=== PATIENT | female | born 1965 | race Caucasian/White ===

== ENCOUNTER 2024-07-06 20:59 | Emergency (ER) | payer MEDICARE, MEDICAID, SELFPAY ==
[2024-07-06 21:01] VITALS: BP 111/75
[2024-07-06 21:06] VITALS: BMI 19.7
--- NOTE | 2024-07-06 21:19 | ED.GENMED ---
History of Present Illness
General
Chief Complaint: Fall
Time Seen by Provider: 07/06/24 21:18
History of Present Illness
History of Present Illness:
HPI: The patient presents by ambulance from [facility] for evaluation after a fall. She states that she was in bed and fell however the details are somewhat unclear. She says that she just fell off the bed. She has a history of right-sided
weakness from stroke in 2016.
EXAM:
GENERAL: The patient appears chronically ill
CERVICAL SPINE: Mild midline c-spine tenderness; collar in place
HEAD: There is a stellate laceration with a total of 4 cm of laceration noted to the mid forehead, dried blood noted there
CHEST: No chest wall tenderness, normal heart sounds
LUNGS: Equal lung sounds, no respiratory distress
ABDOMEN: No abdominal tenderness, no peritoneal signs
EXTREMITIES: No tenderness
NEURO: Minimal strength with contracture noted to the right upper and right lower extremity, 4+ out of 5 strength to the left lower and left lower extremities
TIME OF INITIAL ENCOUNTER: 9:45 PM
NUMBER AND COMPLEXITY OF PROBLEMS ADDRESSED AT THE ENCOUNTER
� Chronic conditions affecting care: CVA, IBS, anemia, anxiety/depression
� Acute Exacerbation and/or Progression of Chronic Illness: This is an acute problem
� Differential Diagnosis includes: Intracranial hemorrhage, cervical spine fracture, facial laceration, minor head injury
AMOUNT AND/OR COMPLEXITY OF DATA TO BE REVIEWED AND ANALYZED
� I performed an independent evaluation of and my interpretation is:
EKG:
CT: CT head shows no acute abnormalities, small old left thalamic infarct was noted; no evidence of C-spine fracture
X-rays:
Laboratory Studies: White count 2.3, hemoglobin 11.8, platelets 87, chemistries relatively unremarkable
Other:
� Review of other/old records: No old records available for review in [employer] however I did review the records from [facility] which indicate she does have 'anemia and thrombocytopenia'
� Clinical information was obtained by an independent historian: EMS
� Prescriptions/Medications Considered but not given:
� Further testing considered but not performed:
RISK OF COMPLICATIONS AND/OR MORBIDITY OR MORTALITY OF PATIENT MANAGEMENT
� Social determinants of health affecting care: Resides at [facility]
� Discussion with other providers:
� Escalation of care including admission/observation vs risk of discharge considered: Given her prior history with somewhat of an unclear etiology, labs and CT imaging obtained. Review of notes from [facility] indicates that
she does have a history of anemia and thrombocytopenia. I did inform the patient of the low white count and indicated this on the discharge paperwork. She appears comfortable on reassessment at 10:30 PM
Phy Exam
Physical Exam
Physical Exam:
See HPI
Course
Orders/Labs/Results
Orders:
Orders
07/06/24 21:24
CT Cervical Spine W/o Iv Contr Urgent
Comment:
Reason For Exam: trauma midline tender
CT Head W/o Iv Contrast Urgent
Comment:
Reason For Exam: trauma
07/06/24 21:32
CMP [Comprehensive Metabolic Panel] Urgent
Complete Blood Count/With Diff Urgent
Abnormal Lab Results
07/06/24
21:32
WBC 2.3 L* 10^3/uL
(4.8-10.8)
RBC 3.67 L 10^6/uL
(4.20-5.40)
Hgb 11.8 L g/dL
(12.0-16.0)
Hct 34.6 L %
(37.0-47.0)
MCH 32.2 H pg
(27.0-31.0)
RDW 15.2 H %
(11.5-14.5)
Plt Count 87 L 10^3/uL
(130-400)
MPV 11.4 H fL
(7.4-10.4)
Absolute Neuts (auto) 1.3 L 10^3/uL
(1.4-6.5)
Absolute Lymphs (auto) 0.6 L 10^3/uL
(1.2-3.4)
Monocytes % 11.1 H %
(1.7-9.3)
Chloride 108 H mmol/L
(98-107)
Glucose 103 H mg/dl
(70-99)
AST 38 H U/L
(14-36)
Total Protein 6.1 L g/dl
(6.3-8.2)
Albumin 3.3 L g/dl
(3.5-5.0)
07/06/24 21:32
07/06/24 21:32
Vital Signs
Initial and Last Documented VS:
Initial Vital Signs
Temp Pulse Resp BP Pulse Ox
98.3 F 85 16 111/75 96
07/06/24 21:01 07/06/24 21:01 07/06/24 21:01 07/06/24 21:01 07/06/24 21:01
Last Documented Vital Signs
Temp Pulse Resp BP Pulse Ox
98.3 F 85 16 111/75 96
07/06/24 21:01 07/06/24 21:01 07/06/24 21:01 07/06/24 21:01 07/06/24 21:01
Procedures
Laceration Closure
Middle Forehead:
Status of Wound: clean
Description of Wound Edges: ragged and flap-well vascularized
Preparation: cleaned with saline
Anesthesia: 1% Lidocaine with epi
Revision/Debridement: routine- no revision
Wound exploration: explored to base- no FB
Type of Closure: single layer closure
Skin Closure Material: 5-0 prolene
Number of sutures: 6
*Critical Care Note
Total Time (30-74mins, 75-104mins- exclusive of procedures): Not Applicable
ED Attending Note
-
Portions of this chart may have been created with voice recognition software.� Occasional wrong word or��sound alike� substitutions may have occurred due to the inherent limitations of voice recognition software.
Discharge Plan
Departure
Patient Disposition: Home (Routine Discharge)
Date of Disposition: 07/06/24
Time of Disposition: 22:23
Patient with high blood pressure during this ER visit?: Yes
Discharge Problem:
Head injury
Instructions: Laceration
Prescriptions:
No Action
acetaminophen 325 mg Tablet
650 mg PO Q6HPRN PRN (Reason: moderate pain/temp>100.4)
thiamine HCl (vitamin B1) 100 mg Tablet
100 mg PO DAILY
magnesium hydroxide [Milk of Magnesia] 400 mg/5 mL Suspension
30 ml PO DAILYPRN PRN (Reason: constipation)
ascorbic acid (vitamin C) 500 mg Tablet
500 mg PO DAILY
amitriptyline 10 mg Tablet
10 mg PO QPM
bisacodyl [Dulcolax (bisacodyl)] 10 mg Suppository
10 mg [place] DAILYPRN PRN (Reason: if mom is ineffective)
sodium phosphates 19-7 gram/118 mL Enema
118 ml [place] DAILYPRN PRN (Reason: if dulcolax is ineffective)
folic acid 1 mg Tablet
1 mg PO DAILY
mirtazapine [Remeron] 15 mg Tablet
7.5 mg PO HS
zolpidem [Ambien] 10 mg Tablet
10 mg PO HS
duloxetine 60 mg Capsule,Delayed Release(Dr/Ec)
60 mg PO DAILY
lactulose [Enulose] 10 gram/15 mL Solution
30 ml PO DAILYPRN PRN (Reason: constipation)
calcium carbonate-vitamin D3 [Calcium 600 + D(3)] 600 mg-10 mcg (400 unit) Tablet
1 tab PO BID
Xifaxan 550 mg Tablet
550 mg PO BID
magnesium oxide 400 mg magnesium Tablet
400 mg PO BID
Activity Restrictions/Additional Instructions:
I recommend that the stitches be removed by your doctor or nurse at your facility in approximately 5 to 7 days. Return here if worse. Of note your white blood cell count is low at 2.3. Your hemoglobin is 11.8 and platelet count is 87. In review
of records from [facility], it indicates that you do have low platelets and anemia. I recommend that you follow with your doctor regarding the low white blood cell count. CAT scan of the brain and cervical spine showed no sign of injury.
Return here
Interventions
Interventions:
*General Assessment Last Done: 07/06/24 21:06
*Neglect/Abuse Screening Last Done: 07/06/24 21:06
*ED COVID-19 Vaccine History Last Done: 07/06/24 21:06
ED-Musculoskeletal Assessment Last Done: 07/06/24 21:06
ED- Neurological Assessment Last Done: 07/06/24 21:06
ED-Skin Assessment Last Done: 07/06/24 21:06
Discharge Date and Time
Print Language: LUXEMBOURGISH
[2024-07-06 21:53] LABS: ALT (SGPT) 18 U/L (0-35); AST (SGOT) 38 U/L (14-36); Albumin 3.3 g/dl (3.5-5.0); Alkaline Phosphatase 54 U/L (38-126); Blood Urea Nitrogen 14 mg/dl (7-17); Calcium 9.2 mg/dl (8.4-10.2); Carbon Dioxide 24 mmol/L (22-30); Chloride 108 mmol/L (98-107); Estimated Creatinine Clearance 76 ml/min; Glucose 103 mg/dl (70-99); Potassium 4.1 mmol/L (3.5-5.1); Sodium 137 mmol/L (135-145); Total Protein 6.1 g/dl (6.3-8.2); eGFR > 60.00
[2024-07-06 21:56] LABS: % Basophils 0.4 % (0-2); % Eosinophils 2.7 % (0-6); % Immature Granulocytes 0.4 % (0-0.5); % Lymphocytes 27.1 % (20.5-51.1); % Monocytes 11.1 % (1.7-9.3); % Neutrophils 58.3 % (42.2-75.2); Absolute Eosinophils 0.1 10^3/uL (0-0.7); Absolute Lymphocytes 0.6 10^3/uL (1.2-3.4); Absolute Monocytes 0.3 10^3/uL (0.1-0.6); Absolute Neutrophils 1.3 10^3/uL (1.4-6.5); Hematocrit 34.6 % (37.0-47.0); Hemoglobin 11.8 g/dL (12.0-16.0); Mean Corp Hgb Conc. 34.1 g/dL (33.0-37.0); Mean Corpuscular Hgb 32.2 pg (27.0-31.0); Mean Corpuscular Volume 94.3 fL (81.0-99.0); Mean Platelet Volume 11.4 fL (7.4-10.4); Nucleated Red Blood Cells % 0 %; Platelet Count 87 10^3/uL (130-400); Red Blood Cell Count 3.67 10^6/uL (4.20-5.40); Red Cell Dist. Width 15.2 % (11.5-14.5); White Blood Cell Count 2.3 10^3/uL (4.8-10.8)
[2024-07-07 01:10] VITALS: BP 130/78
== END 2024-07-07 01:33 | disposition home or self-care (01) ==
LOC: EMR 20:59
PROVIDERS: EMERGENCY PHYSICIAN Emergency Medicine; FAMILY PHYSICIAN Internal Medicine
DX: S09.90XA Unspecified injury of head, initial encounter (principal); S01.81XA Laceration without foreign body of other part of head, initial encounter; W06.XXXA Fall from bed, initial encounter; Z86.73 Personal history of transient ischemic attack (TIA), and cerebral infarction without residual deficits
CPT/HCPCS: 99284; 12011; 70450; 72125; 80053; 85025

== ENCOUNTER 2024-09-08 21:20 | Inpatient (IN) | payer MEDICARE, OTHER, SELFPAY ==
[2024-09-08] VITALS (12 sets, daily range): BP systolic 130–164; BP diastolic 85–104
[2024-09-08 13:46] LABS: Glucose - Point of Care 97 mg/dl (70-99)
[2024-09-08 14:42] LABS: ALT (SGPT) 21 U/L (0-35); AST (SGOT) 32 U/L (14-36); Albumin 3.4 g/dl (3.5-5.0); Alkaline Phosphatase 50 U/L (38-126); Blood Urea Nitrogen 20 mg/dl (7-17); Calcium 9.2 mg/dl (8.4-10.2); Carbon Dioxide 25 mmol/L (22-30); Chloride 111 mmol/L (98-107); Glucose 93 mg/dl (70-99); Potassium 4.7 mmol/L (3.5-5.1); Sodium 144 mmol/L (135-145); eGFR > 60.00
[2024-09-08 14:48] LABS: % Eosinophils 1.7 % (0-6); % Lymphocytes 20.4 % (20.5-51.1); % Monocytes 10.5 % (1.7-9.3); % Neutrophils 67.4 % (42.2-75.2); Absolute Lymphocytes 0.4 10^3/uL (1.2-3.4); Absolute Monocytes 0.2 10^3/uL (0.1-0.6); Absolute Neutrophils 1.2 10^3/uL (1.4-6.5); Hematocrit 32.1 % (37.0-47.0); Hemoglobin 10.7 g/dL (12.0-16.0); Mean Corp Hgb Conc. 33.3 g/dL (33.0-37.0); Mean Corpuscular Hgb 31.2 pg (27.0-31.0); Mean Corpuscular Volume 93.6 fL (81.0-99.0); Mean Platelet Volume 11.6 fL (7.4-10.4); Nucleated Red Blood Cells % 0 %; Platelet Count 65 10^3/uL (130-400); Red Blood Cell Count 3.43 10^6/uL (4.20-5.40); Red Cell Dist. Width 15.8 % (11.5-14.5); White Blood Cell Count 1.8 10^3/uL (4.8-10.8)
[2024-09-08] MEDS: NSS 1000 IV (15:25)
[2024-09-08 16:08] LABS: Urine Albumin Trace (Neg - Trace); Urine Bilirubin Negative (Negative); Urine Character Slightly Cloudy (Clear); Urine Color Yellow; Urine Glucose Negative (Negative); Urine Ketone Negative (Negative); Urine Leukocyte Trace (Negative); Urine Nitrite Negative (Negative); Urine Occult Blood Negative (Negative); Urine Specific Gravity 1.015 (<1.030); Urine Urobilinogen Negative (Neg - 1+)
[2024-09-08 16:45] LABS: Urine Amorphous Seen; Urine Bacteria Few (Negative)
[2024-09-08] MEDS: NSS 500 IV (18:34)
--- NOTE | 2024-09-08 18:50 | ED.GENMED ---
History of Present Illness
General
Chief Complaint: Change in Mental Status
Source: records, family and alf
Time Seen by Provider: 09/08/24 14:32
History of Present Illness
History of Present Illness:
59-year-old female history of right hemiplegia but apparently normally very alert was found this morning very lethargic with a change in mental status. She normally would have been up but was awoken at 9 AM in this condition. Was fine when she
went to bed last night. No other history available. No new meds as far as we know
Review of Systems
Review of Systems
Unable to obtain full review of systems at this time due to: due to acuity
All Other Systems: Not applicable
Phy Exam
Physical Exam
Physical Exam:
GENERAL: Very lethargic. Will make eye contact. Does not follow commands. Chronically ill-appearing
EYE: Orbits normal.
NECK: Supple
CARDIAC: Regular rate and rhythm without any obvious murmurs.
LUNGS: Clear breath sounds,normal
ABDOMEN: Soft, without focal tenderness or distention
NEUROLOGICAL: Will respond to pain. Does not follow commands. Significant old right hemiplegia.
SKIN: Warm and dry, no rash or lesion, no discoloration, skin intact.
MUSCULOSKELETAL: Right-sided contractures right arm and right leg
PSYCH: Normal and appropriate interaction.
Course
Orders/Labs/Results
Orders:
Orders
09/08/24 14:08
Complete Blood Count/With Diff Urgent
Comprehensive Metabolic Panel Urgent
09/08/24 14:33
Electrocardiogram (*1) Stat
Reason for Study: Other
Other Reason for Exam: neuro symptoms
Cardiac Monitoring- Treatment ONCE
EKG- Treatment ONCE
IV Insert/Care/Rem.- Treatment PRN
Pulse Ox/cont/shift [RESP] Stat
Quantity: 1
09/08/24 14:48
IV Insert/Care/Rem.- Treatment PRN
0.9% Sodium Chloride 1000 ml [Nss] 1,000 ml IV BOLUS
09/08/24 14:59
CT Head W/o Iv Contrast Urgent
Comment:
Reason For Exam: Change in mental status
09/08/24 15:30
Urinalysis Reflex To Culture Urgent
Date Specimen was Collected: 09/08/24
Time Specimen was Collected: 15:24
Urine Microscopic Reflex Cult Urgent
09/08/24 18:30
0.9% Sodium Chloride 500 ml [Nss] 500 ml IV BOLUS
Abnormal Lab Results
09/08/24 09/08/24
14:08 15:30
WBC 1.8 L* 10^3/uL
(4.8-10.8)
RBC 3.43 L 10^6/uL
(4.20-5.40)
Hgb 10.7 L g/dL
(12.0-16.0)
Hct 32.1 L %
(37.0-47.0)
MCH 31.2 H pg
(27.0-31.0)
RDW 15.8 H %
(11.5-14.5)
Plt Count 65 L 10^3/uL
(130-400)
MPV 11.6 H fL
(7.4-10.4)
Absolute Neuts (auto) 1.2 L 10^3/uL
(1.4-6.5)
Absolute Lymphs (auto) 0.4 L 10^3/uL
(1.2-3.4)
Lymphocytes % 20.4 L %
(20.5-51.1)
Monocytes % 10.5 H %
(1.7-9.3)
Chloride 111 H mmol/L
(98-107)
BUN 20 H mg/dl
(7-17)
Total Protein 6.0 L g/dl
(6.3-8.2)
Albumin 3.4 L g/dl
(3.5-5.0)
Leukocyte Esterase Rfl Trace A
(Negative)
Urine Bacteria (Reflex) Few A
(Negative)
09/08/24 14:08
09/08/24 14:08
Vital Signs
Initial and Last Documented VS:
Initial Vital Signs
Pulse Resp Pulse Ox
106 19 97
09/08/24 13:44 09/08/24 13:44 09/08/24 13:44
Last Documented Vital Signs
Temp Pulse Resp BP Pulse Ox
99.1 F 91 18 159/87 97
09/08/24 15:30 09/08/24 19:00 09/08/24 19:00 09/08/24 19:03 09/08/24 19:00
MDM/Problems Addressed
Differential Diagnosis Includes:
Patient with change in mental status at some point overnight. Vital signs of remained stable throughout the day. Possible etiologies would be new CVA. Clearly out of the window of thrombolytics. Atypical seizures, medications. Family updated
multiple times.
*Radiology
Radiology exam reviewed: radiology read reviewed (No acute findings)
*Pulse Oximetry
Patient hypoxic: no
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
Rate: normal
Interpretation: normal
Heart Rate: 77
Rhythm: sinus
*Critical Care Note
Total Time (30-74mins, 75-104mins- exclusive of procedures): 40
Update Note
Update Note:
Patient is remained unchanged. Still very lethargic. This is clearly not her baseline. Cussed with patient's niece and discussed with the nursing facility who are in agreement that this is a change. Per the nursing facility patient apparently
did not get up for breakfast and was awoken at 9 AM like this. So what ever mental status change occurred it occurred overnight.
ED Attending Note
-
Portions of this chart may have been created with voice recognition software.� Occasional wrong word or��sound alike� substitutions may have occurred due to the inherent limitations of voice recognition software.
Discharge Plan
Departure
Patient Disposition: Admit
Date of Disposition: 09/08/24
Time of Disposition: 18:51
Presentation/result/management discussed w/ accepting MD/DO: Hospitalist
Discharge Problem:
Lethargy/change in mental status
Prescriptions:
No Action
acetaminophen 325 mg Tablet
650 mg PO Q6HPRN PRN (Reason: moderate pain/temp>100.4)
thiamine HCl (vitamin B1) 100 mg Tablet
100 mg PO DAILY
magnesium hydroxide [Milk of Magnesia] 400 mg/5 mL Suspension
30 ml PO DAILYPRN PRN (Reason: constipation)
ascorbic acid (vitamin C) 500 mg Tablet
500 mg PO DAILY
amitriptyline 10 mg Tablet
10 mg PO QPM
bisacodyl [Dulcolax (bisacodyl)] 10 mg Suppository
10 mg [place] DAILYPRN PRN (Reason: if mom is ineffective)
sodium phosphates 19-7 gram/118 mL Enema
118 ml OR DAILYPRN PRN (Reason: if dulcolax is ineffective)
folic acid 1 mg Tablet
1 mg PO DAILY
mirtazapine [Remeron] 15 mg Tablet
7.5 mg PO HS
zolpidem [Ambien] 10 mg Tablet
10 mg PO HS
duloxetine 60 mg Capsule,Delayed Release(Dr/Ec)
60 mg PO DAILY
lactulose [Enulose] 10 gram/15 mL Solution
30 ml PO DAILYPRN PRN (Reason: constipation)
calcium carbonate-vitamin D3 [Calcium 600 + D(3)] 600 mg-10 mcg (400 unit) Tablet
1 tab PO BID
Xifaxan 550 mg Tablet
550 mg PO BID
magnesium oxide 400 mg magnesium Tablet
400 mg PO BID
Referrals:
Frankie,Ryan I., DO [Family Provider] -
Interventions
Interventions:
*Risk Screen - Suicide Last Done: 09/08/24 13:53
*General Assessment Last Done: 09/08/24 13:53
*Neglect/Abuse Screening Last Done: 09/08/24 13:53
*ED COVID-19 Vaccine History Last Done: 09/08/24 13:52
ED- Neurological Assessment Last Done: 09/08/24 13:55
ED Swallowing Screen Last Done: 09/08/24 13:56
Discharge Date and Time
Print Language: AMHARIC
--- NOTE | 2024-09-08 20:46 | HPS.HSE ---
Family Physician
-
Family Physician: Ryan David
Chief Complaint
-
Lethargy and altered mental status
History of Present Illness
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
[facility] with acute development of lethargy and altered mental status.
Patient unable to provide any history. She was awake but was not communicative. This was a different from a presentation in June when she had a fall but was able to related history of the fall to the ED physician. This time she was not saying
anything. Per [facility] records stated that she was in usual state of health the previous evening and then she arose this morning with severe lethargy and noncommunicating. She is usually quite alert at baseline per [facility]. I contacted
the [facility] but there was no one available available to provide additional history. Also contacted the next of kin with the brother and also not available to provide history.
In the ED she was afebrile with a temp of 99.1, blood pressure 159/87 pulse 91 oxygen saturation was 91%. ECG showed normal sinus rhythm at a rate of 88 with a left bundle branch block without any known prior ECG. Head CT shows no acute
intracranial process. Labs are notable for a leukopenia with a white count of 1.8, platelet count of 65 and hemoglobin of 10.7. Chemistries were within normal limits. LFTs within normal limits. UA was unremarkable with trace leukocyte esterase.
Medical History
Past Medical History
Past Medical History: Reports Other
Additional Past Medical History:
CVA with hemiplegia and hemiparesis, aphasia, dysphagia,
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
Major depressive disorder
Pancytopenia
Anxiety
Past Surgical History: [facility]
Social History
Tobacco: Non-smoker
Alcohol: Former
Drug: None
Personal: Single
Living: Halfway
Employment: Disabled
Family History
Family History: Not pertinent
Allergies / Home Medications
Allergies reflects when Allergies were last updated in [facility].
Home Medications with original date entered in [facility]
Allergy/Medication List:
Allergies
Allergy/AdvReac Type Severity Reaction Status Date / Time
No Known Allergies Allergy Verified 07/06/24 21:05
Home Medications
acetaminophen 325 mg tablet 650 mg PO Q6HPRN PRN moderate pain/temp>100.4 07/06/24
amitriptyline 10 mg tablet 10 mg PO QPM 07/06/24
ascorbic acid (vitamin C) 500 mg tablet 500 mg PO DAILY 07/06/24
bisacodyl 10 mg rectal suppository (Dulcolax (bisacodyl)) 10 mg [place] DAILYPRN PRN if mom is ineffective 07/06/24
calcium 600 mg (as carbonate)-vitamin D3 10 mcg (400 unit) tablet (Calcium 600 + D(3)) 1 tab PO BID 07/06/24
duloxetine 60 mg capsule,delayed release 60 mg PO DAILY 07/06/24
folic acid 1 mg tablet 1 mg PO DAILY 07/06/24
lactulose 10 gram/15 mL oral solution (Enulose) 30 ml PO DAILYPRN PRN constipation 07/06/24
magnesium hydroxide 400 mg/5 mL oral suspension (Milk of Magnesia) 30 ml PO DAILYPRN PRN constipation 07/06/24
magnesium oxide 400 mg PO BID 07/06/24
mirtazapine 15 mg tablet (Remeron) 7.5 mg PO HS 07/06/24
rifaximin 550 mg tablet (Xifaxan) 550 mg PO BID 07/06/24
sodium phosphates 19 gram-7 gram/118 mL enema 118 ml [place] DAILYPRN PRN if dulcolax is ineffective 07/06/24
thiamine HCl (vitamin B1) 100 mg tablet 100 mg PO DAILY 07/06/24
zolpidem 10 mg tablet (Ambien) 10 mg PO HS 07/06/24
Review of Systems
-
Unable to obtain full review of systems at this time due to: Patient Non-verbal
Physical Exam
Vital Signs
Vital Signs
Temp Pulse Resp BP Pulse Ox
99.1 F 91 18 159/87 97
09/08/24 15:30 09/08/24 19:00 09/08/24 19:00 09/08/24 19:03 09/08/24 19:00
Physical Exam
General: No Apparent Distress and Appears Chronically Ill
HEENT: Anicteric, Moist mucous membranes, Atraumatic and PERRLA
Respiratory: Clear
Cardiac: S1/S2 and Regular Rhythm
Breast: Deferred by me
GI: Soft, Non Tender, Non Distended, No Hepatosplenomegaly and Other (reduced bowel sounds, no rebound or guarding)
Rectal: Deferred by Provider
Genito-urinary: Deferred by me
Musculoskeletal: No Clubbing, No Cyanosis and No Edema
Skin: Warm
Neuro: Awake, Facial Droop, Tremors and Other (non vocal. left hemiparesis)
Hematologic/Lymphatic: No Lymphadenopathy
Laboratory Results
-
09/08/24 14:08
09/08/24 14:08
Laboratory Results
Total Bilirubin 1.0 mg/dl (0.2-1.3) 09/08/24 14:08
AST 32 U/L (14-36) 09/08/24 14:08
ALT 21 U/L (0-35) 09/08/24 14:08
Alkaline Phosphatase 50 U/L (38-126) 09/08/24 14:08
Data Reviewed
-
CT Scan: Report Reviewed by me
Medical Tests (Nuc Med, Echo, EKG etc): Image Personally Visualized and interpreted
Lab Data: Labs Reviewed by me
Old Records: Reviewed
Impression/Plan
-
IMPRESSION:
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
notable for lack of interactions and local complications. Unfortunately history has been scanned the patient unable to provide history and ancillary sources not available at this time. The patient is nontoxic appearing. She is awake. She seems
aware of voice and visual presents in the room. She however does not follow commands. She does not attempt to talk. His labs are notable for leukopenia and thrombocytopenia which were previously observed in June. Electrolytes LFTs were normal.
UA is essentially bland. CT of the head shows no acute intracranial process. Patient has no prior history of seizures.
PLAN:
1. Acute altered mental status - Cannot rule out stroke or toxic metabolic encephalopathy. No obvious infection on immediate labs.
- admit to telemetry
- NPO for now
- neurochecks q 6
- further infectious w/u with influenza, covid testing
- check ammonia level given h/o cirrhosis
- will attempt lactulose enema if ammonia elevated as poorly tolerant of po, continue rifaximin as tolerated
- blood cultures, ruq u/s to eval for ascites
- iv fluids with d5 nS + IV thiamine
- holding remeron/zolpidem/trazodone/
2. 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 No h/o ascites and no obvious ascites on exam
- lactulose pr for now
- rifaximin if tolerating po
3. Pancytopenia - Known to be neutropenic and thrombocytopenic. Labs unchanged from prior
- infectious w/u as above
[2024-09-08 21:49] LABS: Ammonia 143 umol/L (9-30)
[2024-09-08 21:57] LABS: COVID-19 Antigen Negative (Negative)
[2024-09-09] VITALS (8 sets, daily range): BP systolic 104–141; BP diastolic 62–89; BMI 19.8
[2024-09-09] MEDS: LACTULOSE ENEMA 300 ML RECTAL ×2 (01:19→09:42)
[2024-09-09] MEDS: D5LR 1000 IV ×2 (01:53→17:28)
--- NOTE | 2024-09-09 03:00 | PTCARENOTE ---
Lactulose enema given @ 0119; patient tolerated; pt produced a large liquid bowel movement.
[2024-09-09 07:29] LABS: Ammonia 41 umol/L (9-30)
[2024-09-09 07:33] LABS: Hematocrit 27.3 % (37.0-47.0); Hemoglobin 9.4 g/dL (12.0-16.0); Mean Corp Hgb Conc. 34.4 g/dL (33.0-37.0); Mean Corpuscular Hgb 31.6 pg (27.0-31.0); Mean Corpuscular Volume 91.9 fL (81.0-99.0); Mean Platelet Volume 10.8 fL (7.4-10.4); Platelet Count 57 10^3/uL (130-400); Red Blood Cell Count 2.97 10^6/uL (4.20-5.40); Red Cell Dist. Width 15.5 % (11.5-14.5); White Blood Cell Count 2.1 10^3/uL (4.8-10.8)
[2024-09-09 07:51] LABS: Blood Urea Nitrogen 14 mg/dl (7-17); Calcium 8.6 mg/dl (8.4-10.2); Carbon Dioxide 21 mmol/L (22-30); Chloride 111 mmol/L (98-107); Estimated Creatinine Clearance 89 ml/min; Glucose 83 mg/dl (70-99); HDL Cholesterol 55 mg/dl; LDL Cholesterol, Calculated 73 mg/dl; Magnesium 1.7 mg/dl (1.6-2.3); Potassium 3.7 mmol/L (3.5-5.1); Sodium 143 mmol/L (135-145); Total Cholesterol 138 mg/dl (50-199); Triglyceride 53 mg/dl (10-149); Very Low Density Lipoprotein 10 mg/dl (0-30); eGFR > 60.00
--- NOTE | 2024-09-09 08:35 | W.PN.HOSP.TC ---
Addendum entered and electronically signed by Reinier Espino MD 09/09/24 13:10:
Presenting with sudden onset lethargy and altered mental status. Known history of CVA with left-sided paresis and hemiplegia with aphasia and dysphagia. History of alcohol induced cirrhosis.
Unable to obtain reliable ROS
Imaging
CT Brain
IMPRESSION:
No acute intracranial abnormality noted.
Abd ultrasound
IMPRESSION:
No sonographic evidence of abdominal ascites.
Physical Exam
NAD, resting comfortably in bed, right arm contractures
Scleral anicteric
Dry mucous membranes
No JVD
CTA bilateral
Normal S1-S2
Soft nontender nondistended bowel sounds active
No peripheral pitting edema
Awake, whispering, inchorent speech
Assessment and Plan
TME - acute, most likely hepatic encephalopathy, cannot accurently assess for asgterixs due to UE contractures, not followign commands wells. Therefore, at this time with r/o other potential causes
-MRI Brain
-TSH, b12/folate, RPR, HIV
-Neuro Consult
Decompensated cirrhosis in the setting of hepatic encephalopathy
-Lactulose rectal, until able to toelrate PO, then switch to 20mg bid with 3-4BM dialy
Pancytopenia, likely related to cirrhosis
-Outpt follow up
Original Note:
Today's Communication/Plan
-
Continue aspiration precautions. Allow permissive hypertension to avoid cerebral hypoperfusion. Check TSH, free T4, B12, UA tox, and creatinine kinase. Continue thiamine IV. Brain MRI without gadolinium ordered. Avoid medications that would
lower seizure threshold.
Assessment / Plan
Assessment / Plan
Impression/plan:
-Altered mental status secondary to stroke or toxic metabolic encephalopathy:
Patient admitted to telemetry
Patient remains n.p.o. for now
Neurochecks every 6 hours
Influenza and COVID-negative
Lactulose enema conducted as the patient is n.p.o. and poorly tolerant of oral intake.
Continue rifaximin as tolerated
Blood cultures sent
Right upper quadrant ultrasound to evaluate for ascites
IV fluids with D5 normal saline
IV thiamine
Appreciate neurology consult -they advise avoiding cerebral hypoperfusion so we will allow permissive hypertension
Appreciate gastroenterology consult -they recommend that if the patient passes [employer] CLEANER eval resume Xifaxan twice daily, then lactulose daily which already was part of her home routine -if not patient will need to go back to a lactulose enema daily.
Ultrasound was negative for ascites so spontaneous bacterial peritonitis would not be a factor in change in mental status. There was also no signs of GI bleed.
Holding Remeron, zolpidem, trazodone -do not want to lower seizure threshold
Brain MRI without gadolinium ordered
Check TSH, free T4, vitamin B12, UA toxicity, and creatinine kinase
-Cirrhosis secondary to alcohol use:
No history of ascites and no obvious ascites on physical exam
Abdominal ultrasound conducted on 09/09/2024 showed no sonographic evidence of abdominal ascites
Lactulose enema given
Rifaximin if tolerating oral intake
-Pancytopenia:
Possibly secondary to anemia of chronic disease
Known to be neutropenic and thrombocytopenic
Monitor infectious workup
WBCs low at 2.1, hemoglobin 9.4, RBCs at 2.97, platelets at 57 on 09/09/2024
DVT prophylaxis: Heparin subcu
DNR STATUS
Anticipated Discharge: > 48 hours
Subjective/Interval History
-
Date of Service: September 09, 2024
Met with patient at the bedside. She is in a confused state and unable to articulate where she is but she is able to state her name. She is unable to follow directions or commands. She does not appear to be in acute distress. Resting comfortably
in bed
Objective Data
-
Labs:
Laboratory Results
09/09/24
06:59
WBC 2.1 L*
Hgb 9.4 L
Hct 27.3 L
Plt Count 57 L
Sodium 143
Potassium 3.7
Chloride 111 H
Carbon Dioxide 21 L
BUN 14
Creatinine 0.6
Glucose 83
Calcium 8.6
Vital Signs:
Vital Signs
Temp Pulse Resp BP Pulse Ox
97.3 F 94 16 130/81 96
09/09/24 03:49 09/09/24 03:49 09/09/24 03:49 09/09/24 03:49 09/09/24 03:49
I&O
09/08/24 09/09/24 09/10/24
06:59 06:59 06:59
Intake Total 0 / 0
Balance 0 / 0
Review of Systems
-
Unable to obtain full review of systems at this time due to: Other (Patient confused)
History Source: Patient
Psych: Reports Other (Confusion)
Physical Exam
-
General: No Apparent Distress and Other (Somnolent)
HEENT: Normocephalic
Respiratory: Clear to Auscultation
Cardiac: Regular Rhythm and S1/S2
Breast: Deferred by me
GI: Soft, Nondistended and Tender
Rectal: Deferred by Provider
Genito-urinary: Deferred by me
Musculoskeletal: No Clubbing, No Cyanosis and No Edema
Skin: Warm and Dry
Neuro: Awake, Alert, Oriented and AO x 3
Psych: Calm
[2024-09-09] MEDS: HEPARIN 5000 UNITS SC ×2 (09:37→20:29)
[2024-09-09] MEDS: NSS (PRESERVATIVE FREE) 10 ML IV (09:39)
[2024-09-09] MEDS: PROTONIX IV 40 MG IV (09:39)
[2024-09-09] MEDS: XIFAXAN 550 MG PO ×2 (09:40→20:29)
[2024-09-09] MEDS: THIAMINE INJECTION 100 MG IV (09:40)
[2024-09-09] MEDS: FLUSH (NSS) 2 FLUSH IV (09:42)
--- NOTE | 2024-09-09 09:51 | CON.NEURO ---
Consultation
Order
Date of Consultation: 09/09/24
Requesting Provider: Bre Loera MD
Reason for Consult: Aphasia
CC: none
HPI: This is a 59-year-old woman who presented to [facility] on September 08, 2024 with aphasia. According to EMR patient is a shelter resident and can verbalize her needs.
ER VS: 157/91,106, 91% on RA, afebrile.
EKG: NSR, LBBB, QTc Int : 505 ms
PDMP: Zolpidem Tartrate 5 Mg�15 tabs filled in on 09/06/2024, 30 tabs filled in on 07/10/2024.
Labs: ammonia�143-41, WBCs�1.8, hemoglobin�10.7, platelets�65, absolute lymphocyte count�0.4, normal sodium, creatinine, glucose, magnesium�1.7, unremarkable urinalysis, negative SARS-cov2
CT head-chronic left thalamic infarct.
PMH: L thalamic stroke, hepatic cirrhosis, pancytopenia, insomnia, dysphagia, osteoporosis, BMI 19, MDD, [place],
PSH: Unknown
SH: Unknown
FH: Unknown
All:NKDA
ROS: Positive for aphasia, dysphagia, lethargy.
General: Well developed. In no acute distress.
Cardio: Regular rate and rhythm without murmur. Extremities are without cyanosis or edema.
Neuro:
Mental Status: Attends briefly. Does not follow requests. No verbal output.
CN: resists pupillary exam. Orthophoric primary gaze no facial asymmetry, hearing is preserved.
Motor: Spastic right Julian plegia. Flaccid left arm plegia.
Reflexes: Limited exam
Sensory: Grimaces to noxious stimuli
Coordination: No tremors, clonic movements.
Gait: deferred
Assessment and Plan:
I. Multifactorial encephalopathy (vascular, metabolic(hepatic))
II. History of left thalamic stroke
III. Pancytopenia
-Aspiration precautions.
-Avoid cerebral hypoperfusion, BEAMSTER suppressants and anticholinergic medications.
-please check TSH, free T4, vit B12, ua tox, CK
-Continue Thiamine 100mg QD IV
-Avoid medications, known to lower seizure threshold.
-Brain MRI wo [place]
-Will obtain collateral history from patient's family regarding cognitive baseline. Left a message for patient's brother Afia Cruz at [phone] with request to return my call.
-DVT prophylaxis.
I personally reviewed all radiology and labs along with past medical records pertinent to current medical problems. Total time spent in patient care is 60 minutes.
Thank you for allowing us to participate in the care of this patient. We will continue to follow. Please do not hesitate to contact us with any questions or concerns.
Subjective/Objective
Subjective Data
Date of Service: September 09, 2024
Objective Data
Vital Signs
Temp Pulse Resp BP Pulse Ox
36.5 C 89 18 135/85 96
09/09/24 08:36 09/09/24 08:36 09/09/24 08:36 09/09/24 08:36 09/09/24 08:36
Lab Results
09/09/24 06:59
09/09/24 06:59
Sodium 143 mmol/L (135-145) 09/09/24 06:59
Potassium 3.7 mmol/L (3.5-5.1) 09/09/24 06:59
BUN 14 mg/dl (7-17) 09/09/24 06:59
Glucose 83 mg/dl (70-99) 09/09/24 06:59
Calcium 8.6 mg/dl (8.4-10.2) 09/09/24 06:59
LDL Cholesterol, Calc 73 mg/dl 09/09/24 06:59
Patient Allergies
No Known Allergies Allergy (Verified 07/06/24 21:05)
Medications
-
Active Medications
Generic Name Dose Route Start Last Admin
Trade Name Freq PRN Reason Stop Dose Admin
Acetaminophen 650 mg 09/09/24 00:31
Acetaminophen 650 Mg Rectal Suppository RECTAL 10/07/24 00:30
Q4HPRN PRN
JACOB, mild pain, or temp >100.4F
Bisacodyl 10 mg 09/09/24 00:31
Bisacodyl 10 Mg Rectal Suppository RECTAL 10/07/24 00:30
DAILYPRN PRN
constipation
Heparin Sodium 5,000 units 09/09/24 08:00
Heparin 5,000 Units/Ml 1 Ml Vial SC 10/07/24 07:59
Q12 BENJY
Dextrose/Lactated Ringer's 1,000 mls @ 75 mls/hr 09/09/24 02:00 09/09/24 01:53
D5lr IV 1,000 mls
[id number] BENJY Administration
Pantoprazole Sodium 40 mg 09/09/24 08:00
Pantoprazole Sodium 40 Mg/10 Ml Vial IV 10/07/24 07:59
DAILY BENJY
Rifaximin 550 mg 09/09/24 08:00
Rifaximin 550 Mg Tablet PO
BID BENJY
Sodium Chloride 0 flush 09/08/24 22:00
Sodium Chloride 0.9% (Flush) Syringe IV 10/06/24 21:59
PER PROTOCOL BENJY
Sodium Chloride 10 ml 09/09/24 08:00
Sodium Chloride 0.9% (Preservative Free) 10 Ml Vial IV 10/07/24 07:59
DAILY BENJY
Thiamine HCl 100 mg 09/09/24 08:00
Thiamine (100 Mg/Ml) 2 Ml Vial IV 10/07/24 07:59
DAILY BENJY
Home Medications
�Medication �Instructions �Recorded
acetaminophen 325 mg tablet 650 mg PO Q6HPRN PRN moderate 07/06/24
pain/temp>100.4
amitriptyline 10 mg tablet 10 mg PO QPM 07/06/24
ascorbic acid (vitamin C) 500 mg 500 mg PO DAILY 07/06/24
tablet
bisacodyl 10 mg rectal suppository 10 mg SD DAILYPRN PRN if mom is 07/06/24
(Dulcolax (bisacodyl)) ineffective
calcium 600 mg (as 1 tab PO BID 07/06/24
carbonate)-vitamin D3 10 mcg (400
unit) tablet (Calcium 600 + D(3))
duloxetine 60 mg capsule,delayed 60 mg PO DAILY 07/06/24
release
folic acid 1 mg tablet 1 mg PO DAILY 07/06/24
lactulose 10 gram/15 mL oral 30 ml PO DAILYPRN PRN constipation 07/06/24
solution (Enulose)
magnesium hydroxide 400 mg/5 mL 30 ml PO DAILYPRN PRN constipation 07/06/24
oral suspension (Milk of Magnesia)
magnesium oxide 400 mg PO BID 07/06/24
mirtazapine 15 mg tablet (Remeron) 7.5 mg PO HS 07/06/24
rifaximin 550 mg tablet (Xifaxan) 550 mg PO BID 07/06/24
sodium phosphates 19 gram-7 118 ml SD DAILYPRN PRN if dulcolax 07/06/24
gram/118 mL enema is ineffective
thiamine HCl (vitamin B1) 100 mg 100 mg PO DAILY 07/06/24
tablet
zolpidem 10 mg tablet (Ambien) 10 mg PO HS 07/06/24
Vital Signs and Labs
-
Vital Signs and Labs:
Vital Signs
Temp Pulse Resp BP Pulse Ox
36.5 C 89 18 135/85 96
09/09/24 08:36 09/09/24 08:36 09/09/24 08:36 09/09/24 08:36 09/09/24 08:36
Lab Results
09/09/24 06:59
09/09/24 06:59
Sodium 143 mmol/L (135-145) 09/09/24 06:59
Potassium 3.7 mmol/L (3.5-5.1) 09/09/24 06:59
BUN 14 mg/dl (7-17) 09/09/24 06:59
Glucose 83 mg/dl (70-99) 09/09/24 06:59
Calcium 8.6 mg/dl (8.4-10.2) 09/09/24 06:59
LDL Cholesterol, Calc 73 mg/dl 09/09/24 06:59
Medications
-
Medications:
Generic Name Dose Route Start Last Admin
Trade Name Freq PRN Reason Stop Dose Admin
Acetaminophen 650 mg 09/09/24 00:31
Acetaminophen 650 Mg Rectal Suppository RECTAL 10/07/24 00:30
Q4HPRN PRN
JACOB, mild pain, or temp >100.4F
Bisacodyl 10 mg 09/09/24 00:31
Bisacodyl 10 Mg Rectal Suppository RECTAL 10/07/24 00:30
DAILYPRN PRN
constipation
Heparin Sodium 5,000 units 09/09/24 08:00
Heparin 5,000 Units/Ml 1 Ml Vial SC 10/07/24 07:59
Q12 BENJY
Dextrose/Lactated Ringer's 1,000 mls @ 75 mls/hr 09/09/24 02:00 09/09/24 01:53
D5lr IV 1,000 mls
[id number] BENJY Administration
Pantoprazole Sodium 40 mg 09/09/24 08:00
Pantoprazole Sodium 40 Mg/10 Ml Vial IV 10/07/24 07:59
DAILY BENJY
Rifaximin 550 mg 09/09/24 08:00
Rifaximin 550 Mg Tablet PO
BID EBNJY
Sodium Chloride 0 flush 09/08/24 22:00
Sodium Chloride 0.9% (Flush) Syringe IV 10/06/24 21:59
PER PROTOCOL BENJY
Sodium Chloride 10 ml 09/09/24 08:00
Sodium Chloride 0.9% (Preservative Free) 10 Ml Vial IV 10/07/24 07:59
DAILY BENJY
Thiamine HCl 100 mg 09/09/24 08:00
Thiamine (100 Mg/Ml) 2 Ml Vial IV 10/07/24 07:59
DAILY BENJY
Home Medications
-
Home Medications
acetaminophen 325 mg tablet 650 mg PO Q6HPRN PRN moderate pain/temp>100.4 07/06/24
amitriptyline 10 mg tablet 10 mg PO QPM 07/06/24
ascorbic acid (vitamin C) 500 mg tablet 500 mg PO DAILY 07/06/24
bisacodyl 10 mg rectal suppository (Dulcolax (bisacodyl)) 10 mg SD DAILYPRN PRN if mom is ineffective 07/06/24
calcium 600 mg (as carbonate)-vitamin D3 10 mcg (400 unit) tablet (Calcium 600 + D(3)) 1 tab PO BID 07/06/24
duloxetine 60 mg capsule,delayed release 60 mg PO DAILY 07/06/24
folic acid 1 mg tablet 1 mg PO DAILY 07/06/24
lactulose 10 gram/15 mL oral solution (Enulose) 30 ml PO DAILYPRN PRN constipation 07/06/24
magnesium hydroxide 400 mg/5 mL oral suspension (Milk of Magnesia) 30 ml PO DAILYPRN PRN constipation 07/06/24
magnesium oxide 400 mg PO BID 07/06/24
mirtazapine 15 mg tablet (Remeron) 7.5 mg PO HS 07/06/24
rifaximin 550 mg tablet (Xifaxan) 550 mg PO BID 07/06/24
sodium phosphates 19 gram-7 gram/118 mL enema 118 ml SD DAILYPRN PRN if dulcolax is ineffective 07/06/24
thiamine HCl (vitamin B1) 100 mg tablet 100 mg PO DAILY 07/06/24
zolpidem 10 mg tablet (Ambien) 10 mg PO HS 07/06/24
--- NOTE | 2024-09-09 10:47 | CON.GI ---
Addendum entered and electronically signed by Jacobo Munoz MD 09/09/24 12:37:
I saw and examined the patient.
The PA's note was reviewed and I agree with the note.
Comment:
59 year old female with h/o CVA and left hemiparesis, pancytopenia, and cirrhosis p/w AMS and aphasia. GI consulted for evaluation of HE.
Impression / Rec:
1. HE - possible HE w/ elevated ammonia, which resolved with lactulose enemas. Awake and following commands. Neurology evaluating pt for aphasia. US was -ve for ascites. Do not think her AMS is from HE. Follow up with neurology. GI will s/o.
Original Note:
Consultation
-
Date/Time Consultation Requested: 09/09/246
Date/Time Consultation Performed: 09/09/24 1015
Requesting Provider: Dr. Loera
Performing Provider: De. Munoz/UBALDO Tucker
Reason for Consultation: elevated ammonia
Medical History
Chief Complaint / HPI
Chief Complaint: change in mental status
History of Present Illness:
59-year-old female with past medical history left thalamus stroke, pancytopenia, insomnia, dysphagia, osteoporosis, depression, anxiety and cirrhosis presents to the emergency room with change in mental status and aphasia. Asked to evaluate for
elevated ammonia. The patient was not able to give any past medical history. When I spoke to her she could not her head however could not express verbally to me. The RN said that she was able to speak to her earlier. The patient did have a
lactulose enema did go from 143 down to 41. She does have another enema pending. She does have a right hemiparesis with contractures. Apparently according to the fpc she does speak and is alert and oriented x 3. This is not evident to
me. She nods her head yes and no. She denies any abdominal pain. She denies any nausea or vomiting.
Past Medical History
Past Medical History: CVA and Other (Pancytopenia, insomnia, dysphagia, osteoporosis, depression anxiety and cirrhosis)
Past Surgical History: Orthopedic
Social History
Tobacco: Non-Smoker
Alcohol: Former
Drug: None
Personal: Single
Living: Snf
Family History
Family History: Unable to Obtain
Allergies / Home Medications
Allergy/AdvReac Type Severity Reaction Status Date / Time
No Known Allergies Allergy Verified 07/06/24 21:05
�Medication �Instructions �Recorded
acetaminophen 325 mg tablet 650 mg PO Q6HPRN PRN moderate 07/06/24
pain/temp>100.4
amitriptyline 10 mg tablet 10 mg PO QPM 07/06/24
ascorbic acid (vitamin C) 500 mg 500 mg PO DAILY 07/06/24
tablet
bisacodyl 10 mg rectal suppository 10 mg HI DAILYPRN PRN if mom is 07/06/24
(Dulcolax (bisacodyl)) ineffective
calcium 600 mg (as 1 tab PO BID 07/06/24
carbonate)-vitamin D3 10 mcg (400
unit) tablet (Calcium 600 + D(3))
duloxetine 60 mg capsule,delayed 60 mg PO DAILY 07/06/24
release
folic acid 1 mg tablet 1 mg PO DAILY 07/06/24
lactulose 10 gram/15 mL oral 30 ml PO DAILYPRN PRN constipation 07/06/24
solution (Enulose)
magnesium hydroxide 400 mg/5 mL 30 ml PO DAILYPRN PRN constipation 07/06/24
oral suspension (Milk of Magnesia)
magnesium oxide 400 mg PO BID 07/06/24
mirtazapine 15 mg tablet (Remeron) 7.5 mg PO HS 07/06/24
rifaximin 550 mg tablet (Xifaxan) 550 mg PO BID 07/06/24
sodium phosphates 19 gram-7 118 ml HI DAILYPRN PRN if dulcolax 07/06/24
gram/118 mL enema is ineffective
thiamine HCl (vitamin B1) 100 mg 100 mg PO DAILY 07/06/24
tablet
zolpidem 10 mg tablet (Ambien) 10 mg PO HS 07/06/24
Review of Systems
-
Unable to obtain full review of systems at this time due to: Patient Non Verbal
Vital Signs
Temp Pulse Resp BP Pulse Ox
97.7 F 89 18 135/85 96
09/09/24 08:36 09/09/24 08:36 09/09/24 08:36 09/09/24 08:36 09/09/24 08:36
Physical Exam
Exam
General: Comfortable
HEENT: Anicteric
Respiratory: Clear (Anterior)
Cardiac: Regular Rhythm
GI: Soft, Non Tender, Non Distended and Normal Bowel Sounds
Musculoskeletal: Other (Right hemiparesis with right hand/arm contracture)
Skin: Warm and Dry
Neuro: Awake
Psych: Calm
Results
WBC 2.1 10^3/uL (4.8-10.8) L* 09/09/24 06:59
Hgb 9.4 g/dL (12.0-16.0) L 09/09/24 06:59
Hct 27.3 % (37.0-47.0) L 09/09/24 06:59
MCV 91.9 fL (81.0-99.0) 09/09/24 06:59
Plt Count 57 10^3/uL (130-400) L 09/09/24 06:59
Absolute Neuts (auto) 1.2 10^3/uL (1.4-6.5) L 09/08/24 14:08
Sodium 143 mmol/L (135-145) 09/09/24 06:59
Potassium 3.7 mmol/L (3.5-5.1) 09/09/24 06:59
Chloride 111 mmol/L (98-107) H 09/09/24 06:59
Carbon Dioxide 21 mmol/L (22-30) L 09/09/24 06:59
BUN 14 mg/dl (7-17) 09/09/24 06:59
Creatinine 0.6 mg/dL (0.6-1.0) 09/09/24 06:59
Calcium 8.6 mg/dl (8.4-10.2) 09/09/24 06:59
Total Bilirubin 1.0 mg/dl (0.2-1.3) 09/08/24 14:08
AST 32 U/L (14-36) 09/08/24 14:08
ALT 21 U/L (0-35) 09/08/24 14:08
Alkaline Phosphatase 50 U/L (38-126) 09/08/24 14:08
Diagnostic Image Results:
CT head:
IMPRESSION:
No acute intracranial abnormality noted.
Ultrasound abdomen:
IMPRESSION:
No sonographic evidence of abdominal ascites.
Prior GI Procedures:
EGD: Unable
Colonoscopy: Unable
Assessment / Plan
-
59-year-old female with past medical history left thalamus stroke, pancytopenia, insomnia, dysphagia, osteoporosis, depression, anxiety and cirrhosis presents to the emergency room with change in mental status and aphasia. Asked to evaluate for
elevated ammonia. Elevated ammonia now resolved with lactulose enemas. Being worked up from a neurological standpoint. Ultrasound negative for signs of ascites. Discussed with RN no signs of GI bleeding. Hemoglobin stable. Stools brown.
Impression:
Change in mental status
Cirrhosis-> unknown etiology
Elevated ammonia-> now improved
--> If passes INVENTORY CONTROL/SHIPPING RECEIVING eval can resume Xifaxan twice daily, then lactulose daily which appears to be her home routine
--> If not then would go back to lactulose enema daily
--> Ultrasound negative for ascites therefore SBP would not be a factor in change in mental status
--> No signs of GI bleeding
--> Would defer to neurology and internal medicine for other etiologies.
-
-
Thank you for consultation and allowing me to participate in the patient's care. Please call the resource conservation specialist GI physician during the after hours with any questions or concerns.
[2024-09-09 13:07] LABS: Creatine Phosphokinase 123 U/L (30-135)
--- NOTE | 2024-09-09 13:16 | PTOTSP ---
SPEECH THERAPY SWALLOW EVALUATION:
Patient exhibits clinical signs of oropharyngeal dysphagia, likely chronic related to history of CVA and acutely exacerbated by AMS/TME. Patient remains at risk for aspiration given confusion/lethargy. Per RN, patient on Regular texture diet/thin
liquids at baseline at [facility]. No prior ST at . Recommend IDDSI Level 4 Puree diet, thin liquids. Medications crushed in applesauce. Aspiration precautions: 1:1 assistance, 100% supervision; small single sips/bites; Slow rate of intake;
Upright positioning; Only feed when awake/alert; Check for pocketing; Ensure patient swallows prior to next bite; Monitor for signs of aspiration and d/c oral diet if any decline in mental or respiratory status. Oral care 3x/day to reduce risk for
nosocomial infection. ST to follow, assess diet tolerance and modify as appropriate, determine indication for instrumental assessment of swallowing as appropriate, and provide continued diagnostic swallow therapy as appropriate.
RECOMMEND:
1) IDDSI Level 4 Puree diet, thin liquids
2) Medications crushed in applesauce
3) Aspiration precautions: 1:1 assistance, 100% supervision; small single sips/bites; Slow rate of intake; Upright positioning; Only feed when awake/alert; Check for pocketing; Ensure patient swallows prior to next bite; Monitor for signs of
aspiration and d/c oral diet if any decline in mental or respiratory status
4) Oral care 3x/day to reduce risk for nosocomial infection
5) ST to follow
--- NOTE | 2024-09-09 13:17 | CM ---
Addendum entered by Kalyn Rivera 09/09/24 13:38:
The phone for report is [phone], fax [phone].
Original Note:
Tierra spoke with MOOK Vergara at [facility].
Baseline pt is oriented x 3, voices command, no use of right arm/hand, full use of LUE, has cirrhosis, dependent for transfers, lay lift, assist with adl's, pt is able to feed self with left arm.
TIERRA called and spoke with pt's brother Anthony [phone] who is aware of pt being admitted to hospital.
Discharge dispo return to [facility] when medically stable.
[2024-09-09 13:40] LABS: TSH Reflex To Free T4 1.98 uIU/ml (0.47-4.68)
[2024-09-09 13:59] LABS: Vitamin B12 364 pg/ml (239-931)
[2024-09-09 18:11] LABS: Glucose - Point of Care 114 mg/dl (70-99)
[2024-09-10 03:09] VITALS: BP 122/70
[2024-09-10] MEDS: D5LR 1000 IV (04:56)
[2024-09-10 07:08] VITALS: BP 123/70
--- NOTE | 2024-09-10 07:32 | W.PN.HOSP.TC ---
Addendum entered and electronically signed by Ian Espino MD 09/10/24 15:53:
I saw and evaluated the patient. I reviewed the resident�s note and agree with findings and plan as documented in the resident�s note.
1. Acute hepatic encephalopathy -known history of cirrhosis presented with new onset confusion. CT head without any acute abnormality. No secondary infection. Hold jail dose of Remeron/Ambien for now. ammonia at admission of 143 which
improved with rifaximin. Patient mentation is back to normal. Adding lactulose with goal of 3 bowel movements a day. Neurology following and recommended MRI brain although currently no focal neurological deficit and will hold.
2. History of CVA with right-sided hemiplegia -[facility] is a [facility] resident. Family requested physical therapy evaluation although likely patient does not have any capacity at this point to participate with physical therapy.
Patient dischargeable to [facility] if clinically remains stable. Likely tomorrow.
Original Note:
Today's Communication/Plan
-
Hepatic encephalopathy with elevated ammonia levels. Cognitive status improved with lactulose enemas. Patient is awake and following commands. Neurology continues to follow the patient and will be evaluating the patient for aphasia. Will discuss
with neurology whether further MRI imaging is indicated.
Assessment / Plan
Assessment / Plan
HPI: Patient is a 59-year-old female with a history of right hemiplegia but normally very alert was found the morning of her presentation to the emergency department in a very lethargic state and with change to mental status. She has an extensive
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 Normally, she would have been up in the morning but was awoken at 9 AM in her
confused state. She was fine when she went to bed the prior evening. When she was awoken she was awake but not able to communicate. The presentation was different from the prior presentation in June of this year when she had a fall but was able
to articulate herself in the emergency department. In the emergency department she was not communicating anything at all. halfway records stated that she was in her usual state of health the previous evening and then when awoken in the
morning she was severely lethargic and noncommunicating. In the emergency department the patient was afebrile with a temperature 99.1, blood pressure 159/87, pulse 91, oxygen saturation 91%. ECG showed a normal sinus rhythm at a rate of 88 with a
left bundle branch block without any prior known ECG. Head CT shows no acute intracranial processes. Labs are notable for leukopenia with a white cell count of 1.8, platelet count of 65, and a hemoglobin of 10.7. Her chemistries were within
normal limits and LFTs were within normal limits as well. UA was unremarkable with trace leukocyte Estrace. The patient was admitted to [facility] for acute altered mental status.
Impression/plan:
-Hepatic encephalopathy: Resolving/improved
Patient admitted to telemetry
Patient was advanced to an IDDSI 4 pur�ed diet and is tolerating the diet well
Neurochecks every 6 hours
Influenza and COVID-negative
Continue rifaximin as tolerated
Blood cultures sent
Right upper quadrant ultrasound to evaluate for ascites
IV fluids with D5 normal saline
IV thiamine
Appreciate neurology consult -they advise avoiding cerebral hypoperfusion so we will allow permissive hypertension
Appreciate gastroenterology consult -they recommend that if the patient passes MIXER WET POUR eval resume Xifaxan twice daily, then lactulose daily which already was part of her home routine -if not patient will need to go back to a lactulose enema daily.
Ultrasound was negative for ascites so spontaneous bacterial peritonitis would not be a factor in change in mental status. There was also no signs of GI bleed.
Holding Remeron, zolpidem, trazodone -do not want to lower seizure threshold
Brain MRI without gadolinium ordered -will discuss with neurology whether testing is indicated at this time.
TSH and vitamin B12 within normal limits, urine analysis was unremarkable, creatinine kinase within normal limits
Patient able to follow and understand questions and commands. No longer in a confused state.
-Cirrhosis secondary to alcohol use:
No history of ascites and no obvious ascites on physical exam
Abdominal ultrasound conducted on 09/09/2024 showed no sonographic evidence of abdominal ascites
Lactulose enema given
Rifaximin if tolerating oral intake
-Pancytopenia:
Possibly secondary to anemia of chronic disease
Known to be neutropenic and thrombocytopenic
Monitor infectious workup
WBCs low at 2.1, hemoglobin 9.4, RBCs at 2.97, platelets at 57 on 09/09/2024
DVT prophylaxis: Heparin subcu
DNR STATUS
Anticipated Discharge: > 48 hours
Subjective/Interval History
-
Date of Service: September 10, 2024
Met with patient at the bedside. She is able to understand and answer questions appropriately. She understands commands and follows them. She is aware of who she is and where she currently is located. She knew that she is at [facility].
She shared a brief history of her past medical conditions including past history of stroke. She shared that the stroke led to her long-term care at a nursing facility. She offers no complaints at the present time and believes that she is at her
baseline.
Objective Data
-
Labs:
Labs
09/10/24 08:44
09/10/24 08:44
Vital Signs:
Vital Signs
Temp Pulse Resp BP Pulse Ox
98.6 F 75 16 123/70 99
09/10/24 07:08 09/10/24 07:08 09/10/24 07:08 09/10/24 07:08 09/10/24 07:08
I&O
09/09/24 09/10/24 09/11/24
06:59 06:59 06:59
Intake Total 0 / 0 810 / 810
Balance 0 / 0 810 / 810
Review of Systems
-
History Source: Patient
Constitutional: Reports No Symptoms
EENT: Reports No Symptoms Reported
Respiratory: Reports No Symptoms
Cardiac: Reports No Symptoms
Abdomen/GI: Reports No Symptoms
Breast: Reports No Symptoms
Genitourinary: Reports No Symptoms
Musculoskeletal: Reports Other (Left-sided weakness)
Skin: Reports No Symptoms
Neuro: Reports Other (Left-sided weakness)
Endocrine: Reports No Symptoms
Hematologic / Lymphatic: Reports No Symptoms
Allergy / Immunology: Reports No Symptoms
Physical Exam
-
General: Well Developed, No Apparent Distress, Comfortable and Other (Difficulty speaking due to chronic effects from the consequences of a previous stroke)
HEENT: Normocephalic, Atraumatic and Moist Mucous Membranes
Respiratory: Clear to Auscultation and Non Labored Respirations
Cardiac: Regular Rhythm and S1/S2
Breast: Deferred by me
GI: Soft, Nontender, Nondistended and Normal Bowel Sounds
Rectal: Deferred by Provider
Genito-urinary: Deferred by me
Musculoskeletal: No Clubbing, No Cyanosis and No Edema
Skin: Warm, Dry and Rash
Neuro: Awake, Alert and Oriented
Psych: Calm
[2024-09-10 09:32] LABS: Hematocrit 28.9 % (37.0-47.0); Mean Corp Hgb Conc. 34.6 g/dL (33.0-37.0); Mean Corpuscular Hgb 31.3 pg (27.0-31.0); Mean Corpuscular Volume 90.6 fL (81.0-99.0); Mean Platelet Volume 11.7 fL (7.4-10.4); Platelet Count 64 10^3/uL (130-400); Red Blood Cell Count 3.19 10^6/uL (4.20-5.40); Red Cell Dist. Width 15.5 % (11.5-14.5); White Blood Cell Count 2.6 10^3/uL (4.8-10.8)
[2024-09-10] MEDS: PROTONIX IV 40 MG IV (09:43)
[2024-09-10] MEDS: NSS (PRESERVATIVE FREE) 10 ML IV (09:43)
[2024-09-10] MEDS: THIAMINE INJECTION 100 MG IV (09:43)
[2024-09-10 09:44] LABS: ALT (SGPT) 19 U/L (0-35); AST (SGOT) 32 U/L (14-36); Albumin 2.8 g/dl (3.5-5.0); Alkaline Phosphatase 42 U/L (38-126); Blood Urea Nitrogen 10 mg/dl (7-17); Calcium 8.6 mg/dl (8.4-10.2); Carbon Dioxide 21 mmol/L (22-30); Chloride 111 mmol/L (98-107); Estimated Creatinine Clearance 89 ml/min; Glucose 88 mg/dl (70-99); Potassium 3.6 mmol/L (3.5-5.1); Sodium 140 mmol/L (135-145); Total Bilirubin 1.2 mg/dl (0.2-1.3); Total Protein 5.3 g/dl (6.3-8.2); eGFR > 60.00
[2024-09-10] MEDS: XIFAXAN 550 MG PO ×2 (09:45→21:46)
[2024-09-10] MEDS: HEPARIN 5000 UNITS SC ×2 (09:46→21:45)
[2024-09-10 11:35] VITALS: BP 106/57
[2024-09-10 12:40] LABS: Folate > 20.0 ng/ml (2.76-20)
--- NOTE | 2024-09-10 13:20 | W.PN.NEURO.1 ---
Today's Communication / Plan
-
.
Subjective/Objective
Subjective Data
Date of Service: September 10, 2024
Neurology follow-up note.
Ms. Oreilly reports no complaints. She has been normotensive and afebrile.
Brain MRI is pending. No reports of abnormal movements.
Ammonia�143-41, normal TFTs, vitamin B12.
PMH: L thalamic stroke, hepatic cirrhosis, h/o ETOH addiction, pancytopenia, insomnia, dysphagia, osteoporosis, BMI 19, MDD, [place],
PSH: Unknown
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
All:NKDA
ROS: Positive for transient aphasia, lethargy.
General: Well developed. In no acute distress.
Cardio: Regular rate and rhythm without murmur. Extremities are without cyanosis or edema.
Neuro:
Mental Status: Awake, oriented to self, place, year, month, day and date were incorrect. Follows complex requests. Impaired attention.
CN: resists pupillary exam. Orthophoric primary gaze no facial asymmetry, hearing is preserved.
Motor: Spastic right hemiparesis, left arm and leg�antigravity.
Coordination: No tremors or myoclonic movements.
Gait: deferred
Assessment and Plan:
I. Multifactorial encephalopathy (vascular, metabolic(hepatic)), resolved.
II. History of left thalamic stroke
III. Pancytopenia
-Aspiration precautions.
-Avoid cerebral hypoperfusion, MOBILE BATTERY TECHNICIAN suppressants and anticholinergic medications.
-Please recall neurology service if any abnormalities on brain MRI.
-Continue Thiamine
-DVT prophylaxis.
I personally reviewed all radiology and labs along with past medical records pertinent to current medical problems. Total time spent in patient care is 35 minutes.
Thank you for allowing us to participate in the care of this patient. Please do not hesitate to contact us with any questions or concerns.
Objective Data
Vital Signs
Temp Pulse Resp BP Pulse Ox
36.8 C 77 18 106/57 96
09/10/24 11:35 09/10/24 11:35 09/10/24 11:35 09/10/24 11:35 09/10/24 11:35
Lab Results
09/10/24 08:44
09/10/24 08:44
Sodium 140 mmol/L (135-145) 09/10/24 08:44
Potassium 3.6 mmol/L (3.5-5.1) 09/10/24 08:44
BUN 10 mg/dl (7-17) 09/10/24 08:44
Glucose 88 mg/dl (70-99) 09/10/24 08:44
Calcium 8.6 mg/dl (8.4-10.2) 09/10/24 08:44
LDL Cholesterol, Calc 73 mg/dl 09/09/24 06:59
Vitamin B12 364 pg/ml (239-931) 09/09/24 12:35
Patient Allergies
No Known Allergies Allergy (Verified 07/06/24 21:05)
Vital Signs and Labs
-
Vital Signs and Labs:
Vital Signs
Temp Pulse Resp BP Pulse Ox
36.8 C 77 18 106/57 96
09/10/24 11:35 09/10/24 11:35 09/10/24 11:35 09/10/24 11:35 09/10/24 11:35
Lab Results
09/10/24 08:44
09/10/24 08:44
Sodium 140 mmol/L (135-145) 09/10/24 08:44
Potassium 3.6 mmol/L (3.5-5.1) 09/10/24 08:44
BUN 10 mg/dl (7-17) 09/10/24 08:44
Glucose 88 mg/dl (70-99) 09/10/24 08:44
Calcium 8.6 mg/dl (8.4-10.2) 09/10/24 08:44
LDL Cholesterol, Calc 73 mg/dl 09/09/24 06:59
Vitamin B12 364 pg/ml (397-565) 09/09/24 12:35
Medications
-
Medications:
Generic Name Dose Route Start Last Admin
Trade Name Freq PRN Reason Stop Dose Admin
Acetaminophen 650 mg 09/09/24 00:31
Acetaminophen 650 Mg Rectal Suppository RECTAL 10/07/24 00:30
Q4HPRN PRN
JACOB, mild pain, or temp >100.4F
Bisacodyl 10 mg 09/09/24 00:31
Bisacodyl 10 Mg Rectal Suppository RECTAL 11 00:30
DAILYPRN PRN
constipation
Heparin Sodium 5,000 units 09/09/24 08:00 09/10/24 09:46
Heparin 5,000 Units/Ml 1 Ml Vial SC 10/07/24 07:59 5,000 units
Q12 BENJY Administration
Pantoprazole Sodium 40 mg 09/09/24 08:00 09/10/24 09:43
Pantoprazole Sodium 40 Mg/10 Ml Vial IV 10/07/24 07:59 40 mg
DAILY BENJY Administration
Rifaximin 550 mg 09/09/24 08:00 09/10/24 09:45
Rifaximin 550 Mg Tablet PO 550 mg
BID BENJY Administration
Sodium Chloride 0 flush 09/08/24 22:00 09/09/24 09:42
Sodium Chloride 0.9% (Flush) Syringe IV 10/06/24 21:59 2 flush
PER PROTOCOL BENJY Administration
Sodium Chloride 10 ml 09/09/24 08:00 09/10/24 09:43
Sodium Chloride 0.9% (Preservative Free) 10 Ml Vial IV 10/07/24 07:59 10 ml
DAILY BENJY Administration
Thiamine HCl 100 mg 09/09/24 08:00 09/10/24 09:43
Thiamine (100 Mg/Ml) 2 Ml Vial IV 10/07/24 07:59 100 mg
DAILY BENJY Administration
Home Medications
-
Home Medications
acetaminophen 325 mg tablet 650 mg PO Q6HPRN PRN moderate pain/temp>100.4 07/06/24
amitriptyline 10 mg tablet 10 mg PO Q OTHER DAY 07/06/24
ascorbic acid (vitamin C) 500 mg tablet 500 mg PO DAILY anemia 07/06/24
bisacodyl 10 mg rectal suppository (Dulcolax (bisacodyl)) 10 mg KS DAILYPRN PRN if mom is ineffective 07/06/24
calcium 600 mg (as carbonate)-vitamin D3 10 mcg (400 unit) tablet (Calcium 600 + D(3)) 1 tab PO BID 07/06/24
duloxetine 60 mg capsule,delayed release 60 mg PO DAILY 07/06/24
folic acid 1 mg tablet 1 mg PO DAILY 07/06/24
lactulose 10 gram/15 mL oral solution (Enulose) 30 ml PO DAILYPRN PRN constipation 07/06/24
magnesium hydroxide 400 mg/5 mL oral suspension (Milk of Magnesia) 30 ml PO DAILYPRN PRN constipation 07/06/24
magnesium oxide 400 mg PO BID 07/06/24
mirtazapine 15 mg tablet (Remeron) 7.5 mg PO HS anxiety 07/06/24
rifaximin 550 mg tablet (Xifaxan) 550 mg PO BID 07/06/24
sodium phosphates 19 gram-7 gram/118 mL enema 118 ml KS DAILYPRN PRN if dulcolax is ineffective 07/06/24
thiamine HCl (vitamin B1) 100 mg tablet 100 mg PO DAILY 07/06/24
zolpidem 10 mg tablet (Ambien) 2.5 mg PO HS insomnia 07/06/24
[2024-09-10 15:50] VITALS: BP 101/61
[2024-09-10] MEDS: DUPHALAC/CHRONULAC 20 GRAMS PO ×2 (17:11→21:45)
[2024-09-10 19:24] VITALS: BP 135/70
[2024-09-10 23:47] VITALS: BP 126/76
[2024-09-11 03:52] VITALS: BP 124/80
[2024-09-11 07:35] VITALS: BP 140/91
--- NOTE | 2024-09-11 07:39 | W.PN.HOSP.TC ---
Addendum entered and electronically signed by Ian Espino MD 09/11/24 14:52:
I saw and evaluated the patient. I reviewed the resident�s note and agree with findings and plan as documented in the resident�s note.
1. Acute hepatic encephalopathy -known history of cirrhosis presented with new onset confusion. CT head without any acute abnormality. No secondary infection. Hold prison dose of Remeron/Ambien for now. ammonia at admission of 143 which
improved with rifaximin. Patient mentation is back to normal. Adding lactulose with goal of 3 bowel movements a day. Neurology following and recommended MRI brain although currently no focal neurological deficit and will hold.
2. History of CVA with right-sided hemiplegia -patient is a prison resident. Family requested physical therapy evaluation although likely patient does not have any capacity at this point to participate with physical therapy.
3. Colonic ileus -patient with new abdominal distention in the morning. Tympanic bowel sounds. No significant discomfort/nausea/vomiting. Portable abdominal x-ray showing severely dilated colonic loop with maximal diameter of 13.2 cm. Patient
made n.p.o. BMP reviewed no major electrolyte abnormalities in the morning, check magnesium and phosphorus level as well. Discussed with GI if any concern of worsening pseudoobstruction may require rectal trumpet/neostigmine dosing.
Time spent : 53 mins
Original Note:
Today's Communication/Plan
-
We have added lactulose with a goal of 3 bowel movements a day. Patient appeared to be uncomfortable with a bloated abdomen. Physical exam confirms the patient has a distended abdomen. X-ray of the abdomen showed that there is moderate to severe
gaseous distention of most of the colon, including measured cecal diameter of 13.2 cm. Rectal obstruction as the cause of this pattern is a possibility. This could also represent an adynamic ileus. Air is present within small bowel loops, appear to
be top normal to mildly dilated. Patient's diet has been lowered to a full clear his diet. Will continue to monitor.
Assessment / Plan
Assessment / Plan
HPI: Patient is a 59-year-old female with a history of right hemiplegia but normally very alert was found the morning of her presentation to the emergency department in a very lethargic state and with change to mental status. She has an extensive
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 Normally, she would have been up in the morning but was awoken at 9 AM in her
confused state. She was fine when she went to bed the prior evening. When she was awoken she was awake but not able to communicate. The presentation was different from the prior presentation in June of this year when she had a fall but was able
to articulate herself in the emergency department. In the emergency department she was not communicating anything at all. long-term records stated that she was in her usual state of health the previous evening and then when awoken in the
morning she was severely lethargic and noncommunicating. In the emergency department the patient was afebrile with a temperature 99.1, blood pressure 159/87, pulse 91, oxygen saturation 91%. ECG showed a normal sinus rhythm at a rate of 88 with a
left bundle branch block without any prior known ECG. Head CT shows no acute intracranial processes. Labs are notable for leukopenia with a white cell count of 1.8, platelet count of 65, and a hemoglobin of 10.7. Her chemistries were within
normal limits and LFTs were within normal limits as well. UA was unremarkable with trace leukocyte Estrace. The patient was admitted to [facility] for acute altered mental status.
Impression/plan:
-Hepatic encephalopathy: Resolving/improved
Patient admitted to telemetry
Patient was advanced to an IDDSI 4 pur�ed diet and is tolerating the diet well
Neurochecks every 6 hours
Influenza and COVID-negative
Continue rifaximin as tolerated
Blood cultures sent
Right upper quadrant ultrasound to evaluate for ascites
IV fluids with D5 normal saline
IV thiamine
Appreciate neurology consult -they advise avoiding cerebral hypoperfusion so we will allow permissive hypertension
Appreciate gastroenterology consult -they recommend that if the patient passes INTERACTIVE MEDIA DESIGNER eval resume Xifaxan twice daily, then lactulose daily which already was part of her home routine -if not patient will need to go back to a lactulose enema daily.
Ultrasound was negative for ascites so spontaneous bacterial peritonitis would not be a factor in change in mental status. There was also no signs of GI bleed.
Holding Remeron, zolpidem, trazodone -do not want to lower seizure threshold
TSH and vitamin B12 within normal limits, urine analysis was unremarkable, creatinine kinase within normal limits
Patient able to follow and understand questions and commands. No longer in a confused state.
-Cirrhosis secondary to alcohol use:
No history of ascites and no obvious ascites on physical exam
Abdominal ultrasound conducted on 09/09/2024 showed no sonographic evidence of abdominal ascites
Lactulose enema given
Rifaximin if tolerating oral intake
-Pancytopenia:
Possibly secondary to anemia of chronic disease
Known to be neutropenic and thrombocytopenic
Monitor infectious workup
WBCs low at 2.1, hemoglobin 9.4, RBCs at 2.97, platelets at 57 on 09/09/2024
-Bloated abdomen:
Patient complained of a bloated feeling abdomen on 09/11/2024
On examination the abdomen feels distended
Abdominal x-ray ordered on 09/11/2024 showed that there is moderate to severe gaseous distention of most of the colon, including measured cecal diameter of 13.2 cm. There is lack of distention of the rectum. Rectal obstruction as the cause of this
pattern is a possibility. This could also represent an adynamic ileus. Air is present within small bowel loops, appear to be top normal to mildly dilated.
Patient's diet has been lowered to a clear liquid diet
Will monitor and assess
DVT prophylaxis: Heparin subcu
DNR STATUS
Anticipated Discharge: 24 - 48 hours
Subjective/Interval History
-
Date of Service: September 11, 2024
Met with the patient at the bedside. She was seen resting comfortably in bed watching the movie [place]aylee. She was smiling as she watched the movie and was making comments on the events happening in the movie. Later on in the day when I met with the
patient she made mention of abdominal bloating. On palpation she has a distended abdomen and the patient stated that she felt uncomfortable.
Objective Data
-
Labs:
Labs
09/11/24 07:24
09/11/24 07:24
Vital Signs:
Vital Signs
Temp Pulse Resp BP Pulse Ox
99.0 F 78 16 124/80 94
09/11/24 03:52 09/11/24 03:52 09/11/24 03:52 09/11/24 03:52 09/11/24 03:52
I&O
09/10/24 09/11/24 09/12/24
06:59 06:59 06:59
Intake Total 810 / 810 1230 / 1230
Balance 810 / 810 1230 / 1230
Review of Systems
-
History Source: Patient
Constitutional: Reports Other (Feels bloated)
EENT: Reports No Symptoms Reported
Respiratory: Reports No Symptoms
Cardiac: Reports No Symptoms
Abdomen/GI: Reports Bloated
Breast: Reports No Symptoms
Genitourinary: Reports No Symptoms
Musculoskeletal: Reports No Symptoms
Skin: Reports No Symptoms
Neuro: Reports Weakness (Right-sided weakness)
Endocrine: Reports No Symptoms
Hematologic / Lymphatic: Reports No Symptoms
Allergy / Immunology: Reports No Symptoms
Physical Exam
-
General: No Apparent Distress
HEENT: Normocephalic and Atraumatic
Respiratory: Clear to Auscultation
Cardiac: Regular Rhythm
Breast: Deferred by me
GI: Distended
Rectal: Deferred by Provider
Genito-urinary: Deferred by me
Musculoskeletal: No Clubbing, No Cyanosis and No Edema
Skin: Warm and Dry
Neuro: Awake, Alert and Oriented
Psych: Calm
[2024-09-11 07:57] LABS: Hematocrit 30.6 % (37.0-47.0); Hemoglobin 10.6 g/dL (12.0-16.0); Mean Corp Hgb Conc. 34.6 g/dL (33.0-37.0); Mean Corpuscular Hgb 31.7 pg (27.0-31.0); Mean Corpuscular Volume 91.6 fL (81.0-99.0); Mean Platelet Volume 11.5 fL (7.4-10.4); Platelet Count 75 10^3/uL (130-400); Red Blood Cell Count 3.34 10^6/uL (4.20-5.40); Red Cell Dist. Width 15.7 % (11.5-14.5); White Blood Cell Count 2.5 10^3/uL (4.8-10.8)
[2024-09-11] MEDS: HEPARIN 5000 UNITS SC ×2 (08:05→20:12)
[2024-09-11] MEDS: DUPHALAC/CHRONULAC 20 GRAMS PO (08:05)
[2024-09-11] MEDS: XIFAXAN 550 MG PO ×2 (08:05→20:12)
[2024-09-11] MEDS: NSS (PRESERVATIVE FREE) 10 ML IV (08:06)
[2024-09-11] MEDS: THIAMINE INJECTION 100 MG IV (08:06)
[2024-09-11] MEDS: PROTONIX IV 40 MG IV (08:06)
[2024-09-11 08:13] LABS: ALT (SGPT) 20 U/L (0-35); AST (SGOT) 31 U/L (14-36); Alkaline Phosphatase 42 U/L (38-126); Blood Urea Nitrogen 10 mg/dl (7-17); Carbon Dioxide 22 mmol/L (22-30); Chloride 110 mmol/L (98-107); Estimated Creatinine Clearance 76 ml/min; Glucose 112 mg/dl (70-99); Potassium 3.4 mmol/L (3.5-5.1); Sodium 142 mmol/L (135-145); Total Bilirubin 1.1 mg/dl (0.2-1.3); Total Protein 5.5 g/dl (6.3-8.2); eGFR > 60.00
[2024-09-11 11:40] VITALS: BP 125/80
--- NOTE | 2024-09-11 12:35 | CM ---
Reviewed the chart notes and spoke with the patient at the bedside. IMM reviewed. CM continues to be available to patient/family and is monitoring medical plan for needs at discharge.
Plan: Discharge back to [facility] when medically stable.
Call report to: [phone]
Fax report to: [phone]
Medical necessity and transport forms on chart.
[2024-09-11] MEDS: LASIX 20 MG PO (12:54)
[2024-09-11] MEDS: DUPHALAC/CHRONULAC PO ×2 (15:22→20:56)
--- NOTE | 2024-09-11 15:22 | PTCARENOTE ---
Patient NPO awaiting GI. ordered to hold Lactulose for now. Will pass along in report.
[2024-09-11 15:41] LABS: Magnesium 1.5 mg/dl (1.6-2.3); Phosphorus 3.7 mg/dl (2.5-4.5)
[2024-09-11 15:50] VITALS: BP 114/75
[2024-09-11] MEDS: MAGNESIUM SULFATE 100 IV (16:46)
--- NOTE | 2024-09-11 17:58 | W.PN.GI.CBS2 ---
Today's Communication / Plan
-
CT, colorectal surgery c/s
Assessment / Plan
-
59-year-old female with past medical history left thalamus stroke, pancytopenia, insomnia, dysphagia, osteoporosis, depression, anxiety and cirrhosis presents to the emergency room with change in mental status and aphasia. Asked to evaluate for
elevated ammonia. Elevated ammonia now resolved with lactulose enemas. Being worked up from a neurological standpoint. Ultrasound negative for signs of ascites. Discussed with RN no signs of GI bleeding. Hemoglobin stable. Stools brown.
Called back to evaluate pt for abnormal xray. Pt c/o bloating and appeared to have abdominal distention, abdo xray showed moderate/severe gasseous distention of the colon with cecum measuring 13 cm. Pt denies vomiting or nausea. Feels she has not
have BM/flatus for past few days. She is nontender and soft on abdo exam, decreased bowel sounds. 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 Will order abdo CT abd/pel with IV/oral contrast. Rectal tube. Also colorectal surgery evaluation.
Total Time Spent with Patient (in minutes): 55
Subjective
Subjective
Date of Service: September 11, 2024
No BM/flatus for past few days
Objective
Data Reviewed
Laboratory Data:
Laboratory Results
09/11/24 07:24
09/11/24 07:24
Laboratory Results
Phosphorus 3.7 mg/dl (2.5-4.5) 09/11/24 07:24
Magnesium 1.5 mg/dl (1.6-2.3) L 09/11/24 07:24
Total Bilirubin 1.1 mg/dl (0.2-1.3) 09/11/24 07:24
AST 31 U/L (14-36) 09/11/24 07:24
ALT 20 U/L (0-35) 09/11/24 07:24
Alkaline Phosphatase 42 U/L (38-126) 09/11/24 07:24
Vital Signs and I&O:
Vital Signs
Temp Pulse Resp BP Pulse Ox
98.9 F 93 16 114/75 94
09/11/24 15:50 09/11/24 15:50 09/11/24 15:50 09/11/24 15:50 09/11/24 15:50
I&O
09/10/24 09/11/24 09/12/24
06:59 06:59 06:59
Intake Total 810 / 810 1230 / 1230 500 / 500
Balance 810 / 810 1230 / 1230 500 / 500
--- NOTE | 2024-09-11 18:00 | PTCARENOTE ---
Rectal trumpet to straight drainage placed per order.
[2024-09-11] MEDS: OMNIPAQUE 50 ML PO (20:06)
[2024-09-11 23:36] VITALS: BP 119/73
[2024-09-12 07:27] LABS: ALT (SGPT) 18 U/L (0-35); AST (SGOT) 31 U/L (14-36); Albumin 2.9 g/dl (3.5-5.0); Alkaline Phosphatase 42 U/L (38-126); Blood Urea Nitrogen 10 mg/dl (7-17); Calcium 8.5 mg/dl (8.4-10.2); Carbon Dioxide 21 mmol/L (22-30); Chloride 106 mmol/L (98-107); Estimated Creatinine Clearance 89 ml/min; Glucose 77 mg/dl (70-99); Sodium 139 mmol/L (135-145); Total Bilirubin 1.4 mg/dl (0.2-1.3); Total Protein 5.5 g/dl (6.3-8.2); eGFR > 60.00
[2024-09-12 07:35] VITALS: BP 109/68
--- NOTE | 2024-09-12 07:35 | W.PN.HOSP.TC ---
Today's Communication/Plan
-
Abdominal examination today is improved with less distention. Repeat abdominal x-ray showed resolution of the gaseous distention of the colon. Will monitor the patient and reattempt advancing the diet -patient currently on a clear liquid diet.
The patient able to tolerate her advance diet we will move forward with discharge planning.
Assessment / Plan
Assessment / Plan
HPI: Patient is a 59-year-old female with a history of right hemiplegia but normally very alert was found the morning of her presentation to the emergency department in a very lethargic state and with change to mental status. She has an extensive
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 Normally, she would have been up in the morning but was awoken at 9 AM in her
confused state. She was fine when she went to bed the prior evening. When she was awoken she was awake but not able to communicate. The presentation was different from the prior presentation in June of this year when she had a fall but was able
to articulate herself in the emergency department. In the emergency department she was not communicating anything at all. assisted records stated that she was in her usual state of health the previous evening and then when awoken in the
morning she was severely lethargic and noncommunicating. In the emergency department the patient was afebrile with a temperature 99.1, blood pressure 159/87, pulse 91, oxygen saturation 91%. ECG showed a normal sinus rhythm at a rate of 88 with a
left bundle branch block without any prior known ECG. Head CT shows no acute intracranial processes. Labs are notable for leukopenia with a white cell count of 1.8, platelet count of 65, and a hemoglobin of 10.7. Her chemistries were within
normal limits and LFTs were within normal limits as well. UA was unremarkable with trace leukocyte Estrace. The patient was admitted to [facility] for acute altered mental status.
Impression/plan:
-Hepatic encephalopathy: Resolving/improved
Patient admitted to telemetry
Patient was advanced to an IDDSI 4 pur�ed diet and is tolerating the diet well
Neurochecks every 6 hours
Influenza and COVID-negative
Continue rifaximin as tolerated
Blood cultures sent
Right upper quadrant ultrasound to evaluate for ascites
IV fluids with D5 normal saline
IV thiamine
Appreciate neurology consult -they advise avoiding cerebral hypoperfusion so we will allow permissive hypertension
Appreciate gastroenterology consult -they recommend that if the patient passes [employer]ER eval resume Xifaxan twice daily, then lactulose daily which already was part of her home routine -if not patient will need to go back to a lactulose enema daily.
Ultrasound was negative for ascites so spontaneous bacterial peritonitis would not be a factor in change in mental status. There was also no signs of GI bleed.
Holding Remeron, zolpidem, trazodone -do not want to lower seizure threshold
TSH and vitamin B12 within normal limits, urine analysis was unremarkable, creatinine kinase within normal limits
Patient able to follow and understand questions and commands. No longer in a confused state.
-Cirrhosis secondary to alcohol use:
No history of ascites and no obvious ascites on physical exam
Abdominal ultrasound conducted on 09/09/2024 showed no sonographic evidence of abdominal ascites
Lactulose enema given
Rifaximin if tolerating oral intake
-Pancytopenia:
Possibly secondary to anemia of chronic disease
Known to be neutropenic and thrombocytopenic
Monitor infectious workup
WBCs low at 2.1, hemoglobin 9.4, RBCs at 2.97, platelets at 57 on 09/09/2024
-Colonic ileus:
Patient complained of a bloated feeling abdomen on 09/11/2024
On examination the abdomen feels distended
Abdominal x-ray ordered on 09/11/2024 showed that there is moderate to severe gaseous distention of most of the colon, including measured cecal diameter of 13.2 cm. There is lack of distention of the rectum. Rectal obstruction as the cause of this
pattern is a possibility. This could also represent an adynamic ileus. Air is present within small bowel loops, appear to be top normal to mildly dilated.
Patient's diet has been lowered to a clear liquid diet
Repeat abdominal exam on 12 September had a less distended abdomen. A repeat chest x-ray was ordered which showed resolution of gaseous distention of the colon.
Will monitor and assess -may attempt to advance the diet again tomorrow
DVT prophylaxis: Heparin subcu
DNR STATUS
Anticipated Discharge: 24 - 48 hours
Subjective/Interval History
-
Date of Service: September 12, 2024
Met with patient at the bedside. She is seen smiling and watching television and offers no complaints aside from minimal bloating. When asked how she is doing she said 'I am behaving myself I promise.' She said that her abdomen does not feel as
bloated as it was yesterday.
Objective Data
-
Labs:
Labs
09/12/24 10:08
09/12/24 05:37
Vital Signs:
Vital Signs
Temp Pulse Resp BP Pulse Ox
98.5 F 81 16 119/73 98
09/11/24 23:36 09/11/24 23:36 09/11/24 23:36 09/11/24 23:36 09/11/24 23:36
I&O
09/11/24 09/12/24 09/13/24
06:59 06:59 06:59
Intake Total 1230 / 1230 1919
Balance 1230 / 1230 1919
Review of Systems
-
History Source: Patient
All other systems: Reviewed and negative
Constitutional: Reports No Symptoms
EENT: Reports No Symptoms Reported
Respiratory: Reports No Symptoms
Cardiac: Reports No Symptoms
Abdomen/GI: Reports Bloated
Breast: Reports No Symptoms
Genitourinary: Reports No Symptoms
Musculoskeletal: Reports No Symptoms
Skin: Reports No Symptoms
Neuro: Reports No Symptoms
Endocrine: Reports No Symptoms
Hematologic / Lymphatic: Reports No Symptoms
Allergy / Immunology: Reports No Symptoms
Physical Exam
-
General: No Apparent Distress and Comfortable
HEENT: Normocephalic and Atraumatic
Respiratory: Clear to Auscultation
Cardiac: Regular Rhythm
Breast: Deferred by me
GI: Soft, Nontender, Normal Bowel Sounds and Distended
Musculoskeletal: No Clubbing, No Cyanosis and No Edema
Skin: Warm and Dry
Neuro: Awake, Alert, Oriented and AO x 3
Psych: Calm
--- NOTE | 2024-09-12 08:28 | PN.CDI ---
Addendum entered and electronically signed by Josafat Morris MD, Resident 09/13/24 15:40:
Addressed and updated on the progress note from 09/13/2024. Hypomagesemia added to the problem list as per my clinical judgement.
Original Note:
CDI
- -
CDI:
Physician Documentation Request
Admit Date: 09/08/24 21:20
Dear Doctor,
Please review the following and provide your response in the progress notes.
Clinical Indicators:
- 09/11 Magnesium level 1.5
- 09/11 4 gram IV Magnesium sulfate given
Please provide a diagnosis for the above lab values that were monitored and treatment rendered:
Hypomagnesemia
Clinically insignificant abnormal lab value
Other
Use of terms such as suspected, likely, concern for, or probable (associated with a specific diagnosis that is being evaluated, monitored, or treated as if it exists) are acceptable and can be coded in the inpatient setting, when documented at the
time of discharge.
Thank you,
Vera Taylor RN
CDI Specialist
Please use your independent medical judgment in providing your response.
--- NOTE | 2024-09-12 08:30 | PTCARENOTE ---
NPO, no po am Meds and fluids, until chest ray done per dr. gramajo.
--- NOTE | 2024-09-12 08:38 | W.PN.UPDATE ---
Addendum entered and electronically signed by Ian Espino MD 09/12/24 09:13:
Repeat abd xr showed significant improvement in dilated colonic loop
official read pending
Starting on CL diet trial for now.
Original Note:
Update Note
Progress Note Update
I saw and evaluated the patient. I reviewed the resident�s note and agree with findings and plan as documented in the resident�s note.
1. Acute hepatic encephalopathy - Resolved
known history of cirrhosis presented with new onset confusion. CT head without any acute abnormality. No secondary infection. Hold group home dose of Remeron/Ambien for now. ammonia at admission of 143 which improved with rifaximin. Patient
mentation is back to normal.
Neurology following and recommended MRI brain although currently no focal neurological deficit and will hold.
Will need to resume back oral lactulose/rifaximin once clinically improved
2. History of CVA with right-sided hemiplegia -patient is a group home resident. Family requested physical therapy evaluation although likely patient does not have any capacity at this point to participate with physical therapy.
3. Colonic ileus
09/11
patient with new abdominal distention in the morning. Tympanic bowel sounds. No significant discomfort/nausea/vomiting. Portable abdominal x-ray showing severely dilated colonic loop with maximal diameter of 13.2 cm. Patient made n.p.o. BMP
reviewed no major electrolyte abnormalities in the morning, check magnesium and phosphorus level as well. Discussed with GI if any concern of worsening pseudoobstruction may require rectal trumpet/neostigmine dosing.
09/12
Abdominal exam is better and distention has resolved. No pain/nausea/vomiting. Patient not feeling passing gas yesterday.
Repeat abd xr ordered to review
Discussed with GI, recommended CTS eval for rectal trumpet, Also can provide dose of neostigmine. Will evaluate xray and decide the next step.
4. Acute colitis
CT a/p done yesterday showing descending/sig colon colitis
Lukopenia/afebrile.
Maintain on zosyn for now.
5. Hypomagnesemia
-mag 1.5 yesterday, replaced with IV 4g. rechekc pending today.
Total time spent : 52 mins
[2024-09-12] MEDS: DUPHALAC/CHRONULAC PO (08:49)
[2024-09-12] MEDS: LASIX PO (08:49)
[2024-09-12] MEDS: ALDACTONE PO (08:49)
[2024-09-12] MEDS: HEPARIN 5000 UNITS SC ×2 (08:50→20:04)
[2024-09-12] MEDS: PROTONIX IV 40 MG IV (08:51)
[2024-09-12] MEDS: THIAMINE INJECTION 100 MG IV (08:51)
[2024-09-12] MEDS: NSS (PRESERVATIVE FREE) 10 ML IV (08:51)
[2024-09-12] MEDS: XIFAXAN PO (08:52)
--- NOTE | 2024-09-12 09:39 | CM ---
Reviewed the chart notes. Patient's diet advanced to clear liquid today. CM continues to be available to patient/family and is monitoring medical plan for needs at discharge.
Plan: Discharge back to [facility] when medically stable.
Call report to: [phone]
Fax report to: [phone]
Medical necessity and transport forms on chart.
[2024-09-12] MEDS: ALDACTONE 25 MG PO (10:13)
[2024-09-12] MEDS: XIFAXAN 550 MG PO ×2 (10:13→20:04)
[2024-09-12] MEDS: DUPHALAC/CHRONULAC 20 GRAMS PO ×3 (10:13→21:03)
[2024-09-12] MEDS: ZOSYN 50 IV ×3 (10:14→21:04)
[2024-09-12 10:19] LABS: Magnesium 2.3 mg/dl (1.6-2.3)
[2024-09-12 11:00] LABS: Hemoglobin 10.6 g/dL (12.0-16.0); Mean Corp Hgb Conc. 34.2 g/dL (33.0-37.0); Mean Corpuscular Hgb 31.7 pg (27.0-31.0); Mean Corpuscular Volume 92.8 fL (81.0-99.0); Mean Platelet Volume 11.1 fL (7.4-10.4); Platelet Count 74 10^3/uL (130-400); Red Blood Cell Count 3.34 10^6/uL (4.20-5.40); Red Cell Dist. Width 15.9 % (11.5-14.5)
--- NOTE | 2024-09-12 14:52 | PTCARENOTE ---
Pt noted with Rectal trumpet out. New Rectal trumpet to straight drainage placed per order.
[2024-09-12 15:35] VITALS: BP 113/74
--- NOTE | 2024-09-12 16:12 | W.PN.GI.CBS2 ---
Today's Communication / Plan
-
AXR today much improved
Advanced to CLD and to regular as tolerates
GI will sign off please call for questions
Assessment / Plan
-
59yo W with h/o CVA with L hemiparesis bedbound and cirrhosis who presents with altered mental status improved on lactulose. GI reconsulted 09/11 for dilated colon. Today AXR appears to be resolved
C/w bowel regimen meterman. Avoid opioids and OOB to chair if able. Agree with advancement to CLD today. If tolerates ok to resume regular diet tomorrow.
No new GI recs will sign off please call for questions.
Subjective
Subjective
Date of Service: September 12, 2024
Did not get rectal trumpet yesterday. Repeat AXR with resolution of gaseous distension today.
Objective
Data Reviewed
Laboratory Data:
Laboratory Results
09/12/24 10:08
09/12/24 05:37
Laboratory Results
Phosphorus 3.7 mg/dl (2.5-4.5) 09/11/24 07:24
Magnesium 2.3 mg/dl (1.6-2.3) 09/12/24 05:37
Total Bilirubin 1.4 mg/dl (0.2-1.3) H 09/12/24 05:37
AST 31 U/L (14-36) 09/12/24 05:37
ALT 18 U/L (0-35) 09/12/24 05:37
Alkaline Phosphatase 42 U/L (38-126) 09/12/24 05:37
Vital Signs and I&O:
Vital Signs
Temp Pulse Resp BP Pulse Ox
97.7 F 74 16 113/74 98
09/12/24 15:35 09/12/24 15:35 09/12/24 15:35 09/12/24 15:35 09/12/24 15:35
I&O
09/11/24 09/12/24 09/13/24
06:59 06:59 06:59
Intake Total 1230 / 1230 1919
Balance 1230 / 1230 1919
Physical Exam
Physical Exam
GEN: No acute distress, conversant
HEENT: anicteric, extraocular movements intact, dry MMM
GI: soft, mildy-distended, not tender to palpation, normal active bowel sounds, no hepatosplenomegaly
EXT: warm, well perfused, trace edema bilaterally
NEURO: contracted posture
[2024-09-12 23:33] VITALS: BP 126/70
[2024-09-13] MEDS: ZOSYN 50 IV ×2 (04:10→08:29)
--- NOTE | 2024-09-13 04:15 | DOWNTIME ---
There was a 10X10 Room Client Adoption Social Worker Downtime on 09/13/2024 from 0100 to 09/13/2024 at 0355. Downtime documentation of patient's care, including medication administrations, has been reconciled in the electronic record per guidelines. Refer to the
patient's paper chart under the miscellaneous tab to see printed paper medication records and downtime forms.
[2024-09-13 07:05] LABS: Hematocrit 30.5 % (37.0-47.0); Hemoglobin 10.4 g/dL (12.0-16.0); Mean Corp Hgb Conc. 34.1 g/dL (33.0-37.0); Mean Corpuscular Hgb 31.9 pg (27.0-31.0); Mean Corpuscular Volume 93.6 fL (81.0-99.0); Mean Platelet Volume 11.5 fL (7.4-10.4); Platelet Count 66 10^3/uL (130-400); Red Blood Cell Count 3.26 10^6/uL (4.20-5.40); Red Cell Dist. Width 15.9 % (11.5-14.5); White Blood Cell Count 2.1 10^3/uL (4.8-10.8)
--- NOTE | 2024-09-13 07:23 | W.PN.HOSP.TC ---
Addendum entered and electronically signed by Ian Espino MD 09/13/24 14:10:
I saw and evaluated the patient. I reviewed the resident�s note and agree with findings and plan as documented in the resident�s note.
1. Hepatic encephalopathy - resolved with rifaximin/lactulose. Continue to regimen at discharge.
2. Acute colitis/colonic ileus -currently on IV Zosyn, no signs of overt sepsis. Transition to oral Augmentin for 5 more days at discharge. Rectal trumpet in with improvement in colonic ileus and having bowel movements at this point. Patient is
bedbound and at risk of recurrent Lizeth/pseudo-obstruction.
3. Pancytopenia - 2/2 alcoholic cirrhosis and hypersplenism related.
Discharge to [facility]
Original Note:
Today's Communication/Plan
-
Tolerated low res diet. Will be discharged today. Patient will be discharged on Lasix 20 mg orally, rifaximin 550 mg twice daily and lactulose 30 mL in the morning.
Assessment / Plan
Assessment / Plan
Impression/plan:
-Hepatic encephalopathy: Resolving/improved
Patient admitted to telemetry
Patient was advanced to an IDDSI 4 pur�ed diet and is tolerating the diet well
Neurochecks every 6 hours
Influenza and COVID-negative
Continue rifaximin as tolerated
Blood cultures sent
Right upper quadrant ultrasound to evaluate for ascites
IV fluids with D5 normal saline
IV thiamine
Appreciate neurology consult -they advise avoiding cerebral hypoperfusion so we will allow permissive hypertension
Appreciate gastroenterology consult -they recommend that if the patient passes [employer]PERATOR eval resume Xifaxan twice daily, then lactulose daily which already was part of her home routine -if not patient will need to go back to a lactulose enema daily.
Ultrasound was negative for ascites so spontaneous bacterial peritonitis would not be a factor in change in mental status. There was also no signs of GI bleed.
Holding Remeron, zolpidem, trazodone -do not want to lower seizure threshold
TSH and vitamin B12 within normal limits, urine analysis was unremarkable, creatinine kinase within normal limits
Patient able to follow and understand questions and commands. No longer in a confused state.
-Cirrhosis secondary to alcohol use:
No history of ascites and no obvious ascites on physical exam
Abdominal ultrasound conducted on 09/09/2024 showed no sonographic evidence of abdominal ascites
Lactulose enema given
Rifaximin if tolerating oral intake
-Pancytopenia:
Possibly secondary to anemia of chronic disease
Known to be neutropenic and thrombocytopenic
Monitor infectious workup
WBCs low at 2.1, hemoglobin 9.4, RBCs at 2.97, platelets at 57 on 09/09/2024
-Acute colitis of the descending colon, sigmoid colon and rectum:
Patient complained of a bloated feeling abdomen on 09/11/2024
On examination the abdomen feels distended
Abdominal x-ray ordered on 09/11/2024 showed that there is moderate to severe gaseous distention of most of the colon, including measured cecal diameter of 13.2 cm. There is lack of distention of the rectum. Rectal obstruction as the cause of this
pattern is a possibility. This could also represent an adynamic ileus. Air is present within small bowel loops, appear to be top normal to mildly dilated.
Abdominal CT conducted on 09/11/2024 showed findings suggesting of moderate to severe colitis of the descending colon, sigmoid colon and rectum. Findings were also consistent with cirrhosis. Gallstones were also seen. Remainder of the report may
be found in the data portion of this note.
Patient's diet has been lowered to a clear liquid diet
Repeat abdominal exam on 12 September had a less distended abdomen. A repeat chest x-ray was ordered which showed resolution of gaseous distention of the colon.
Will monitor and assess -patient tolerated low residue diet
-Hypomagnesemia:
Patient's magnesium dipped to 1.5�was repleted with IV 4 g.
DVT prophylaxis: Heparin subcu
DNR STATUS
Data:
-Head CT conducted on 09/08/2024:
The ventricles are normal in size, configuration, and position for age. There is no intra- or extra-axial mass, hemorrhage, or fluid collection. Stable old left thalamic infarct. No new areas of abnormal mass effect or attenuation are noted.
There is stable moderate subcortical, deep, and periventricular white matter low-attenuation, compatible with changes of chronic small vessel ischemic disease. Visualized paranasal sinuses are free of mucosal disease. No depressed calvarial fracture.
-Abdominal ultrasound conducted on 09/09/2024:
No sonographic evidence of abdominal ascites.
-Abdominal x-ray conducted on 09/11/2024:
Portable AP supine examination of the abdomen with 2 radiographs.
There is moderate to severe gaseous distention of most of the colon, including measured cecal diameter of 13.2 cm. There is lack of distention of the rectum. Rectal obstruction as the cause of this pattern is a possibility. This could also
represent an adynamic ileus.
Air is present within small bowel loops, appear to be top normal to mildly dilated.
There is a 8 mm calcification the right upper quadrant, possibly calcified gallstones.
Mild levoconvex scoliosis, centered in the lower thoracic spine. Mild to moderate diffuse changes of degenerative disc disease.
Deformity of the right ischial tuberosity, which has the appearance of an old avulsion fracture.
-Abdomen/pelvis CT conducted on 09/11/2024:
Lung Bases: There is minimal consolidation lung bases likely atelectasis.
Bone: Osseous structures of the abdomen and pelvis show an old fracture of the right inferior pubic ramus bone. There is a scoliosis and mild degenerative disease.
Abdomen and pelvis: The, spleen, and pancreas are unremarkable. The liver is nodular hepatic margin is is mildly heterogeneous suggesting cirrhosis. The gallbladder contains many moderate-sized gallstones. Gallstones are present in the common bile
duct as well. However, these do not occlude the lumen. The adrenal glands and kidneys are unremarkable. The abdominal aorta is normal caliber. No significant lymphadenopathy is is unremarkable. The appendix is not definitively visualized.. Oral
contrast has reached the descending colon.
There is severe circumferential wall thickening of the rectum and moderate wall thickening of the sigmoid colon and descending colon. The colon is very redundant. No obstructing mass is noted. These findings suggest colitis. There is mild
pericolonic stranding in these regions as well.
There is mild free fluid in the right pelvis. There is mild free fluid in the right paracolic gutter.
There are dilated vessels in the pelvis bilaterally due to a large recanalized umbilical vein.
The urinary bladder is unremarkable.
There is a rectal catheter present.
-Abdominal x-ray conducted on 09/12/2024:
Bowel: Gaseous distention of colon as resolved in the interval since study of preceding day. Oral contrast from CT of preceding day is seen within the large bowel.
Soft tissues: No gross pathologic soft tissue calcification is seen.
Osseous structures: No acute osseous abnormalities.
Anticipated Discharge: Today
Subjective/Interval History
-
Date of Service: September 13, 2024
Met with patient at the bedside. Overall, she is doing well and states that she believes that she is near her baseline. She believes that her abdominal issues have resolved. She believes that she is ready to go back to her assisted living
facility.
Objective Data
-
Labs:
Labs
09/13/24 06:44
09/13/24 06:44
Vital Signs:
Vital Signs
Temp Pulse Resp BP Pulse Ox
99.2 F 68 16 126/70 98
09/12/24 23:33 09/12/24 23:33 09/12/24 23:33 09/12/24 23:33 09/12/24 23:33
I&O
09/12/24 09/13/24 09/14/24
06:59 06:59 06:59
Intake Total 1919 820 / 820
Output Total 100 / 100
Balance 1919 720 / 720
Review of Systems
-
History Source: Patient
All other systems: Reviewed and negative
Constitutional: Reports No Symptoms
EENT: Reports No Symptoms Reported
Respiratory: Reports No Symptoms
Cardiac: Reports No Symptoms
Abdomen/GI: Reports No Symptoms
Breast: Reports No Symptoms
Genitourinary: Reports No Symptoms
Musculoskeletal: Reports No Symptoms
Skin: Reports No Symptoms
Neuro: Reports No Symptoms
Endocrine: Reports No Symptoms
Hematologic / Lymphatic: Reports No Symptoms
Allergy / Immunology: Reports No Symptoms
Physical Exam
-
General: Well Developed, Well Nourished and No Apparent Distress
HEENT: Normocephalic, Atraumatic and Moist Mucous Membranes
Respiratory: Clear to Auscultation
Cardiac: Regular Rhythm and S1/S2
Breast: Deferred by me
GI: Soft, Nontender, Nondistended and Normal Bowel Sounds
Musculoskeletal: No Clubbing, No Cyanosis and No Edema
Skin: Warm and Dry
Neuro: Awake, Alert, Oriented and AO x 3
Psych: Calm
[2024-09-13 07:35] VITALS: BP 119/72
[2024-09-13] MEDS: XIFAXAN 550 MG PO (08:27)
[2024-09-13] MEDS: ALDACTONE 25 MG PO (08:27)
[2024-09-13] MEDS: DUPHALAC/CHRONULAC 20 GRAMS PO (08:28)
[2024-09-13] MEDS: NSS (PRESERVATIVE FREE) 10 ML IV (08:28)
[2024-09-13] MEDS: PROTONIX IV 40 MG IV (08:28)
[2024-09-13] MEDS: LASIX 20 MG PO (08:28)
[2024-09-13] MEDS: THIAMINE INJECTION 100 MG IV (08:29)
[2024-09-13] MEDS: HEPARIN 5000 UNITS SC (08:29)
[2024-09-13 09:28] LABS: ALT (SGPT) 18 U/L (0-35); AST (SGOT) 27 U/L (14-36); Albumin 2.9 g/dl (3.5-5.0); Alkaline Phosphatase 48 U/L (38-126); Blood Urea Nitrogen 7 mg/dl (7-17); Calcium 8.6 mg/dl (8.4-10.2); Carbon Dioxide 26 mmol/L (22-30); Chloride 107 mmol/L (98-107); Estimated Creatinine Clearance 76 ml/min; Glucose 79 mg/dl (70-99); Magnesium 1.6 mg/dl (1.6-2.3); Potassium 3.7 mmol/L (3.5-5.1); Sodium 143 mmol/L (135-145); Total Bilirubin 1.6 mg/dl (0.2-1.3); Total Protein 5.5 g/dl (6.3-8.2); eGFR > 60.00
--- NOTE | 2024-09-13 10:50 | CM ---
Addendum entered by Yadira Solomon RN 09/13/24 12:09:
CM spoke with the patient's brother Tomasz via telephone and updated on discharge back to [facility] today.
Original Note:
Reviewed the chart notes and spoke with the patient at the bedside. IMM reviewed. CM continues to be available to patient/family and is monitoring medical plan for needs at discharge.
Plan: Discharge back to [facility] today.
Call report to: [phone]
Fax report to: [phone]
Medical necessity and transport forms on chart.
[2024-09-13 13:34] VITALS: BP 111/71
--- NOTE | 2024-09-13 14:50 | PTOTSP ---
Speech Language Pathology
Pt seen for dysphagia tx. Pt advanced to low residue diet and is for discharge this date. When last seen by GRIP BOSS, pt was recommended pureed solids. Eating lunch upon arrival. Seen with regular solids and thin liquids. Slightly prolonged
mastication of regular solids noted, but this was functional given additional time. No overt signs of aspiration noted.
Recommend:
(1) Continue regular solids/thin liquids
(2) General aspiration precautions
(3) Meds as tolerated
(4) GRIP BOSS to sign off. Please reconsult as indicated
--- NOTE | 2024-09-13 15:42 | W.DCSUMMARY ---
Discharge Summary
Discharge Data
Date of Admission: 09/08/24
Date of Discharge: 09/13/24
-
Pending Results: No
Hospital Course
Patient is a 59-year-old female with a history of right hemiplegia but normally very alert was found the morning of her presentation to the emergency department in a very lethargic state and with change to mental status. She has an extensive past
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 Normally, she would have been up in the morning but was awoken at 9 AM in her confused
state. She was fine when she went to bed the prior evening. When she was awoken she was awake but not able to communicate. The presentation was different from the prior presentation in June of this year when she had a fall but was able to
articulate herself in the emergency department. In the emergency department she was not communicating anything at all. [facility] records stated that she was in her usual state of health the previous evening and then when awoken in the morning
she was severely lethargic and noncommunicating. In the emergency department the patient was afebrile with a temperature 99.1, blood pressure 159/87, pulse 91, oxygen saturation 91%. ECG showed a normal sinus rhythm at a rate of 88 with a left
bundle branch block without any prior known ECG. Head CT shows no acute intracranial processes. Labs are notable for leukopenia with a white cell count of 1.8, platelet count of 65, and a hemoglobin of 10.7. Her chemistries were within normal
limits and LFTs were within normal limits as well. UA was unremarkable with trace leukocyte Estrace. The patient was admitted to [facility] for acute encephalopathy.
The patient was admitted to telemetry and her hepatic encephalopathy immediately started to improve upon administration rifaximin. The patient was advanced to an IDD SI 4 pur�ed diet and was able to tolerate the diet well. Patient was also given
IV thiamine and neurology was consulted due to the altered mental status. Gastroenterology was consulted and they recommended that the patient continue Xifaxan twice daily and then lactulose daily which was already part of her home routine. They
also stated that if the patient is unable to take medications orally then lactulose enemas would be indicated. TSH and vitamin B12 were within normal limits and urinalysis is unremarkable, creatinine kinase was within normal limits as well.
Neurology recommended aspiration precautions and a speech and swallow eval was ordered. Neurology also recommended avoiding cerebral hypoperfusion and allow permissive hypertension. As the patient returned back to her normal baseline mentally her
acute encephalopathy resolved. As discharge planning was being started, the patient was found to have a distended abdomen with tympanic bowel sounds on the morning of 09/11/2024. There was no significant discomfort, nausea, or vomiting. Portable
abdominal x-ray showed severely dilated colonic loops with a maximal diameter of 13.2 cm. The patient was made n.p.o. and gastroenterology consider the possibility of pseudoobstruction that may require a rectal trumpet/neostigmine dosing. A CT of
the abdomen was done which showed moderate to severe colitis of the descending colon, sigmoid colon, and rectum. Patient was returned to an n.p.o. diet and maintained on Zosyn. Follow-up x-ray showed significant improvement in the dilated colonic
loop. Gastroenterology recommended continuing the bowel regimen long-term, to avoid opioids, and to encourage the patient to get out of bed and to ambulate to chair if able. The patient was advanced to clear liquid diet and tolerated the diet
well. After tolerating a clear liquid diet the patient was advanced to a regular diet which was tolerated. The patient believes that she is back at her baseline and would like to be discharged.
The patient has reached maximal benefit from this hospital stay and is appropriate for discharge. There are no barriers that would impede this patient from being discharged at the present time. The patient has been recommended to follow-up with
her outpatient kiln packer. The patient should be followed up by her primary care provider 1 to 2 weeks after being discharged from the hospital.
Discharge Plan
-
Patient Disposition: Snf/SNF
Discharge Diagnosis/Procedures: Acute Hepatic Encephalopathy
Condition: Good
Diet: No restrictions
Activity: No restrictions
Driving Restrictions: As prior to admission
Referrals:
Ryan David I., DO [Family Provider] - in one to two weeks
Additional Discharge Medication Instructions: Discharge on lasix 20mg PO/daily. Lactulose 30ml in the morning. Consider adding aldactone 25mg daily if BP allows.
Prescriptions:
New
lactulose 20 gram/30 mL solution
30 g PO DAILY 30 Days Qty: 1350 0RF
furosemide 20 mg Tablet
20 mg PO DAILY 30 Days Qty: 30 0RF
amoxicillin-pot clavulanate 875-125 mg tablet
1 tab PO BID Qty: 10 0RF
Rx Instructions:
Last dose on 09/18 evening
Continued
acetaminophen 325 mg Tablet
650 mg PO Q6HPRN PRN (Reason: moderate pain/temp>100.4)
Patient Comments:
Obtained med list but last dose given missing
thiamine HCl (vitamin B1) 100 mg Tablet
100 mg PO DAILY
magnesium hydroxide [Milk of Magnesia] 400 mg/5 mL Suspension
30 ml PO DAILYPRN PRN (Reason: constipation)
ascorbic acid (vitamin C) 500 mg Tablet
500 mg PO DAILY
amitriptyline 10 mg Tablet
10 mg PO Q OTHER DAY
Rx Instructions:
Pt takes this med QOD at HS
bisacodyl [Dulcolax (bisacodyl)] 10 mg Suppository
10 mg W[place] DAILYPRN PRN (Reason: if mom is ineffective)
Patient Comments:
Medication is on Hold since 02/04/24
sodium phosphates 19-7 gram/118 mL Enema
118 ml WV DAILYPRN PRN (Reason: if dulcolax is ineffective)
folic acid 1 mg Tablet
1 mg PO DAILY
mirtazapine [Remeron] 15 mg Tablet
7.5 mg PO HS
zolpidem [Ambien] 10 mg Tablet
2.5 mg PO HS
duloxetine 60 mg Capsule,Delayed Release(Dr/Ec)
60 mg PO DAILY
calcium carbonate-vitamin D3 [Calcium 600 + D(3)] 600 mg-10 mcg (400 unit) Tablet
1 tab PO BID
Xifaxan 550 mg Tablet
550 mg PO BID
Discontinued
lactulose [Enulose] 10 gram/15 mL Solution
30 ml PO DAILYPRN PRN (Reason: constipation)
magnesium oxide 400 mg magnesium Tablet
400 mg PO BID
Discharge Orders:
Discharge Patient (As Directed); Ordered 09/13/24
Ordered By: Josafat Morris
Discharge Date and Time
Print Language: TELUGU
--- NOTE | 2024-09-13 16:59 | CM ---
Updated clinicals via [facility].
== END 2024-09-13 15:57 | DRG 442 ==
LOC: 2 NORTH 21:20
PROVIDERS: Emergency Medicine; ADMITTING PHYSICIAN Internal Medicine; ATTENDING PHYSICIAN Hospitalist; CONSULT PHYSICIAN Internal Medicine Gastroenterology; CONSULT PHYSICIAN Psychiatry & Neurology Neurology; EMERGENCY PHYSICIAN Emergency Medicine; FAMILY PHYSICIAN Internal Medicine
DX: K76.82 Hepatic encephalopathy (principal); D61.818 Other pancytopenia; I69.354 Hemiplegia and hemiparesis following cerebral infarction affecting left non-dominant side; K56.0 Paralytic ileus; F32.9 Major depressive disorder, single episode, unspecified; Z66 Do not resuscitate; K70.30 Alcoholic cirrhosis of liver without ascites; D63.8 Anemia in other chronic diseases classified elsewhere; I69.320 Aphasia following cerebral infarction; I69.391 Dysphagia following cerebral infarction; F41.1 Generalized anxiety disorder; M81.0 Age-related osteoporosis without current pathological fracture; K52.9 Noninfective gastroenteritis and colitis, unspecified; E83.42 Hypomagnesemia; G47.00 Insomnia, unspecified; Z11.52 Encounter for screening for COVID-19; Z79.899 Other long term (current) drug therapy
CPT/HCPCS: 70450; 74018; 74177; 76705; 80048; 80053; 80061; 81003; 81015; 82140; 82550; 82607; 82746; 82962; 83735; 84100; 84443; 85025; 85027; 87040; 87070; 87502; 87811; 92526; 92610; 93005; 96360; 96361; 97167; 99291; Q9967

== ENCOUNTER 2024-11-06 18:12 | Inpatient (IN) | payer MEDICARE, OTHER, SELFPAY ==
[2024-11-06] VITALS (9 sets, daily range): BP systolic 102–169; BP diastolic 60–94; BMI 19.1
--- NOTE | 2024-11-06 14:40 | ED.GENMED ---
History of Present Illness
General
Chief Complaint: Change in Mental Status
Source: ambulance crew
Exam Limitations: clinical condition
Time Seen by Provider: 11/06/24 14:40
History of Present Illness
History of Present Illness:
See MDM
Past History
Past History
ED Past Medical History: CVA, HTN and Psychiatric
ED Past Surgical History: None
Social History
Tobacco: Non-smoker
Alcohol: Former
Phy Exam
Physical Exam
Physical Exam:
See MDM
Course
Orders/Labs/Results
Orders:
Orders
11/06/24 14:41
Electrocardiogram (*1) Urgent
Reason for Study: Fatigue / Weakness
CT Head W/o Iv Contrast Urgent
Comment:
Reason For Exam: altered
EKG- Treatment ONCE
11/06/24 14:42
CR Chest Portable - 1 View Urgent
Comment:
Reason For Exam: altered
Reason Study Needs to be Portable: Unable to Transport
11/06/24 14:52
PTT Urgent
Prothrombin Time Urgent
11/06/24 14:53
Ammonia Urgent
Complete Blood Count/With Diff Urgent
Comprehensive Metabolic Panel Urgent
Lactic Acid Q4H
Comment: CANCEL 2nd LACTIC ACID IF 1st LACTIC ACID IS LESS THAN 2
NT-proBNP Urgent
Troponin I Urgent
11/06/24 16:29
Straight Cath As Directed
Frequency: One time now
11/06/24 16:38
Urinalysis Reflex To Culture Urgent
Date Specimen was Collected: 11/06/24
Time Specimen was Collected: 14:52
Urine Microscopic Reflex Cult Urgent
Urine Culture Urgent
DENISE Source: U
Specimen Description:
Date Specimen was Collected: 11/06/24
Time Specimen was Collected: 14:52
11/06/24 17:02
Lactulose [Duphalac/Chronulac] 20 grams PO ONCE ONE
Abnormal Lab Results
11/06/24 11/06/24 11/06/24
14:52 14:53 16:38
WBC 1.6 L* 10^3/uL
(4.8-10.8)
RBC 2.92 L 10^6/uL
(4.20-5.40)
Hgb 9.3 L g/dL
(12.0-16.0)
Hct 29.2 L %
(37.0-47.0)
MCV 100.0 H fL
(81.0-99.0)
MCH 31.8 H pg
(27.0-31.0)
MCHC 31.8 L g/dL
(33.0-37.0)
RDW 15.6 H %
(11.5-14.5)
Plt Count 70 L 10^3/uL
(130-400)
MPV 11.2 H fL
(7.4-10.4)
Absolute Neuts (auto) 1.0 L 10^3/uL
(1.4-6.5)
Absolute Lymphs (auto) 0.3 L 10^3/uL
(1.2-3.4)
Monocytes % 11.8 H %
(1.7-9.3)
PT 17.3 H Sec
(11.4-14.6)
Chloride 109 H mmol/L
(98-107)
BUN 20 H mg/dl
(7-17)
Glucose 121 H mg/dl
(70-99)
Alkaline Phosphatase 30 L U/L
(38-126)
Ammonia 135 H umol/L
(9-30)
Total Protein 5.8 L g/dl
(6.3-8.2)
Albumin 3.1 L g/dl
(3.5-5.0)
Ur Occult Blood Reflex 1+ A
(Negative)
Leukocyte Esterase Rfl Trace A
(Negative)
Urine RBC 3-6 A /HPF
(0-2)
Urine Bacteria (Reflex) Moderate A
(Negative)
11/06/24 14:53
11/06/24 14:53
Vital Signs
Initial and Last Documented VS:
Initial Vital Signs
Temp Pulse Resp BP Pulse Ox
99.1 F 91 20 118/68 95
11/06/24 14:40 11/06/24 14:40 11/06/24 14:40 11/06/24 14:40 11/06/24 14:40
Last Documented Vital Signs
Temp Pulse Resp BP Pulse Ox
99.1 F 83 14 102/74 97
11/06/24 14:40 11/06/24 16:45 11/06/24 16:45 11/06/24 16:00 11/06/24 16:45
MDM/Problems Addressed
Differential Diagnosis Includes:
HPI and MDM Narrative:
59-year-old female presenting for evaluation of altered mental status. Per EMS, patient is usually talkative. On evaluation, patient appears sleepy and is not answering questions or following commands. Patient is a soft and nontender abdomen.
Prior history indicates prior stroke. Will obtain CT head. Will obtain urinalysis and basic blood work
Physical exam
General: Lying in bed and appears comfortable. Nonverbal. Not following commands
HEENT: protecting airway. Mildly dry mucous membrane
Neck: appears supple
CV: No evidence of cyanosis. Regular rate and rhythm
Resp: No accessory muscle use. Lungs clear
Abd: Non-distended
Extremities: Right arm and hand contracture
Neuro: Right hemiparesis. Nonverbal. Not following commands
Psych: Flat affect
Skin: Intact
Problems Addressed including Acute and Chronic Conditions affecting care:
1. Altered mental status
Acuity: acute
Prognosis: stable
Details: Given history, will obtain CT head. Will obtain basic blood work and urinalysis
2. Hepatic encephalopathy
Acuity: acute
Prognosis: unstable
Details: Patient found to have ammonia of 135. Will order lactulose
Updates
CT head negative. Chest x-ray clear. Ammonia of 135. Will start lactulose and admit for hepatic encephalopathy
Differential Diagnosis (but not limited to): Stroke, hyponatremia, UTI
Testing considered: CT abdomen/pelvis but no abdominal tenderness noted
Drug therapy (if applicable): OTC meds, please see d/c instruction regarding Rx drugs
Amount and/or Complexity of Data Reviewed
Clinical info obtained from: EMS
External data reviewed: N/A
Labs I independently reviewed (but not limited to): Elevated ammonia
Radiology: The CT scan was personally and independently reviewed. In addition, official CT report reviewed.
X-ray independently reviewed: Chest x-ray clear
Pulse Ox: not hypoxic
EKG independently reviewed: sinus rhythm, left axis, no STEMI
Cane Splicer: Sinus rhythm
Critical Care: The high probability of a clinically significant, sudden or life threatening deterioration of the neurovascular system(s) required my full and direct attention, intervention and personal management. The aggregate critical care time
was 35 minutes. This time is in addition to time spent performing reported procedures but includes the following:
[x] Data Review and interpretation
[x] Patient assessment and monitoring of vital signs
[x] Documentation
[x] Medication orders and management
Risk of Complication:
Social Determinants of health: Good social support
Discussed with other providers: Hospitalist
Escalation of Care includes Admit/Obs: Given the elevated ammonia level and concern for hip cephalopathy, will start lactulose and admit
Occasional wrong word or 'sound a like' substitutions may have occurred due to the inherent limitations of voice recognition software. Read the chart carefully and recognize, using context, where substitutions have occurred.
*Critical Care Note
Total Time (30-74mins, 75-104mins- exclusive of procedures): 35 min
ED Attending Note
-
Portions of this chart may have been created with voice recognition software.� Occasional wrong word or��sound alike� substitutions may have occurred due to the inherent limitations of voice recognition software.
Discharge Plan
Departure
Patient Disposition: Admit
Date of Disposition: 11/06/24
Time of Disposition: 17:05
Admit to: IMU
Presentation/result/management discussed w/ accepting MD/DO: Hospitalist
Discharge Problem:
Hepatic encephalopathy
Prescriptions:
No Action
acetaminophen 325 mg Tablet
650 mg PO Q6HPRN PRN (Reason: moderate pain/temp>100.4)
Patient Comments:
Obtained med list but last dose given missing
thiamine HCl (vitamin B1) 100 mg Tablet
100 mg PO DAILY
magnesium hydroxide [Milk of Magnesia] 400 mg/5 mL Suspension
30 ml PO DAILYPRN PRN (Reason: constipation)
ascorbic acid (vitamin C) 500 mg Tablet
500 mg PO DAILY
amitriptyline 10 mg Tablet
10 mg PO Q OTHER DAY
Rx Instructions:
Pt takes this med QOD at HS
bisacodyl [Dulcolax (bisacodyl)] 10 mg Suppository
10 mg [place] DAILYPRN PRN (Reason: if mom is ineffective)
Patient Comments:
Medication is on Hold since 02/04/24
sodium phosphates 19-7 gram/118 mL Enema
118 ml NV DAILYPRN PRN (Reason: if dulcolax is ineffective)
folic acid 1 mg Tablet
1 mg PO DAILY
mirtazapine [Remeron] 15 mg Tablet
7.5 mg PO HS
zolpidem [Ambien] 10 mg Tablet
2.5 mg PO HS
duloxetine 60 mg Capsule,Delayed Release(Dr/Ec)
60 mg PO DAILY
calcium carbonate-vitamin D3 [Calcium 600 + D(3)] 600 mg-10 mcg (400 unit) Tablet
1 tab PO BID
Xifaxan 550 mg Tablet
550 mg PO BID
lactulose 20 gram/30 mL solution
30 g PO DAILY 30 Days Qty: 1350 0RF
furosemide 20 mg Tablet
20 mg PO DAILY 30 Days Qty: 30 0RF
amoxicillin-pot clavulanate 875-125 mg tablet
1 tab PO BID Qty: 10 0RF
Rx Instructions:
Last dose on 09/18 evening
Referrals:
Ryan David I., [Family Provider] -
Interventions
Interventions:
*General Assessment Last Done: 11/06/24 14:40
ED- Fall Risk Assessment Last Done: 11/06/24 15:02
ED- Pulmonary Assessment Last Done: 11/06/24 15:02
ED- Neurological Assessment Last Done: 11/06/24 15:02
ED- Cardiac Assessment Last Done: 11/06/24 15:02
Discharge Date and Time
Print Language: LITHUANIAN
[2024-11-06 15:26] LABS: Ammonia 135 umol/L (9-30)
[2024-11-06 15:30] LABS: INR 1.39; PT 17.3 Sec (11.4-14.6)
[2024-11-06 15:32] LABS: % Basophils 0.6 % (0-2); % Eosinophils 2.5 % (0-6); % Lymphocytes 21.1 % (20.5-51.1); % Monocytes 11.8 % (1.7-9.3); Absolute Lymphocytes 0.3 10^3/uL (1.2-3.4); Absolute Monocytes 0.2 10^3/uL (0.1-0.6); Hematocrit 29.2 % (37.0-47.0); Hemoglobin 9.3 g/dL (12.0-16.0); Mean Corp Hgb Conc. 31.8 g/dL (33.0-37.0); Mean Corpuscular Hgb 31.8 pg (27.0-31.0); Mean Platelet Volume 11.2 fL (7.4-10.4); Nucleated Red Blood Cells % 0 %; Platelet Count 70 10^3/uL (130-400); Red Blood Cell Count 2.92 10^6/uL (4.20-5.40); Red Cell Dist. Width 15.6 % (11.5-14.5); White Blood Cell Count 1.6 10^3/uL (4.8-10.8)
[2024-11-06 15:32] LABS: APTT 34.6 Sec (23.4-35.0)
[2024-11-06 15:34] LABS: ALT (SGPT) 19 U/L (0-35); AST (SGOT) 36 U/L (14-36); Albumin 3.1 g/dl (3.5-5.0); Alkaline Phosphatase 30 U/L (38-126); Blood Urea Nitrogen 20 mg/dl (7-17); Calcium 8.8 mg/dl (8.4-10.2); Carbon Dioxide 29 mmol/L (22-30); Chloride 109 mmol/L (98-107); Glucose 121 mg/dl (70-99); Potassium 4.5 mmol/L (3.5-5.1); Sodium 141 mmol/L (135-145); Total Bilirubin 0.8 mg/dl (0.2-1.3); Total Protein 5.8 g/dl (6.3-8.2); eGFR > 60.00
[2024-11-06 15:38] LABS: NT-proBNP 273 pg/ml; Troponin I < 0.012 ng/ml
[2024-11-06 15:49] LABS: Lactic Acid 1.9 mmol/L (0.7-2.0)
[2024-11-06 16:47] LABS: Urine Albumin Negative (Neg - Trace); Urine Bilirubin Negative (Negative); Urine Character Very Cloudy (Clear); Urine Color Yellow; Urine Glucose Negative (Negative); Urine Ketone Negative (Negative); Urine Leukocyte Trace (Negative); Urine Nitrite Negative (Negative); Urine Occult Blood 1+ (Negative); Urine Urobilinogen Negative (Neg - 1+)
[2024-11-06 16:54] LABS: Urine Amorphous Seen
[2024-11-06 16:55] LABS: Urine Bacteria Moderate (Negative); Urine White Cell 0-2 /HPF (0-5)
--- NOTE | 2024-11-06 17:08 | HPS.HSE ---
Addendum entered and electronically signed by Timothy Lyons MD 11/06/24 17:54:
59-year-old female from the local longterm with mental status change. No information found in the ER. Patient cannot give any history. Ammonia level elevated
Chest [id number]
EKG sinus rhythm, left bundle branch block,eft bundle branch block-chronic EKG reviewed by me
Contracture RUE
Right hemiplegia
Awake and alert, says yes and no. Not conversant
Abdomen soft and nontender
No lower extremity edema
# Hepatic encephalopathy
History of Cirrhosis-alcoholic cirrhosis per chart
Causing TME
Lactulose to be given 3 times daily
Follow ammonia level
No clear infectious etiology
Hold Remeron and Ambien tonight
Urine analysis-not consistent with UTI
Chest x-ray no focal airspace disease
Head CT without any acute changes
GI evaluation
# CVA with right hemiparesis from history of left thalamic stroke
# Pancytopenia-likely secondary to liver disease
# Dysphagia-speech eval
# Depression anxiety-hold Remeron tonight. Continue amitriptyline every other day, duloxetine
# Chronic anemia
# Insomnia-hold Ambien tonight
# Osteoporosis
# Chronic left bundle branch block
# Hypoalbuminemia
# DVT prophylaxis-SCDs
# CODE STATUS- DNR per D/W Brother
[facility] - for years and now in [facility] for the past 1 year. Brother confirms that she has a history of alcoholic cirrhosis. Normally she is conversant and Can have a conversation over the phone. She gets confused when her
ammonia goes up.
Brother updated about patient's condition
Original Note:
Family Physician
-
Family Physician: Ryan David
Chief Complaint
-
Confusion
History of Present Illness
59-year-old female with past medical history for Right flaccid hemiplegia,Alcohol cirrhosis of liver without ascites dysphagia due to old CVA,Osteoporosis,CVA,Primary insomnia,IBS,Depression.
Anxiety presenting for evaluation of altered mental status. Patient is confused. She is not able to give any meaningful answers. Patient is a vague and alert. Denied any pain.
Upon arrival noted to have elevated ammonia level. Patient received lactulose in ER admitted for further management.
Medical History
Past Medical History
Past Medical History: Reports Other
Additional Past Medical History:
Right flaccid hemiplegia
Alcohol cirrhosis of liver without ascites dysphagia due to old CVA
Osteoporosis
CVA
Primary insomnia
IBS
Depression
Anxiety
Past Surgical History: Reports Other
Social History
Unable to obtain full social history at this time due to: Acuity
Family History
Family History: Not pertinent
Allergies / Home Medications
Allergies reflects when Allergies were last updated in [employer].
Home Medications with original date entered in [employer]
Allergy/Medication List:
Allergies
Allergy/AdvReac Type Severity Reaction Status Date / Time
No Known Allergies Allergy Verified 11/06/24 14:40
Home Medications
acetaminophen 325 mg tablet 650 mg PO Q6HPRN PRN moderate pain/temp>100.4 07/06/24
amitriptyline 10 mg tablet 10 mg PO Q OTHER DAY 07/06/24
ascorbic acid (vitamin C) 500 mg tablet 500 mg PO DAILY anemia 07/06/24
bisacodyl 10 mg rectal suppository (Dulcolax (bisacodyl)) 10 mg AK DAILYPRN PRN if mom is ineffective 07/06/24
calcium 600 mg (as carbonate)-vitamin D3 10 mcg (400 unit) tablet (Calcium 600 + D(3)) 1 tab PO BID 07/06/24
duloxetine 60 mg capsule,delayed release 60 mg PO DAILY 07/06/24
folic acid 1 mg tablet 1 mg PO DAILY 07/06/24
magnesium hydroxide 400 mg/5 mL oral suspension (Milk of Magnesia) 30 ml PO DAILYPRN PRN constipation 07/06/24
mirtazapine 15 mg tablet (Remeron) 7.5 mg PO HS anxiety 07/06/24
rifaximin 550 mg tablet (Xifaxan) 550 mg PO BID 07/06/24
sodium phosphates 19 gram-7 gram/118 mL enema 118 ml AK DAILYPRN PRN if dulcolax is ineffective 07/06/24
thiamine HCl (vitamin B1) 100 mg tablet 100 mg PO DAILY 07/06/24
zolpidem 10 mg tablet (Ambien) 2.5 mg PO HS insomnia 07/06/24
amoxicillin 875 mg-potassium clavulanate 125 mg tablet 1 tab PO BID #10 tabs 09/13/24
furosemide 20 mg tablet 20 mg PO DAILY 30 days #30 tabs 09/13/24
lactulose 20 gram/30 mL oral solution 30 g (45 mL) PO DAILY 30 days #1,350 mL 09/13/24
Review of Systems
-
Constitutional: Reports No Symptoms
EENT: Reports No Symptoms
Respiratory: Reports No Symptoms
Cardiac: Reports No Symptoms
Abdomen/GI: Reports No Symptoms
: Reports No Symptoms
Musculoskeletal: Reports No Symptoms
Skin: Reports No Symptoms
Neurological: Reports No Symptoms
Endocrine: Reports No Symptoms
Hematologic/Lymphatic: Reports No Symptoms
Psych: Reports No Symptoms
Physical Exam
Vital Signs
Vital Signs
Temp Pulse Resp BP Pulse Ox
99.1 F 83 14 102/74 97
11/06/24 14:40 11/06/24 16:45 11/06/24 16:45 11/06/24 16:00 11/06/24 16:45
Physical Exam
General: Well Developed, Well Nourished and No Apparent Distress
HEENT: NormoCephalic, Moist mucous membranes and Atraumatic
Respiratory: Clear
Cardiac: S1/S2 and Regular Rhythm; No Murmur or Rub
GI: Soft, Non Tender, Non Distended and Normal Bowel Sounds; No Organomegaly
Rectal: Deferred by Provider
Musculoskeletal: No Clubbing, No Cyanosis and No Edema
Skin: No Rash
Neuro: Nonfocal/grossly intact and Other (Right arm contracted)
Psych: Calm
Laboratory Results
-
11/06/24 14:53
11/06/24 14:53
Laboratory Results
PT 17.3 Sec (11.4-14.6) H 11/06/24 14:52
INR 1.39 11/06/24 14:52
APTT 34.6 Sec (23.4-35.0) 11/06/24 14:52
Lactic Acid Cancelled 11/06/24 18:45
Total Bilirubin 0.8 mg/dl (0.2-1.3) 11/06/24 14:53
AST 36 U/L (14-36) 11/06/24 14:53
ALT 19 U/L (0-35) 11/06/24 14:53
Alkaline Phosphatase 30 U/L (38-126) L 11/06/24 14:53
Troponin I < 0.012 ng/ml 11/06/24 14:53
Data Reviewed
-
Diagnostic Radiology: Report Reviewed by me
CT Scan: Report Reviewed by me
Lab Data: Labs Reviewed by me
Impression/Plan
-
# Hepatic encephalopathy
-Ammonia 135
-Continue lactulose
-CT head and chest x-ray normal
-UA negative for acute infection
-GI consulted
# Pancytopenia secondary to alcoholic cirrhosis
-WBCs 1.6, hemoglobin 9.3, platelets 70
-ctm
#Cirrhosis secondary to alcohol use
hxt of CVA with right flaccid hemiplegia
#hxt of depression/anxiety
#DVT prophylaxis
-scd
#CODE status
-Full code
-
[2024-11-06] MEDS: DUPHALAC/CHRONULAC 20 GRAMS PO ×2 (17:22→22:44)
[2024-11-06] MEDS: OSCAL 500 + D 500 MG PO (20:25)
[2024-11-06] MEDS: XIFAXAN 550 MG PO (20:25)
--- NOTE | 2024-11-07 00:03 | PTCARENOTE ---
received pt from ED at change of shift. pulled over from stretcher to bed with assist x2, pt only oriented to self. pt able to state she is in the hospital, unable to decipher which one, and disoriented to time, pleasantly conversant. bed alarm
activated, fall risk bracelet placed. pt has contracted RUE, blanchable redness to sacrum. pt poor historian, admission questions answered with medical records. swallow screen completed at bedside, pt passed. administered evening medications without
incident. incontinence care provided. plan of care ongoing.
--- NOTE | 2024-11-07 05:46 | W.PN.HOSP.TC ---
Today's Communication/Plan
-
cont lactulose Rifaximin
Assessment / Plan
Assessment / Plan
Physical Exam
General: Well Developed, Well Nourished and No Apparent Distress
HEENT: NormoCephalic, Moist mucous membranes and Atraumatic
Respiratory: Clear
Cardiac: S1/S2 and Regular Rhythm; No Murmur or Rub
GI: Soft, Non Tender, Non Distended and Normal Bowel Sounds; No Organomegaly
Musculoskeletal: No Clubbing, No Cyanosis and No Edema
Skin: No Rash
Neuro: Nonfocal/grossly intact and Other (Right arm contracted)
Psych: Calm
59F with past medical history for Right flaccid hemiplegia, Alcohol cirrhosis of liver without ascites dysphagia due to old CVA, Osteoporosis, Primary insomnia, IBS, Depression, Anxiety presented for evaluation of AMS. Upon arrival noted to have
elevated ammonia level. Patient received lactulose in ER admitted for further management.
# Hepatic encephalopathy
-Ammonia 135
-Continue Lactulose Rifaximin
-CT head and chest x-ray normal
-UA negative for acute infection
-GI consult appreciated
# Pancytopenia secondary to alcoholic cirrhosis
-ctm
#Cirrhosis secondary to alcohol use
#hxt of CVA with right flaccid hemiplegia
#hxt of depression/anxiety
#DVT prophylaxis
-scd
#CODE status
-Full code
I spent a total of 45 minutes with the patient or on the floor. More than 50% of this time involved counseling and coordination of care.
Anticipated Discharge: 24 - 48 hours
Subjective/Interval History
-
Date of Service: November 07, 2024
no acute distress resting comfortably in bed. Mental status appears improved.
Objective Data
-
Labs:
Laboratory Results
11/07/24
06:00
WBC Pending
Hgb Pending
Hct Pending
Plt Count Pending
Sodium Pending
Potassium Pending
Chloride Pending
Carbon Dioxide Pending
BUN Pending
Creatinine Pending
Glucose Pending
Calcium Pending
Vital Signs:
Vital Signs
Temp Pulse Resp BP Pulse Ox
98.1 F 77 16 165/87 93
11/06/24 23:00 11/06/24 23:00 11/06/24 23:00 11/06/24 23:00 11/06/24 23:00
[2024-11-07 06:00] VITALS: BMI 19.1
--- NOTE | 2024-11-07 06:04 | PTCARENOTE ---
Patient stated that they would rather brush their teeth this morning than before bed.
[2024-11-07 07:08] LABS: Blood Urea Nitrogen 18 mg/dl (7-17); Calcium 9.1 mg/dl (8.4-10.2); Carbon Dioxide 24 mmol/L (22-30); Chloride 110 mmol/L (98-107); Estimated Creatinine Clearance 74 ml/min; Glucose 76 mg/dl (70-99); Potassium 4.3 mmol/L (3.5-5.1); Sodium 142 mmol/L (135-145); eGFR > 60.00
[2024-11-07 07:18] LABS: Hematocrit 31.5 % (37.0-47.0); Hemoglobin 10.4 g/dL (12.0-16.0); Mean Corpuscular Hgb 32.7 pg (27.0-31.0); Mean Corpuscular Volume 99.1 fL (81.0-99.0); Mean Platelet Volume 10.9 fL (7.4-10.4); Platelet Count 86 10^3/uL (130-400); Red Blood Cell Count 3.18 10^6/uL (4.20-5.40); Red Cell Dist. Width 15.5 % (11.5-14.5); White Blood Cell Count 2.7 10^3/uL (4.8-10.8)
[2024-11-07 07:31] VITALS: BP 128/78
--- NOTE | 2024-11-07 08:34 | CON.GI ---
Addendum entered and electronically signed by Carolee Alcantara MD 11/07/24 13:39:
I saw and examined the patient.
The SOFTWARE PACKAGER's note was reviewed and I agree with the note.
Comment: This is a 59-year-old female with past medical history as listed below including left thalamic stroke, pancytopenia from cirrhosis, cirrhosis thought to be from alcohol who had a recent hospital admission in August for hepatic
encephalopathy and resolved very quickly with the lactulose who now was brought in from the senior living with altered mental status and elevated ammonia level she has been started on lactulose although she has not had a bowel movement yet her
mentation is now close to baseline, she was also ruled out for infection and her potassium is normal. During her prior admission she was also having abdominal distention so she had a CAT scan on 09/11/2024 which showed possible left-sided colitis,
cirrhosis, gallstones, mild ascites. Her symptoms were thought to be from probable ileus and improved and was discharged back to the senior living. She currently denies any abdominal pain she is on diet as recommended by speech with aspiration
precautions.
Assessment and plan 1. Hepatic encephalopathy with known history of cirrhosis presumed to be from alcohol which seems to have resolved although she has not really had a bowel movement yet. continue lactulose tid and titrate to 3-4 bowel movements a
day continue Xifaxan. No obvious precipitating event she was ruled out for infection, electrolytes are pretty unremarkable and no signs of GI bleed currently and hemoglobin stable at baseline. She did have imaging as described above including
ultrasound and CT in August which was negative for HCC. She is currently residing in a senior living so unclear if she will be able to follow-up for outpatient HCC surveillance but would recommend alpha-fetoprotein and ultrasound every 6 months.
It is unclear if she has had endoscopy or colonoscopy in the past but given her overall poor performance status and underlying comorbidities may not be a candidate for the procedures.
Original Note:
Consultation
-
Date/Time Consultation Requested: 11/06/241925
Date/Time Consultation Performed: 11/07/24829
Requesting Provider: UBALDO Angeles
Performing Provider: Dr. Alcantara/UBALDO Tucker
Reason for Consultation: hepatic encephalopathy
Medical History
Chief Complaint / HPI
Chief Complaint: confusion
History of Present Illness:
59-year-old female with past medical history left thalamus stroke, pancytopenia, insomnia, dysphagia, osteoporosis, depression, anxiety and cirrhosis presents to the emergency room with change in mental status. Asked to evaluate for elevated
ammonia. At present time patient is awake alert and oriented to person, place and year. She states that 'usually I am at [facility] [place], I do not know how I got here'. She states that she is at '[facility]'. And that the year is 2023.
The patient was sent over by [facility] yesterday afternoon as she was sleepy and not answering questions or following commands. CT of the head UA and blood work was obtained. She usually takes lactulose once daily. She was given this 3 times
a day while here. Her ammonia was found to be elevated at 135. It has not been repeated yet. She has not had a bowel movement as of yet per nursing. The patient at the present time is asking for breakfast. This was provided to her. She was set
up for breakfast and states that she is able to feed herself. Discussed with nursing and rehab nursing tech, who set up breakfast for heart present time. The patient denies any fevers, chills, nausea, vomiting, abdominal pain, no other complaints at the
present time. Current labs include WBC 2.7, hemoglobin 10.4, hematocrit 31.5, platelets 86, sodium 142, potassium 4.3, chloride 110, CO2 24, BUN 18, creatinine 0.7, glucose 76.
Past Medical History
Past Medical History: CVA and Other (Pancytopenia, insomnia, dysphagia, osteoporosis, depression anxiety and cirrhosis)
Past Surgical History: Orthopedic
Social History
Tobacco: Non-Smoker
Alcohol: Former
Drug: None
Personal: Single
Living: Penitentiary
Family History
Family History: Unable to Obtain
Allergies / Home Medications
Allergy/AdvReac Type Severity Reaction Status Date / Time
No Known Allergies Allergy Verified 11/06/24 14:40
�Medication �Instructions �Recorded
amitriptyline 10 mg tablet 10 mg PO Q OTHER DAY 07/06/24
ascorbic acid (vitamin C) 500 mg 500 mg PO DAILY anemia 07/06/24
tablet
bisacodyl 10 mg rectal suppository 10 mg WV DAILYPRN PRN if mom is 07/06/24
(Dulcolax (bisacodyl)) ineffective
calcium 600 mg (as 1 tab PO BID Supplement 07/06/24
carbonate)-vitamin D3 10 mcg (400
unit) tablet (Calcium 600 + D(3))
duloxetine 60 mg capsule,delayed 60 mg PO DAILY Mental 07/06/24
release Health/Anxiety
folic acid 1 mg tablet 1 mg PO DAILY Supplement 07/06/24
magnesium hydroxide 400 mg/5 mL 30 ml PO DAILYPRN PRN constipation 07/06/24
oral suspension (Milk of Magnesia)
mirtazapine 15 mg tablet (Remeron) 7.5 mg PO HS anxiety 07/06/24
rifaximin 550 mg tablet (Xifaxan) 550 mg PO BID 07/06/24
sodium phosphates 19 gram-7 118 ml WV DAILYPRN PRN if dulcolax 07/06/24
gram/118 mL enema is ineffective
thiamine HCl (vitamin B1) 100 mg 100 mg PO DAILY Supplement 07/06/24
tablet
zolpidem 10 mg tablet (Ambien) 2.5 mg PO HS insomnia 07/06/24
furosemide 20 mg tablet 20 mg PO DAILY 30 days #30 tabs 09/13/24
lactulose 20 gram/30 mL oral 30 g (45 mL) PO DAILY 30 days 09/13/24
solution #1,350 mL
Review of Systems
-
All other systems: A 12 pt ROS was Negative except as stated above in HPI
Vital Signs
Temp Pulse Resp BP Pulse Ox
98.2 F 78 16 128/78 97
11/07/24 07:31 11/07/24 07:31 11/07/24 07:31 11/07/24 07:31 11/07/24 07:31
Physical Exam
Exam
General: No Apparent Distress
HEENT: Anicteric
Respiratory: Clear (Anterior)
Cardiac: Regular Rhythm
GI: Soft, Non Tender, Non Distended and Normal Bowel Sounds
Skin: Warm and Dry
Neuro: Awake, Alert and Oriented (States 'I am usually at [facility]', she is at '[facility]', when asked year '2023')
Psych: Calm
Results
WBC 2.7 10^3/uL (4.8-10.8) L 11/07/24 06:16
Hgb 10.4 g/dL (12.0-16.0) L 11/07/24 06:16
Hct 31.5 % (37.0-47.0) L 11/07/24 06:16
MCV 99.1 fL (81.0-99.0) H 11/07/24 06:16
Plt Count 86 10^3/uL (130-400) L D 11/07/24 06:16
Absolute Neuts (auto) 1.0 10^3/uL (1.4-6.5) L 11/06/24 14:53
PT 17.3 Sec (11.4-14.6) H 11/06/24 14:52
INR 1.39 11/06/24 14:52
APTT 34.6 Sec (23.4-35.0) 11/06/24 14:52
Sodium 142 mmol/L (135-145) 11/07/24 06:16
Potassium 4.3 mmol/L (3.5-5.1) 11/07/24 06:16
Chloride 110 mmol/L (98-107) H 11/07/24 06:16
Carbon Dioxide 24 mmol/L (22-30) 11/07/24 06:16
BUN 18 mg/dl (7-17) H 11/07/24 06:16
Creatinine 0.7 mg/dL (0.6-1.0) 11/07/24 06:16
Calcium 9.1 mg/dl (8.4-10.2) 11/07/24 06:16
Total Bilirubin 0.8 mg/dl (0.2-1.3) 11/06/24 14:53
AST 36 U/L (14-36) 11/06/24 14:53
ALT 19 U/L (0-35) 11/06/24 14:53
Alkaline Phosphatase 30 U/L (38-126) L 11/06/24 14:53
Diagnostic Image Results:
Chest x-ray:Low lung volumes without focal airspace disease.
CT head:No acute intracranial abnormality noted.
Prior GI Procedures:
EGD: Unable
Colonoscopy: Unable
Assessment / Plan
-
59-year-old female with past medical history left thalamus stroke, pancytopenia, insomnia, dysphagia, osteoporosis, depression, anxiety and cirrhosis presents to the emergency room with change in mental status. Asked to evaluate for elevated
ammonia. Patient presented with elevated ammonia level of 135. Has been given 3 doses of lactulose. No bowel movement yet however she is awake, alert and oriented. She is able to sit up and feed herself at the present time. Patient without any
current complaints. Appears back to her baseline.
Impression:
Hepatic encephalopathy-> elevated ammonia, now improved
Cirrhosis-> unknown etiology
Plan:
-Patient receiving lactulose 3 times daily, no bowel movement yet. Continue until bowel movements then would resume lactulose at twice daily. To titrate to 2-3 BMs daily.
-Discussed with RN, will give Dulcolax suppository to stimulate bowel movement from below.
-Continue Xifaxan twice daily.
-As per internal medicine.
-
-
Thank you for consultation and allowing me to participate in the patient's care. Please call the affirmative action officer GI physician during the after hours with any questions or concerns.
[2024-11-07] MEDS: DUPHALAC/CHRONULAC 20 GRAMS PO ×3 (08:40→23:12)
[2024-11-07] MEDS: XIFAXAN 550 MG PO ×2 (08:41→23:16)
[2024-11-07] MEDS: CYMBALTA DELAYED RELEASE 60 MG PO (08:41)
[2024-11-07] MEDS: LASIX 20 MG PO (08:41)
[2024-11-07] MEDS: FOLVITE 1 MG PO (08:41)
[2024-11-07] MEDS: OSCAL 500 + D 500 MG PO ×2 (08:41→23:11)
--- NOTE | 2024-11-07 10:21 | PTOTSP ---
ST Acute Care Evaluation
Pt currently presents with clinical signs of mild oropharyngeal dysphagia characterized by prolonged mastication and bolus formation as well as reduced airway protection and coordination for talking with bolus in oral cavity.
Recommendations:
- SOFT BITE SIZED SOLIDS and THIN LIQUIDS; meds whole in puree.
- Aspiration precautions: HOB fully upright for all PO intake; small bites/sips; eat/drink slowly; alternate bites/sips.
- LETTER STAMPING MACHINE OPERATOR to f/u re: diet tolerance, to trial diet upgrades, and to complete an instrumental swallow study if warranted.
[2024-11-07] MEDS: DULCOLAX 10 MG RECTAL (14:51)
--- NOTE | 2024-11-07 14:51 | CM ---
Placed a call to [facility] to speak with an RN who is familiar with patient in LTC. Spoke with one of patient's RNs, Ursula, who stated that patient is total care for all dressing, bathing, ADLs, and toileting. She does not ambulate and uses
a walker. She is a lay for transfers. She is incontinent of bowel and bladder.
Expressed concern regarding attending wanting her to get Lactulose x3. Ursula stated that they will need a script but did not have any concerns.
Patient is a bed hold.
Plan: Case management will continue to follow and assist with discharge planning. Back to [facility] when cleared for discharge.
[2024-11-07 14:55] VITALS: BP 179/89
[2024-11-07 23:15] VITALS: BP 115/68
[2024-11-07] MEDS: ELAVIL 10 MG PO (23:16)
[2024-11-08 07:00] VITALS: BP 122/68
--- NOTE | 2024-11-08 07:00 | W.PN.HOSP.TC ---
Addendum entered and electronically signed by Herberth Hermosillo MD 11/09/24 05:17:
Functional Quadriplegia 2/2 stroke
Addendum entered and electronically signed by Herberth Hermosillo MD 11/08/24 15:22:
Home Ambien and Remeron placed on hold since admission d/t AMS.
Recommending to continue hold on discharge (possibly contributing to confusion)- Follow up with primary care provider care in 1 week of discharge to determine when safe to resume, if necessary to resume, if dose adjustment is necessary, and/or if an
alternative agent is required instead.
Notably patient has never received these medications while here and appears stable without.
Original Note:
Today's Communication/Plan
-
discharge
Assessment / Plan
Assessment / Plan
Physical Exam
General: Well Developed, Well Nourished and No Apparent Distress
HEENT: NormoCephalic, Moist mucous membranes and Atraumatic
Respiratory: Clear
Cardiac: S1/S2 and Regular Rhythm; No Murmur or Rub
GI: Soft, Non Tender, Non Distended and Normal Bowel Sounds; No Organomegaly
Musculoskeletal: No Clubbing, No Cyanosis and No Edema
Skin: No Rash
Neuro: AOx3, Right arm contracted, left arm also somewhat contracted but significantly less compared to right
Psych: Calm
59F with past medical history for Right flaccid hemiplegia, Alcohol cirrhosis of liver without ascites dysphagia due to old CVA, Osteoporosis, Primary insomnia, IBS, Depression, Anxiety presented for evaluation of AMS. Upon arrival noted to have
elevated ammonia level. Patient received lactulose in ER admitted for further management.
# Hepatic encephalopathy
-Ammonia 135
-Continue Lactulose Rifaximin as per GI
-CT head and chest x-ray normal
-UA negative for acute infection
-GI consult appreciated
-AMS resolved, AOx3, mental status appears baseline at this time
-speech eval appreciated soft bite sized thin liquids meds whole in puree
# Pancytopenia secondary to alcoholic cirrhosis
-ctm
#Cirrhosis secondary to alcohol use
#hxt of CVA with right flaccid hemiplegia
#hxt of depression/anxiety
#Hypomagnesemia
repleted
#DVT prophylaxis
-scd
#CODE status
-Full code
Medically stable for discharge back to [facility] with outpatient follow up recommendations.
discussed with patient and patient's brother Anthony
Total Time Preparing Discharge ___40____ minutes including examination of the patient, summary of the hospital stay, instructions for continuing care to all relevant caregivers; and preparation of discharge records, prescriptions, and referral
forms if necessary.
Anticipated Discharge: Today
Subjective/Interval History
-
Date of Service: November 08, 2024
No acute distress. Appears comfortable at this time. AOx3. Patient reports feeling well after bowel movements overnight with suppository given earlier. Denies new acute issues. Eager to go home back to [facility]
Objective Data
-
Labs:
Laboratory Results
11/08/24
06:00
WBC Pending
Hgb Pending
Hct Pending
Plt Count Pending
Sodium Pending
Potassium Pending
Chloride Pending
Carbon Dioxide Pending
BUN Pending
Creatinine Pending
Glucose Pending
Calcium Pending
Vital Signs:
Vital Signs
Temp Pulse Resp BP Pulse Ox
98.8 F 91 16 115/68 94
11/07/24 23:15 11/07/24 23:15 11/07/24 23:15 11/07/24 23:15 11/07/24 23:15
I&O
11/07/24 11/08/24 11/09/24
06:59 06:59 06:59
Intake Total 240 / 240 1200 / 1200
Balance 240 / 240 1200 / 1200
--- NOTE | 2024-11-08 07:21 | PN.CDI ---
CDI
- -
CDI:
Physician Documentation Request
Admit Date: 11/06/24 18:12
Dear Doctor Bay,
Please review the following and provide your response in the progress notes.
Clinical Indicators:
PN, 11/07
# Hepatic encephalopathy
#Cirrhosis secondary to alcohol use
#hxt of CVA with right flaccid hemiplegia
11/07/24 14:51 - Case Management Note
#...call to [facility] to speak with an RN who is familiar with patient in LTC.
#Spoke with one of patient's RNs, Ursula, who stated that
#...patient is total care for all dressing, bathing, ADLs, and toileting.
#...She does not ambulate and uses a walker.
#...She is a lay for transfers.
#...She is incontinent of bowel and bladder.
Based on the above and your clinical assessment, please provide a diagnosis associated with the patient's current functional status:
Functional quadriplegia (complete immobility due to severe physical disability
or frailty, non neurologic cause)
Generalized weakness only, without complete immobility
Other (please specify)
Hemiparesis/Hemiplegia Quadriparesis/Quadriplegia
Type Type
Spastic Complete
Flaccid Incomplete
Unable to determine Unable to determine
Laterality Level
Left C1-C4
Right C5-C7
Unable to determine Unable to determine
Side Etiology
Dominant side CVA, cerebral palsy,
Nondominant side injury, etc.
Unable to determine Functional quadriplegia
Etiology complete immobility due
CVA, cerebral palsy, severe physical
injury, etc. disability or frailty
Use of terms such as suspected, likely, concern for, or probable (associated with a specific diagnosis that is being evaluated, monitored, or treated as if it exists) are acceptable and can be coded in the inpatient setting, when documented at the
time of discharge.
Thank you,
Georgiana Ingram RN BSN CCDS
CDI Specialist
please contact via tiger text
Please use your independent medical judgment in providing your response.
[2024-11-08 07:38] LABS: Hematocrit 31.3 % (37.0-47.0); Hemoglobin 10.3 g/dL (12.0-16.0); Mean Corp Hgb Conc. 32.9 g/dL (33.0-37.0); Mean Corpuscular Hgb 32.6 pg (27.0-31.0); Mean Corpuscular Volume 99.1 fL (81.0-99.0); Mean Platelet Volume 10.6 fL (7.4-10.4); Platelet Count 80 10^3/uL (130-400); Red Blood Cell Count 3.16 10^6/uL (4.20-5.40); Red Cell Dist. Width 15.8 % (11.5-14.5); White Blood Cell Count 3.6 10^3/uL (4.8-10.8)
[2024-11-08 08:08] LABS: Blood Urea Nitrogen 17 mg/dl (7-17); Calcium 9.1 mg/dl (8.4-10.2); Carbon Dioxide 26 mmol/L (22-30); Chloride 108 mmol/L (98-107); Estimated Creatinine Clearance 64 ml/min; Glucose 78 mg/dl (70-99); Magnesium 1.5 mg/dl (1.6-2.3); Sodium 141 mmol/L (135-145); eGFR > 60.00
[2024-11-08] MEDS: DUPHALAC/CHRONULAC 20 GRAMS PO (10:27)
[2024-11-08] MEDS: CYMBALTA DELAYED RELEASE 60 MG PO (10:27)
[2024-11-08] MEDS: OSCAL 500 + D 500 MG PO (10:28)
[2024-11-08] MEDS: LASIX 20 MG PO (10:28)
[2024-11-08] MEDS: FOLVITE 1 MG PO (10:28)
[2024-11-08] MEDS: XIFAXAN 550 MG PO (10:28)
--- NOTE | 2024-11-08 11:23 | W.PN.GI.CBS2 ---
Addendum entered and electronically signed by Carolee Alcantara MD 11/08/24 15:27:
I saw and examined the patient.
The SPLITTER TENDER's note was reviewed and I agree with the note.
Comment: Presumed alcoholic cirrhosis presented with hepatic encephalopathy which seems to have resolved now with increased lactulose. She is at baseline now and tolerating diet noted input from primary team they are also holding the Remeron and
Ambien which might have contributed to her confusion, continue Xifaxan twice daily and lactulose twice daily. She is currently living in a fci and given her overall comorbidities and poor performance status may not be a candidate for
endoscopy and colonoscopy. Continue HCC surveillance every 6 months. Okay to DC back to fci from GI perspective will sign off and will be available as needed
Original Note:
Today's Communication / Plan
-
pt with hx cirrhosis --etiology unclear -- Pt states hx heavy ETOH prior to CVA in 2015
Pt awake and alert today with hemiplegia
reviewed with nursing staff several stools overnight will taper lactulose to BID and Xifaxan BID
CT in August changes of cirrhosis no mass
added gi follow up for cirrhosis -- will need OP continue follow for AFP/US every 6 months
It is unclear if she has had endoscopy or colonoscopy in the past but given her overall poor performance status and underlying comorbidities may not be a candidate for the procedures.
Assessment / Plan
-
59-year-old female with past medical history left thalamus stroke, pancytopenia, insomnia, dysphagia, osteoporosis, depression, anxiety and cirrhosis presents to the emergency room with change in mental status. Asked to evaluate for elevated
ammonia. Patient presented with elevated ammonia level of 135. Has been given 3 doses of lactulose. No bowel movement yet however she is awake, alert and oriented. She is able to sit up and feed herself at the present time. Patient without any
current complaints. Appears back to her baseline.
Impression:
Hepatic encephalopathy-> elevated ammonia, now improved
Cirrhosis-> unknown etiology
pancytopenia
-CT in August with left sided colitis
-gallstones
other med problems:
-left thalmic CVA
Plan:
pt with hx cirrhosis --etiology unclear -- Pt states hx heavy ETOH prior to CVA in 2015
Pt awake and alert today with hemiplegia
reviewed with nursing staff several stools overnight will taper lactulose to BID and Xifaxan BID
CT in August changes of cirrhosis no mass
added gi follow up for cirrhosis -- will need OP continue follow for AFP/US every 6 months
It is unclear if she has had endoscopy or colonoscopy in the past but given her overall poor performance status and underlying comorbidities may not be a candidate for the procedures.
Subjective
Subjective
Date of Service: November 08, 2024
11/07 sy stool, on IDDS 6 diet
Objective
Data Reviewed
Laboratory Data:
Laboratory Results
11/08/24 07:06
11/08/24 07:06
Laboratory Results
PT 17.3 Sec (11.4-14.6) H 11/06/24 14:52
INR 1.39 11/06/24 14:52
APTT 34.6 Sec (23.4-35.0) 11/06/24 14:52
Phosphorus 3.0 mg/dl (2.5-4.5) 11/08/24 07:06
Magnesium 1.5 mg/dl (1.6-2.3) L 11/08/24 07:06
Total Bilirubin 0.8 mg/dl (0.2-1.3) 11/06/24 14:53
AST 36 U/L (14-36) 11/06/24 14:53
ALT 19 U/L (0-35) 11/06/24 14:53
Alkaline Phosphatase 30 U/L (38-126) L 11/06/24 14:53
Vital Signs and I&O:
Vital Signs
Temp Pulse Resp BP Pulse Ox
98.8 F 91 16 122/68 93
11/08/24 07:00 11/08/24 10:28 11/08/24 07:00 11/08/24 10:28 11/08/24 07:00
I&O
11/07/24 11/08/24 11/09/24
06:59 06:59 06:59
Intake Total 240 / 240 1200 / 1200
Balance 240 / 240 1200 / 1200
Physical Exam
Physical Exam
HEENT: Anicteric and Moist mucous membranes
Cardiology: Normal Sinus Rhythm
Pulmonary: Clear
GI: Soft and Non Distended
[2024-11-08] MEDS: MAGNESIUM SULFATE 100 IV (14:08)
--- NOTE | 2024-11-08 15:14 | CM ---
Spoke with attending who stated that patient is medically stable for discharge. Placed a call to [facility] and spoke with Savanna in admissions who stated that she will relay patient's transfer back to LTC with [facility] who handles
transfers/admissions/discharges. # For report [phone] and #fax [phone].
Medical necessity and transfer sheet completed and on chart.
Placed a call to patient's brother. Reviewed IMM and he was agreeable to discharge.
Plan: Case management will continue to follow and assist with discharge planning. Back to [facility].
--- NOTE | 2024-11-08 15:15 | W.DCSUMMARY ---
Discharge Summary
Discharge Data
Date of Admission: 11/06/24
Date of Discharge: 11/08/24
-
Pending Results: No
Discharge Plan
-
Patient Disposition: Halfway/SNF
Discharge Diagnosis/Procedures: Hepatic encephalopathy
Pancytopenia secondary to alcoholic cirrhosis
Cirrhosis secondary to alcohol use
History Stroke with right flaccid hemiplegia
History Depression/Anxiety
Hypomagnesemia
Condition: Fair
Additional Diets: Soft Bite Sized solids diet with thin liquids and meds whole in puree
Activity: As tolerated
Driving Restrictions: As prior to admission
Bathing Restrictions: None
Blood Work: Repeat CBC BMP and Magnesium level with primary care provider in 1 week of discharge.
Other Services: ST
Activity Restrictions/Additional Instructions:
Please follow up with primary care provider in 1 week of discharge and GI in 2-4 weeks of discharge.
Lactulose has been increased to 20 mg twice a day for better treatment hepatic encephalopathy.
Ambien and Remeron have been placed on hold as these medications may have contributed to confusion. Follow up with primary care provider to determine when safe to resume, if necessary to resume, if dose adjustment is necessary, and/or if an
alternative agent is required instead.
Please take medications as prescribed/recommended and follow up with primary care provider and/or other healthcare provider involved in your care for refills and/or further adjustment to your medication regimen as necessary.
Referrals:
Ryan David DO [Family Provider] - in one week
Carolee Alcantara MD [Active] - in two to four weeks (GI follow up for continued work up for cirrhosis.)
Prescriptions:
New
lactulose 20 gram/30 mL Solution
20 g PO BID Qty: 1200 0RF
Continued
thiamine HCl (vitamin B1) 100 mg Tablet
100 mg PO DAILY
magnesium hydroxide [Milk of Magnesia] 400 mg/5 mL Suspension
30 ml PO DAILYPRN PRN (Reason: constipation)
ascorbic acid (vitamin C) 500 mg Tablet
500 mg PO DAILY
amitriptyline 10 mg Tablet
10 mg PO Q OTHER DAY
Rx Instructions:
Pt takes this med QOD at HS
bisacodyl [Dulcolax (bisacodyl)] 10 mg Suppository
10 mg AR DAILYPRN PRN (Reason: if mom is ineffective)
Patient Comments:
Medication is on Hold since 02/04/24
sodium phosphates 19-7 gram/118 mL Enema
118 ml AR DAILYPRN PRN (Reason: if dulcolax is ineffective)
folic acid 1 mg Tablet
1 mg PO DAILY
duloxetine 60 mg Capsule,Delayed Release(Dr/Ec)
60 mg PO DAILY
calcium carbonate-vitamin D3 [Calcium 600 + D(3)] 600 mg-10 mcg (400 unit) Tablet
1 tab PO BID
Xifaxan 550 mg Tablet
550 mg PO BID
furosemide 20 mg Tablet
20 mg PO DAILY 30 Days Qty: 30 0RF
Held
mirtazapine [Remeron] 15 mg Tablet
7.5 mg PO HS
Hold Instructions: Follow up with primary care provider care in 1 week of discharge to determine when safe to resume, if necessary to resume, if dose adjustment is necessary, and/or if an alternative agent is required instead.
zolpidem [Ambien] 10 mg Tablet
2.5 mg PO HS
Hold Instructions: Follow up with primary care provider care in 1 week of discharge to determine when safe to resume, if necessary to resume, if dose adjustment is necessary, and/or if an alternative agent is required instead.
Discontinued
lactulose 20 gram/30 mL solution
30 g PO DAILY 30 Days Qty: 1350 0RF
Discharge Orders:
Discharge Patient (As Directed); Ordered 11/08/24
Ordered By: Herberth Hermosillo
Discharge Date and Time
Print Language: SPANISH
[2024-11-08 15:23] VITALS: BP 104/63
[2024-11-08] MEDS: AFLURIA (36 mos+) 2024-2025 FORMULA 0.5 ML IM (16:52)
--- NOTE | 2024-11-08 18:35 | PTCARENOTE ---
Attempted to call [facility] to give report however no one answered.
== END 2024-11-08 18:15 | DRG 441 ==
LOC: 3 WEST ACU 18:12
PROVIDERS: Registered Nurse; ADMITTING PHYSICIAN Hospitalist; ATTENDING PHYSICIAN Internal Medicine; CONSULT PHYSICIAN Internal Medicine Gastroenterology; EMERGENCY PHYSICIAN Student in an Organized Health Care Education/Training Program; FAMILY PHYSICIAN Internal Medicine
PROC: 3E02340 Introduction of Influenza Vaccine into Muscle, Percutaneous Approach (ICD-10-PCS; 2024-11-08)
DX: K76.82 Hepatic encephalopathy (principal); G92.8 Other toxic encephalopathy; D61.818 Other pancytopenia; K70.30 Alcoholic cirrhosis of liver without ascites; F32.A Depression, unspecified; F41.9 Anxiety disorder, unspecified; E83.42 Hypomagnesemia; F51.01 Primary insomnia; I44.7 Left bundle-branch block, unspecified; I10 Essential (primary) hypertension; M81.0 Age-related osteoporosis without current pathological fracture; K58.9 Irritable bowel syndrome, unspecified; I69.391 Dysphagia following cerebral infarction; I69.365 Other paralytic syndrome following cerebral infarction, bilateral; Z79.899 Other long term (current) drug therapy; Z23 Encounter for immunization
CPT/HCPCS: 70450; 71045; 80048; 80053; 81003; 81015; 82140; 83605; 83735; 83880; 84100; 84484; 85025; 85027; 85610; 85730; 87070; 87086; 90686; 92610; 93005; 99291; G0008

== ENCOUNTER 2024-12-07 18:58 | Inpatient (IN) | payer MEDICARE, OTHER, SELFPAY ==
[2024-12-07] VITALS (8 sets, daily range): BP systolic 110–131; BP diastolic 70–96
--- NOTE | 2024-12-07 16:09 | ED.GENMED ---
History of Present Illness
General
Chief Complaint: Change in Mental Status
Time Seen by Provider: 12/07/24 16:01
History of Present Illness
History of Present Illness:
59-year-old female with history of prior stroke with right-sided hemiparesis and hepatic cirrhosis presents to the emergency department from [facility] due to altered mental status. History of similar mental status changes
secondary to hepatic encephalopathy. Patient unable to provide history on arrival due to acute encephalopathy
Past History
Past History
ED Past Medical History: CVA, HTN and Psychiatric
ED Past Surgical History: None
Social History
Tobacco: Non-smoker
Alcohol: Former
Review of Systems
Review of Systems
Allergies reviewed?: Yes
All Other Systems: ROS reviewed and negative except as documented in HPI and ROS
Phy Exam
Physical Exam
Physical Exam:
GEN: Somnolent, yells out in pain on exam
HEENT: Pupils midposition and reactive
Cardiac: Regular rate and rhythm
Lung: No respiratory distress, no tachypnea, lungs clear with poor inspiratory effort
Abdomen: Soft, nondistended
MSK: No gross deformity or injuries
Skin: Good color, no pallor or jaundice, no rashes
Neuro: Somnolent, incomprehensible speech, does not follow commands
Psych: Calm, cooperative
Course
Orders/Labs/Results
Orders:
Orders
12/07/24 16:08
CT Head W/o Iv Contrast Urgent
Comment:
Reason For Exam: AMS
12/07/24 16:17
Complete Blood Count/With Diff Urgent
Comprehensive Metabolic Panel Urgent
Prothrombin Time Urgent
12/07/24 16:34
Ammonia Urgent
12/07/24 18:00
Lactulose [Duphalac/Chronulac] 20 grams PO DAILY
12/07/24 18:36
Urinalysis Reflex To Culture Urgent
Date Specimen was Collected: 12/07/24
Time Specimen was Collected: 18:32
Urine Microscopic Reflex Cult Urgent
Urine Culture Urgent
DENISE Source: U
Specimen Description:
Date Specimen was Collected: 12/07/24
Time Specimen was Collected: 18:32
12/07/24 18:39
Admit/Transfer Patient As Directed
Co-Sign Provider:
Level of Care: Inpatient admission
Assign to:: Medical/Surgical
Physician / Group: porfirio
Diagnosis: hepatic enceophalopathy
Reason for Hospitalization: hepatic encephalopathy
Expected length of stay greater than two midnights?: Yes
ELOS- Estimated Length of Stay in days: 3
I certify the patient meets the requirements for IP care: Yes
12/07/24 18:43
Code Status As Directed
Resuscitation Status: Full Code
12/07/24 18:47
PRN Pain Medication Management As Directed
May give lesser potent ordered pain med per pt: No
preference::
Protocol:: Medication orders for pain may NOT be administered in
a manner that defers to patient preference. Follow
all order instructions as written.
Contact provider if ordering parameters for pain need
to be adjusted.
12/07/24 18:58
CefTRIAXone [Rocephin] 1,000 mg IV NOW STA
Abnormal Lab Results
12/07/24 12/07/24 12/07/24
16:17 16:34 18:36
WBC 1.9 L* 10^3/uL
(4.8-10.8)
RBC 3.14 L 10^6/uL
(4.20-5.40)
Hgb 10.3 L g/dL
(12.0-16.0)
Hct 31.3 L %
(37.0-47.0)
MCV 99.7 H fL
(81.0-99.0)
MCH 32.8 H pg
(27.0-31.0)
MCHC 32.9 L g/dL
(33.0-37.0)
RDW 16.0 H %
(11.5-14.5)
Plt Count 73 L 10^3/uL
(130-400)
MPV 11.3 H fL
(7.4-10.4)
Absolute Neuts (auto) 1.2 L 10^3/uL
(1.4-6.5)
Absolute Lymphs (auto) 0.4 L 10^3/uL
(1.2-3.4)
Monocytes % 11.2 H %
(1.7-9.3)
PT 17.7 H Sec
(11.4-14.6)
Chloride 108 H mmol/L
(98-107)
BUN 21 H mg/dl
(7-17)
Glucose 104 H mg/dl
(70-99)
AST 42 H U/L
(14-36)
Ammonia 107 H umol/L
(9-30)
Urine Ketones Trace A
(Negative)
Ur Occult Blood Reflex 4+ A
(Negative)
Urine Nitrite (Reflex) Positive A
(Negative)
Urine Urobilinogen 4+ A
(Neg - 1+)
Leukocyte Esterase Rfl 2+ A
(Negative)
Urine RBC 11-15 A /HPF
(0-2)
Urine WBC (Reflex) 11-15 A /HPF
(0-5)
Urine Bacteria (Reflex) Many A
(Negative)
12/07/24 16:17
12/07/24 16:17
Vital Signs
Initial and Last Documented VS:
Initial Vital Signs
Temp Pulse Resp BP Pulse Ox
97.7 F 85 16 119/85 97
12/07/24 16:02 12/07/24 16:02 12/07/24 16:02 12/07/24 16:02 12/07/24 16:02
Last Documented Vital Signs
Temp Pulse Resp BP Pulse Ox
97.7 F 89 20 125/95 93
12/07/24 16:02 12/07/24 23:09 12/07/24 18:01 12/07/24 23:09 12/07/24 22:30
MDM/Problems Addressed
MDM/Problems Addressed:
Will admit for acute metabolic/hepatic encephalopathy due to hyperammonemia. Of note the patient was writhing and crying in pain frequently in the emergency department requiring IV sedation. She was sent for CT abdomen pelvis as her encephalopathy
prevents further history or complaints to be relayed. She was noted to have fecal impaction with stercoral colitis, bedside disimpaction was performed with enema administered
*Critical Care Note
Total Time (30-74mins, 75-104mins- exclusive of procedures): Not Applicable
ED Attending Note
-
Portions of this chart may have been created with voice recognition software.� Occasional wrong word or��sound alike� substitutions may have occurred due to the inherent limitations of voice recognition software.
Discharge Plan
Departure
Patient Disposition: Admit
Date of Disposition: 12/07/24
Time of Disposition: 18:26
Presentation/result/management discussed w/ accepting MD/DO: Hospitalist
Discharge Problem:
Hepatic encephalopathy
Interventions
Interventions:
*Risk Screen - Suicide Last Done: 12/07/24 16:02
*General Assessment Last Done: 12/07/24 16:02
*Neglect/Abuse Screening Last Done: 12/07/24 16:02
ED- Fall Risk Assessment Last Done: 12/07/24 23:05
*ED COVID-19 Vaccine History Last Done: 12/07/24 23:13
ED- Neurological Assessment Last Done: 12/07/24 16:40
ED- Cardiac Assessment Last Done: 12/07/24 23:05
ED Swallowing Screen Last Done: 12/07/24 23:13
[2024-12-07 16:36] LABS: PT 17.7 Sec (11.4-14.6)
[2024-12-07 16:52] LABS: % Basophils 0.5 % (0-2); % Eosinophils 2.1 % (0-6); % Immature Granulocytes 0.5 % (0-0.5); % Lymphocytes 21.9 % (20.5-51.1); % Monocytes 11.2 % (1.7-9.3); % Neutrophils 63.8 % (42.2-75.2); Absolute Lymphocytes 0.4 10^3/uL (1.2-3.4); Absolute Monocytes 0.2 10^3/uL (0.1-0.6); Absolute Neutrophils 1.2 10^3/uL (1.4-6.5); Hematocrit 31.3 % (37.0-47.0); Hemoglobin 10.3 g/dL (12.0-16.0); Mean Corp Hgb Conc. 32.9 g/dL (33.0-37.0); Mean Corpuscular Hgb 32.8 pg (27.0-31.0); Mean Corpuscular Volume 99.7 fL (81.0-99.0); Mean Platelet Volume 11.3 fL (7.4-10.4); Nucleated Red Blood Cells % 0 %; Platelet Count 73 10^3/uL (130-400); Red Blood Cell Count 3.14 10^6/uL (4.20-5.40); White Blood Cell Count 1.9 10^3/uL (4.8-10.8)
[2024-12-07 16:54] LABS: Ammonia 107 umol/L (9-30)
[2024-12-07] MEDS: DUPHALAC/CHRONULAC 20 GRAMS PO (17:08)
[2024-12-07 17:20] LABS: ALT (SGPT) 23 U/L (0-35); AST (SGOT) 42 U/L (14-36); Albumin 3.5 g/dl (3.5-5.0); Alkaline Phosphatase 66 U/L (38-126); Blood Urea Nitrogen 21 mg/dl (7-17); Calcium 9.5 mg/dl (8.4-10.2); Carbon Dioxide 28 mmol/L (22-30); Chloride 108 mmol/L (98-107); Glucose 104 mg/dl (70-99); Potassium 4.3 mmol/L (3.5-5.1); Sodium 143 mmol/L (135-145); Total Protein 6.4 g/dl (6.3-8.2); eGFR > 60.00
--- NOTE | 2024-12-07 18:28 | HPS.HSE ---
Family Physician
-
Family Physician: Ryan David
Chief Complaint
-
confusion
History of Present Illness
59-year-old female with history of prior stroke with right-sided hemiparesis and hepatic cirrhosis presents to the emergency department from [facility] due to altered mental status. Patient unable to provide history on arrival
due to acute encephalopathy.
on arrival noted to have elevated ammonia, received lactulose in ER. admitting for further management.
Medical History
Past Medical History
Past Medical History: Reports Other
Additional Past Medical History:
Right flaccid hemiplegia
Alcohol cirrhosis of liver without ascites
Dysphagia due to old CVA
Osteoporosis
Primary insomnia
Irritable bowel disease
Depression
Anxiety
Past Surgical History: Reports Other
Social History
Unable to obtain full social history at this time due to: Acuity
Family History
Family History: Not pertinent
Allergies / Home Medications
Allergies reflects when Allergies were last updated in [employer].
Home Medications with original date entered in [employer]
Allergy/Medication List:
Allergies
Allergy/AdvReac Type Severity Reaction Status Date / Time
No Known Allergies Allergy Verified 12/07/24 16:02
Home Medications
ascorbic acid (vitamin C) 500 mg tablet 500 mg PO DAILY anemia 07/06/24
bisacodyl 10 mg rectal suppository (Dulcolax (bisacodyl)) [address] DAILYPRN PRN if mom is ineffective 07/06/24
calcium 600 mg (as carbonate)-vitamin D3 10 mcg (400 unit) tablet (Calcium 600 + D(3)) 1 tab PO BID Supplement 07/06/24
duloxetine 60 mg capsule,delayed release 60 mg PO DAILY Mental Health/Anxiety 07/06/24
folic acid 1 mg tablet 1 mg PO DAILY Supplement 07/06/24
magnesium hydroxide 400 mg/5 mL oral suspension (Milk of Magnesia) 30 ml PO DAILYPRN PRN constipation 07/06/24
mirtazapine 15 mg tablet (Remeron) 7.5 mg PO HS anxiety 07/06/24
rifaximin 550 mg tablet (Xifaxan) 550 mg PO BID 07/06/24
sodium phosphates 19 gram-7 gram/118 mL enema [address] DAILYPRN PRN if dulcolax is ineffective 07/06/24
thiamine HCl (vitamin B1) 100 mg tablet 100 mg PO DAILY Supplement 07/06/24
lactulose 20 gram/30 mL oral solution 20 g (30 mL) PO BID #1,200 mL 11/08/24
acetaminophen 325 mg tablet 650 mg PO Q6HPRN PRN mild pain/temp>100.4 12/07/24
baclofen 5 mg tablet 5 mg PO BID 12/07/24
baclofen 5 mg tablet 5 mg PO DAILYPRN PRN mild pain 12/07/24
duloxetine 20 mg capsule,delayed release 20 mg PO DAILY 12/07/24
lactulose 10 gram/15 mL oral solution (Enulose) 20 g PO DAILYPRN PRN constipation 12/07/24
trazodone 50 mg tablet 75 mg PO HS 12/07/24
Review of Systems
-
Unable to obtain full review of systems at this time due to: Acuity
Physical Exam
Vital Signs
Vital Signs
Temp Pulse Resp BP Pulse Ox
97.7 F 97 20 112/72 88
12/07/24 16:02 12/07/24 16:45 12/07/24 16:45 12/07/24 16:35 12/07/24 16:45
Physical Exam
General: Well Developed, Well Nourished and No Apparent Distress
HEENT: NormoCephalic, Moist mucous membranes and Atraumatic
Respiratory: Clear
Cardiac: S1/S2 and Regular Rhythm; No Murmur or Rub
GI: Soft, Non Tender, Non Distended and Normal Bowel Sounds; No Organomegaly
Rectal: Deferred by Provider
Musculoskeletal: No Clubbing, No Cyanosis and No Edema
Skin: No Rash
Neuro: Nonfocal/grossly intact and Other (b/l UE contracted)
Laboratory Results
-
12/07/24 16:17
12/07/24 16:17
Laboratory Results
PT 17.7 Sec (11.4-14.6) H 12/07/24 16:17
INR 1.40 12/07/24 16:17
Total Bilirubin 1.0 mg/dl (0.2-1.3) 12/07/24 16:17
AST 42 U/L (14-36) H 12/07/24 16:17
ALT 23 U/L (0-35) 12/07/24 16:17
Alkaline Phosphatase 66 U/L (38-126) 12/07/24 16:17
Data Reviewed
-
Lab Data: Labs Reviewed by me
Impression/Plan
-
# Acute hepatic encephalopathy/UTi
-AST 42, ammonia 107
-Head CT pending
-Continue lactulose,Xifaxan
-iv ceftriaxone continued
-GI consult
# Chronic pancytopenia secondary to alcohol cirrhosis
-WBC 1.9, hemoglobin 10.3, platelets 73
hxt of CVA with right flaccid hemiplegia
-baclofen continued for muscle spasm
#hxt of depression/anxiety
-duloxetine continued
-hold trazodone and Remeron
#DVT prophylaxis
-Lovenox
#CODE status
-Full code
[2024-12-07 18:43] LABS: Urine Albumin Trace (Neg - Trace); Urine Bilirubin Negative (Negative); Urine Character Very Cloudy (Clear); Urine Color Yellow; Urine Glucose Negative (Negative); Urine Ketone Trace (Negative); Urine Leukocyte 2+ (Negative); Urine Nitrite Positive (Negative); Urine Occult Blood 4+ (Negative); Urine Specific Gravity 1.015 (<1.030); Urine Urobilinogen 4+ (Neg - 1+)
[2024-12-07 18:53] LABS: Urine Squamous Cell 0-2 /LPF (Few); Urine Triple Phosphate Crystal Present
[2024-12-07 18:55] LABS: Urine Bacteria Many (Negative)
--- NOTE | 2024-12-07 19:05 | W.PN.UPDATE ---
Update Note
Progress Note Update
This is an addendum to the H&P written by Angela Valle on 12/07/2024. Patient seen and examined independently with [employer].
59-year-old female past medical history of hepatic encephalopathy, alcoholic cirrhosis, pancytopenia secondary cirrhosis, CVA with right-sided flaccid hemiplegia, anxiety/depression, hypomagnesemia, presenting from [facility] due to altered
mental status. She was recently hospitalized a month ago for hepatic encephalopathy during which time close was increased from once a day to twice a day.
Urinalysis at this time shows worsening pyuria, nitrites and leukocyte Estrace which is consistent with UTI contributing to encephalopathy.
Labs unremarkable apart from worsening leukopenia. Hemoglobin and platelet count relatively stable. CT head shows no acute abnormality. Ammonia level 107 from 135 previously.
Will start ceftriaxone to treat UTI. Urine culture pending. Continue lactulose 3 times daily to maintain at least 2 bowel movements per day. Continue Xifaxan. Hold sedating medications. GI consulted.
[2024-12-07] MEDS: ROCEPHIN 1000 MG IV (19:18)
[2024-12-07] MEDS: HALDOL 2 MG IV (20:00)
[2024-12-07] MEDS: ATIVAN 1 MG IV (20:18)
[2024-12-08] VITALS (22 sets, daily range): BP systolic 104–142; BP diastolic 65–87; BMI 18.7
[2024-12-08] MEDS: DUPHALAC/CHRONULAC PO ×3 (01:30→15:31)
[2024-12-08] MEDS: XIFAXAN PO ×2 (01:31→11:26)
[2024-12-08] MEDS: LIORESAL PO ×2 (01:31→11:26)
--- NOTE | 2024-12-08 08:59 | CON.GI ---
Addendum entered and electronically signed by Kalyn Orona DO 12/08/24 10:04:
The patient was seen and examined by me independently in collaboration with the nurse practitioner.
Past medical history/social history/medications/allergies/family history reviewed.
Lab data and imaging data reviewed.
I agree as plan as outlined below.
Briefly, Tila Oreilly is a 59-year-old female with past medical history left thalamus stroke, pancytopenia, insomnia, dysphagia, osteoporosis, depression, anxiety and cirrhosis (presumed 2/2 etoh) admitted with acute encephalopathy likely 2/2
UTI. At time of evaluation, patient slow to respond, and somewhat obtunded, but responsive to stimuli. She is floridly encphalopathic. It was then discovered that patient had received sedation (ativan and haldol) in order to obtain imaging last
night, and only received 1 dose of lactulose. Suspect her current mental state is a combination of infectious etiology, medications and inadequate dosing of lactulose. She does have findings of choledocholithiasis on imaging, but upon review of
prior films, this was seen back in August. I do not feel her current presentation represents ascending cholangitis.
Hepatic encephalopathy-> only given 1 dose of lactulose since arrival + ativan and haldol given
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
Choledocholithiasis seen on imaging-> no elevated bilirubin, mildly elevated AST, clinically not cholangitic
Large fecal impaction with stercoral colitis-> patient disimpacted in ER-> was likely not receiving the amount of lactulose needed while in [facility].
UTI
CVA with right-sided flaccid hemiplegia
Plan:
-Start lactulose enemas, every 2 hours until able to take orally
-c/w abx-- patient currently on ceftriaxone 1g daily for UTI
-choledocholithiasis on imaging, no obstruction. If she improves with above treatment plan, this can be managed in the outpatient setting
-Once able to take an oral safely will resume lactulose 30 g 3 times daily as well as Xifaxan 550 mg twice daily.
-CBC, CMP, PT/INR daily
Original Note:
Consultation
-
Date/Time Consultation Requested: 12/07/242345
Date/Time Consultation Performed: 12/08/24 2030
Requesting Provider: UBALDO Saldaña
Performing Provider: Dr. Orona/UBALDO Tucker
Reason for Consultation: hepatic encephalopathy
Medical History
Chief Complaint / HPI
Chief Complaint: confusion
History of Present Illness:
59-year-old female with past medical history left thalamus stroke, pancytopenia, insomnia, dysphagia, osteoporosis, depression, anxiety and cirrhosis (presumed from alcohol) presents to the emergency room from [facility] with change in mental
status. Asked to evaluate for hepatic encephalopathy. The patient was seen by us prior for hepatic encephalopathy in August. She was severely obtunded that resolved with lactulose enemas at that time. She was also evaluated by neurology. We
saw her yet again in the first week of October for repeat hepatic encephalopathy that again resolved very quickly with lactulose. At that time her regimen was increased. We recommended 3 times a day to titrate to bowel movements of 3-4 daily.
And to continue Xifaxan. We recommended that she follow-up as an outpatient for HCC surveillance, imaging and alpha-fetoprotein every 6 months. At the present time she returns again from [facility] with change in mental status. On presentation
yesterday at 6:30 PM her ammonia was 107. She was given 1 dose of lactulose orally at that time. It was advised that she not have any sedating medications by internal medicine and lactulose was written for 3 times a day as well as Xifaxan. We are
asked to evaluate for hepatic encephalopathy. At the present time the patient is lying in bed. She can slightly mumble her name only. I have seen her before in the past after hepatic encephalopathy clears up and she is fully conversant at
baseline. Patient is barely arousable at the present time. She did not get her other doses of lactulose or Xifaxan overnight as she was 'unable' per nursing documentation. The patient was given Ativan and Haldol for sedation in order to have CT
of the abdomen and pelvis. She had a fecal impaction with stercoral colitis. Bedside disimpaction was performed with enema administered. CT of the head limited study demonstrating no acute intracranial abnormalities. Lacunar infarcts in the
basal ganglia seen on the exam 11/06/2024 exam are suboptimally visualized. Moderate diffuse cortical atrophy with extensive nonspecific white matter changes. CT of the abdomen and pelvis with IV contrast shows fecal impaction with stercoral
colitis. Choledocholithiasis with mild extrahepatic biliary dilatation. Cirrhosis with splenomegaly but no ascites. Mild bilateral renal cortical atrophy. Patient was placed on Rocephin 1 g daily for UTI. Patient's temp right now is 99.1.
Awaiting current a.m. labs however admission labs include WBC 1.9, hemoglobin 10.3, hematocrit 31.3, platelets 73, PT 17.7, INR 1.4, sodium 143, potassium 4.3, chloride 108, CO2 28, BUN 21, creatinine 0.9, glucose 104, total bilirubin 1.0, AST 42,
ALT 23, alk phos 66, ammonia 107, albumin 3.5. UA trace ketones, occult blood, positive nitrites, positive urobilinogen, positive leukocytes, 11-15 WBC with many bacteria. Urine culture pending.
Past Medical History
Past Medical History: CVA and Other (Pancytopenia, insomnia, dysphagia, osteoporosis, depression anxiety and cirrhosis)
Past Surgical History: Orthopedic
Social History
Tobacco: Non-Smoker
Alcohol: Former
Drug: None
Personal: Single
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
Family History
Family History: Unable to Obtain
Allergies / Home Medications
Allergy/AdvReac Type Severity Reaction Status Date / Time
No Known Allergies Allergy Verified 12/07/24 16:02
�Medication �Instructions �Recorded
ascorbic acid (vitamin C) 500 mg 500 mg PO DAILY anemia 07/06/24
tablet
bisacodyl 10 mg rectal suppository 10 mg IA DAILYPRN PRN if mom is 07/06/24
(Dulcolax (bisacodyl)) ineffective
calcium 600 mg (as 1 tab PO BID Supplement 07/06/24
carbonate)-vitamin D3 10 mcg (400
unit) tablet (Calcium 600 + D(3))
duloxetine 60 mg capsule,delayed 60 mg PO DAILY Mental 07/06/24
release Health/Anxiety
folic acid 1 mg tablet 1 mg PO DAILY Supplement 07/06/24
magnesium hydroxide 400 mg/5 mL 30 ml PO DAILYPRN PRN constipation 07/06/24
oral suspension (Milk of Magnesia)
mirtazapine 15 mg tablet (Remeron) 7.5 mg PO HS anxiety 07/06/24
rifaximin 550 mg tablet (Xifaxan) 550 mg PO BID 07/06/24
sodium phosphates 19 gram-7 118 ml IA DAILYPRN PRN if dulcolax 07/06/24
gram/118 mL enema is ineffective
thiamine HCl (vitamin B1) 100 mg 100 mg PO DAILY Supplement 07/06/24
tablet
lactulose 20 gram/30 mL oral 20 g (30 mL) PO BID #1,200 mL 11/08/24
solution
acetaminophen 325 mg tablet 650 mg PO Q6HPRN PRN mild 12/07/24
pain/temp>100.4
baclofen 5 mg tablet 5 mg PO BID 12/07/24
baclofen 5 mg tablet 5 mg PO DAILYPRN PRN mild pain 12/07/24
duloxetine 20 mg capsule,delayed 20 mg PO DAILY 12/07/24
release
lactulose 10 gram/15 mL oral 20 g PO DAILYPRN PRN constipation 12/07/24
solution (Enulose)
trazodone 50 mg tablet 75 mg PO HS 12/07/24
Review of Systems
-
Unable to obtain full review of systems at this time due to: Other (Patient unable)
Vital Signs
Temp Pulse Resp BP Pulse Ox
97.7 F 84 13 125/87 95
12/07/24 16:02 12/08/24 01:30 12/08/24 01:30 12/08/24 01:00 12/08/24 02:36
Physical Exam
Exam
General: Other (Patient nearly obtunded, with tactile stimuli will mumble name)
HEENT: Anicteric
Respiratory: Clear
Cardiac: Regular Rhythm
GI: Soft, Non Tender, Non Distended and Normal Bowel Sounds
Musculoskeletal: Other (Right hand contracture)
Skin: Warm and Dry
Neuro: Other (Minimally awake to tactile stimuli)
Results
WBC 1.9 10^3/uL (4.8-10.8) L* 12/07/24 16:17
Hgb 10.3 g/dL (12.0-16.0) L 12/07/24 16:17
Hct 31.3 % (37.0-47.0) L 12/07/24 16:17
MCV 99.7 fL (81.0-99.0) H 12/07/24 16:17
Plt Count 73 10^3/uL (130-400) L 12/07/24 16:17
Absolute Neuts (auto) 1.2 10^3/uL (1.4-6.5) L 12/07/24 16:17
PT 17.7 Sec (11.4-14.6) H 12/07/24 16:17
INR 1.40 12/07/24 16:17
Sodium 143 mmol/L (135-145) 12/07/24 16:17
Potassium 4.3 mmol/L (3.5-5.1) 12/07/24 16:17
Chloride 108 mmol/L (98-107) H 12/07/24 16:17
Carbon Dioxide 28 mmol/L (22-30) 12/07/24 16:17
BUN 21 mg/dl (7-17) H 12/07/24 16:17
Creatinine 0.9 mg/dL (0.6-1.0) 12/07/24 16:17
Calcium 9.5 mg/dl (8.4-10.2) 12/07/24 16:17
Total Bilirubin 1.0 mg/dl (0.2-1.3) 12/07/24 16:17
AST 42 U/L (14-36) H 12/07/24 16:17
ALT 23 U/L (0-35) 12/07/24 16:17
Alkaline Phosphatase 66 U/L (38-126) 12/07/24 16:17
Diagnostic Image Results:
Prior GI Procedures:
EGD: Unable
Colonoscopy: Unable
Assessment / Plan
-
59-year-old female with past medical history left thalamus stroke, pancytopenia, insomnia, dysphagia, osteoporosis, depression, anxiety and cirrhosis (presumed from alcohol) presents to the emergency room from [facility] with change in mental
status. Asked to evaluate for hepatic encephalopathy. This is the patient's third admission for hepatic encephalopathy since August. CT imaging abdomen and pelvis with large fecal impaction and stercoral colitis. The patient was able to
disimpact her and and enema was given. Patient did require sedation for CT of head, abdomen and pelvis. Only has received 1 dose of lactulose since arrival. Patient is borderline obtunded at this point. Will require lactulose enemas every 2
hours until able to tolerate oral. Patient was also noted to have a UTI. There is also evidence of choledocholithiasis seen on imaging. The patient has normal bilirubin. With a very mildly elevated AST. Normal ALT and alk phos. She continues
on ceftriaxone for UTI.
Impression:
Hepatic encephalopathy-> elevated ammonia was only given 1 dose of lactulose yesterday.
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
Choledocholithiasis seen on imaging-> no elevated bilirubin, mildly elevated AST
Large fecal impaction with stercoral colitis-> patient disimpacted in ER-> was likely not receiving the amount of lactulose needed while in [facility].
UTI
CVA with right-sided flaccid hemiplegia
Plan:
-Start lactulose enemas, every 2 hours until able to take orally. Have ordered for the next 10 hours.
-Patient already on ceftriaxone 1 g daily for UTI. Choledocholithiasis seen on imaging. Does not appear to be obstructive.
-Will need to discuss further about ERCP. Do not think patient would be able to tolerate MRI. Even when she is at her best.
-Once able to take an oral safely will resume lactulose 30 g 3 times daily as well as Xifaxan 550 mg twice daily.
-CBC, CMP, PT/INR daily
-Further recommendations to be forthcoming.
-
-
Thank you for consultation and allowing me to participate in the patient's care. Please call the clinical education coordinator GI physician during the after hours with any questions or concerns.
--- NOTE | 2024-12-08 09:39 | W.PN.HOSP.TC ---
Today's Communication/Plan
-
Lactulose
N.p.o.
Aspiration precautions
Empiric antibiotics for stercoral colitis/hepatic encephalopathy
Assessment / Plan
Assessment / Plan
Impression:
Hepatic encephalopathy
Stercoral colitis.
Conditions prior to admission:
Cirrhosis
Chronic pancytopenia secondary to cirrhosis
Status post thalamic CVA with flaccid right hemiplegia
Depression/anxiety.
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
Plan:
Hepatic encephalopathy suspect secondary to poor compliance with lactulose regimen and cefoxitin at nursing facility.
Initiated with rectal lactulose.
Hold sedatives (patient was given sedatives for CT scan in ED)
Hold baclofen
Follow mental status and ammonia level closely
Reintroducing Xifaxan when possible
GI input appreciated
Stercoral colitis.
Continue antibiotics ceftriaxone.
Keep n.p.o.
Reassess for diet once encephalopathy improves.
Cirrhosis secondary to alcohol use.
Hepatic encephalopathy.
Avoid hepatotoxic medication.
Consider additional imaging with ultrasound to assess for ascites.
Status post thalamic CVA with right hemiparesis.
CT head with no acute abnormalities
Patient is not on anticoagulation or antiplatelet agents prior to presentation.
Hold baclofen, duloxetine given ongoing encephalopathy.
Monitor mental status closely
Aspiration precautions/n.p.o. speech therapy assessment when able
DVT prophylaxis/Lovenox
Full code.
Anticipated Discharge: > 48 hours
Subjective/Interval History
-
Date of Service: December 08, 2024
Objective Data
-
Labs:
Laboratory Results
12/08/24
06:00
WBC Pending
Hgb Pending
Hct Pending
Plt Count Pending
Sodium Pending
Potassium Pending
Chloride Pending
Carbon Dioxide Pending
BUN Pending
Creatinine Pending
Glucose Pending
Calcium Pending
Total Bilirubin Pending
AST Pending
ALT Pending
Alkaline Phosphatase Pending
Vital Signs:
Vital Signs
Temp Pulse Resp BP Pulse Ox
99.1 F 84 13 125/87 95
12/08/24 09:00 12/08/24 01:30 12/08/24 01:30 12/08/24 01:00 12/08/24 02:36
Physical Exam
-
General: Well Developed and No Apparent Distress
HEENT: Normocephalic, Atraumatic and Moist Mucous Membranes
Respiratory: Clear to Auscultation
Cardiac: Regular Rhythm and S1/S2; Negative Murmur, Rub or Gallop
GI: Soft, Nontender, Nondistended and Normal Bowel Sounds; Negative Organomegaly
Rectal: Deferred by Provider
Musculoskeletal: No Clubbing, No Cyanosis and No Edema
Skin: Negative Rash
Neuro: Other (Lethargic unresponsive. Right hemiparesis)
[2024-12-08 10:14] LABS: Ammonia 94 umol/L (9-30)
[2024-12-08 10:15] LABS: Hematocrit 30.2 % (37.0-47.0); Hemoglobin 9.9 g/dL (12.0-16.0); Mean Corp Hgb Conc. 32.8 g/dL (33.0-37.0); Mean Corpuscular Hgb 32.5 pg (27.0-31.0); Mean Platelet Volume 11.4 fL (7.4-10.4); Platelet Count 90 10^3/uL (130-400); Red Blood Cell Count 3.05 10^6/uL (4.20-5.40); Red Cell Dist. Width 16.1 % (11.5-14.5); White Blood Cell Count 2.3 10^3/uL (4.8-10.8)
[2024-12-08 10:27] LABS: ALT (SGPT) 23 U/L (0-35); AST (SGOT) 42 U/L (14-36); Albumin 3.4 g/dl (3.5-5.0); Alkaline Phosphatase 67 U/L (38-126); Blood Urea Nitrogen 19 mg/dl (7-17); Calcium 9.3 mg/dl (8.4-10.2); Carbon Dioxide 24 mmol/L (22-30); Chloride 112 mmol/L (98-107); Estimated Creatinine Clearance 66 ml/min; Glucose 78 mg/dl (70-99); Potassium 4.4 mmol/L (3.5-5.1); Sodium 145 mmol/L (135-145); Total Bilirubin 1.1 mg/dl (0.2-1.3); Total Protein 6.2 g/dl (6.3-8.2); eGFR > 60.00
[2024-12-08] MEDS: CYMBALTA DELAYED RELEASE PO ×2 (11:26)
[2024-12-08] MEDS: LACTULOSE ENEMA 300 ML RECTAL ×5 (11:32→22:13)
--- NOTE | 2024-12-08 13:28 | PTCARENOTE ---
pt responds to name. confused speak. right arm contracted. lactulose enema given. pt inc of stool.
--- NOTE | 2024-12-08 13:57 | PTCARENOTE ---
spoke to pt brother zaynab. updated on pt condition and plan of care. he states he called the [facility] about lactulose and they said she had been receiving it. brother feels pt needs dose increased due to multiple admissions with this diagnosis
of high ammonia levels.
--- NOTE | 2024-12-08 16:26 | CM ---
CM reviewed medical records. Plan for discharge back to [facility]. Patient is LTC.
For report [phone] and #fax [phone].
[2024-12-08] MEDS: LOVENOX 40 MG SC (18:14)
[2024-12-08] MEDS: ROCEPHIN 1000 MG IV (18:15)
[2024-12-08] MEDS: STERILE WATER FOR INJECTION 10 ML IV (18:15)
[2024-12-08] MEDS: XIFAXAN 550 MG PO (19:46)
[2024-12-08] MEDS: DUPHALAC/CHRONULAC 20 GRAMS PO (21:27)
[2024-12-09] VITALS (11 sets, daily range): BP systolic 116–157; BP diastolic 68–97; BMI 18.0
[2024-12-09] MEDS: TYLENOL 500 MG PO (03:16)
[2024-12-09 03:43] LABS: COVID-19 Antigen Negative (Negative)
[2024-12-09 06:20] LABS: Ammonia 33 umol/L (9-30); Hematocrit 34.9 % (37.0-47.0); Hemoglobin 11.4 g/dL (12.0-16.0); Mean Corp Hgb Conc. 32.7 g/dL (33.0-37.0); Mean Corpuscular Hgb 32.9 pg (27.0-31.0); Mean Corpuscular Volume 100.9 fL (81.0-99.0); Mean Platelet Volume 10.8 fL (7.4-10.4); Platelet Count 134 10^3/uL (130-400); Red Blood Cell Count 3.46 10^6/uL (4.20-5.40); Red Cell Dist. Width 16.3 % (11.5-14.5); White Blood Cell Count 5.2 10^3/uL (4.8-10.8)
[2024-12-09 06:20] LABS: Lactic Acid 3.1 mmol/L (0.7-2.0)
[2024-12-09] MEDS: NSS 500 IV (06:31)
[2024-12-09] MEDS: NSS 1000 IV (06:32)
[2024-12-09 06:42] LABS: ALT (SGPT) 27 U/L (0-35); AST (SGOT) 57 U/L (14-36); Albumin 4.1 g/dl (3.5-5.0); Alkaline Phosphatase 81 U/L (38-126); Blood Urea Nitrogen 31 mg/dl (7-17); Calcium 9.8 mg/dl (8.4-10.2); Carbon Dioxide 16 mmol/L (22-30); Chloride 119 mmol/L (98-107); Estimated Creatinine Clearance 38 ml/min; Glucose 87 mg/dl (70-99); Potassium 3.8 mmol/L (3.5-5.1); Sodium 155 mmol/L (135-145); Total Protein 7.2 g/dl (6.3-8.2); eGFR 46.78
[2024-12-09] MEDS: DUPHALAC/CHRONULAC 20 GRAMS PO ×3 (10:05→20:35)
[2024-12-09] MEDS: XIFAXAN 550 MG PO ×2 (10:08→20:34)
--- NOTE | 2024-12-09 10:32 | W.PN.GI.CBS2 ---
Today's Communication / Plan
-
Encephalopathy improving, c/w lactulose and Xifaxin. Outpatient f/u with GI. Will sign off, please call with questions.
Assessment / Plan
-
Tila Oreilly is a 59-year-old female with past medical history left thalamus stroke, pancytopenia, insomnia, dysphagia, osteoporosis, depression, anxiety and cirrhosis (presumed 2/2 etoh) admitted with acute encephalopathy likely 2/2 UTI. At time
of initial evaluation, patient slow to respond, and somewhat obtunded, but responsive to stimuli. It was then discovered that patient had received sedation (ativan and haldol) in order to obtain imaging on arrival and was not given lactulose as
prescribed. She has now received her lactulose (1x enema + 2x PO) wiht multiple loose BMs overnight and subsequent improvement in mental status. Suspect encephalopathy is combination of infectious etiology, medications and inadequate dosing of
lactulose. She does have findings of choledocholithiasis on imaging, but upon review of prior films, this was seen back in August. I do not feel her current presentation represents ascending cholangitis.
Hepatic encephalopathy-> improving, continue lactulose + Rifaximin
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
Choledocholithiasis seen on imaging-> no elevated bilirubin, mildly elevated AST, clinically not cholangitic
Large fecal impaction with stercoral colitis-> patient disimpacted in ER-> was likely not receiving the amount of lactulose needed while in alf.
UTI
CVA with right-sided flaccid hemiplegia
Plan:
-continue lactulose and rifaximin
-c/w abx for UTI
-choledocholithiasis on imaging, no obstruction. If she improves with above treatment plan, this can be managed in the outpatient setting
-CBC, CMP, PT/INR daily
-She is currently living in a alf and given her overall comorbidities and poor performance status may not be a candidate for endoscopy and colonoscopy. Continue HCC surveillance every 6 months.
Outpatient f/u with GI for management of her cirrhosis. GI will sign off, please call with questions.
Total Time Spent with Patient (in minutes): 35
Subjective
Subjective
Date of Service: December 09, 2024
Patient seen in follow-up, mental status has significantly improved since yesterday. 4 BMs since arrival, increased since she has been receiving lactulose.
Objective
Data Reviewed
Laboratory Data:
Laboratory Results
12/09/24 05:32
Laboratory Results
PT 17.7 Sec (11.4-14.6) H 12/07/24 16:17
INR 1.40 12/07/24 16:17
Total Bilirubin 2.0 mg/dl (0.2-1.3) H 12/09/24 05:32
AST 57 U/L (14-36) H 12/09/24 05:32
ALT 27 U/L (0-35) 12/09/24 05:32
Alkaline Phosphatase 81 U/L (38-126) 12/09/24 05:32
Vital Signs and I&O:
Vital Signs
Temp Pulse Resp BP Pulse Ox
99.9 F 105 26 135/80 90
12/09/24 06:22 12/09/24 06:12 12/09/24 06:12 12/09/24 06:12 12/09/24 06:12
I&O
12/08/24 12/09/24 12/10/24
06:59 06:59 06:59
Intake Total 120 / 120
Balance 120 / 120
Physical Exam
Physical Exam
GI: Soft, Non Distended and Non Tender
AAOx2 (thought she was at [facility]); +mild tongue fasciculations (improved)
--- NOTE | 2024-12-09 12:43 | W.PN.HOSP.TC ---
Today's Communication/Plan
-
Encephalopathy improved.
Continue lactulose and rifaximin.
Advance diet.
Continue antibiotics.
Resume baclofen and duloxetine.
Monitor closely while on oral lactulose.
Assessment / Plan
Assessment / Plan
Impression:
Hepatic encephalopathy
Stercoral colitis.
Conditions prior to admission:
Cirrhosis
Chronic pancytopenia secondary to cirrhosis
Status post thalamic CVA with flaccid right hemiplegia
Depression/anxiety.
[facility] resident.
Plan:
Hepatic encephalopathy suspect secondary to poor compliance with lactulose regimen and cefoxitin at nursing facility.
Initiated with rectal lactulose.
Improved
Transitioned to oral lactulose and rifaximin
Stercoral colitis.
Continue antibiotics ceftriaxone.
Advance to low-sodium diet
Reassess for diet once encephalopathy improves.
Cirrhosis secondary to alcohol use.
Hepatic encephalopathy.
Avoid hepatotoxic medication.
Consider additional imaging with ultrasound to assess for ascites.
Status post thalamic CVA with right hemiparesis.
CT head with no acute abnormalities
Patient is not on anticoagulation or antiplatelet agents prior to presentation.
Resume baclofen, duloxetine
Monitor mental status closely
DVT prophylaxis/Lovenox
Full code.
Anticipated Discharge: 24 - 48 hours
Subjective/Interval History
-
Date of Service: December 09, 2024
Objective Data
-
Labs:
Laboratory Results
12/09/24 12/09/24
05:32 10:00
WBC 5.2
Hgb 11.4 L
Hct 34.9 L
Plt Count 134 D
Sodium 155 H D Pending
Potassium 3.8 Pending
Chloride 119 H Pending
Carbon Dioxide 16 L Pending
BUN 31 H Pending
Creatinine 1.3 H Pending
Glucose 87 Pending
Calcium 9.8 Pending
Total Bilirubin 2.0 H
AST 57 H
ALT 27
Alkaline Phosphatase 81
Vital Signs:
Vital Signs
Temp Pulse Resp BP Pulse Ox
99.9 F 116 17 157/91 89
12/09/24 06:22 12/09/24 10:00 12/09/24 10:00 12/09/24 10:00 12/09/24 10:00
I&O
12/08/24 12/09/24 12/10/24
06:59 06:59 06:59
Intake Total 120 / 120
Balance 120 / 120
Physical Exam
-
General: Well Developed and No Apparent Distress
HEENT: Normocephalic, Atraumatic and Moist Mucous Membranes
Respiratory: Clear to Auscultation
Cardiac: Regular Rhythm and S1/S2; Negative Murmur, Rub or Gallop
GI: Soft, Nontender, Nondistended and Normal Bowel Sounds; Negative Organomegaly
Rectal: Deferred by Provider
Musculoskeletal: No Clubbing, No Cyanosis and No Edema
Skin: Negative Rash
Neuro: Other (Lethargic unresponsive. Right hemiparesis)
[2024-12-09 13:16] LABS: Blood Urea Nitrogen 34 mg/dl (7-17); Carbon Dioxide 18 mmol/L (22-30); Chloride 120 mmol/L (98-107); Estimated Creatinine Clearance 33 ml/min; Glucose 113 mg/dl (70-99); Lactic Acid 2.4 mmol/L (0.7-2.0); Sodium 153 mmol/L (135-145)
[2024-12-09] MEDS: TYLENOL SUSPENSION 500 MG PO (15:22)
[2024-12-09] MEDS: STERILE WATER FOR INJECTION 10 ML IV (17:09)
[2024-12-09] MEDS: LOVENOX 40 MG SC (17:09)
[2024-12-09] MEDS: ROCEPHIN 1000 MG IV (17:09)
[2024-12-09] MEDS: LIORESAL 5 MG PO (20:34)
[2024-12-10 07:00] VITALS: BP 141/84
[2024-12-10 08:07] LABS: Hematocrit 31.1 % (37.0-47.0); Hemoglobin 9.9 g/dL (12.0-16.0); Mean Corp Hgb Conc. 31.8 g/dL (33.0-37.0); Mean Corpuscular Hgb 32.2 pg (27.0-31.0); Mean Corpuscular Volume 101.3 fL (81.0-99.0); Mean Platelet Volume 11.3 fL (7.4-10.4); Platelet Count 85 10^3/uL (130-400); Red Blood Cell Count 3.07 10^6/uL (4.20-5.40); Red Cell Dist. Width 16.6 % (11.5-14.5); White Blood Cell Count 5.9 10^3/uL (4.8-10.8)
[2024-12-10] MEDS: XIFAXAN 550 MG PO ×2 (08:12→21:19)
[2024-12-10] MEDS: LIORESAL 5 MG PO ×2 (08:12→21:20)
[2024-12-10] MEDS: DUPHALAC/CHRONULAC 20 GRAMS PO ×3 (08:12→21:21)
[2024-12-10] MEDS: CYMBALTA DELAYED RELEASE 60 MG PO (08:12)
[2024-12-10 08:15] LABS: ALT (SGPT) 30 U/L (0-35); AST (SGOT) 75 U/L (14-36); Albumin 3.3 g/dl (3.5-5.0); Alkaline Phosphatase 67 U/L (38-126); Blood Urea Nitrogen 36 mg/dl (7-17); Calcium 8.9 mg/dl (8.4-10.2); Carbon Dioxide 22 mmol/L (22-30); Chloride 122 mmol/L (98-107); Estimated Creatinine Clearance 39 ml/min; Glucose 123 mg/dl (70-99); Potassium 2.5 mmol/L (3.5-5.1); Sodium 154 mmol/L (135-145); Total Protein 6.1 g/dl (6.3-8.2)
[2024-12-10] MEDS: CYMBALTA DELAYED RELEASE 20 MG PO (08:15)
[2024-12-10 10:17] VITALS: BP 149/79
[2024-12-10] MEDS: KCL 1020 MEQ IV ×2 (11:29→21:16)
--- NOTE | 2024-12-10 13:59 | W.PN.HOSP.TC ---
Today's Communication/Plan
-
Continue lactulose and rifaximin.
Continued ceftriaxone covering stercoral colitis.
Diet has been advanced with aspiration precautions per
Noted with dehydration and hypernatremia.
Adjust IV fluids and replete potassium.
Assessment / Plan
Assessment / Plan
Impression:
Hepatic encephalopathy
Stercoral colitis.
Dehydration with hypernatremia
Hypokalemia
Conditions prior to admission:
Cirrhosis
Chronic pancytopenia secondary to cirrhosis
Status post thalamic CVA with flaccid right hemiplegia
Depression/anxiety.
residential resident.
Plan:
Hepatic encephalopathy suspect secondary to poor compliance with lactulose regimen and cefoxitin at nursing facility.
Initiated with rectal lactulose.
Improved
Transitioned to oral lactulose and rifaximin
Stercoral colitis.
Continue antibiotics ceftriaxone.
Advance to low-sodium diet
Reassess for diet once encephalopathy improves.
Dehydration with hypernatremia
Hypokalemia
Change IV fluids to hypotonic with potassium
Cirrhosis secondary to alcohol use.
Hepatic encephalopathy.
Avoid hepatotoxic medication.
Consider additional imaging with ultrasound to assess for ascites.
Status post thalamic CVA with right hemiparesis.
CT head with no acute abnormalities
Patient is not on anticoagulation or antiplatelet agents prior to presentation.
Resume baclofen, duloxetine
Monitor mental status closely
DVT prophylaxis/Lovenox
Full code.
Anticipated Discharge: 24 - 48 hours
Subjective/Interval History
-
Date of Service: December 10, 2024
Objective Data
-
Labs:
Laboratory Results
12/10/24
06:46
WBC 5.9
Hgb 9.9 L
Hct 31.1 L
Plt Count 85 L D
Sodium 154 H
Potassium 2.5 L*
Chloride 122 H
Carbon Dioxide 22
BUN 36 H
Creatinine 1.2 H
Glucose 123 H
Calcium 8.9
Total Bilirubin 1.0 D
AST 75 H
ALT 30
Alkaline Phosphatase 67
Vital Signs:
Vital Signs
Temp Pulse Resp BP Pulse Ox
98.9 F 78 19 149/79 100
12/10/24 07:00 12/10/24 07:00 12/10/24 07:00 12/10/24 10:17 12/10/24 07:00
I&O
12/09/24 12/10/24 12/11/24
06:59 06:59 06:59
Intake Total 120 / 120
Balance 120 / 120
Physical Exam
-
General: Well Developed and No Apparent Distress
HEENT: Normocephalic, Atraumatic and Moist Mucous Membranes
Respiratory: Clear to Auscultation
Cardiac: Regular Rhythm and S1/S2; Negative Murmur, Rub or Gallop
GI: Soft, Nontender, Nondistended and Normal Bowel Sounds; Negative Organomegaly
Rectal: Deferred by Provider
Musculoskeletal: No Clubbing, No Cyanosis and No Edema
Skin: Negative Rash
Neuro: Awake, Alert and Other (Lethargic unresponsive. Right hemiparesis)
[2024-12-10 15:00] VITALS: BP 110/64
--- NOTE | 2024-12-10 15:31 | CHAP ---
Ms Oreilly greeted me with a sweet smile and said she's doing well. She welcomed prayer. Emotional and spiritual support provided.
[2024-12-10] MEDS: STERILE WATER FOR INJECTION 10 ML IV (17:35)
[2024-12-10] MEDS: ROCEPHIN 1000 MG IV (17:35)
[2024-12-10] MEDS: LOVENOX 40 MG SC (17:36)
[2024-12-10 23:00] VITALS: BP 134/81
[2024-12-11] MEDS: KCL 1020 MEQ IV ×2 (06:20→16:27)
[2024-12-11 07:18] VITALS: BP 127/77
[2024-12-11] MEDS: CYMBALTA DELAYED RELEASE 20 MG PO (07:32)
[2024-12-11] MEDS: CYMBALTA DELAYED RELEASE 60 MG PO (07:32)
[2024-12-11] MEDS: LIORESAL 5 MG PO ×2 (07:33→22:12)
[2024-12-11] MEDS: XIFAXAN 550 MG PO ×2 (07:38→22:12)
[2024-12-11] MEDS: DUPHALAC/CHRONULAC 20 GRAMS PO ×3 (07:38→22:13)
[2024-12-11 07:51] LABS: % Basophils 0.3 % (0-2); % Eosinophils 2.5 % (0-6); % Immature Granulocytes 0.6 % (0-0.5); % Lymphocytes 16.6 % (20.5-51.1); % Monocytes 11.3 % (1.7-9.3); % Neutrophils 68.7 % (42.2-75.2); Absolute Eosinophils 0.1 10^3/uL (0-0.7); Absolute Lymphocytes 0.5 10^3/uL (1.2-3.4); Absolute Monocytes 0.4 10^3/uL (0.1-0.6); Absolute Neutrophils 2.2 10^3/uL (1.4-6.5); Hemoglobin 10.1 g/dL (12.0-16.0); Mean Corp Hgb Conc. 32.6 g/dL (33.0-37.0); Mean Corpuscular Hgb 32.9 pg (27.0-31.0); Mean Platelet Volume 11.1 fL (7.4-10.4); Nucleated Red Blood Cells % 0.6 %; Platelet Count 74 10^3/uL (130-400); Red Blood Cell Count 3.07 10^6/uL (4.20-5.40); Red Cell Dist. Width 16.4 % (11.5-14.5); White Blood Cell Count 3.2 10^3/uL (4.8-10.8)
[2024-12-11 08:35] LABS: Blood Urea Nitrogen 24 mg/dl (7-17); Calcium 8.9 mg/dl (8.4-10.2); Carbon Dioxide 20 mmol/L (22-30); Chloride 123 mmol/L (98-107); Estimated Creatinine Clearance 52 ml/min; Glucose 107 mg/dl (70-99); Potassium 3.5 mmol/L (3.5-5.1); Sodium 151 mmol/L (135-145); eGFR > 60.00
--- NOTE | 2024-12-11 10:49 | PTOTSP ---
Speech Therapy Evaluation:
Pt exhibits clinical signs of oropharyngeal dysphagia, likely chronic in nature related to history of CVA, compounded by acute metabolic/hepatic encephalopathy. Pt demonstrated significantly prolonged mastication and bolus formation of regular
solids. Slight change in vocal quality observed following thin liquid trials x2, however no overt throat clearing/coughing observed. No CXR completed this admission. WBC decreased at 3.2.
Recommend:
1. Diet downgrade to IDDSI Level 6 (soft and bite sized solids); continue thin liquids
2. Medications whole versus crushed in puree as tolerated
3. Aspiration precautions: HOB fully upright for all PO intake; small bites/sips; eat/drink slowly; alternate bites/sips.
4. [employer]TAIN to f/u re: diet tolerance, to trial diet upgrades, and to complete an instrumental swallow study if warranted.
[2024-12-11 15:10] VITALS: BP 135/90
--- NOTE | 2024-12-11 15:11 | CM ---
TC to liaison Savanna and also spoke with Trent.
Patient is LTC, non ambulatory, no PT/OT at facility.
Plan: return to [facility] when stable. No auth needed.
[facility]
Report [phone]
fax [phone].
--- NOTE | 2024-12-11 15:12 | W.PN.HOSP.TC ---
Today's Communication/Plan
-
Diet has been advanced but
Continue lactulose
Continue IV fluids DVT hypernatremia
Assessment / Plan
Assessment / Plan
Impression:
Hepatic encephalopathy
Stercoral colitis.
Dehydration with hypernatremia
Hypokalemia
Conditions prior to admission:
Cirrhosis
Chronic pancytopenia secondary to cirrhosis
Status post thalamic CVA with flaccid right hemiplegia
Depression/anxiety.
half-way resident.
Plan:
Hepatic encephalopathy suspect secondary to poor compliance with lactulose regimen and cefoxitin at nursing facility.
Initiated with rectal lactulose.
Improved
Transitioned to oral lactulose and rifaximin
Stercoral colitis.
Continue antibiotics ceftriaxone.
Advance to low-sodium diet
Reassess for diet once encephalopathy improves.
Dehydration with hypernatremia
Hypokalemia
Change IV fluids to hypotonic with potassium
Cirrhosis secondary to alcohol use.
Hepatic encephalopathy.
Avoid hepatotoxic medication.
Consider additional imaging with ultrasound to assess for ascites.
Status post thalamic CVA with right hemiparesis.
CT head with no acute abnormalities
Patient is not on anticoagulation or antiplatelet agents prior to presentation.
Resume baclofen, duloxetine
Monitor mental status closely
DVT prophylaxis/Lovenox
Full code.
Anticipated Discharge: 24 - 48 hours
Subjective/Interval History
-
Date of Service: December 11, 2024
Objective Data
-
Labs:
Laboratory Results
12/11/24
06:19
WBC 3.2 L
Hgb 10.1 L
Hct 31.0 L
Plt Count 74 L
Sodium 151 H
Potassium 3.5 D
Chloride 123 H
Carbon Dioxide 20 L
BUN 24 H
Creatinine 0.9
Glucose 107 H
Calcium 8.9
Vital Signs:
Vital Signs
Temp Pulse Resp BP Pulse Ox
98.7 F 88 20 135/90 96
12/11/24 15:10 12/11/24 15:10 12/11/24 15:10 12/11/24 15:10 12/11/24 15:10
I&O
12/10/24 12/11/24 12/12/24
06:59 06:59 06:59
Intake Total 2159
Balance 2159
Physical Exam
-
General: Well Developed and No Apparent Distress
HEENT: Normocephalic, Atraumatic and Moist Mucous Membranes
Respiratory: Clear to Auscultation
Cardiac: Regular Rhythm and S1/S2; Negative Murmur, Rub or Gallop
GI: Soft, Nontender, Nondistended and Normal Bowel Sounds; Negative Organomegaly
Rectal: Deferred by Provider
Musculoskeletal: No Clubbing, No Cyanosis and No Edema
Skin: Negative Rash
Neuro: Awake, Alert and Other (Lethargic unresponsive. Right hemiparesis)
[2024-12-11 16:53] VITALS: BMI 18.0
[2024-12-11] MEDS: LOVENOX 40 MG SC (18:51)
[2024-12-11] MEDS: ROCEPHIN 1000 MG IV (19:13)
[2024-12-11] MEDS: STERILE WATER FOR INJECTION 10 ML IV (19:14)
[2024-12-11 23:25] VITALS: BP 126/83
[2024-12-12] MEDS: KCL 1020 MEQ IV ×2 (02:03→12:11)
[2024-12-12 07:53] VITALS: BP 98/63
[2024-12-12 08:26] LABS: Blood Urea Nitrogen 16 mg/dl (7-17); Calcium 8.7 mg/dl (8.4-10.2); Carbon Dioxide 17 mmol/L (22-30); Chloride 114 mmol/L (98-107); Estimated Creatinine Clearance 59 ml/min; Glucose 102 mg/dl (70-99); Potassium 3.5 mmol/L (3.5-5.1); Sodium 141 mmol/L (135-145); eGFR > 60.00
[2024-12-12] MEDS: LIORESAL 5 MG PO ×2 (09:51→20:09)
[2024-12-12] MEDS: CYMBALTA DELAYED RELEASE 20 MG PO (09:51)
[2024-12-12] MEDS: XIFAXAN 550 MG PO ×2 (09:51→20:09)
[2024-12-12] MEDS: DUPHALAC/CHRONULAC 20 GRAMS PO ×2 (09:51→15:49)
[2024-12-12] MEDS: CYMBALTA DELAYED RELEASE 60 MG PO (09:51)
--- NOTE | 2024-12-12 11:34 | PN.CDI ---
CDI
- -
CDI:
Physician Documentation Request
Admit Date: 12/07/24 18:58
Dear Doctor Tha,
Patient admitted with hepatic encephalopathy.
12/08 Nursing skin assessment, 'Stage 1 sacral pressure injury, POA.'
Physician documentation of the type and location of wounds is required for compliant documentation. Based on the above clinical findings and your assessment, please provide the following in your progress note:
Type (etiology) of ulcer/wound:
- Pressure (decubitus) ulcer
- Other
- Unable to determine
For a pressure ulcer, please also include the stage* of the ulcer:
- Stage 1 - Skin intact, non-blanchable redness
- Stage 2 - Partial thickness loss of dermis, includes intact or open blister
- Stage 3 - Full thickness tissue not including bone, tendon or muscle
- Stage 4 - Full thickness tissue loss, including exposed bone, tendon or muscle
- Unstageable - Full thickness loss in which the base of the ulcer is covered by slough (yellow, sy, rose, green or brown) and/or eschar (sy, brown or black) in the wound bed.
- Unable to determine
Use of terms such as suspected, likely, concern for, or probable (associated with a specific diagnosis that is being evaluated, monitored, or treated as if it exists) are acceptable and can be coded in the inpatient setting, when documented at the
time of discharge.
Thank you,
Mala STEELE,RN,CCDS
CDI Specialist
Available via tiger
Please use your independent medical judgment in providing your response.
*Source: National Pressure Ulcer Advisory Panel (NPUAP)
--- NOTE | 2024-12-12 12:46 | PN.CDI ---
CDI
- -
CDI:
Physician Documentation Request
Admit Date: 12/07/24 18:58
Dear Doctor Tha,
Patient admitted with hepatic encephalopathy.
Please review the following and provide your response in the progress notes
.
Clinical Indicators:
Height: 5' 6'
Weight: 111 lb 4 oz
BMI: 18.0
Please provide an associated diagnosis related to the abnormal BMI, such as:
Underweight
Cachectic
Anorexia
BMI is not significant
Other
BMI < or = to 19
Underweight
Weight Loss
Cachectic
Anorexia
Use of terms such as suspected, likely, concern for, or probable (associated with a specific diagnosis that is being evaluated, monitored, or treated as if it exists) are acceptable and can be coded in the inpatient setting, when documented at the
time of discharge.
Thank you,
Mala STEELE,RN,CCDS
CDI Specialist
Available via [place] text
Please use your independent medical judgment in providing your response.
--- NOTE | 2024-12-12 14:47 | W.DS.TRANS ---
DC Summary - Court Bailiff Or Sheriff
-
Discharge Instructions:
Discharge Diagnosis/Procedures Impression:
Hepatic encephalopathy
Stercoral colitis.
Dehydration with hypernatremia
Hypokalemia
Conditions prior to admission:
Cirrhosis
Chronic pancytopenia secondary to cirrhosis
Status post thalamic CVA with flaccid right
hemiplegia
Depression/anxiety.
senior care resident.
Diet 2 Gram Sodium
Instructions:
Stand-Alone Forms:
Changes to Home Medications: No
Discharge Medications:
DC Medications w/original date entered in [facility]
ascorbic acid (vitamin C) 500 mg tablet 500 mg PO DAILY anemia 07/06/24
bisacodyl 10 mg rectal suppository (Dulcolax (bisacodyl)) 10 mg MN DAILYPRN PRN if mom is ineffective 07/06/24
calcium 600 mg (as carbonate)-vitamin D3 10 mcg (400 unit) tablet (Calcium 600 + D(3)) 1 tab PO BID Supplement 07/06/24
duloxetine 60 mg capsule,delayed release 60 mg PO DAILY Mental Health/Anxiety 07/06/24
folic acid 1 mg tablet 1 mg PO DAILY Supplement 07/06/24
magnesium hydroxide 400 mg/5 mL oral suspension (Milk of Magnesia) 30 ml PO DAILYPRN PRN constipation 07/06/24
mirtazapine 15 mg tablet (Remeron) 7.5 mg PO HS anxiety 07/06/24
rifaximin 550 mg tablet (Xifaxan) 550 mg PO BID Gastrointestinal Issue 07/06/24
sodium phosphates 19 gram-7 gram/118 mL enema 118 ml MN DAILYPRN PRN if dulcolax is ineffective 07/06/24
thiamine HCl (vitamin B1) 100 mg tablet 100 mg PO DAILY Supplement 07/06/24
acetaminophen 325 mg tablet 650 mg PO Q6HPRN PRN mild pain/temp>100.4 12/07/24
baclofen 5 mg tablet 5 mg PO BID Muscle Spasms 12/07/24
baclofen 5 mg tablet 5 mg PO DAILYPRN PRN mild pain 12/07/24
duloxetine 20 mg capsule,delayed release 20 mg PO DAILY Mental Health/Anxiety 12/07/24
trazodone 50 mg tablet 75 mg PO HS Sleep 12/07/24
lactulose 20 gram/30 mL oral solution 20 g (30 mL) PO TID #1,200 mL 12/12/24
Home Medication Changes
Pending Results: No
[2024-12-12 15:29] VITALS: BP 109/77
--- NOTE | 2024-12-12 15:43 | CM ---
Chart reviewed. Pt is medically stale for d/c per hospitalist.
Pt is a shelter care resident at [facility]. Per Savanna/Roseann, agreeable for pt to return today. Pt does not have any rehab needs.
Will need ambulance, transport forms on chart.
IMM reviewed w/ pt, copy on chart.
[facility]
Report: [phone]

Plan: Return to [facility] via ambulance
[2024-12-12] MEDS: ZOFRAN 4 MG IV (15:49)
[2024-12-12] MEDS: STERILE WATER FOR INJECTION 10 ML IV (17:18)
[2024-12-12] MEDS: ROCEPHIN 1000 MG IV (17:18)
[2024-12-12] MEDS: LOVENOX 40 MG SC (17:18)
--- NOTE | 2024-12-12 18:54 | PTCARENOTE ---
attempt to call report to bhumika carmona, no answer on station 2.
[2024-12-12 19:28] VITALS: BP 105/73
== END 2024-12-12 20:30 | DRG 442 ==
LOC: 4 WEST ACU 18:58
PROVIDERS: Nurse Practitioner Family; Physician Assistant; Registered Nurse; ADMITTING PHYSICIAN Hospitalist; ATTENDING PHYSICIAN Internal Medicine; CONSULT PHYSICIAN Internal Medicine; EMERGENCY PHYSICIAN Emergency Medicine; FAMILY PHYSICIAN Internal Medicine
DX: K76.82 Hepatic encephalopathy (principal); D61.818 Other pancytopenia; E87.1 Hypo-osmolality and hyponatremia; I69.351 Hemiplegia and hemiparesis following cerebral infarction affecting right dominant side; E87.0 Hyperosmolality and hypernatremia; N39.0 Urinary tract infection, site not specified; E46 Unspecified protein-calorie malnutrition; Z68.1 Body mass index [BMI] 19.9 or less, adult; K52.89 Other specified noninfective gastroenteritis and colitis; E86.0 Dehydration; E87.6 Hypokalemia; K70.30 Alcoholic cirrhosis of liver without ascites; F32.A Depression, unspecified; F41.9 Anxiety disorder, unspecified; Z11.52 Encounter for screening for COVID-19; I69.391 Dysphagia following cerebral infarction; M81.0 Age-related osteoporosis without current pathological fracture; F51.01 Primary insomnia; K80.50 Calculus of bile duct without cholangitis or cholecystitis without obstruction; G47.00 Insomnia, unspecified; K56.41 Fecal impaction; I10 Essential (primary) hypertension; L89.151 Pressure ulcer of sacral region, stage 1
CPT/HCPCS: 70450; 74177; 80048; 80053; 81003; 81015; 82140; 83605; 85025; 85027; 85610; 87070; 87086; 87502; 87811; 92526; 92610; 99285; Q9967

== ENCOUNTER 2024-12-14 09:31 | Emergency (ER) | payer MEDICARE, OTHER, SELFPAY ==
[2024-12-14] VITALS (7 sets, daily range): BP systolic 106–122; BP diastolic 52–74; BMI 19.8
[2024-12-14 10:02] LABS: % Basophils 0.3 % (0-2); % Eosinophils 3.6 % (0-6); % Immature Granulocytes 0.5 % (0-0.5); % Monocytes 10.2 % (1.7-9.3); % Neutrophils 72.4 % (42.2-75.2); Absolute Eosinophils 0.1 10^3/uL (0-0.7); Absolute Lymphocytes 0.5 10^3/uL (1.2-3.4); Absolute Monocytes 0.4 10^3/uL (0.1-0.6); Absolute Neutrophils 2.8 10^3/uL (1.4-6.5); Hemoglobin 10.7 g/dL (12.0-16.0); Mean Corp Hgb Conc. 32.4 g/dL (33.0-37.0); Mean Corpuscular Hgb 32.7 pg (27.0-31.0); Mean Corpuscular Volume 100.9 fL (81.0-99.0); Mean Platelet Volume 10.9 fL (7.4-10.4); Nucleated Red Blood Cells % 0 %; Platelet Count 64 10^3/uL (130-400); Red Blood Cell Count 3.27 10^6/uL (4.20-5.40); Red Cell Dist. Width 16.4 % (11.5-14.5); White Blood Cell Count 3.8 10^3/uL (4.8-10.8)
--- NOTE | 2024-12-14 10:03 | ED.GENMED ---
History of Present Illness
<Ana Huffman PA-C - Last Filed: 12/15/24 12:13>
General
Chief Complaint: Weakness
Source: patient
Exam Limitations: altered mental status
Time Seen by Provider: 12/14/24 09:37
Nursing documentation reviewed up to this point in time: agreed with
History of Present Illness
History of Present Illness:
59-year-old female with history of aphasia, right-sided hemplegia s/p CVA, liver cirrhosis presenting to the emergency department for evaluation of weakness and altered mental status. Patient unable to contribute much to history given mental
status. Did call and speak personally with nurse at patient's facility who states that this morning patient was minimally responsive around 9:30 AM. She was barely responding to sternal rubs and states she seemed altered. They called 911 for
transfer to the emergency department. They deny any recent fever, cough. Initially this morning during medication rounds�patient seemed at her baseline.
Patient arrives alert. She responds to questions. She denies any acute complaints including headache, chest pain, or shortness of breath. However�she is not quite sure why she was brought to the emergency department.
Of note�patient was recently discharged [facility] 2 days ago after 5 day stay for hepatic encephalopathy.
Past History
<Ana Huffman PA-C - Last Filed: 12/15/24 12:13>
Past History
ED Past Medical History: CVA, HTN and Psychiatric
ED Past Surgical History: None
Social History
Tobacco: Non-smoker
Alcohol: Former
Review of Systems
<Ana Huffman PA-C - Last Filed: 12/15/24 12:13>
Review of Systems
Allergies reviewed?: Yes
All Other Systems: ROS reviewed and negative except as documented in HPI and ROS
Phy Exam
<Ana Huffman PA-C - Last Filed: 12/15/24 12:13>
Physical Exam
Physical Exam:
Vitals: Patient's vital signs are stable. Afebrile
General: Patient is alert, in no apparent distress
Skin: Warm and dry, no rashes or lesions
Head: Normocephalic, atraumatic
Eyes: Sclera nonicteric. EOMs intact. No nystagmus.
Throat: Protecting airway
Neck: Normal ROM, no cervical spine tenderness, no meningismus
Cardiac: Regular rate and rhythm, no murmurs.
Pulm: Normal respiratory effort, no wheezes, rales, rhonchi heard on exam.
Abdomen: Abdomen soft and nontender.
Extremities:RUE contracted. Strength 4/5 in RLE. LUE and LLL strength 5/5.
Neuro: AAOx [address], not time. No facial droop or facial asymmetry. No focal deficits. Right upper extremity contracted
Psychiatric: Normal affect.
Course
<Ana Huffman PA-C - Last Filed: 12/15/24 12:13>
Orders/Labs/Results
Orders:
Orders
12/14/24 09:40
Complete Blood Count/With Diff Urgent
Comprehensive Metabolic Panel Urgent
12/14/24 09:42
Electrocardiogram (*1) Stat
Comment: AALREADY DONE IN ED
12/14/24 09:53
Add On- LAB Urgent
Tests Added?: ammonia
12/14/24 10:00
Troponin I Urgent
12/14/24 10:01
CR Chest - 2 Views Urgent
Comment:
Reason For Exam: weakness
12/14/24 10:18
Ammonia Urgent
COVID-19 Antigen Urgent
Source: Nasal Swab
Influenza A+B Rapid Molecular Urgent
DENISE Source: Nasal Swab
Specimen Description:
12/14/24 10:27
CT Head W/o Iv Contrast Urgent
Comment:
Reason For Exam: altered mental status
12/14/24 11:15
Urinalysis Reflex To Culture Urgent
Date Specimen was Collected: 12/14/24
Time Specimen was Collected: 10:34
Urine Microscopic Reflex Cult Urgent
Urine Culture Urgent
DENISE Source: U
Specimen Description:
Date Specimen was Collected: 12/14/24
Time Specimen was Collected: 10:34
Abnormal Lab Results
12/14/24 12/14/24 12/14/24
09:40 10:18 11:15
WBC 3.8 L 10^3/uL
(4.8-10.8)
RBC 3.27 L 10^6/uL
(4.20-5.40)
Hgb 10.7 L g/dL
(12.0-16.0)
Hct 33.0 L %
(37.0-47.0)
MCV 100.9 H fL
(81.0-99.0)
MCH 32.7 H pg
(27.0-31.0)
MCHC 32.4 L g/dL
(33.0-37.0)
RDW 16.4 H %
(11.5-14.5)
Plt Count 64 L 10^3/uL
(130-400)
MPV 10.9 H fL
(7.4-10.4)
Absolute Lymphs (auto) 0.5 L 10^3/uL
(1.2-3.4)
Lymphocytes % 13.0 L %
(20.5-51.1)
Monocytes % 10.2 H %
(1.7-9.3)
Chloride 116 H mmol/L
(98-107)
Carbon Dioxide 21 L mmol/L
(22-30)
BUN 18 H mg/dl
(7-17)
AST 45 H U/L
(14-36)
Ammonia < 9 L umol/L
(9-30)
Total Protein 5.8 L g/dl
(6.3-8.2)
Albumin 3.0 L g/dl
(3.5-5.0)
Leukocyte Esterase Rfl 1+ A
(Negative)
Urine RBC 7-10 A /HPF
(0-2)
Urine WBC (Reflex) 11-15 A /HPF
(0-5)
12/14/24 09:40
12/14/24 09:40
Vital Signs
Initial and Last Documented VS:
Initial Vital Signs
Temp Pulse Resp BP Pulse Ox
98.0 F 77 18 106/74 100
12/14/24 09:33 12/14/24 09:33 12/14/24 09:33 12/14/24 09:33 12/14/24 09:33
Last Documented Vital Signs
Temp Pulse Resp BP Pulse Ox
98.0 F 73 23 117/64 97
12/14/24 09:33 12/14/24 15:15 12/14/24 15:15 12/14/24 15:00 12/14/24 14:00
<Brando Siddiqui MD - Last Filed: 12/14/24 13:40>
Orders/Labs/Results
Orders:
Orders
12/14/24 09:40
Complete Blood Count/With Diff Urgent
Comprehensive Metabolic Panel Urgent
12/14/24 09:42
Electrocardiogram (*1) Stat
Comment: AALREADY DONE IN ED
12/14/24 09:53
Add On- LAB Urgent
Tests Added?: ammonia
12/14/24 10:00
Troponin I Urgent
12/14/24 10:01
CR Chest - 2 Views Urgent
Comment:
Reason For Exam: weakness
12/14/24 10:18
Ammonia Urgent
COVID-19 Antigen Urgent
Source: Nasal Swab
Influenza A+B Rapid Molecular Urgent
DENISE Source: Nasal Swab
Specimen Description:
12/14/24 10:27
CT Head W/o Iv Contrast Urgent
Comment:
Reason For Exam: altered mental status
12/14/24 11:15
Urinalysis Reflex To Culture Urgent
Date Specimen was Collected: 12/14/24
Time Specimen was Collected: 10:34
Urine Microscopic Reflex Cult Urgent
Urine Culture Urgent
DENISE Source: U
Specimen Description:
Date Specimen was Collected: 12/14/24
Time Specimen was Collected: 10:34
Abnormal Lab Results
12/14/24 12/14/24 12/14/24
09:40 10:18 11:15
WBC 3.8 L 10^3/uL
(4.8-10.8)
RBC 3.27 L 10^6/uL
(4.20-5.40)
Hgb 10.7 L g/dL
(12.0-16.0)
Hct 33.0 L %
(37.0-47.0)
MCV 100.9 H fL
(81.0-99.0)
MCH 32.7 H pg
(27.0-31.0)
MCHC 32.4 L g/dL
(33.0-37.0)
RDW 16.4 H %
(11.5-14.5)
Plt Count 64 L 10^3/uL
(130-400)
MPV 10.9 H fL
(7.4-10.4)
Absolute Lymphs (auto) 0.5 L 10^3/uL
(1.2-3.4)
Lymphocytes % 13.0 L %
(20.5-51.1)
Monocytes % 10.2 H %
(1.7-9.3)
Chloride 116 H mmol/L
(98-107)
Carbon Dioxide 21 L mmol/L
(22-30)
BUN 18 H mg/dl
(7-17)
AST 45 H U/L
(14-36)
Ammonia < 9 L umol/L
(9-30)
Total Protein 5.8 L g/dl
(6.3-8.2)
Albumin 3.0 L g/dl
(3.5-5.0)
Leukocyte Esterase Rfl 1+ A
(Negative)
Urine RBC 7-10 A /HPF
(0-2)
Urine WBC (Reflex) 11-15 A /HPF
(0-5)
12/14/24 09:40
12/14/24 09:40
Vital Signs
Initial and Last Documented VS:
Initial Vital Signs
Temp Pulse Resp BP Pulse Ox
98.0 F 77 18 106/74 100
12/14/24 09:33 12/14/24 09:33 12/14/24 09:33 12/14/24 09:33 12/14/24 09:33
Last Documented Vital Signs
Temp Pulse Resp BP Pulse Ox
98.0 F 73 23 117/64 97
12/14/24 09:33 12/14/24 15:15 12/14/24 15:15 12/14/24 15:00 12/14/24 14:00
<Ana Huffman PA-C - Last Filed: 12/15/24 12:13>
MDM/Problems Addressed
Differential Diagnosis Includes:
Not limited to: Viral illness, acute dehydration, polypharmacy, UTI, hepatic encephalopathy, etc.
MDM/Problems Addressed:
59 y.o F presenting with change in mental status and episode of reported unresponsiveness at facility. Patient recently discharged after hospitalization for hepatic encephalopathy. Physical exam as above. Vitals stable. After discussion with nurse
at facility - patient appears at he baseline in ED. Will check labs, EKG, trop, CXR, CT head, UA.
Update: Labs reviewed. CBC shows pancytopenia. Chemistry without clinically significant abnormalities. Ammonia undetectable. EKG without acute ischemic changes. Troponin undetectable. Urine somewhat equivocal for infection. Will plan to order abx
pending culture. CXR and head CT without acute abnormalities.
Workup in ED unremarkable. Patient has remained at her baseline through duration in ED. Mental status change this morning possibly due to medication side effect/polypharmacy vs cardiac arrhythmia. Other possibility would be seizure. Will admit to
hospitalist for continued monitoring/ further evaluation.
Update: Hospitalist down to see pt at bedside for possible admission. He recently discharged patient and confirms that patient is currently at her baseline. After speaking with hospitalist - will plan to discharge patient back to nursing facility.
Feel this is reasonable as patient has remained with stabbel vital signs and no evidence of AMS in ED. Suspect trazadone as potential etiology of decreased responsiveness this morning. Will advise decrease in dose / discontinuation. Strict return
precautions provided. Case seen with attending physician.
Chronic conditions affecting care:
History CVA, cirrhosis of liver
Acute Exacerbation and/or Progression of Chronic Illness:
N/A
<Ana Huffman PA-C - Last Filed: 12/15/24 12:13>
*Radiology
Radiology exam reviewed: preliminary read by ED provider (Chest x-ray reviewed by wi-no acute disease) and radiology read reviewed
*Pulse Oximetry
Patient hypoxic: no
*EKG
Interpreted by ED Provider?: Yes
EKG Intrepretation Date: 12/14/24
Interpretation: abnormal
Comparison EKG: changes noted
Heart Rate: 75
Rate: normal
Rhythm: sinus
[place]: normal axis
Interval: normal QT interval
Ischemia: non-specific ST changes
*Acute Care Occupational Therapist Interpretation
Rate: Acute Care Occupational Therapist- N/A
*Critical Care Note
Total Time (30-74mins, 75-104mins- exclusive of procedures): Not Applicable
Data Reviewed
Review of Other/Old Records Reveals: Discharge Summary (Discharge summary from 12/12/2024-patient admitted for 5 days for hepatic encephalopathy)
Source: previous hospital records
ED Attending Note
<Ana Huffman PA-C - Last Filed: 12/15/24 12:13>
-
Portions of this chart may have been created with voice recognition software.� Occasional wrong word or��sound alike� substitutions may have occurred due to the inherent limitations of voice recognition software.
<Brando Siddiqui MD - Last Filed: 12/14/24 13:40>
ED Attending Note
Patient seen and examined by attending physician: Yes
ED Attending Note:
I have seen and evaluated the patient with a [id number] encounter. I have spoken to the advance practicer provider and involved in the medical history, the physical exam, medical decision making.
Evaluation and management service: agree unless noted differently below.
Results interpretation: agree unless noted differently below.
Focused HPI: 59-year-old female with a past medical history of cirrhosis, stroke with right hemiparesis and contraction of the right arm presents to the ER from [facility] where she lives; presents for evaluation of altered mental status,
generalized weakness. Apparently patient was in her normal state of health this morning and then later in the morning when they checked in on her she was unresponsive even to sternal rub. Apparently even when she did wake up she was lethargic and
confused and so they sent her to the ER to be evaluated. Here in the ER she is awake and alert but confused. She cannot exactly tell me why she is here. She says that she has chronic pains everywhere but does not seem to have anything acute. He
does admit to feeling weaker than usual but denies any new focal weakness. She denies feeling short of breath.
Physical exam: Awake and alert, oriented to person and place. Vitals noted all within normal limits. She has no signs of trauma to head. She is contracted right upper extremity. Left upper extremity strength intact proximally and distally.
Right lower extremity slightly weaker than left but able to do straight leg raise against gravity; left lower extremity strength intact proximally distally 5/5. She has no gross cranial nerve deficits. She has no cardiac rubs murmurs. Lungs sound
clear. Abdomen nontender.
Medical Decision Makin-year-old female with history as documented presents to the ER for change in mental status and apparently had an unresponsive episode today. Vitals and exam as above. Send off labs including CBC and CMP, ammonia level.
Check urinalysis, chest x-ray, viral swabs. Check CT head. Check EKG and troponin. Monitor and reassess after the above.
Initial labs reviewed: CBC shows stable pancytopenia, CMP no clinically significant abnormalities. Ammonia level not elevated. Troponin undetectable. Awaiting urinalysis but viral swabs negative a chest x-ray shows no acute disease. CT head
pending.
CT head negative. Urinalysis no clear infection will follow culture. Unclear etiology to her mental status change could be polypharmacy, possible that her unresponsive episode was a seizure with a postictal period. After reported unresponsiveness
and change in mental status will admit for monitoring and further workup as needed.
Case discussed with hospitalist for consultation for possible admission�they have seen her before and she is currently at her baseline. Suspect this may be polypharmacy she has been given trazodone for sleep and had this issue in the past. Patient
is awake and alert now she feels well her vitals have been stable throughout and she will be in [facility] at this point after consultation with hospitalist service.
Discharge Plan
Departure
Patient Disposition: Home (Routine Discharge)
Date of Disposition: 12/14/24
Time of Disposition: 12:46
Patient with high blood pressure during this ER visit?: No
Condition: Good
Covid-19: Not Applicable
Discharge Problem:
Weakness, Medication side effect
Instructions: Generalized Weakness (DC)
Prescriptions:
No Action
thiamine HCl (vitamin B1) 100 mg Tablet
100 mg PO DAILY
ascorbic acid (vitamin C) 500 mg Tablet
500 mg PO DAILY
bisacodyl [Dulcolax (bisacodyl)] 10 mg Suppository
10 mg VT DAILYPRN PRN (Reason: if mom is ineffective)
sodium phosphates 19-7 gram/118 mL Enema
118 ml VT DAILYPRN PRN (Reason: if dulcolax is ineffective)
folic acid 1 mg Tablet
1 mg PO DAILY
mirtazapine [Remeron] 15 mg Tablet
7.5 mg PO HS
duloxetine 60 mg Capsule,Delayed Release(Dr/Ec)
60 mg PO DAILY
Rx Instructions:
take with 20mg for total of 80mg
calcium carbonate-vitamin D3 [Calcium 600 + D(3)] 600 mg-10 mcg (400 unit) Tablet
1 tab PO BID
Xifaxan 550 mg Tablet
550 mg PO BID
acetaminophen 325 mg Tablet
650 mg PO Q6HPRN PRN (Reason: mild pain/temp>100.4)
trazodone 50 mg Tablet
75 mg PO HS
duloxetine 20 mg Capsule,Delayed Release(Dr/Ec)
20 mg PO DAILY
Rx Instructions:
take with 60mg for total of 80mg
lactulose 20 gram/30 mL Solution
20 g PO TID Qty: 1200 0RF
lactulose [Enulose] 10 gram/15 mL Solution
20 g PO DAILYPRN PRN (Reason: constipation)
Referrals:
Ryan David I., [Family Provider] - Follow up in 5-7 days
Activity Restrictions/Additional Instructions:
Return to the emergency department with any high fevers, chest pain, shortness of breath, severe abdominal pain, signs of severe dehydration, changes in mental status, worsening of current symptoms, or any other
-As discussed�your ammonia level was undetectable today in the emergency department. You should continue to take your lactulose as prescribed.
-I suspect the generalized weakness/fatigue today was possibly secondary to your medication. You should discontinue your trazodone or at least decrease it to 25 mg nightly.
-Your platelets were low in the emergency department which seems to be chronic although you should have this repeated with your primary care to make sure they are trending in the right direction.
Monitor symptoms closely and return to the emergency department with any acute worsening/new symptoms or any other concerns
Interventions
Interventions:
*Risk Screen - Suicide Last Done: 12/14/24 09:33
*General Assessment Last Done: 12/14/24 09:33
*Neglect/Abuse Screening Last Done: 12/14/24 09:33
ED- Fall Risk Assessment Last Done: 12/14/24 15:55
*ED COVID-19 Vaccine History Last Done: 12/14/24 09:33
*Nursing Disposition Last Done: 12/14/24 15:55
ED- Cardiac Assessment Last Done: 12/14/24 09:33
ED- Neurological Assessment Last Done: 12/14/24 09:33
ED- Pulmonary Assessment Last Done: 12/14/24 09:33
Discharge Date and Time
Discharge Date/Time: 12/14/24 15:57
Print Language: SETSWANA
[2024-12-14 10:04] LABS: ALT (SGPT) 33 U/L (0-35); AST (SGOT) 45 U/L (14-36); Alkaline Phosphatase 58 U/L (38-126); Blood Urea Nitrogen 18 mg/dl (7-17); Calcium 8.8 mg/dl (8.4-10.2); Carbon Dioxide 21 mmol/L (22-30); Chloride 116 mmol/L (98-107); Estimated Creatinine Clearance 89 ml/min; Glucose 84 mg/dl (70-99); Potassium 4.6 mmol/L (3.5-5.1); Sodium 143 mmol/L (135-145); Total Protein 5.8 g/dl (6.3-8.2); eGFR > 60.00
[2024-12-14 10:46] LABS: COVID-19 Antigen Negative (Negative)
[2024-12-14 10:48] LABS: Ammonia < 9 umol/L (9-30)
[2024-12-14 10:57] LABS: Troponin I < 0.012 ng/ml
[2024-12-14 11:35] LABS: Urine Albumin Trace (Neg - Trace); Urine Bilirubin Negative (Negative); Urine Character Clear (Clear); Urine Color Yellow; Urine Glucose Negative (Negative); Urine Ketone Negative (Negative); Urine Leukocyte 1+ (Negative); Urine Nitrite Negative (Negative); Urine Occult Blood Negative (Negative); Urine Urobilinogen Negative (Neg - 1+)
== END 2024-12-14 15:57 | disposition home or self-care (01) ==
LOC: EMR 09:31
PROVIDERS: Physician Assistant; Student in an Organized Health Care Education/Training Program; EMERGENCY PHYSICIAN Emergency Medicine; FAMILY PHYSICIAN Internal Medicine
DX: R53.1 Weakness (principal); T50.905A Adverse effect of unspecified drugs, medicaments and biological substances, initial encounter; Y92.9 Unspecified place or not applicable; R47.01 Aphasia; Z86.73 Personal history of transient ischemic attack (TIA), and cerebral infarction without residual deficits; K74.60 Unspecified cirrhosis of liver; I10 Essential (primary) hypertension
CPT/HCPCS: 99284; 70450; 71046; 80053; 81003; 81015; 82140; 84484; 85025; 87086; 87502; 87811; 93005

== ENCOUNTER 2025-02-12 01:41 | Observation (INO) | payer MEDICARE, OTHER, SELFPAY ==
[2025-02-11 19:46] VITALS: BP 132/74
[2025-02-11 20:00] VITALS: BP 129/77
[2025-02-11 20:07] VITALS: BMI 18.4
[2025-02-11 20:09] LABS: % Eosinophils 1.4 % (0-6); % Lymphocytes 22.9 % (20.5-51.1); % Monocytes 7.9 % (1.7-9.3); % Neutrophils 67.8 % (42.2-75.2); Absolute Lymphocytes 0.5 10^3/uL (1.2-3.4); Absolute Monocytes 0.2 10^3/uL (0.1-0.6); Absolute Neutrophils 1.5 10^3/uL (1.4-6.5); Hematocrit 31.3 % (37.0-47.0); Hemoglobin 10.4 g/dL (12.0-16.0); Mean Corp Hgb Conc. 33.2 g/dL (33.0-37.0); Mean Corpuscular Hgb 32.6 pg (27.0-31.0); Mean Corpuscular Volume 98.1 fL (81.0-99.0); Mean Platelet Volume 10.3 fL (7.4-10.4); Nucleated Red Blood Cells % 0 %; Platelet Count 69 10^3/uL (130-400); Red Blood Cell Count 3.19 10^6/uL (4.20-5.40); Red Cell Dist. Width 15.1 % (11.5-14.5); White Blood Cell Count 2.1 10^3/uL (4.8-10.8)
[2025-02-11 20:13] LABS: ALT (SGPT) 19 U/L (0-35); AST (SGOT) 27 U/L (14-36); Albumin 2.9 g/dl (3.5-5.0); Alkaline Phosphatase 72 U/L (38-126); Blood Urea Nitrogen 18 mg/dl (7-17); Calcium 9.2 mg/dl (8.4-10.2); Carbon Dioxide 28 mmol/L (22-30); Chloride 111 mmol/L (98-107); Estimated Creatinine Clearance 75 ml/min; Glucose 93 mg/dl (70-99); Potassium 3.8 mmol/L (3.5-5.1); Sodium 141 mmol/L (135-145); Total Bilirubin 1.1 mg/dl (0.2-1.3); Total Protein 5.7 g/dl (6.3-8.2); eGFR > 60.00
[2025-02-11 20:14] LABS: COVID-19 Antigen Negative (Negative)
[2025-02-11 21:00] VITALS: BP 134/76
[2025-02-11 22:00] VITALS: BP 133/77
[2025-02-11 23:00] VITALS: BP 127/79
--- NOTE | 2025-02-11 23:33 | ED.GENMED ---
History of Present Illness
General
Chief Complaint: Change in Mental Status
Source: patient, ambulance crew, senior living and previous hospital records (Multiple previous hospitalizations for somewhat similar event most recently early November 2024)
Exam Limitations: none
Time Seen by Provider: 02/11/25 23:10
Nursing documentation reviewed up to this point in time: agreed with
History of Present Illness
History of Present Illness:
This is a 59-year-old woman, long-term resident of a local senior living. She has history of right hemiplegia status post CVA, history of mild aphasia, alcoholic cirrhosis with multiple previous hospitalizations for acute change in mental status
most attributed to hepatic encephalopathy versus polypharmacy.
Her most recent hospitalization early November for change in mental status found to have elevated ammonia level. Lactulose dose was adjusted. She was then evaluated in this ED 5 days after discharge back to the senior living in November for somewhat
similar event of brief episode of unresponsiveness. Returned to baseline upon arrival to the ED. Ammonia level was normal at that time.
Concern for arrhythmia versus seizure.
Plan for admission at that time but evaluated by hospitalist who knew the patient well and was most concerned with sedating medication, recommended decreasing dose of trazodone and to discharge back to senior living.
Tonight she apparently suffered similar unresponsiveness. According to the senior living staff patient noted to be briefly unresponsive. Unclear as to length of time she was unresponsive but upon EMS arrival patient was noted to be alert, talking
and appeared to be at her baseline.
Patient has no recollection of unresponsiveness, offers no complaints.
She does states she has previous history of seizures, does not believe she has been prescribed medications for seizure disorder in the past.
Upon review of records, several hospitalizations over the past several months for change in mental status all related to hepatic encephalopathy as well as concern for polypharmacy with sedating medications.
Past History
Past History
ED Past Medical History: CVA (Right hemiparesis), HTN, Psychiatric and Other (Alcoholic cirrhosis with chronic pancytopenia, hepatic encephalopathy)
ED Past Surgical History: Orthopedic (Left shoulder)
Social History
Tobacco: Non-smoker
Alcohol: Former
Personal: Single
Living: senior living
Employment: Disabled
Family History
Family History: Other (Noncontributory)
Phy Exam
Physical Exam
Physical Exam:
GENERAL: 59-year-old woman appears older than stated age, chronically ill in appearance, bedbound. She is bright and alert, oriented x 3, easily communicative and in no acute distress.
EYE: pupils equal and reactive. anicteric
NECK: Supple, nontender, no meningismus, no significant adenopathy.
ENT: posterior pharynx is clear, oral mucosa is moist. TM clear b/l, nares patent. Tongue is without abrasion nor hematoma.
CARDIAC: Regular rate and rhythm. no murmur.
LUNGS: Clear breath sounds bilaterally, no acute respiratory distress, no wheezes/rales/rhonchi
ABDOMEN: Soft, nondistended, without focal tenderness, no r/g, normoactive BS.
NEUROLOGICAL: Alert and oriented x3, chronic right upper extremity flexion contracture, chronic rigidity right lower extremity. Motor strength 5/5 left upper and left lower extremity, 4/5 right lower extremity.
SKIN: Warm and dry, mildly pale in color, no rash.
MUSCULOSKELETAL: No C/C/E. peripheral pulses are full and equal b/l. No palpable tenderness.
PSYCH: Normal and appropriate interaction.
Course
Orders/Labs/Results
Orders:
Orders
02/11/25 19:36
Cardiac Monitoring- Treatment ONCE
IV Insert/Care/Rem.- Treatment PRN
O2 Therapy [RESP] Urgent
Titrate/Wean O2 to maintain O2 sat greater than (%): 93
Special Instructions: TO MAINTAIN CONTINUOUS O2 SATS > OR = 93%
Pulse Ox/cont/shift [RESP] Urgent
Quantity: 1
Special Instructions: CONTINUOUS
02/11/25 19:44
COVID-19 Antigen Urgent
Source: Nasal Swab
Complete Blood Count/With Diff Urgent
Comprehensive Metabolic Panel Urgent
INF RAPID [Influenza A+B Rapid Molecular] Urgent
DENISE Source: Nasal Swab
Specimen Description:
02/11/25 23:27
Ammonia Urgent
Abnormal Lab Results
02/11/25 02/11/25
19:44 23:27
WBC 2.1 L* 10^3/uL
(4.8-10.8)
RBC 3.19 L 10^6/uL
(4.20-5.40)
Hgb 10.4 L g/dL
(12.0-16.0)
Hct 31.3 L %
(37.0-47.0)
MCH 32.6 H pg
(27.0-31.0)
RDW 15.1 H %
(11.5-14.5)
Plt Count 69 L 10^3/uL
(130-400)
Absolute Lymphs (auto) 0.5 L 10^3/uL
(1.2-3.4)
Chloride 111 H mmol/L
(98-107)
BUN 18 H mg/dl
(7-17)
Ammonia 60 H umol/L
(9-30)
Total Protein 5.7 L g/dl
(6.3-8.2)
Albumin 2.9 L g/dl
(3.5-5.0)
02/11/25 19:44
02/11/25 19:44
Vital Signs
Initial and Last Documented VS:
Initial Vital Signs
Temp
99.1 F
02/11/25 19:38
Last Documented Vital Signs
Temp Pulse Resp BP Pulse Ox
99.1 F 74 16 127/79 96
02/11/25 19:38 02/11/25 23:45 02/11/25 23:30 02/11/25 23:00 02/11/25 23:45
MDM/Problems Addressed
Differential Diagnosis Includes:
Concern for seizure disorder, cardiac arrhythmia, other consideration is recurrent hepatic encephalopathy.
Concern for low-grade fever initially, upon recheck patient is afebrile and there has been no report from senior living a recent fever and patient herself denies recent fever nor subjective fevers.
Labs reveal moderate but stable pancytopenia.
Chemistries are unremarkable.
Will check ammonia level.
No recent fall, patient appears to be at her baseline. Multiple recent head CTs, all stable and unchanged. Will hold off on CT of the head for now.
Chronic conditions affecting care: Neurological disorder (Prior stroke) and Other (Alcoholic cirrhosis with pancytopenia, hepatic encephalopathy)
*Pulse Oximetry
Patient hypoxic: no
*Hoist Worker Interpretation
Rate: normal
Interpretation: normal
Rhythm: sinus
*Critical Care Note
Total Time (30-74mins, 75-104mins- exclusive of procedures): Not Applicable
Update Note
Update Note:
00:35
Ammonia level has trended up to 60.
Recurrent hepatic encephalopathy could be cause for wavering mental status but must also consider underlying seizure disorder, less likely tacky arrhythmia.
Will give a dose of lactulose now and will admit to hospitalist service.
ED Attending Note
-
Portions of this chart may have been created with voice recognition software.� Occasional wrong word or��sound alike� substitutions may have occurred due to the inherent limitations of voice recognition software.
Discharge Plan
Departure
Patient Disposition: Admit
Date of Disposition: 02/12/25
Time of Disposition: 00:37
Admit to: Telemetry
Admit to doctor: Moises
Presentation/result/management discussed w/ accepting MD/DO: Hospitalist
Condition: Fair
Discharge Problem:
Episode of unresponsiveness, Concern for seizure versus syncope, Hepatic encephalopathy
Prescriptions:
No Action
thiamine HCl (vitamin B1) 100 mg Tablet
100 mg PO DAILY
ascorbic acid (vitamin C) 500 mg Tablet
500 mg PO DAILY
bisacodyl [Dulcolax (bisacodyl)] 10 mg Suppository
10 mg MO DAILYPRN PRN (Reason: if mom is ineffective)
sodium phosphates 19-7 gram/118 mL Enema
118 ml MO DAILYPRN PRN (Reason: if dulcolax is ineffective)
folic acid 1 mg Tablet
1 mg PO DAILY
mirtazapine [Remeron] 15 mg Tablet
7.5 mg PO HS
duloxetine 60 mg Capsule,Delayed Release(Dr/Ec)
60 mg PO DAILY
Rx Instructions:
take with 20mg for total of 80mg
calcium carbonate-vitamin D3 [Calcium 600 + D(3)] 600 mg-10 mcg (400 unit) Tablet
1 tab PO BID
Xifaxan 550 mg Tablet
550 mg PO BID
acetaminophen 325 mg Tablet
650 mg PO Q6HPRN PRN (Reason: mild pain/temp>100.4)
trazodone 50 mg Tablet
75 mg PO HS
duloxetine 20 mg Capsule,Delayed Release(Dr/Ec)
20 mg PO DAILY
Rx Instructions:
take with 60mg for total of 80mg
lactulose 20 gram/30 mL Solution
20 g PO TID Qty: 1200 0RF
lactulose [Enulose] 10 gram/15 mL Solution
20 g PO DAILYPRN PRN (Reason: constipation)
Referrals:
UNKNOWN - PT DOES,NOT KNOW [Family Provider] -
Interventions
Interventions:
*Risk Screen - Suicide Last Done: 02/11/25 19:38
*General Assessment Last Done: 02/11/25 19:38
*Neglect/Abuse Screening Last Done: 02/11/25 19:38
*ED- Fall Risk Assessment Last Done: 02/11/25 19:38
*ED COVID-19 Vaccine History Last Done: 02/11/25 19:38
ED- Pulmonary Assessment Last Done: 02/11/25 20:04
ED- Neurological Assessment Last Done: 02/11/25 20:04
ED- Cardiac Assessment Last Done: 02/11/25 20:04
Discharge Date and Time
Print Language: VINCENTIAN
[2025-02-11 23:45] LABS: Ammonia 60 umol/L (9-30)
[2025-02-12] VITALS: BP 130/77
--- NOTE | 2025-02-12 00:56 | HPS.HSE ---
Family Physician
-
Family Physician: NOT KNOW UNKNOWN - PT DOES
Chief Complaint
-
Unresponsive episode
History of Present Illness
This is a 59-year-old with past medical history significant for CVA with residual right-sided spastic paresis, alcohol cirrhosis complicated by hepatic encephalopathy, chronic thrombocytopenia, hypertension, recurrent encephalopathic episodes who
presents to the Emergency Department after have an unresponsive episode at the nursing facility.
Patient was last admitted in November with unresponsiveness. By the time she was found to have hepatic encephalopathy with elevated ammonia. Lactulose was titrated up on patient was discharged with improvement. 5 days later she went to the
emergency department with on a similar episode of unresponsiveness and was observed in the ED she had normal labs and imaging. [facility] She now comes back with similar episode of unresponsiveness.
Patient self reports that she had no recollection of this unresponsive episode. She was actually aware of her right [facility] to the [facility] via ambulance. Here she is alert and oriented x 3 and appears to be back at her baseline.
Ammonia level was found to be elevated in the emergency department.
She reports she does not like to take the lactulose. She says she takes it about once a day and has not taken it today.
Patient denies any urinary symptoms. She denies any fevers. She denies any cough or shortness of breath. She denies any new numbness tingling. She denies any prior history of seizures.
Here in the Emergency Department she was afebrile, blood pressure was 127/80 with a pulse of 74. Temp was 99.1 with oxygen saturation of 96. CBC notable for white of 2.1, hemoglobin 10.4 and a plate count of 69. All unchanged and similar to
prior. Electrolytes BUN/creatinine were normal. LFTs were unremarkable. Ammonia was 60.
Medical History
Past Medical History
Past Medical History: Reports Other
Additional Past Medical History:
Right flaccid hemiplegia
Alcohol cirrhosis of liver without ascites
Dysphagia due to old CVA
Osteoporosis
Primary insomnia
Irritable bowel disease
Depression
Anxiety
Past Surgical History: Reports Other
Social History
Unable to obtain full social history at this time due to: Acuity
Family History
Family History: Not pertinent
Allergies / Home Medications
Allergies reflects when Allergies were last updated in [employer].
Home Medications with original date entered in [employer]
Allergy/Medication List:
Allergies
Allergy/AdvReac Type Severity Reaction Status Date / Time
No Known Allergies Allergy Verified 02/11/25 19:37
Home Medications
ascorbic acid (vitamin C) 500 mg tablet 500 mg PO DAILY anemia 07/06/24
bisacodyl 10 mg rectal suppository (Dulcolax (bisacodyl)) 10 mg ND DAILYPRN PRN if mom is ineffective 07/06/24
calcium 600 mg (as carbonate)-vitamin D3 10 mcg (400 unit) tablet (Calcium 600 + D(3)) 1 tab PO BID Supplement 07/06/24
duloxetine 60 mg capsule,delayed release 60 mg PO DAILY Mental Health/Anxiety 07/06/24
folic acid 1 mg tablet 1 mg PO DAILY Supplement 07/06/24
mirtazapine 15 mg tablet (Remeron) 7.5 mg PO HS anxiety 07/06/24
rifaximin 550 mg tablet (Xifaxan) 550 mg PO BID Gastrointestinal Issue 07/06/24
sodium phosphates 19 gram-7 gram/118 mL enema 118 ml ND DAILYPRN PRN if dulcolax is ineffective 07/06/24
thiamine HCl (vitamin B1) 100 mg tablet 100 mg PO DAILY Supplement 07/06/24
acetaminophen 325 mg tablet 650 mg PO Q6HPRN PRN mild pain/temp>100.4 12/07/24
duloxetine 20 mg capsule,delayed release 20 mg PO DAILY Mental Health/Anxiety 12/07/24
trazodone 50 mg tablet 75 mg PO HS Sleep 12/07/24
lactulose 20 gram/30 mL oral solution 20 g (30 mL) PO TID #1,200 mL 12/12/24
lactulose 10 gram/15 mL oral solution (Enulose) 20 g PO DAILYPRN PRN constipation 12/14/24
Review of Systems
-
History Source: Patient and Transfer Record
Constitutional: Reports No Symptoms
EENT: Reports No Symptoms
Respiratory: Reports No Symptoms
Cardiac: Reports No Symptoms
Abdomen/GI: Reports No Symptoms
: Reports No Symptoms
Musculoskeletal: Reports No Symptoms
Skin: Reports No Symptoms
Neurological: Reports No Symptoms
Endocrine: Reports No Symptoms
Hematologic/Lymphatic: Reports No Symptoms
Psych: Reports No Symptoms
Physical Exam
Vital Signs
Vital Signs
Temp Pulse Resp BP Pulse Ox
99.1 F 73 15 130/77 96
02/11/25 19:38 02/12/25 00:45 02/12/25 00:45 02/12/25 00:00 02/12/25 00:15
Physical Exam
General: No Apparent Distress, Comfortable and Conversant
HEENT: NormoCephalic, Anicteric, Moist mucous membranes and Atraumatic
Respiratory: Clear
Cardiac: S1/S2 and Regular Rhythm
Breast: Deferred by me
GI: Soft, Non Tender, Non Distended and Normal Bowel Sounds
Rectal: Deferred by Provider
Genito-urinary: Deferred by me
Musculoskeletal: No Clubbing, No Cyanosis and No Edema
Skin: Warm and Dry
Neuro: AO x 3, Cranial Nerves Intact and Other (right upper ext spastic paresis, mild dysarthria)
Hematologic/Lymphatic: No Lymphadenopathy
Psych: Calm
Laboratory Results
-
02/11/25 19:44
02/11/25 19:44
Laboratory Results
Lactic Acid Cancelled 02/11/25 23:45
Total Bilirubin 1.1 mg/dl (0.2-1.3) 02/11/25 19:44
AST 27 U/L (14-36) 02/11/25 19:44
ALT 19 U/L (0-35) 02/11/25 19:44
Alkaline Phosphatase 72 U/L (38-126) 02/11/25 19:44
Data Reviewed
-
Lab Data: Labs Reviewed by me
Old Records: Reviewed
Impression/Plan
-
IMPRESSION:
Unresponsive episode now back to baseline. Ammonia level elevated to 60. Otherwise labs are stable. Currently A&O x 3 with mild dysarthria and right hemiparesis which is unchanged from prior. Possible seizure vs hepatic encephalopathy. She
reports taking lactulose once daily (discharged on TID)
PLAN:
1. Hepatic encephalopathy
- admit to med/surg
- stat lactulose then continue TID
- continue rifaximin
- no ascites, no evidence of bleeding.
- will continue her baclofen prn for now and monitor
- hold trazodone
- monitor for seizure-like activity, check head CT
DVT PPX - lovenox sq
Code status - Full Code, expressed desire for CPR and intubation if needed
[2025-02-12] MEDS: DUPHALAC/CHRONULAC 20 GRAMS PO ×3 (02:10→15:54)
[2025-02-12 02:48] VITALS: BP 125/70; BMI 18.5
--- NOTE | 2025-02-12 03:00 | PTCARENOTE ---
Pt arrived to [facility] from the ED on a stretcher. Pt pulled over from stretcher to bed without incident. Pt has 2 stage 2 pressure injuries on Left and right buttocks. Cleansed with saline and silicone border foam applied to buttocks. Pt oriented to
room and touch pad call rendon issued and within reach. Admission questions answered. Care ongoing.
[2025-02-12 07:03] LABS: Hematocrit 29.6 % (37.0-47.0); Hemoglobin 9.9 g/dL (12.0-16.0); Mean Corp Hgb Conc. 33.4 g/dL (33.0-37.0); Mean Corpuscular Hgb 32.8 pg (27.0-31.0); Mean Platelet Volume 11.9 fL (7.4-10.4); Platelet Count 65 10^3/uL (130-400); Red Blood Cell Count 3.02 10^6/uL (4.20-5.40); Red Cell Dist. Width 15.1 % (11.5-14.5)
[2025-02-12 07:17] LABS: Ammonia 78 umol/L (9-30)
[2025-02-12 07:18] LABS: Blood Urea Nitrogen 16 mg/dl (7-17); Calcium 9.1 mg/dl (8.4-10.2); Carbon Dioxide 23 mmol/L (22-30); Chloride 113 mmol/L (98-107); Estimated Creatinine Clearance 83 ml/min; Glucose 78 mg/dl (70-99); Potassium 3.8 mmol/L (3.5-5.1); Sodium 141 mmol/L (135-145); eGFR > 60.00
[2025-02-12 07:57] VITALS: BP 139/82
[2025-02-12 08:39] LABS: Hepatitis C Antibody Negative (Negative)
[2025-02-12] MEDS: VITAMIN B1 100 MG PO (09:01)
[2025-02-12] MEDS: FOLVITE 1 MG PO (09:01)
[2025-02-12] MEDS: XIFAXAN 550 MG PO (09:01)
[2025-02-12] MEDS: VITAMIN C 500 MG PO (09:01)
[2025-02-12] MEDS: CYMBALTA DELAYED RELEASE 60 MG PO (09:02)
--- NOTE | 2025-02-12 10:50 | CM ---
Addendum entered by Elmira Davenport 02/12/25 14:08:
CM spoke with patient brother and updated him about plan to return to SNF. CM requested physician call brother at his request. Please call report to [phone]/fax [phone]. CM completed ambulance transportation forms and will provide to
nursing.
Original Note:
Patient seen at bedside in [address] [place] [address]. Patient is LTC at [facility]. Patient stated that she has been there for a year. Patient brother Anthony phone [phone]. Patient is OBS/CURTIS and CM provided form. CM will call to patient brother to review
OBS status. CM called to [facility] Liaison to confirm patient status. CM will continue to follow for discharge planning needs.
Plan; return to SNF; when medically appropriate.
[2025-02-12 11:15] LABS: Ammonia 92 umol/L (9-30)
--- NOTE | 2025-02-12 11:40 | W.PN.HOSP.TC ---
Today's Communication/Plan
-
* Anticipated discharge today.
Assessment / Plan
Assessment / Plan
Assessment
Tali Oreilly, 59-year-old female, [facility] the [facility]. On the way to the hospital, she woke up and went back to her baseline - and has remained fine since then. Does note missed lactulose doses at home since she does not
like to take them.
Impression and plan
Hepatic encephalopathy
- Likely from the missed dose, resolved prior to arrival at the ED.
- Will increase lactulose frequently at discharge.
- Stable and asymptomatic; no encephalopathy.
- Okay to be discharged.
Chronic pancytopenia
- Stable and asymptomatic.
- Can follow-up with primary outpatient.
History of CVA
- Stable and unchanged.
Depression
- Continue mirtazapine, trazodone and duloxetine.
Thromboprophylaxis
- Enoxaparin.
Code status
- Full.
Anticipated Discharge: Today
Subjective/Interval History
-
Date of Service: February 12, 2025
Stable. Back at her baseline since arrival at the hospital.
Objective Data
-
Labs:
Laboratory Results
02/12/25
06:54
WBC 2.0 L*
Hgb 9.9 L
Hct 29.6 L
Plt Count 65 L
Sodium 141
Potassium 3.8
Chloride 113 H
Carbon Dioxide 23
BUN 16
Creatinine 0.6
Glucose 78
Calcium 9.1
Vital Signs:
Vital Signs
Temp Pulse Resp BP Pulse Ox
98.1 F 77 18 139/82 95
02/12/25 07:57 02/12/25 07:57 02/12/25 07:57 02/12/25 07:57 02/12/25 07:57
I&O
02/11/25 02/12/25 02/13/25
06:59 06:59 06:59
Intake Total 120 / 120
Balance 120 / 120
Review of Systems
-
History Source: Patient and Records
Constitutional: Reports No Symptoms
EENT: Reports No Symptoms Reported
Respiratory: Reports No Symptoms
Cardiac: Reports No Symptoms
Abdomen/GI: Reports No Symptoms
Genitourinary: Reports No Symptoms
Musculoskeletal: Reports No Symptoms
Skin: Reports No Symptoms
Neuro: Reports Other (stable hemiplegia)
Endocrine: Reports No Symptoms
Hematologic / Lymphatic: Reports No Symptoms
Allergy / Immunology: Reports No Symptoms
Physical Exam
-
General: No Apparent Distress and Comfortable
HEENT: Normocephalic, Atraumatic, Moist Mucous Membranes and No Ptosis
Respiratory: Clear to Auscultation and Non Labored Respirations
Cardiac: Regular Rhythm and S1/S2
GI: Soft, Nontender and Nondistended
Genito-urinary: No Costovertebral Tender
Musculoskeletal: No Clubbing, No Cyanosis and No Edema
Neuro: Awake, Alert, Oriented and Other ((right upper ext spastic paresis, mild dysarthria)
Psych: Calm
[2025-02-12 12:37] VITALS: BMI 18.5
--- NOTE | 2025-02-12 15:03 | W.DCSUMMARY ---
Documented by User: Jos eJ Cadena MD, Resident 02/12/25 15:27
Discharge Summary
Discharge Data
Date of Admission: 02/12/25
Date of Discharge: 02/12/25
-
Pending Results: No
Hospital Course
Primary discharge diagnosis
* Hepatic encephalopathy
Secondary discharge diagnoses
- Chronic pancytopenia
- History of CVA
- Right-sided spastic paresis
- Alcoholic cirrhosis
- Generalized anxiety disorder
- Chronic insomnia
Hospital course
Tali Oreilly, 59-year-old female, was [facility]responsive at the [facility]. On the way to the hospital, she woke up and went back to her baseline - and had remained fine since then. She did report missing a couple of doses of lactulose as she
does not like taking it. Her lactulose was increased to three times a day this admission. The patient remained stable and asymptomatic throughout this admission. Blood work remained at baseline, and vitals within normal limits. On the day of
discharge, she was feeling well and back to normal. Strongly emphasized the importance of not missing lactulose; she expressed understanding. Also discussed following up with the local gastroenterology group; referral given. Talked about
establishing with the residency practice and contact details given; for now will be followed by physician at the facility.
Discharge Plan
-
Patient Disposition: Intermediate/SNF
Discharge Diagnosis/Procedures: Hepatic encephalopathy
Condition: Good
Diet: As tolerated
Activity: With assistance and As tolerated
Driving Restrictions: No driving
Bathing Restrictions: None
Blood Work: CBC and BMP in 1 week
Referrals:
Terri Dunlap MD [Active] - in three to four weeks
UNKNOWN - PT DOES,NOT KNOW [Family Provider] -
Prescriptions:
New
duloxetine 60 mg Capsule,Delayed Release(Dr/Ec)
60 mg PO DAILY Qty: 30 0RF
Continued
thiamine HCl (vitamin B1) 100 mg Tablet
100 mg PO DAILY
ascorbic acid (vitamin C) 500 mg Tablet
500 mg PO DAILY
bisacodyl [Dulcolax (bisacodyl)] 10 mg Suppository
10 mg IA DAILYPRN PRN (Reason: if mom is ineffective)
sodium phosphates 19-7 gram/118 mL Enema
118 ml IA DAILYPRN PRN (Reason: if dulcolax is ineffective)
folic acid 1 mg Tablet
1 mg PO DAILY
mirtazapine [Remeron] 15 mg Tablet
7.5 mg PO HS
calcium carbonate-vitamin D3 [Calcium 600 + D(3)] 600 mg-10 mcg (400 unit) Tablet
1 tab PO BID
Xifaxan 550 mg Tablet
550 mg PO BID
acetaminophen 325 mg Tablet
650 mg PO Q6HPRN PRN (Reason: mild pain/temp>100.4)
trazodone 50 mg Tablet
25 mg PO HS
duloxetine 20 mg Capsule,Delayed Release(Dr/Ec)
80 mg PO DAILY
Rx Instructions:
take with 60mg for total of 80mg
magnesium hydroxide [Milk of Magnesia] 400 mg/5 mL Suspension
2,400 mg PO DAILYPRN PRN (Reason: CCONSTIPATION)
lactulose 10 gram/15 mL Solution
10 g PO DAILY
Changed
lactulose 10 gram/15 mL Solution
20 g PO TID Qty: 0 0RF
Discharge Orders:
Discharge Patient (As Directed); Ordered 02/12/25
Ordered By: Jose J Cadena
Discharge Date and Time
Print Language: ANGOLAN

Documented by User: Ngiel De La Torre, 02/12/25 16:52
Discharge Summary
Discharge Data
Date of Admission: 02/12/25
Date of Discharge: 02/12/25
Total time spent discharging patient (in min): 35
Discharge Plan
-
Patient Disposition: Intermediate/SNF
Discharge Diagnosis/Procedures: Hepatic encephalopathy
Condition: Good
Diet: As tolerated
Activity: With assistance and As tolerated
Driving Restrictions: No driving
Bathing Restrictions: None
Blood Work: CBC and BMP in 1 week
Referrals:
Terri Dunlap MD [Active] - in three to four weeks
UNKNOWN - PT DOES,NOT KNOW [Family Provider] -
Prescriptions:
New
duloxetine 60 mg Capsule,Delayed Release(Dr/Ec)
60 mg PO DAILY Qty: 30 0RF
Continued
thiamine HCl (vitamin B1) 100 mg Tablet
100 mg PO DAILY
ascorbic acid (vitamin C) 500 mg Tablet
500 mg PO DAILY
bisacodyl [Dulcolax (bisacodyl)] 10 mg Suppository
10 mg IA DAILYPRN PRN (Reason: if mom is ineffective)
sodium phosphates 19-7 gram/118 mL Enema
118 ml IA DAILYPRN PRN (Reason: if dulcolax is ineffective)
folic acid 1 mg Tablet
1 mg PO DAILY
mirtazapine [Remeron] 15 mg Tablet
7.5 mg PO HS
calcium carbonate-vitamin D3 [Calcium 600 + D(3)] 600 mg-10 mcg (400 unit) Tablet
1 tab PO BID
Xifaxan 550 mg Tablet
550 mg PO BID
acetaminophen 325 mg Tablet
650 mg PO Q6HPRN PRN (Reason: mild pain/temp>100.4)
trazodone 50 mg Tablet
25 mg PO HS
duloxetine 20 mg Capsule,Delayed Release(Dr/Ec)
80 mg PO DAILY
Rx Instructions:
take with 60mg for total of 80mg
magnesium hydroxide [Milk of Magnesia] 400 mg/5 mL Suspension
2,400 mg PO DAILYPRN PRN (Reason: CCONSTIPATION)
lactulose 10 gram/15 mL Solution
10 g PO DAILY
Changed
lactulose 10 gram/15 mL Solution
20 g PO TID Qty: 0 0RF
Discharge Orders:
Discharge Patient (As Directed); Ordered 02/12/25
Ordered By: Jose J Cadena
Discharge Date and Time
Print Language: ANGOLAN
[2025-02-12 15:37] VITALS: BP 97/60
[2025-02-12] MEDS: TYLENOL 650 MG PO (15:54)
[2025-02-12] MEDS: LOVENOX 40 MG SC (17:26)
== END 2025-02-12 18:55 ==
LOC: 2 SOUTH 01:41
PROVIDERS: Emergency Medicine; Student in an Organized Health Care Education/Training Program; ADMITTING PHYSICIAN Internal Medicine; ATTENDING PHYSICIAN Internal Medicine; EMERGENCY PHYSICIAN Emergency Medicine
DX: K76.82 Hepatic encephalopathy (principal); Z11.52 Encounter for screening for COVID-19; K70.30 Alcoholic cirrhosis of liver without ascites; F32.A Depression, unspecified; D61.818 Other pancytopenia; F41.1 Generalized anxiety disorder; F51.04 Psychophysiologic insomnia; I10 Essential (primary) hypertension; K58.9 Irritable bowel syndrome, unspecified; I69.851 Hemiplegia and hemiparesis following other cerebrovascular disease affecting right dominant side
CPT/HCPCS: 70450; 80048; 80053; 82140; 85025; 85027; 86803; 87070; 87502; 87811; 99285; G0378

== ENCOUNTER 2025-05-13 02:00 | Inpatient (IN) | payer MEDICARE, OTHER, SELFPAY ==
[2025-05-12] VITALS (9 sets, daily range): BP systolic 102–188; BP diastolic 65–126; BMI 20.1
[2025-05-12 20:57] LABS: Hematocrit 32.9 % (37.0-47.0); Mean Corp Hgb Conc. 33.4 g/dL (33.0-37.0); Mean Corpuscular Hgb 32.7 pg (27.0-31.0); Mean Corpuscular Volume 97.9 fL (81.0-99.0); Red Blood Cell Count 3.36 10^6/uL (4.20-5.40); Red Cell Dist. Width 15.8 % (11.5-14.5)
[2025-05-12 21:00] LABS: Urine Albumin 1+ (Neg - Trace); Urine Bilirubin Negative (Negative); Urine Character Clear (Clear); Urine Color Yellow; Urine Glucose Negative (Negative); Urine Ketone Negative (Negative); Urine Leukocyte Negative (Negative); Urine Nitrite Negative (Negative); Urine Occult Blood Negative (Negative); Urine Specific Gravity 1.025 (<1.030); Urine Urobilinogen 1+ (Neg - 1+)
[2025-05-12 21:03] LABS: Ammonia 136 umol/L (9-30)
[2025-05-12 21:07] LABS: Lactic Acid 4.9 mmol/L (0.7-2.0)
[2025-05-12 21:08] LABS: Urine Mucus Moderate
[2025-05-12] MEDS: NSS 1000 IV (21:08)
[2025-05-12 21:09] LABS: Urine Bacteria Few (Negative); Urine Red Blood Cell 0-2 /HPF (0-2); Urine White Cell 0-2 /HPF (0-5)
[2025-05-12] MEDS: OFIRMEV 100 IV (21:09)
[2025-05-12 21:12] LABS: ALT (SGPT) 27 U/L (0-35); AST (SGOT) 36 U/L (14-36); Albumin 3.6 g/dl (3.5-5.0); Alkaline Phosphatase 95 U/L (38-126); Blood Urea Nitrogen 18 mg/dl (7-17); Calcium 9.3 mg/dl (8.4-10.2); Carbon Dioxide 22 mmol/L (22-30); Chloride 117 mmol/L (98-107); Estimated Creatinine Clearance 70 ml/min; Glucose 94 mg/dl (70-99); Potassium 4.2 mmol/L (3.5-5.1); Sodium 148 mmol/L (135-145); Total Bilirubin 1.9 mg/dl (0.2-1.3); Total Protein 6.6 g/dl (6.3-8.2); eGFR > 60.00
[2025-05-12 21:14] LABS: % Basophils 0.3 % (0-2); % Lymphocytes 17.4 % (20.5-51.1); % Monocytes 10.2 % (1.7-9.3); % Neutrophils 71.1 % (42.2-75.2); Absolute Lymphocytes 0.5 10^3/uL (1.2-3.4); Absolute Monocytes 0.3 10^3/uL (0.1-0.6); Absolute Neutrophils 2.2 10^3/uL (1.4-6.5); Mean Platelet Volume 12.1 fL (7.4-10.4); Nucleated Red Blood Cells % 0 %; Platelet Count 74 10^3/uL (130-400)
[2025-05-12] MEDS: MAXIPIME 2000 MG IV (21:30)
[2025-05-12] MEDS: VANCOCIN 530 MG IV (21:30)
--- NOTE | 2025-05-12 23:12 | ED.GENMED ---
History of Present Illness
General
Chief Complaint: Abnormal Lab Value
Source: family, ambulance crew and detention
Exam Limitations: altered mental status
Time Seen by Provider: 05/12/25 20:58
Nursing documentation reviewed up to this point in time: agreed with
History of Present Illness
History of Present Illness:
59-year-old female with past medical history of previous stroke hemiplegia aphasia liver disease presenting to the emergency department from nursing facility with concerns of altered mental status refusing her meds over the past 2 days. She is not
able to give any additional history but typically does not have a high level of verbal capacity. No specific symptoms reported. Ammonia level was reported to be 133.
Past History
Past History
ED Past Medical History: CVA (Right hemiparesis), HTN, Psychiatric and Other (Alcoholic cirrhosis with chronic pancytopenia, hepatic encephalopathy)
ED Past Surgical History: Orthopedic (Left shoulder)
Social History
Tobacco: Non-smoker
Alcohol: Former
Personal: Single
Living: detention
Employment: Disabled
Family History
Family History: Other (Noncontributory)
Review of Systems
Review of Systems
Allergies reviewed?: Yes
Unable to obtain full review of systems at this time due to: non-verbal
All Other Systems: ROS reviewed and negative except as documented in HPI and ROS
Phy Exam
Physical Exam
Physical Exam:
GENERAL: Alert
EYE: pupils equal and reactive
NECK: Supple, no significant adenopathy.
ENT: o/p clr, mmm.
CARDIAC: Regular rate and rhythm .
LUNGS: Clear breath sounds bilaterally, no acute respiratory distress, no wheezes/rales/rhonchi
ABDOMEN: Soft, without focal tenderness, no r/g, no cvat
NEUROLOGICAL: Nonverbal not able to move extremities with any intent
SKIN: Warm and dry, skin intact.
MUSCULOSKELETAL: No edema, well perfused.
PSYCH: Nonverbal
Course
Orders/Labs/Results
Orders:
Orders
05/12/25 20:39
Electrocardiogram (*1) Urgent
Reason for Study: Other
Other Reason for Exam: Possible Sepsis
Straight cath- Treatment ONCE
05/12/25 20:40
EKG- Treatment ONCE
05/12/25 20:42
Ammonia Stat
Complete Blood Count/With Diff Urgent
Comprehensive Metabolic Panel Urgent
Lactic Acid Stat
Urinalysis Reflex To Culture Urgent
Date Specimen was Collected: 05/12/25
Time Specimen was Collected: 20:40
Urine Microscopic Reflex Cult Urgent
Blood Culture Q20M
DENISE Source: Blood/Venous
Specimen Description:
Comment: Urgent from separate sites. If patient screens positive for possible sepsis
05/12/25 20:47
Blood Culture Q20M
DENISE Source: Blood/Venous
Specimen Description:
Comment: Urgent from separate sites. If patient screens positive for possible sepsis
05/12/25 21:03
0.9% Sodium Chloride 1000 ml [Nss] 1,000 ml IV BOLUS
Acetaminophen 1000MG/100Ml [Ofirmev] 1,000 mg in 100 ml IV ONCE
Acetaminophen IV Indication:: No NC & No Enteral Access
05/12/25 21:04
CT Head W/o Iv Contrast Urgent
Comment:
Reason For Exam: AMS
Chest X-ray Portable [CR Chest Portable - 1 View] Urgent
Comment:
Reason For Exam: AMS
Reason Study Needs to be Portable: Patient Unstable
05/12/25 21:31
Cefepime HCl [Maxipime] 2,000 mg IV NOW STA
05/12/25 21:40
Vancomycin [Vancocin] 1,500 mg 0.9% Sodium Chloride 500 ml [Nss] 500 ml IV NOW
05/12/25 22:00
Flush (0.9% Sodium Chloride) [Flush (Nss)] See Dose Instructions IV PER PROTOCOL
05/12/25 23:49
COVID-19 Antigen Urgent
Source: Nasal Swab
Influenza A+B Rapid Molecular Urgent
DENISE Source: Nasal Swab
Specimen Description:
05/13/25 00:00
CT Abd/Pel (IV only)-DH only Urgent
Reason For Exam: sepsis unknown source
05/13/25 01:01
Admit/Transfer Patient As Directed
Co-Sign Provider:
Level of Care: Inpatient admission
Assign to:: Telemetry
Physician / Group: Stevan/Hospitalist
Diagnosis: Sepsis, unknown source, AMS, hepatic encephalopathy
Reason for Telemetry: Arrhythmia
Date to Stop Telemetry: 05/16/25
Time to Stop Telemetry: 11:00
Reason for Hospitalization: Sepsis, unknown source, AMS, hepatic encephalopathy
Expected length of stay greater than two midnights?: Yes
ELOS- Estimated Length of Stay in days: 3
I certify the patient meets the requirements for IP care: Yes
PRN Pain Medication Management As Directed
May give lesser potent ordered pain med per pt: Yes
preference::
Protocol:: Medication orders for pain may be administered in a
manner that supports deferring to patient preference
when the pt is:
- Requesting an ordered lesser potent pain medication.
Least to most potent pain medications are defined
as: acetaminophen < NSAID < tramadol < opioids
(morphine, oxycodone, hydromorphone).
- Requesting a lesser dose of the same medication IF
ORDERED.
- Requesting a less intrusive route of administration
if both routes are prescribed by the provider (PO <
IV).
05/13/25 01:03
Code Status As Directed
Resuscitation Status: Do not resuscitate
Reached after discussion with pt or family/Healthcare POA: Yes
05/13/25 01:04
DNR Bracelet Application ONCE
05/16/25 11:00
DC Protocol for Telemetry ONCE
Abnormal Lab Results
05/12/25
20:42
WBC 3.0 L 10^3/uL
(4.8-10.8)
RBC 3.36 L 10^6/uL
(4.20-5.40)
Hgb 11.0 L g/dL
(12.0-16.0)
Hct 32.9 L %
(37.0-47.0)
MCH 32.7 H pg
(27.0-31.0)
RDW 15.8 H %
(11.5-14.5)
Plt Count 74 L 10^3/uL
(130-400)
MPV 12.1 H fL
(7.4-10.4)
Absolute Lymphs (auto) 0.5 L 10^3/uL
(1.2-3.4)
Lymphocytes % 17.4 L %
(20.5-51.1)
Monocytes % 10.2 H %
(1.7-9.3)
Sodium 148 H mmol/L
(135-145)
Chloride 117 H mmol/L
(98-107)
BUN 18 H mg/dl
(7-17)
Lactic Acid 4.9 H* mmol/L
(0.7-2.0)
Total Bilirubin 1.9 H mg/dl
(0.2-1.3)
Ammonia 136 H umol/L
(9-30)
Urine Bacteria (Reflex) Few A
(Negative)
Urine Albumin (Reflex) 1+ A
(Neg - Trace)
05/12/25 20:42
05/12/25 20:42
Vital Signs
Initial and Last Documented VS:
Initial Vital Signs
Temp Pulse Resp BP Pulse Ox
99.9 F 97 24 102/68 94
05/12/25 20:24 05/12/25 20:24 05/12/25 20:24 05/12/25 20:24 05/12/25 20:24
Last Documented Vital Signs
Temp Pulse Resp BP Pulse Ox
98.9 F 108 22 155/65 94
05/12/25 22:00 05/12/25 22:47 05/12/25 22:00 05/12/25 22:47 05/12/25 22:47
MDM/Problems Addressed
MDM/Problems Addressed:
59-year-old female presenting from nursing facility with concerns of altered mental status. Ammonia levels elevated but unable to give lactulose as patient is altered. Initially low-grade temperature mildly tachycardic was started on fluids was
found to have significantly elevated lactic acid level. Was given 2 L of fluid as well as started on empiric antibiotics while assessing further for possible bacterial infection. Patient was started on empiric antibiotics otherwise here blood
pressure improving heart rate improving over the next few hours. Unclear the source not clear on chest x-ray head CT negative abdominal CT scan without specific findings. Plan to admit for further monitoring and assessment.
*Critical Care Note
Total Time (30-74mins, 75-104mins- exclusive of procedures): Not Applicable
ED Attending Note
-
Portions of this chart may have been created with voice recognition software.� Occasional wrong word or��sound alike� substitutions may have occurred due to the inherent limitations of voice recognition software.
Discharge Plan
Departure
Patient Disposition: Admit
Date of Disposition: 05/13/25
Time of Disposition: 01:55
Admit to: IMU
Admit to doctor: Stevan
Presentation/result/management discussed w/ accepting MD/DO: Hospitalist
Patient with high blood pressure during this ER visit?: No
Condition: Fair
Covid-19: Not Applicable
Discharge Problem:
Hepatic encephalopathy, Sepsis
Prescriptions:
No Action
thiamine HCl (vitamin B1) 100 mg Tablet
100 mg PO DAILY
ascorbic acid (vitamin C) 500 mg Tablet
500 mg PO DAILY
bisacodyl [Dulcolax (bisacodyl)] 10 mg Suppository
10 mg NC DAILYPRN PRN (Reason: if mom is ineffective)
sodium phosphates 19-7 gram/118 mL Enema
118 ml NC DAILYPRN PRN (Reason: if dulcolax is ineffective)
folic acid 1 mg Tablet
1 mg PO DAILY
mirtazapine [Remeron] 15 mg Tablet
7.5 mg PO HS
calcium carbonate-vitamin D3 [Calcium 600 + D(3)] 600 mg-10 mcg (400 unit) Tablet
1 tab PO BID
Xifaxan 550 mg Tablet
550 mg PO BID
acetaminophen 325 mg Tablet
650 mg PO Q6HPRN PRN (Reason: mild pain/temp>100.4)
trazodone 50 mg Tablet
25 mg PO HS
duloxetine 20 mg Capsule,Delayed Release(Dr/Ec)
80 mg PO DAILY
Rx Instructions:
take with 60mg for total of 80mg
magnesium hydroxide [Milk of Magnesia] 400 mg/5 mL Suspension
2,400 mg PO DAILYPRN PRN (Reason: CCONSTIPATION)
lactulose 10 gram/15 mL Solution
10 g PO DAILY
duloxetine 60 mg Capsule,Delayed Release(Dr/Ec)
60 mg PO DAILY Qty: 30 0RF
lactulose 10 gram/15 mL Solution
20 g PO TID Qty: 0 0RF
Referrals:
Ryan David DO [Family Provider, Internal Medicine]
Interventions
Interventions:
*Risk Screen - Suicide Last Done: 05/12/25 20:24
*Neglect/Abuse Screening Last Done: 05/12/25 20:24
*ED- Fall Risk Assessment Last Done: 06/14/25 20:24
Discharge Date and Time
Print Language: NICARAGUAN
[2025-05-13] VITALS (10 sets, daily range): BP systolic 134–172; BP diastolic 54–86; BMI 20.1
[2025-05-13 00:16] LABS: COVID-19 Antigen Negative (Negative)
--- NOTE | 2025-05-13 00:28 | HPS.HSE ---
Addendum entered and electronically signed by Jessica Calles DO 05/13/25 01:54:
Current CT a/p shows Redemonstration of choledocholithiasis with fewer stones in the common bile duct than on the prior study, common bile duct is slightly decreased in size measuring 7 mm and previously was 8 mm. There is Cholelithiasis without
definite pericholecystic inflammation. Cirrhotic liver morphology with no significant ascites, splenomegaly, large amount of gas and stool in the distal colon with moderate distention. Patient had a CT scan of the abdomen and pelvis in November 2024
that showed choledocholithiasis, without elevated bilirubin and was discussed as clinically not cholangitic by gastroenterology consultation. GI consultation at that time discussed patient's clinical stability and recommended outpatient follow-up.
-Consult gastroenterology related to these findings on CT of the abdomen and pelvis, in setting of mildy elevated total bilirubin and clinical findings as per below, continue IV abx coverage
Original Note:
Family Physician
-
Family Physician: Ryan David
Chief Complaint
-
Altered mental status
History of Present Illness
Patient is a 59-year-old woman with past medical history significant for CVA, right hemiparesis and contractures, aphasia, alcohol cirrhosis with chronic pancytopenia, multiple admissions for with hepatic encephalopathy, most recently in January 2025,
presents to the emergency department from [facility] secondary to concerns of worsening mental status and refusing her medications over the past 2 days. She is unable to answer any questions in the emergency department or give
any of her history. It is noted that she has mild dysarthria at baseline, and currently is nonverbal on arrival to the emergency department. In the emergency department she is found to have an elevated lactic acid level, leukopenia, and ammonia
level elevated.
ED txt:
IV Cefepime, IV Vancomycin, IV Ofirmev, IV fluids
CXR elevated diaphragm/poor inspiration, no evidence for PNA/acute disease, UA without acute findings to suggest infection, CT a/p pending
Medical History
Past Medical History
Past Medical History: Reports Other
Additional Past Medical History:
Right flaccid hemiplegia
Alcohol cirrhosis of liver without ascites
Dysphagia due to old CVA
Osteoporosis
Primary insomnia
Irritable bowel disease
Depression
Anxiety
Past Surgical History: Reports Orthopedic (left shoulder replacement) and Other
Social History
Tobacco: Non-smoker
Alcohol: Former
Personal: Single
Living: Retirement
Employment: Disabled
Family History
Family History: Not pertinent
Allergies / Home Medications
Allergies reflects when Allergies were last updated in [facility].
Home Medications with original date entered in [facility]
Allergy/Medication List:
Allergies
Allergy/AdvReac Type Severity Reaction Status Date / Time
No Known Allergies Allergy Verified 05/12/25 20:54
Home Medications
ascorbic acid (vitamin C) 500 mg tablet 500 mg PO DAILY anemia 07/06/24
bisacodyl 10 mg rectal suppository (Dulcolax (bisacodyl)) 10 mg CA DAILYPRN PRN if mom is ineffective 07/06/24
calcium 600 mg (as carbonate)-vitamin D3 10 mcg (400 unit) tablet (Calcium 600 + D(3)) 1 tab PO BID Supplement 07/06/24
folic acid 1 mg tablet 1 mg PO DAILY Supplement 07/06/24
mirtazapine 15 mg tablet (Remeron) 7.5 mg PO HS anxiety 07/06/24
rifaximin 550 mg tablet (Xifaxan) 550 mg PO BID Gastrointestinal Issue 07/06/24
sodium phosphates 19 gram-7 gram/118 mL enema 118 ml CA DAILYPRN PRN if dulcolax is ineffective 07/06/24
thiamine HCl (vitamin B1) 100 mg tablet 100 mg PO DAILY Supplement 07/06/24
acetaminophen 325 mg tablet 650 mg PO Q6HPRN PRN mild pain/temp>100.4 12/07/24
duloxetine 20 mg capsule,delayed release 80 mg PO DAILY Mental Health/Anxiety 12/07/24
trazodone 50 mg tablet 25 mg PO HS Sleep 12/07/24
duloxetine 60 mg capsule,delayed release 60 mg PO DAILY #30 caps 02/12/25
lactulose 10 gram/15 mL oral solution 10 g PO DAILY Gastrointestinal Issue 02/12/25
lactulose 10 gram/15 mL oral solution 20 g (30 mL) PO TID #0 mL 02/12/25
magnesium hydroxide 400 mg/5 mL oral suspension (Milk of Magnesia) 2,400 mg PO DAILYPRN PRN CCONSTIPATION 02/12/25
Review of Systems
-
Unable to obtain full review of systems at this time due to: Patient Non-verbal (altered mental status)
Physical Exam
Vital Signs
Vital Signs
Temp Pulse Resp BP Pulse Ox
98.9 F 108 22 155/65 94
05/12/25 22:00 05/12/25 22:47 05/12/25 22:00 05/12/25 22:47 05/12/25 22:47
Physical Exam
General: Sweats, Appears Chronically Ill and Cachectic
HEENT: NormoCephalic and Other (dry mucous membranes)
Respiratory: Clear, Non Labored Respirations and Other (oxygen saturation 88% on room air)
Cardiac: S1/S2 and Regular Rhythm
GI: Soft and Distended (no peritoneal signs noted)
Musculoskeletal: No Clubbing, No Cyanosis and No Edema
Skin: Warm and Dry
Neuro: Other (altered mental status, no new focal deficits noted)
Psych: Calm
Laboratory Results
-
05/12/25 20:42
05/12/25 20:42
Laboratory Results
Lactic Acid 4.9 mmol/L (0.7-2.0) H* 05/12/25 20:42
Total Bilirubin 1.9 mg/dl (0.2-1.3) H 05/12/25 20:42
AST 36 U/L (14-36) 05/12/25 20:42
ALT 27 U/L (0-35) 05/12/25 20:42
Alkaline Phosphatase 95 U/L (38-126) 05/12/25 20:42
Impression/Plan
-
IMPRESSION:Patient is a 59-year-old woman with past medical history significant for CVA, right hemiparesis and contractures, aphasia, alcohol cirrhosis with chronic pancytopenia, multiple admissions for with hepatic encephalopathy, most recently in
January 2025, presents to the emergency department from [facility] secondary to concerns of worsening mental status and refusing her medications over the past 2 days. She is unable to answer any questions in the emergency
department or give any of her history. ED txt: IV Cefepime, IV Vancomycin, IV Ofirmev, IV fluids, COVID and Flu negative.
CXR elevated diaphragm/poor inspiration, no evidence for PNA/acute disease, UA without acute findings to suggest infection, CT a/p pending
# Altered mental status, acute change from baseline noted at the nursing facility, likely multifactorial due to sepsis and hepatic encephalopathy
- sepsis with unknown infectious source at this time
- systemic inflammatory response, respiratory rate 22, oxygen saturation 88% on room air, tachycardia, leukopenia with WBC 3.0 , lactic acidosis of 4.9, and ammonia level of 136
-empirically txt w IV Vanco & IV Zosyn for now, pending CT a/p and clinical course
-blood cx pending
-CT a/p pending
#Hepatic encephalopathy suspected
-initiate rectal lactulose for now x 1 dose , the patient is on Enulose and Xifaxan at the nursing facility will hold these for now while the patient is n.p.o.
#Hypernatremia, likely due to lack of free water
-initiated IVF with D5 1/4 NS for now and repeat monitoring of electrolytes
#Mild elevated T-bili, abdominal distention- CT a/p pending in ED
#Acute hypoxic respiratory failure, O2 88% RA, placed on 2L O2 per NC, CXR without evidence for acute pathology
-continue O2 per NC and weaning protocol
-cont broad spectrum IV abx and pulse oximetry monitoring
#Pancytopenia, with platelets of 74 , no active bleeding
-monitor CBC
Chronic medical conditions:
Right flaccid hemiplegia
Alcohol cirrhosis of liver without ascites, forme EtOH
Dysphagia due to old CVA
Osteoporosis
Primary insomnia
Irritable bowel disease
Depression
Anxiety
DVT prophylaxis�Lovenox
DNR per documentation from nursing facility
[2025-05-13 03:47] LABS: Lactic Acid 3.1 mmol/L (0.7-2.0)
[2025-05-13] MEDS: LACTULOSE ENEMA 300 ML RECTAL ×3 (04:58→21:47)
--- NOTE | 2025-05-13 05:34 | PTCARENOTE ---
Pt received from ER aaoxself only,nonverbal,unable to do complete admission questions. Pt was a pullover.Pt placed on fall precautions & bed alarm in place. CLINICAL RESEARCH ASSISTANT cotton chopper made aware of pt repeat lactic level 3.1.Plan of care continued as ordered.Pt
was provided with lactulose enema as ordered & pt started to have loose BM.Plan of care continued as ordered.
[2025-05-13] MEDS: ZOSYN 100 IV ×4 (05:40→23:07)
[2025-05-13] MEDS: FLUSH (NSS) 1 FLUSH IV (05:41)
[2025-05-13] MEDS: D5 IV (06:47)
[2025-05-13] MEDS: [UNRECOGNIZED DRUG - OTHER] IV (06:47)
[2025-05-13 07:32] LABS: % Eosinophils 1.2 % (0-6); % Immature Granulocytes 0.6 % (0-0.5); % Lymphocytes 11.3 % (20.5-51.1); % Monocytes 13.7 % (1.7-9.3); % Neutrophils 73.2 % (42.2-75.2); Absolute Lymphocytes 0.4 10^3/uL (1.2-3.4); Absolute Monocytes 0.5 10^3/uL (0.1-0.6); Absolute Neutrophils 2.5 10^3/uL (1.4-6.5); Hematocrit 28.7 % (37.0-47.0); Hemoglobin 9.4 g/dL (12.0-16.0); Mean Corp Hgb Conc. 32.8 g/dL (33.0-37.0); Mean Corpuscular Hgb 32.8 pg (27.0-31.0); Mean Platelet Volume 11.2 fL (7.4-10.4); Nucleated Red Blood Cells % 0 %; Platelet Count 58 10^3/uL (130-400); Red Blood Cell Count 2.87 10^6/uL (4.20-5.40); Red Cell Dist. Width 15.9 % (11.5-14.5); White Blood Cell Count 3.4 10^3/uL (4.8-10.8)
[2025-05-13 07:42] LABS: Lactic Acid 2.7 mmol/L (0.7-2.0)
[2025-05-13 07:44] LABS: ALT (SGPT) 25 U/L (0-35); AST (SGOT) 37 U/L (14-36); Albumin 3.2 g/dl (3.5-5.0); Alkaline Phosphatase 78 U/L (38-126); Blood Urea Nitrogen 20 mg/dl (7-17); Calcium 8.9 mg/dl (8.4-10.2); Carbon Dioxide 22 mmol/L (22-30); Chloride 121 mmol/L (98-107); Estimated Creatinine Clearance 70 ml/min; Glucose 84 mg/dl (70-99); Potassium 3.7 mmol/L (3.5-5.1); Sodium 150 mmol/L (135-145); Total Bilirubin 2.1 mg/dl (0.2-1.3); eGFR > 60.00
--- NOTE | 2025-05-13 08:15 | PHA.VAN.IN ---
Assessment
- Assessment
Renal Function: Appears similar to baseline
Maximum Temperature: 99.9
Minimum Temperature: 98.9
Concomitant Antimicrobials: Piperacillin-tazobactam
AUC Dosing Plan
- Dosing Variables
Dosing Weight (kg): 59.9
Dosing CrCl (ml/min): 70
Vd coefficient (L/kg): 0.7
- Empiric Dosing
Initial / Loading Dose: Vanc 1500mg - given 05/12 at 2130
Maintenance Regimen: Vanc 750mg IV q12h
Estimated AUC (mcg*h/mL): 590.28
Estimated Peak (mcg*h/mL): 33.9
Estimated Trough (mcg/ml): 17.05
Estimated Half Life (H): 11.1
- Monitoring
No levels ordered at this time: Consider levels after 05/14 1800 dose.
Pharmacokinetics Vancomycin I
- -
Patient Age: 59
Patient Sex: Female
Vancomycin Day #: 1
Indication: Other
Requesting Provider: Stevan
Height / Weight:
Height 5 ft 8 in
Actual Weight 59.903 kg
IBW in k.9
- Vital Signs / Lab Results
Temp Pulse Resp BP Pulse Ox
99.6 F 100 18 161/86 97
05/13/25 04:30 05/13/25 04:29 05/13/25 04:29 05/13/25 04:29 05/13/25 04:29
Lab Results - Hematology
05/12/25 05/13/25
20:42 07:14
WBC 3.0 L 3.4 L
Lab Results - Chemistry
05/12/25 05/13/25
20:42 07:14
BUN 18 H 20 H
Creatinine 0.8 0.8
Estimated Creat Clear 70 70
Albumin 3.6 3.2 L
05/12/25 05/13/2505/13/25
20:42 03:16 07:14
Lactic Acid 4.9 H* 3.1 H 2.7 H
Lab Results - Urine
05/12/25
20:42
Urine Nitrite (Reflex) Negative
Leukocyte Esterase Rfl Negative
Urine WBC (Reflex) 0-2
Ur Squamous Epith Cells 6-10
Urine Bacteria (Reflex) Few A
Microbiology Results
05/12/25 23:49 Influenza Types A & B (ZOIE) - Final
Nasal Swab Negative for Influenza A & B, NAAT
Negative results must be combined with clinical observations
and patient history.
Nucleic Acid Amplification test (NAAT)performed on the
[employer] platform.
[2025-05-13] MEDS: CYMBALTA DELAYED RELEASE PO (09:04)
--- NOTE | 2025-05-13 09:21 | W.PN.HOSP.TC ---
Today's Communication/Plan
-
see A/P
Assessment / Plan
Assessment / Plan
HPI: 59-year-old woman with past medical history significant for CVA, right hemiparesis and contractures, aphasia, alcohol cirrhosis with chronic pancytopenia, multiple admissions for with hepatic encephalopathy, most recently in January 2025,
presented to the emergency department from [facility] secondary to concerns of worsening mental status and refusing her medications over the past 2 days. She is unable to answer any questions in the emergency department or give
any of her history. It is noted that she has mild dysarthria at baseline, and nonverbal on arrival to the emergency department.
In the emergency department she is found to have an elevated lactic acid level, leukopenia, and ammonia level elevated.
Given IV Cefepime, IV Vancomycin, IV Ofirmev, IV fluids in ED.
CXR elevated diaphragm/poor inspiration, no evidence for PNA/acute disease, UA without acute findings to suggest infection, CT a/p pending
CT AP:
1. VERY SEVERE HEPATIC CIRRHOSIS.
2. VERY SEVERE PORTAL HYPERTENSION with a very large recannulated paraumbilical vein and extensive collateral varices in the extraperitoneal space around the urinary bladder.
3. Cholelithiasis.
4. CHOLEDOCHOLITHIASIS and mild biliary dilatation.
5. Moderate splenomegaly.
6. Moderate chronic bilateral renal disease.
7. Severe distention of the sigmoid colon and rectum with fluid suggesting an ACUTE PROCTOCOLITIS.
8. Mild portal colopathy in the ascending colon.
9. Small bilateral inguinal hernias.
10. Moderate cardiomegaly.
11. Small right lower lobe airspace consolidation (pneumonia or atelectasis).
12. Severe discogenic degenerative disease and facet joint arthrosis at L5/S1.
13. Chronic avulsion fractures of the right ischial tuberosity.
14. Moderate to severe anasarca.
A/P:
# Altered mental status/acute metabolic encephalopathy/hypoactive delirium, likely multifactorial due to sepsis and hepatic encephalopathy
# Possible sepsis POA with unknown infectious source at this time
# lactic acidosis of 4.9 POA
Follow blood cultures
CT AP report as above
Cont empiric IV Vanco & IV Zosyn for now
Ammonia level of 136 on admission, cont Lactulose NH with current NPO status for confusion (patient is on Enulose and Xifaxan at the nursing facility will hold these for now while the patient is n.p.o)
# Hypernatremia, likely due to lack of free water/dehydration
Cont IVF with D5W
Monitor Sodium level
# Acute hypoxic respiratory insufficiency
O2 88% RA, placed on 2L O2 NC, continue O2 and wean as tolerated
CXR without evidence for acute pathology
# Pancytopenia,
platelets of 74 -> 58
no active bleeding
monitor CBC
Other chronic medical conditions:
# Right flaccid hemiplegia
# Alcohol cirrhosis of liver without ascites, forme EtOH
# Dysphagia due to old CVA
# Osteoporosis
# Primary insomnia
# Irritable bowel disease
# Depression
# Anxiety
DVT prophylaxis�Lovenox SQ
DNR per documentation from nursing facility
total time spent 51 min
Anticipated Discharge: > 48 hours
Subjective/Interval History
-
Date of Service: May 13, 2025
Objective Data
-
Labs:
Laboratory Results
05/13/25
07:14
WBC 3.4 L
Hgb 9.4 L
Hct 28.7 L
Plt Count 58 L D
Sodium 150 H
Potassium 3.7
Chloride 121 H
Carbon Dioxide 22
BUN 20 H
Creatinine 0.8
Glucose 84
Calcium 8.9
Total Bilirubin 2.1 H
AST 37 H
ALT 25
Alkaline Phosphatase 78
Vital Signs:
Vital Signs
Temp Pulse Resp BP Pulse Ox
37.2 C 92 20 158/80 98
05/13/25 08:49 05/13/25 08:49 05/13/25 08:49 05/13/25 08:49 05/13/25 08:49
Review of Systems
-
Unable to obtain full review of systems at this time due to: Patient Non-verbal
Physical Exam
-
General: Comfortable, Respiratory Distress (mild) and Appears Chronically Ill; Negative Conversant
HEENT: Normocephalic, Atraumatic, Moist Mucous Membranes and Oxygen (2L NC)
Respiratory: Clear to Auscultation and Non Labored Respirations; Negative Accessory Resp Muscle Use
Cardiac: Regular Rhythm and S1/S2
GI: Soft, Nontender and Nondistended
Musculoskeletal: No Clubbing, No Cyanosis and No Edema
Neuro: Other (upper extremities contractures )
Psych: Calm
Data Reviewed
-
Labs: Labs Reviewed by me
--- NOTE | 2025-05-13 10:29 | CON.GI ---
Consultation
-
Date/Time Consultation Requested: 05/13/25
Date/Time Consultation Performed: 05/13/25
Requesting Provider:
Performing Provider:
Reason for Consultation: altered mental status
Medical History
Chief Complaint / HPI
Chief Complaint: Altered mental status
History of Present Illness:
59-year-old female with past medical history left thalamus stroke, pancytopenia, insomnia, dysphagia, osteoporosis, depression, anxiety and cirrhosis (presumed from alcohol) presents to the emergency room from [facility] with change in mental
status, refusing to take her medications, GI asked to evaluate for hepatic encephalopathy.
d/w RN at [facility], pt not complaint with the lactulose. No abdominal pain, nausea, vomiting. No fevers/chills, BM pattern is based on lactulose- if she takes lactulose- 2-3 times loose stool a day and if doesnt,. 0-1 BM /day. No blood or
black stool. No weight loss.At baseline, her mental status is awake,alert and oriented and this is not her baseline where she is obtunded.
Lactulose 45ml Q8H, Rifaxamin 550mg po BID.
SONAL Oreilly-[phone]
In the emergency room, she was noted to have hypernatremia which seems to be chronic intermittent, elevated lactic acid, elevated total bilirubin to 2.1, mildly elevated AST at 37 with normal ALT and alkaline phosphatase. Albumin was 3.2, ammonia
was 136. No fevers or chills noted. No leukocytosis.
05/13/25 CT scan of the abdomen pelvis with IV contrast only showing severe hepatic cirrhosis without any focal hepatic lesions. Severe portal hypertension, large amount of cholelithiasis and mild diffuse gallbladder wall thickening,
choledocholithiasis in the distal common duct with stone measuring 6 mm, mild diffuse intra extrahepatic biliary ductal dilation, moderate diffuse pancreatic parenchymal atrophy noted. Mild portal colopathy, moderate fecal material in the
descending colon, severely distended sigmoid colon with air and in the rectum as well.
Patient was admitted with similar presentation in November 2024, CT scan at that time did show choledocholithiasis, fecal impaction noted as well. She had brief elevation in total bilirubin at that time but that resolved. This was thought to be
chronic choledocholithiasis and outpatient management suggested. Patient did not see GI as outpatient.
The patient was seen by us prior for hepatic encephalopathy in November 2024 and in August 2024,she was severely obtunded that resolved with lactulose enemas at that time.
At that time her regimen was increased. We recommended lactulose 3 times a day to titrate to bowel movements of 3-4 daily. And to continue Xifaxan.
She was also evaluated by neurology. CT of the head limited study demonstrating no acute intracranial abnormalities. Lacunar infarcts in the basal ganglia seen on the exam 11/06/2024 exam are suboptimally visualized. Moderate diffuse cortical
atrophy with extensive nonspecific white matter changes.
Past Medical History
Past Medical History: Other (CVA ,Pancytopenia, insomnia, dysphagia, osteoporosis, depression anxiety and cirrhosis)
Past Surgical History: Orthopedic
Social History
Tobacco: Non-Smoker
Alcohol: Former
Family History
Family History: Unable to Obtain
Allergies / Home Medications
Allergy/AdvReac Type Severity Reaction Status Date / Time
No Known Allergies Allergy Verified 05/12/25 20:54
�Medication �Instructions �Recorded
ascorbic acid (vitamin C) 500 mg 500 mg PO DAILY anemia 07/06/24
tablet
bisacodyl 10 mg rectal suppository 10 mg ND DAILYPRN PRN if mom is 07/06/24
(Dulcolax (bisacodyl)) ineffective
calcium 600 mg (as 1 tab PO BID Supplement 07/06/24
carbonate)-vitamin D3 10 mcg (400
unit) tablet (Calcium 600 + D(3))
folic acid 1 mg tablet 1 mg PO DAILY Supplement 07/06/24
mirtazapine 15 mg tablet (Remeron) 7.5 mg PO HS anxiety 07/06/24
rifaximin 550 mg tablet (Xifaxan) 550 mg PO BID Gastrointestinal 07/06/24
Issue
sodium phosphates 19 gram-7 118 ml ND DAILYPRN PRN if dulcolax 07/06/24
gram/118 mL enema is ineffective
thiamine HCl (vitamin B1) 100 mg 100 mg PO DAILY Supplement 07/06/24
tablet
acetaminophen 325 mg tablet 650 mg PO Q6HPRN PRN mild 12/07/24
pain/temp>100.4
duloxetine 20 mg capsule,delayed 80 mg PO DAILY Mental 12/07/24
release Health/Anxiety
trazodone 50 mg tablet 50 mg PO HS Sleep 12/07/24
duloxetine 60 mg capsule,delayed 60 mg PO DAILY #30 caps 02/12/25
release
lactulose 10 gram/15 mL oral 10 g PO DAILY Gastrointestinal 02/12/25
solution Issue
lactulose 10 gram/15 mL oral 20 g (30 mL) PO TID #0 mL 02/12/25
solution
magnesium hydroxide 400 mg/5 mL 2,400 mg PO DAILYPRN PRN 02/12/25
oral suspension (Milk of Magnesia) CCONSTIPATION
Review of Systems
-
Unable to obtain full review of systems at this time due to: Patient Non Verbal
Vital Signs
Temp Pulse Resp BP Pulse Ox
99 F 92 20 158/80 98
05/13/25 08:49 05/13/25 08:49 05/13/25 08:49 05/13/25 08:49 05/13/25 08:49
Physical Exam
Exam
Cardiac: S1/S2
GI: Soft, Non Tender and Non Distended
Rectal: Other (no fecal impaction)
Musculoskeletal: No Edema
Neuro: Other (opens eyes but not verbal)
Results
WBC 3.4 10^3/uL (4.8-10.8) L 05/13/25 07:14
Hgb 9.4 g/dL (12.0-16.0) L 05/13/25 07:14
Hct 28.7 % (37.0-47.0) L 05/13/25 07:14
MCV 100.0 fL (81.0-99.0) H 05/13/25 07:14
Plt Count 58 10^3/uL (130-400) L D 05/13/25 07:14
Absolute Neuts (auto) 2.5 10^3/uL (1.4-6.5) 05/13/25 07:14
Sodium 150 mmol/L (135-145) H 05/13/25 07:14
Potassium 3.7 mmol/L (3.5-5.1) 05/13/25 07:14
Chloride 121 mmol/L (98-107) H 05/13/25 07:14
Carbon Dioxide 22 mmol/L (22-30) 05/13/25 07:14
BUN 20 mg/dl (7-17) H 05/13/25 07:14
Creatinine 0.8 mg/dL (0.6-1.0) 05/13/25 07:14
Calcium 8.9 mg/dl (8.4-10.2) 05/13/25 07:14
Total Bilirubin 2.1 mg/dl (0.2-1.3) H 05/13/25 07:14
AST 37 U/L (14-36) H 05/13/25 07:14
ALT 25 U/L (0-35) 05/13/25 07:14
Alkaline Phosphatase 78 U/L (38-126) 05/13/25 07:14
Diagnostic Image Results:
Prior GI Procedures:
EGD:
Colonoscopy:
Assessment / Plan
-
59-year-old female with past medical history left thalamus stroke, pancytopenia, insomnia, dysphagia, osteoporosis, depression, anxiety and cirrhosis (presumed from alcohol) presents to the emergency room from [facility] with change in mental
status, GI asked to evaluate for hepatic encephalopathy. Recurrent admissions for hepatic encephalopathy since August 2024. CT imaging abdomen and pelvis with large fecal impaction and stercoral colitis and choledocholithiasis apart from severe
cirrhosis without ascites.
The patient was able to disimpact her and and enema was given. Patient did require sedation for CT of head, abdomen and pelvis. Only has received 1 dose of lactulose since arrival. Patient is borderline obtunded at this point. Will require
lactulose enemas every 2 hours until able to tolerate oral. Patient was also noted to have a UTI.
Impression:
Hepatic encephalopathy
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
chronic Choledocholithiasis seen on imaging-> no elevated bilirubin, mildly elevated AST
CVA with right-sided flaccid hemiplegia
Plan:
-Start lactulose enemas, every 8 hours until able to take orally. She has had 2 enemas this AM and has been having loose stool.
Once she is more awake, will start Lactulose 45ml every 8 hours and Xifaxan 550mg BID
Will check INR for MELD sscore
Check AFP, Hep B. HCV NEG
Once more awake, MRI/MRCP
No ascites noted on the CT scan
-No fevers or leukocytosis to suggest sepsis from choledocholithiasis and this seems to be chronic in November 2024.
When more awake, will consider MRI/MRCP
Follow LFT's
-Pt already on broad spectrum Abx, grape picker PNA on CXR
-Hypernatremia, monitor electrolytes per med team
-CBC, CMP, PT/INR daily
Will follow
-
-
Thank you for consultation and allowing me to participate in the patient's care. Please call the operations chief GI physician during the after hours with any questions or concerns.
[2025-05-13] MEDS: VANCOCIN 150 IV ×2 (10:42→18:35)
[2025-05-13 11:07] LABS: Direct Bilirubin 0.7 mg/dl (0.0-0.4)
[2025-05-13] MEDS: D5W 1000 IV ×2 (15:11→23:02)
[2025-05-13] MEDS: LOVENOX 40 MG SC (17:49)
[2025-05-14] VITALS (7 sets, daily range): BP systolic 131–176; BP diastolic 66–76
[2025-05-14] MEDS: TYLENOL/FEVERALL 650 MG RECTAL (01:56)
[2025-05-14 05:14] LABS: INR 1.75; PT 20.6 Sec (11.4-14.6)
[2025-05-14 05:18] LABS: % Basophils 0.2 % (0-2); % Eosinophils 0.7 % (0-6); % Immature Granulocytes 0.3 % (0-0.5); % Lymphocytes 11.6 % (20.5-51.1); % Monocytes 8.1 % (1.7-9.3); % Neutrophils 79.1 % (42.2-75.2); Absolute Lymphocytes 0.7 10^3/uL (1.2-3.4); Absolute Monocytes 0.5 10^3/uL (0.1-0.6); Absolute Neutrophils 4.6 10^3/uL (1.4-6.5); Hematocrit 33.2 % (37.0-47.0); Hemoglobin 10.9 g/dL (12.0-16.0); Mean Corp Hgb Conc. 32.8 g/dL (33.0-37.0); Mean Corpuscular Hgb 32.3 pg (27.0-31.0); Mean Corpuscular Volume 98.5 fL (81.0-99.0); Mean Platelet Volume 11.7 fL (7.4-10.4); Nucleated Red Blood Cells % 0.5 %; Platelet Count 105 10^3/uL (130-400); Red Blood Cell Count 3.37 10^6/uL (4.20-5.40); Red Cell Dist. Width 16.1 % (11.5-14.5); White Blood Cell Count 5.8 10^3/uL (4.8-10.8)
[2025-05-14 05:22] LABS: AST (SGOT) 77 U/L (14-36); Albumin 3.8 g/dl (3.5-5.0); Alkaline Phosphatase 86 U/L (38-126); Blood Urea Nitrogen 19 mg/dl (7-17); Calcium 9.2 mg/dl (8.4-10.2); Carbon Dioxide 16 mmol/L (22-30); Chloride 120 mmol/L (98-107); Estimated Creatinine Clearance 56 ml/min; Glucose 89 mg/dl (70-99); Magnesium 1.6 mg/dl (1.6-2.3); Potassium 3.6 mmol/L (3.5-5.1); Sodium 150 mmol/L (135-145); Total Bilirubin 3.3 mg/dl (0.2-1.3); Total Protein 6.6 g/dl (6.3-8.2); eGFR > 60.00
[2025-05-14 05:25] LABS: Ammonia 32 umol/L (9-30)
[2025-05-14 05:27] LABS: ALT (SGPT) 39 U/L (0-35)
[2025-05-14 05:33] LABS: Lactic Acid 4.4 mmol/L (0.7-2.0)
[2025-05-14] MEDS: LACTULOSE ENEMA 300 ML RECTAL ×2 (06:03→13:07)
[2025-05-14] MEDS: VANCOCIN 150 IV (06:17)
[2025-05-14] MEDS: ZOSYN 100 IV ×4 (06:17→23:00)
[2025-05-14] MEDS: LR 500 IV (07:26)
--- NOTE | 2025-05-14 07:56 | PTCARENOTE ---
Addendum entered by Doron Argueta RN 05/14/25 08:05:
Pt continued with plan of care. All pt labs were send & repeat lactic this am was 4.4 CIRCUIT BOARD ASSEMBLER senior wind energy consultant was made aware, all medication orders were continued as ordered & IV fluids. PUBLIC INFORMATION SPECIALIST made aware of pt vital signs & rectal temp this am.Pt continued with
IV antibiotics as ordered. No new orders at this time.Report provided to RN with plan of care.
Original Note:
Pt aaoxself only. Pt continued with lactulose enema as ordered overnight & multiple loose BM noted. Pt non verbal, but opens her eyes at times. CIRCUIT BOARD ASSEMBLER senior wind energy consultant made aware of pt VSS ,respirations,HR & rectal temp, Tylenol provided as ordered.IV
antibiotics & IV fluids continued as ordered. Pt sinus rhtym to sinus tachy on monitor from 90-120 not sustaining. Plan of care continued on pt as ordered.
[2025-05-14] MEDS: D5W IV (08:08)
[2025-05-14] MEDS: CYMBALTA DELAYED RELEASE PO (08:10)
--- NOTE | 2025-05-14 08:43 | CON.ID ---
Consultation
-
Date/Time Consultation Requested: May 13, 2025 1347
Date/Time Consultation Performed: May 13, 2025 0863
Requesting Provider: Dr. Milagros Friedman
Performing Provider: Dr. Billie Dos Santos
Reason for Consultation: Sepsis, mental status change, concern for choledocholithiasis
Chief Complaint / Past History
Chief Complaint
Change in mental status
History of Present Illness
59-year-old female with history of cirrhosis, hepatic encephalopathy reportedly noncompliant with lactulose, CVA who presented from [facility] on May 12 with acute change in mental status. On May 13, she started spiking fevers later in the day.. Lactic
acid was intitally trending down then increased again. Also noted to have rising bilirubin, AST, and ALT. Admission blood cultures x 2 GPC in clusters probable coag negative staph. CAT scan showed choledocholithiasis with mild biliary dilatation,
severe distention of sigmoid and rectum with fluid suggesting proctocolitis. She is currently on vancomycin and Zosyn. Patient is lethargic. Wakes up to verbal stimuli but not answering my questions.
Past History
Additional Past Medical History:
Cirrhosis
CVA, right hemiplegia
Chronic Pancytopenia
Depression/anxiety
Osteoporosis
Insomnia
IBS
Allergy History:
No Known Allergies Allergy (Verified 05/12/25 20:54)
Medications Reviewed: Yes
Current Antibiotics:
Zosyn
Vancomycin
Social History
Tobacco: Non-Smoker
Alcohol: Former
Drug: None
Living: Jail
Family History
Family History: Not Pertinent
Review of Systems
Review of Systems
Unable to obtain due to change in mental status.
Vital Signs
Temp Pulse Resp BP Pulse Ox
99.6 F 96 20 142/69 97
05/14/25 08:16 05/14/25 08:16 05/14/25 08:16 05/14/25 08:16 05/14/25 08:16
Selected Entries
05/14/25
01:20 05/14/25
06:00
Temp 100.8 F H 100.7 F H
Physical Exam
Physical Exam
Constitutional: Acutely Ill
Head: Other (No frontal or maxillary sinus tenderness)
Eyes: Other (Sclera icterus)
Cardiovascular: Regular Rate and S1/S2
Pulmonary: Clear
Gastrointestinal: Soft, Non Tender, Non Distended and Normal Bowel Sounds
Extremities: Negative Edema
Skin: Jaundice
Neurological: Other (Lethargic); Negative Meningeal Signs
Lab / Diagnostic Study Results
05/14/25 04:53
05/14/25 04:53
Abs Immat Gran (auto) 0.0 10^3/uL (0-0.05) 05/14/25 04:53
Absolute Neuts (auto) 4.6 10^3/uL (1.4-6.5) 05/14/25 04:53
Absolute Lymphs (auto) 0.7 10^3/uL (1.2-3.4) L 05/14/25 04:53
Absolute Monos (auto) 0.5 10^3/uL (0.1-0.6) 05/14/25 04:53
Absolute Basos (auto) 0.0 10^3/uL (0-0.2) 05/14/25 04:53
Immature Gran % 0.3 % (0-0.5) 05/14/25 04:53
Neutrophils % 79.1 % (42.2-75.2) H 05/14/25 04:53
Lymphocytes % 11.6 % (20.5-51.1) L 05/14/25 04:53
Monocytes % 8.1 % (1.7-9.3) 05/14/25 04:53
Eosinophils % 0.7 % (0-6) 05/14/25 04:53
Basophils % 0.2 % (0-2) 05/14/25 04:53
PT 20.6 Sec (11.4-14.6) H 05/14/25 04:53
INR 1.75 05/14/25 04:53
Lactic Acid 4.4 mmol/L (0.7-2.0) H* 05/14/25 04:53
Ur Squamous Epith Cells 6-10 /LPF (Few) 05/12/25 20:42
Microbiology Results
Micro:
05/13/25 04:36 MRSA Screen - Final
Nose No Methicillin Resistant Staphylococcus aureus isolated.
05/12/25 20:42 Blood Culture - Preliminary
Blood/Venous Positive culture in progress
Gram Stain - Preliminary
05/13/25 15:16 Blood Culture - Pending
Blood/Venous
05/13/25 14:51 Blood Culture - Pending
Blood/Venous
05/12/25 20:47 Blood Culture - Preliminary
Blood/Venous Positive culture in progress
Gram Stain - Preliminary
05/12/25 23:49 Influenza Types A & B (ZOIE) - Final
Nasal Swab Negative for Influenza A & B, NAAT
Negative results must be combined with clinical observations
and patient history.
Nucleic Acid Amplification test (NAAT)performed on the
[employer] platform.
05/14/25 AXR: Mild gaseous distention of small and large bowel, without disproportionate dilatation of the small bowel or colon. Mild distention with liquid-appearing feces in the rectum.
05/13/25 CT a/p: VERY SEVERE HEPATIC CIRRHOSIS. VERY SEVERE PORTAL HYPERTENSION with a very large recannulated paraumbilical vein and extensive collateral varices in the extraperitoneal space around the urinary bladder. Cholelithiasis.
CHOLEDOCHOLITHIASIS and mild biliary dilatation. Moderate splenomegaly. Severe distention of the sigmoid colon and rectum with fluid suggesting an ACUTE PROCTOCOLITIS.
05/12/25 CXR: Mild airspace consolidation in the basilar right lower lobe. Moderate diffuse colonic distention.
Assessment / Plan
# Fever
# Relative leukocytosis
# Acute Hepatic encephalopathy
# Decompensated cirrhosis
# Coag-neg staph bacteremia = contaminant
# Chronic pancytopenia due to cirrhosis
- Possible biliary obstruction. MRI choledocholithiasis with mild kyle dil.
- When mental status improve, for MRCP
- Continue Zosyn.
- DC Vancomycin
-Follow repeat blood cx's.
- Trend fever and wbc.
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
Cirrhosis
CVA
Dysphagia
Pancytopenia
Depression/anxiety
Osteoporosis
[2025-05-14] MEDS: D5W with KCL 20 MEQ 1000 IV ×2 (08:44→17:25)
[2025-05-14] MEDS: MAGNESIUM SULFATE 100 IV (08:53)
[2025-05-14 09:08] LABS: Direct Bilirubin 0.8 mg/dl (0.0-0.4)
--- NOTE | 2025-05-14 09:42 | W.PN.HOSP.TC ---
Today's Communication/Plan
-
see A/P
Assessment / Plan
Assessment / Plan
HPI: 59-year-old woman with past medical history significant for CVA, right hemiparesis and contractures, aphasia, alcohol cirrhosis with chronic pancytopenia, multiple admissions for with hepatic encephalopathy, most recently in January 2025,
presented to the emergency department from [facility] secondary to concerns of worsening mental status and refusing her medications over the past 2 days. She is unable to answer any questions in the emergency department or give
any of her history. It is noted that she has mild dysarthria at baseline, and nonverbal on arrival to the emergency department.
In the emergency department she is found to have an elevated lactic acid level, leukopenia, and ammonia level elevated.
Given IV Cefepime, IV Vancomycin, IV Ofirmev, IV fluids in ED.
CXR elevated diaphragm/poor inspiration, no evidence for PNA/acute disease, UA without acute findings to suggest infection, CT a/p pending
CT AP:
1. VERY SEVERE HEPATIC CIRRHOSIS.
2. VERY SEVERE PORTAL HYPERTENSION with a very large recannulated paraumbilical vein and extensive collateral varices in the extraperitoneal space around the urinary bladder.
3. Cholelithiasis.
4. CHOLEDOCHOLITHIASIS and mild biliary dilatation.
5. Moderate splenomegaly.
6. Moderate chronic bilateral renal disease.
7. Severe distention of the sigmoid colon and rectum with fluid suggesting an ACUTE PROCTOCOLITIS.
8. Mild portal colopathy in the ascending colon.
9. Small bilateral inguinal hernias.
10. Moderate cardiomegaly.
11. Small right lower lobe airspace consolidation (pneumonia or atelectasis).
12. Severe discogenic degenerative disease and facet joint arthrosis at L5/S1.
13. Chronic avulsion fractures of the right ischial tuberosity.
14. Moderate to severe anasarca.
A/P:
# Altered mental status/acute metabolic encephalopathy/hypoactive delirium, likely multifactorial due to sepsis and hepatic encephalopathy
# sepsis POA with bacteremia, unknown infectious source at this time
# lactic acidosis
Admission blood cultures x2 positive for GPC in clusters. Follow S/S
Follow repeat blood cultures from 05/13
Cont empiric IV Vanco & IV Zosyn
CT AP report as above
ID CS
Ammonia level at 136 on admission -> 32 today, cont Lactulose TN with current NPO status (patient is on Enulose and Xifaxan at the nursing facility will hold these for now while the patient is n.p.o)
GI on board for HE
SPL eval when MS improves
# Hypernatremia, likely due to lack of free water/dehydration
Cont IVF with D5W
Monitor Sodium level
# Acute hypoxic respiratory insufficiency
O2 88% RA, placed on 2L O2 NC, continue O2 and wean as tolerated
CXR without evidence for acute pathology
# Pancytopenia, suspect reactive
WBC and platelet counts have improved
no active bleeding
monitor CBC
# Hypomagnesemia
replete IV
Other chronic medical conditions:
# Right flaccid hemiplegia
# Alcohol cirrhosis without ascites, formal EtOH abuse
# Dysphagia due to old CVA
# Osteoporosis
# Primary insomnia
# Irritable bowel disease
# Depression
# Anxiety
DVT prophylaxis�Lovenox SQ
DNR per documentation from nursing facility
updated brother on the phone
total time spent 51 min
Anticipated Discharge: > 48 hours
Subjective/Interval History
-
Date of Service: May 14, 2025
Objective Data
-
Labs:
Laboratory Results
05/14/25
04:53
WBC 5.8
Hgb 10.9 L
Hct 33.2 L
Plt Count 105 L D
PT 20.6 H
INR 1.75
Sodium 150 H
Potassium 3.6
Chloride 120 H
Carbon Dioxide 16 L
BUN 19 H
Creatinine 1.0
Glucose 89
Calcium 9.2
Total Bilirubin 3.3 H D
AST 77 H
ALT 39 H
Alkaline Phosphatase 86
Vital Signs:
Vital Signs
Temp Pulse Resp BP Pulse Ox
37.6 C 96 20 142/69 97
05/14/25 08:16 05/14/25 08:16 05/14/25 08:16 05/14/25 08:16 05/14/25 08:16
Review of Systems
-
Unable to obtain full review of systems at this time due to: Patient Non-verbal
Physical Exam
-
General: Comfortable, Respiratory Distress (mild) and Appears Chronically Ill; Negative Conversant
HEENT: Normocephalic, Atraumatic, Moist Mucous Membranes and Oxygen (2L NC)
Respiratory: Clear to Auscultation and Non Labored Respirations; Negative Accessory Resp Muscle Use
Cardiac: Regular Rhythm and S1/S2
GI: Soft, Nontender and Nondistended
Musculoskeletal: No Clubbing, No Cyanosis and No Edema
Neuro: Other (upper extremities contractures )
Psych: Calm; Negative Intact Judgement/Insight
Data Reviewed
-
Labs: Labs Reviewed by me
--- NOTE | 2025-05-14 09:57 | PHA.VAN.FU ---
Vancomycin Assessment / Plan
- Assessment
Renal Function: SCR Increasing (slight increase in SCR 0.8-->1)
Concomitant Antimicrobials: piperacillin/tazobactam
Received IV contrast 05/13
- Dosing Plan
Continue: Vanc 750mg Q12H
- Monitoring Plan
No level(s) ordered at this time: consider levels in next few days
Monitoring Comments: follow SCR & BUN trend post IV contrast
- Follow Up
Pharmacy will continue to follow.
Vancomycin Follow UP
- -
Patient Age: 59
Patient Sex: Female
Vancomycin Day #: 2
Indication: Other
Requesting Provider: Stevan
Pertinent Antimicrobial Allergies:
NKDA
Height / Weight:
Height 5 ft 8 in
Actual Weight 59.903 kg
IBW in k.9
Pertinent Past Medical History: Cirrhosis
- Vital Signs / Lab Results
Temp Pulse Resp BP Pulse Ox
99.6 F 96 20 142/69 97
05/14/25 08:16 05/14/25 08:16 05/14/25 08:16 05/14/25 08:16 05/14/25 08:16
Lab Results - Hematology
05/12/25 05/13/25 05/14/25
20:42 07:14 04:53
WBC 3.0 L 3.4 L 5.8
Lab Results - Chemistry
05/12/25 05/13/25 05/14/25
20:42 07:14 04:53
BUN 18 H 20 H 19 H
Creatinine 0.8 0.8 1.0
Estimated Creat Clear 70 70 56
Albumin 3.6 3.2 L 3.8
05/12/25 05/13/25 05/13/25
20:42 03:16 07:14
Lactic Acid 4.9 H* 3.1 H 2.7 H
05/13/25 05/13/25 05/13/25
11:00 15:00 19:00
Lactic Acid Cancelled Cancelled Cancelled
05/14/25
04:53
Lactic Acid 4.4 H*
Microbiology Results
05/13/25 04:36 MRSA Screen - Final
Nose No Methicillin Resistant Staphylococcus aureus isolated.
05/12/25 20:42 Blood Culture - Preliminary
Blood/Venous Positive culture in progress
Gram Stain - Preliminary
05/12/25 20:47 Blood Culture - Preliminary
Blood/Venous Positive culture in progress
Gram Stain - Preliminary
05/12/25 23:49 Influenza Types A & B (ZOIE) - Final
Nasal Swab Negative for Influenza A & B, NAAT
Negative results must be combined with clinical observations
and patient history.
Nucleic Acid Amplification test (NAAT)performed on the
[employer] platform.
[2025-05-14] MEDS: AQUAMEPHYTON 51 MG IV (10:47)
[2025-05-14 11:44] LABS: Lactic Acid 3.5 mmol/L (0.7-2.0)
--- NOTE | 2025-05-14 15:39 | W.PN.GI.CBS2 ---
Addendum entered and electronically signed by Marielena Dyson MD 05/14/25 19:26:
I saw and examined the patient.
The KNITTING MACHINE TENDER or PA's note was reviewed and I agree with the note.
Comment: Patient still lethargic and nonverbal. Low-grade temperature early this morning. Has had multiple loose stool on the lactulose enemas
MELD 3.0-18
- Agree with Dobbhoff tube placement to give lactulose and Xifaxan through the Dobbhoff tube.
Also noted to have hypernatremia, that needs to be corrected.
If mental status does not improve, consider CT head.
- Choledocholithiasis noted on imaging in November 2024 and again this time. Labs show elevated bilirubin at 3.3 but majority of it is indirect, alkaline phosphatase is normal. AST and ALT slightly elevated.
No leukocytosis noted at this time but continue to monitor for fevers.
If LFTs continue to rise, once mental status improves, will need to consider ERCP
-AFP pending
Will follow
Addendum entered and electronically signed by UBALDO Quintana 05/14/25 16:23:
Xray confirms DHT placement, ok for use for meds and consider DHT feeds in AM
Original Note:
Today's Communication / Plan
-
Pt with hepatic encephalopathy-- triggered by med non compliance vs infectious with possible PNA on CXR and cont fever vs stone vs other
Pt continues to be non-verbal will add DHT to add lactulose from above and Xifaxan
need to also correct Na 150 as this can also lead to mental status issues
MELD 3.0 --18
AFP pending, hep C neg, hep B pending
eventual MRCP vs direct to ERCP with noted stone on CT on admission when mental status improves -- sooner if signs of worsening status with hypotension, leukocytosis, further rise in LFT's - stone was noted on imaging several months ago
remains on IV Zosyn, ID following with fever til this am
add dietary consult t/c tube feed in am if tolerating meds
I left message for brother with update on adding DHT
cont to follow labs add lipase for AM
reviewed via tiger text with Dr. Friedman and nursing staff
Assessment / Plan
-
59-year-old female with past medical history left thalamus stroke, pancytopenia, insomnia, dysphagia, osteoporosis, depression, anxiety and cirrhosis (presumed from alcohol) presents to the emergency room from [facility] with change in mental
status, GI asked to evaluate for hepatic encephalopathy with ammonia up to136 on admission. Hx admissions for hepatic encephalopathy since August 2024. CT imaging abdomen and pelvis with large fecal impaction and stercoral colitis and
choledocholithiasis apart from severe cirrhosis without ascites.
The patient was disimpacted and enemas have been given.
Impression:
-Hepatic encephalopathy with change in mental status - HCT with severe white matter leukoaraiosis frontal lobe, multiple chronic lacunar infarction with deep rose matter b/l, cerebral and cerebellar volume loss.
-CT with concern for distention of sigmoid and rectum with fluid with acute proctocolitis
-concern for sepsis on admission with elevated lactate and fever
-Cirrhosis-> presumed from alcohol
-chronic Choledocholithiasis seen on imaging-> no elevated bilirubin, mildly elevated AST
-CVA with right-sided flaccid hemiplegia
-portal colopathy on imaging
-coagulopathy
other med problems:
-left thalamus stroke
- pancytopenia
-insomnia
-dysphagia
osteoporosis
depression, anxiety
Plan:
Pt with hepatic encephalopathy-- triggered by med non compliance vs infectious with possible PNA on CXR and cont fever vs stone vs other
Pt continues to be non-verbal will add DHT to add lactulose from above and Xifaxan
need to also correct Na 150 as this can also lead to mental status issues
MELD 3.0 --18
AFP pending, hep C neg, hep B pending
eventual MRCP vs direct to ERCP with noted stone on CT on admission when mental status improves -- sooner if signs of worsening status with hypotension, leukocytosis, further rise in LFT's - stone was noted on imaging several months ago
remains on IV Zosyn, ID following with fever til this am
add dietary consult t/c tube feed in am if tolerating meds
I left message for brother with update on adding DHT
cont to follow labs add lipase for AM
reviewed via tiger text with Dr. Friedman and nursing staff
Subjective
Subjective
Date of Service: May 14, 2025
NPO as unable to take oral medications multiple loose stools
Objective
Data Reviewed
Laboratory Data:
Laboratory Results
05/14/25 04:53
05/14/25 04:53
Laboratory Results
PT 20.6 Sec (11.4-14.6) H 05/14/25 04:53
INR 1.75 05/14/25 04:53
Magnesium 1.6 mg/dl (1.6-2.3) 05/14/25 04:53
Total Bilirubin 3.3 mg/dl (0.2-1.3) H D 05/14/25 04:53
AST 77 U/L (14-36) H 05/14/25 04:53
ALT 39 U/L (0-35) H 05/14/25 04:53
Alkaline Phosphatase 86 U/L (38-126) 05/14/25 04:53
Vital Signs and I&O:
Vital Signs
Temp Pulse Resp BP Pulse Ox
99.4 F 90 20 131/66 97
05/14/25 11:54 05/14/25 11:54 05/14/25 11:54 05/14/25 11:54 05/14/25 11:54
Physical Exam
Physical Exam
HEENT: Anicteric and Moist mucous membranes
Cardiology: Normal Sinus Rhythm
Pulmonary: Clear
GI: Soft, Distended and Non Tender
Extremities: No Edema
Neuro: Other (hx CVA non verbal )
--- NOTE | 2025-05-14 15:41 | CM ---
Placed a call to patient's brother to obtain information for assessment. Patient's brother stated that patient is a resident of [facility] for the past year and a half. She is bed bound. Staff is able to transfer her and position her in a w/c.
She is set up to eat. Patient's brother stated that patient is normally alert and oriented x3, however due to the Sepsis and Encephalopathy, she is confused. He stated that this normally clears up. Patient's brother would like for patient to return
back to [place] upon medical clearance. He stated that the DON there is Nolvia and she is familiar with patient and is a reliable source for description of ADLs. Will confirm Medicaid bed hold with admissions.
Plan: Case management will continue to follow and assist with discharge planning. Back to [facility].
[2025-05-14] MEDS: LOVENOX 40 MG SC (17:22)
[2025-05-14] MEDS: DUPHALAC/CHRONULAC 20 GRAMS TUBE ×2 (17:22→21:16)
[2025-05-14 17:33] LABS: Lactic Acid 3.1 mmol/L (0.7-2.0)
--- NOTE | 2025-05-14 18:44 | PTCARENOTE ---
Pt had two run of 10 to 15 beats of V tach at )9:50. Dr. Friedman made aware and evaluated patient. Pt then back to NSR. Cont to assess patient.
[2025-05-14] MEDS: XIFAXAN 550 MG TUBE (20:21)
[2025-05-14 20:41] LABS: AFP Male/Tumor Marker 1.61 ng/ml
[2025-05-14 20:59] LABS: Hepatitis B Surface Antigen Negative (Negative)
[2025-05-14 21:16] LABS: Hepatitis B Surface Antibody Negative
[2025-05-14] MEDS: REMERON 7.5 MG TUBE (21:16)
[2025-05-15] MEDS: TYLENOL 650 MG TUBE (00:11)
[2025-05-15] MEDS: DUPHALAC/CHRONULAC 20 GRAMS TUBE ×3 (01:56→11:51)
[2025-05-15] MEDS: D5W with KCL 20 MEQ 1000 IV ×2 (02:45→11:49)
[2025-05-15 03:45] VITALS: BP 170/76
[2025-05-15] MEDS: ZOSYN 100 IV ×4 (05:07→23:35)
[2025-05-15 05:30] VITALS: BMI 20.3
[2025-05-15 07:25] VITALS: BP 137/67
[2025-05-15 07:35] LABS: Ammonia 34 umol/L (9-30)
[2025-05-15 07:54] LABS: ALT (SGPT) 33 U/L (0-35); AST (SGOT) 95 U/L (14-36); Albumin 2.8 g/dl (3.5-5.0); Alkaline Phosphatase 58 U/L (38-126); Blood Urea Nitrogen 17 mg/dl (7-17); Calcium 8.6 mg/dl (8.4-10.2); Carbon Dioxide 21 mmol/L (22-30); Chloride 120 mmol/L (98-107); Estimated Creatinine Clearance 63 ml/min; Glucose 116 mg/dl (70-99); Lipase 105 U/L (23-300); Potassium 2.9 mmol/L (3.5-5.1); Sodium 146 mmol/L (135-145); Total Bilirubin 2.6 mg/dl (0.2-1.3); Total Protein 5.4 g/dl (6.3-8.2); eGFR > 60.00
[2025-05-15 07:55] LABS: % Basophils 0.4 % (0-2); % Eosinophils 2.1 % (0-6); % Immature Granulocytes 0.4 % (0-0.5); % Lymphocytes 14.1 % (20.5-51.1); % Monocytes 13.9 % (1.7-9.3); % Neutrophils 69.1 % (42.2-75.2); Absolute Eosinophils 0.1 10^3/uL (0-0.7); Absolute Lymphocytes 0.7 10^3/uL (1.2-3.4); Absolute Monocytes 0.7 10^3/uL (0.1-0.6); Absolute Neutrophils 3.3 10^3/uL (1.4-6.5); Hematocrit 28.7 % (37.0-47.0); Hemoglobin 9.8 g/dL (12.0-16.0); Mean Corp Hgb Conc. 34.1 g/dL (33.0-37.0); Mean Corpuscular Hgb 33.1 pg (27.0-31.0); Mean Platelet Volume 11.7 fL (7.4-10.4); Nucleated Red Blood Cells % 1.5 %; Platelet Count 83 10^3/uL (130-400); Red Blood Cell Count 2.96 10^6/uL (4.20-5.40); Red Cell Dist. Width 15.9 % (11.5-14.5); White Blood Cell Count 4.8 10^3/uL (4.8-10.8)
--- NOTE | 2025-05-15 08:40 | PTCARENOTE ---
Dr Laisha Espino aware of potassium level 2.9
[2025-05-15] MEDS: KCL 270 MEQ IV ×2 (09:29→16:48)
[2025-05-15] MEDS: CYMBALTA DELAYED RELEASE PO (09:29)
[2025-05-15] MEDS: XIFAXAN 550 MG TUBE (09:29)
[2025-05-15 09:30] LABS: Magnesium 1.7 mg/dl (1.6-2.3); Phosphorus 2.4 mg/dl (2.5-4.5)
--- NOTE | 2025-05-15 10:00 | PTOTSP ---
Speech Therapy Swallowing Assessment
Oral pharyngeal swallow deemed within functional limits without overt signs of aspiration. Patient as risk for dysphagia given history of CVA and recent impaired BRIGID. This also places patient at mild aspiration risk along with her limited mobility
and at least partial dependence for feeding/oral care.
Recommend
1. Regular solids and thin liquids
2. Supervision and assist to feed.
3. Meds with liquid
4. Aspiration precautions. Upright to at least [address] will follow briefly to ensure diet tolerance.
[2025-05-15 11:25] VITALS: BP 147/76
--- NOTE | 2025-05-15 11:44 | W.PN.HOSP.TC ---
Today's Communication/Plan
-
Assessment / Plan
Assessment / Plan
NAD
Scleral Anicteric
MMM
Dobbhoff tube noted
No JVD
CTABL
RRR, S1/S2
Soft, NT, ND, BS+
Contracted upper extremity, atrophic upper and lower extremity muscle group
Warm, Dry
Alexia knows that she is at [facility], stated was 25 5 for the ER unable to give me the month or day
Calm
Altered mental status appears to be improving. This could be related to hepatic encephalopathy or even sepsis. Cannot exclude hypoactive delirium.
Continue lactulose rifaximin
Continue to monitor mental status
Sepsis with coag negative staph, ?Contamination
ID is following
DC vancomycin
Zosyn continued
Follow repeat blood cultures
?Biliary obstruction
Continue Zosyn previous
Follow LFT's
May need MRCP/ERCP
Decompensated cirrhosis
GI following
Continue lactulose rifaximin
Hypernatremia with free water deficit
Improving continue to monitor
Hypokalemia
Replete
Acute hypoxic respiratory insufficiency
O2 88% RA, placed on 2L O2 NC, continue O2 and wean as tolerated
CXR without evidence for acute pathology
Bicytopenia with anemia and thrombocytopenia. Likely related to longstanding decompensated cirrhosis
DVT prophylaxis�Lovenox SQ
DNR per documentation from nursing facilityn
Anticipated Discharge: > 48 hours
Subjective/Interval History
-
Date of Service: May 15, 2025
Seen and examined. No new complaints. No acute overnight events.
Objective Data
-
Labs:
Laboratory Results
05/15/25
07:11
WBC 4.8
Hgb 9.8 L
Hct 28.7 L
Plt Count 83 L D
Sodium 146 H
Potassium 2.9 L
Chloride 120 H
Carbon Dioxide 21 L
BUN 17
Creatinine 0.9
Glucose 116 H
Calcium 8.6
Total Bilirubin 2.6 H
AST 95 H
ALT 33
Alkaline Phosphatase 58
Vital Signs:
Vital Signs
Temp Pulse Resp BP Pulse Ox
98.6 F 71 16 137/67 97
05/15/25 07:25 05/15/25 07:25 05/15/25 07:25 05/15/25 07:25 05/15/25 07:25
I&O
05/14/25 05/15/25 05/16/25
06:59 06:59 06:59
Intake Total 3211 / 3211
Balance 3211 / 3211
[2025-05-15 11:54] VITALS: BMI 20.3
--- NOTE | 2025-05-15 12:10 | PTCARENOTE ---
mag and phos level results given to Dr Laisha Espino. plan of care on going
--- NOTE | 2025-05-15 12:53 | W.PN.ID1 ---
Date of Service
Date of Service: May 15, 2025
Today's Communication
Continue Zosyn.
Assessment / Plan
# Low grade fevers
# Relative leukocytosis
# Acute Hepatic encephalopathy - improving with lactulose
# cirrhosis
# Coag-neg staph bacteremia = contaminant
# Chronic pancytopenia due to cirrhosis
- Repeat blood cx's neg to date
- Consider MRCP
- Continue Zosyn.
- Trend fever and wbc.
# Conditions PATTERNATOR
Cirrhosis
CVA
Dysphagia
Pancytopenia
Depression/anxiety
Osteoporosis
Chief Complaint
-: Clinical Sepsis
Subjective / Review of Systems
Pt awake and more alert today. She feels better.
Vital Signs / Physical Exam
Vital Signs
Vital Signs
Temp Pulse Resp BP Pulse Ox
97.8 F 71 16 147/76 100
05/15/25 11:25 05/15/25 11:25 05/15/25 11:25 05/15/25 11:25 05/15/25 11:25
Selected Entries
05/14/25
23:32
Temp 100.4 F H
Physical Exam
Constitutional: Comfortable and Chronically Ill
Cardiovascular: Regular Rate and S1/S2
Pulmonary: Clear
Gastrointestinal: Soft, Non Tender and Non Distended
Extremities: Negative Edema
Neurological: Awake and Alert
Objective Data
Lab Data
Lab Results
05/15/25 07:11
05/15/25 07:11
PT 20.6 Sec (11.4-14.6) H 05/14/25 04:53
INR 1.75 05/14/25 04:53
Estimated Creat Clear 63 ml/min 05/15/25 07:11
Lactic Acid 3.1 mmol/L (0.7-2.0) H 05/14/25 17:09
Total Bilirubin 2.6 mg/dl (0.2-1.3) H 05/15/25 07:11
AST 95 U/L (14-36) H 05/15/25 07:11
ALT 33 U/L (0-35) 05/15/25 07:11
Alkaline Phosphatase 58 U/L (38-126) 05/15/25 07:11
Most recent labs reviewed.
Micro Results:
05/12/25 20:47 Blood Culture - Preliminary
Blood/Venous Coagulase neg. staphylococcus
Gram Stain - Preliminary
05/12/25 20:42 Blood Culture - Preliminary
Blood/Venous Coagulase neg. staphylococcus
Gram Stain - Preliminary
05/13/25 15:16 Blood Culture - Preliminary
Blood/Venous No Growth in 24 hours- Final report to follow
05/13/25 14:51 Blood Culture - Preliminary
Blood/Venous No Growth in 24 hours- Final report to follow
05/13/25 04:36 MRSA Screen - Final
Nose No Methicillin Resistant Staphylococcus aureus isolated.
05/12/25 23:49 Influenza Types A & B (ZOIE) - Final
Nasal Swab Negative for Influenza A & B, NAAT
Negative results must be combined with clinical observations
and patient history.
Nucleic Acid Amplification test (NAAT)performed on the
[employer] platform.
05/14/25 AXR: Mild gaseous distention of small and large bowel, without disproportionate dilatation of the small bowel or colon. Mild distention with liquid-appearing feces in the rectum.
05/13/25 CT a/p: VERY SEVERE HEPATIC CIRRHOSIS. VERY SEVERE PORTAL HYPERTENSION with a very large recannulated paraumbilical vein and extensive collateral varices in the extraperitoneal space around the urinary bladder. Cholelithiasis.
CHOLEDOCHOLITHIASIS and mild biliary dilatation. Moderate splenomegaly. Severe distention of the sigmoid colon and rectum with fluid suggesting an ACUTE PROCTOCOLITIS.
05/12/25 CXR: Mild airspace consolidation in the basilar right lower lobe. Moderate diffuse colonic distention.
[2025-05-15] MEDS: CYMBALTA DELAYED RELEASE 60 MG PO (12:57)
--- NOTE | 2025-05-15 14:49 | W.PN.GI.CBS2 ---
Addendum entered and electronically signed by Jackie Pires MD 05/15/25 15:59:
I saw and examined the patient.
The STEAM CONDITIONER FILLING or PA's note was reviewed and I agree with the note.
Comment: 59-year-old female past medical history of stroke, cirrhosis presenting with encephalopathy due to not taking lactulose noncompliance. Also had a fever on admission Tmax 100.8. Possible pneumonia on x-ray, blood culture negative for
growth, UA negative. On signout yesterday, I was told she was obtunded and she was given Dobhoff. Her mental status has now improved and she is able to name place, year.
Recommend to continue lactulose, xifaxan, antibiotics. D/w one of our biliary team recommend MRI/MRCP which has been ordered. Continue to trend LFTs suspect needs eventual ERCP and will need consent from brother. Vit K in case some of
coagulopathy is reversible from vitamin deficiency.
Original Note:
Today's Communication / Plan
-
Pt with hepatic encephalopathy-- triggered by med non compliance(pt admits to skipping doses) vs infectious with possible PNA on CXR and cont fever vs stone vs other
pt now improved change Xifaxan to BID and lactulose to TID
cont with multiple stools
Na improved to 146, cont to replete K
MELD 3.0 --18
AFP 1.61 , hep B/ C neg
eventual MRCP vs direct to ERCP with noted stone on CT on admission when medically stable with encephalopathy on admission -- sooner if signs of worsening status with hypotension, leukocytosis, further rise in LFT's - stone was noted on imaging
several months ago -- will review timing with Dr. Pires
remains on IV Zosyn, ID following - fever less today
resume diet no complaints of abdominal pain
I left message for brother with update 05/14 without return call -- may need to review for consent if ERCP needed
lipase normal
Assessment / Plan
-
59-year-old female with past medical history left thalamus stroke, pancytopenia, insomnia, dysphagia, osteoporosis, depression, anxiety and cirrhosis (presumed from alcohol) presents to the emergency room from [facility] with change in mental
status, GI asked to evaluate for hepatic encephalopathy with ammonia up to136 on admission. Hx admissions for hepatic encephalopathy since August 2024. CT imaging abdomen and pelvis with large fecal impaction and stercoral colitis and
choledocholithiasis apart from severe cirrhosis without ascites.
The patient was disimpacted and enemas have been given.
Impression:
-Hepatic encephalopathy with change in mental status - HCT with severe white matter leukoaraiosis frontal lobe, multiple chronic lacunar infarction with deep rose matter b/l, cerebral and cerebellar volume loss.
-CT with concern for distention of sigmoid and rectum with fluid with acute proctocolitis
-concern for sepsis on admission with elevated lactate and fever
-Cirrhosis-> presumed from alcohol
-chronic Choledocholithiasis seen on imaging-> no elevated bilirubin, mildly elevated AST
-CVA with right-sided flaccid hemiplegia
-portal colopathy on imaging
-coagulopathy
other med problems:
-left thalamus stroke
- pancytopenia
-insomnia
-dysphagia
osteoporosis
depression, anxiety
Plan:
Pt with hepatic encephalopathy-- triggered by med non compliance(pt admits to skipping doses) vs infectious with possible PNA on CXR and cont fever vs stone vs other
pt now improved change Xifaxan to BID and lactulose to TID
cont with multiple stools
Na improved to 146, cont to replete K
MELD 3.0 --18
AFP 1.61 , hep B/ C neg
eventual MRCP vs direct to ERCP with noted stone on CT on admission when medically stable with encephalopathy on admission -- sooner if signs of worsening status with hypotension, leukocytosis, further rise in LFT's - stone was noted on imaging
several months ago -- will review timing with Dr. Pires
INR 1.75 will give vitamin K as ERCP may be needed
remains on IV Zosyn, ID following - fever less today
resume diet no complaints of abdominal pain
I left message for brother with update 05/14 without return call -- may need to review for consent if ERCP needed
lipase normal
Subjective
Subjective
Date of Service: May 15, 2025
multiple stools with lactulose orally, on 2 gram Na diet and eating well and conversant
Objective
Data Reviewed
Laboratory Data:
Laboratory Results
05/15/25 07:11
05/15/25 07:11
Laboratory Results
PT 20.6 Sec (11.4-14.6) H 05/14/25 04:53
INR 1.75 05/14/25 04:53
Phosphorus 2.4 mg/dl (2.5-4.5) L 05/15/25 07:11
Magnesium 1.7 mg/dl (1.6-2.3) 05/15/25 07:11
Total Bilirubin 2.6 mg/dl (0.2-1.3) H 05/15/25 07:11
AST 95 U/L (14-36) H 05/15/25 07:11
ALT 33 U/L (0-35) 05/15/25 07:11
Alkaline Phosphatase 58 U/L (38-126) 05/15/25 07:11
Lipase 105 U/L (23-300) 05/15/25 07:11
Vital Signs and I&O:
Vital Signs
Temp Pulse Resp BP Pulse Ox
97.8 F 71 16 147/76 100
05/15/25 11:25 05/15/25 11:25 05/15/25 11:25 05/15/25 11:25 05/15/25 11:25
I&O
05/14/25 05/15/25 05/16/25
06:59 06:59 06:59
Intake Total 3211 / 3211
Balance 3211 / 3211
Physical Exam
Physical Exam
HEENT: Anicteric and Moist mucous membranes
Cardiology: Normal Sinus Rhythm
Pulmonary: Clear
GI: Soft, Non Distended and Non Tender
Neuro: Other (right arm contraction with hx CVA, slurred but conversant speech )
[2025-05-15 15:25] VITALS: BP 131/70
[2025-05-15] MEDS: MEPHYTON 10 MG PO (16:49)
[2025-05-15] MEDS: DUPHALAC/CHRONULAC PO (16:50)
[2025-05-15] MEDS: LOVENOX 40 MG SC (19:22)
[2025-05-15 19:39] VITALS: BP 130/55
[2025-05-15] MEDS: XIFAXAN 550 MG PO (21:04)
[2025-05-15] MEDS: REMERON 7.5 MG TUBE (21:04)
[2025-05-15] MEDS: DUPHALAC/CHRONULAC 20 GRAMS PO (21:05)
[2025-05-15 23:19] VITALS: BP 125/64
[2025-05-16 00:42] LABS: Blood Urea Nitrogen 13 mg/dl (7-17); Calcium 8.4 mg/dl (8.4-10.2); Carbon Dioxide 22 mmol/L (22-30); Chloride 118 mmol/L (98-107); Estimated Creatinine Clearance 71 ml/min; Glucose 108 mg/dl (70-99); Potassium 3.3 mmol/L (3.5-5.1); Sodium 144 mmol/L (135-145); eGFR > 60.00
[2025-05-16] MEDS: TYLENOL 650 MG PO (02:40)
[2025-05-16] MEDS: KCL 20 MEQ PO (02:52)
[2025-05-16 03:38] VITALS: BP 133/61
--- NOTE | 2025-05-16 05:01 | DOWNTIME ---
Addendum entered by Natalia Levy RN 05/16/25 14:23:
Correction: Downtime was 05/16/2025 from 0100 to 05/16/2025 at 0415
Original Note:
There was a [employer] Client Internal Auditor Downtime on 05/15/2025 from 0100 to 05/16/2025 at 0415. Downtime documentation of patient's care, including medication administrations, has been reconciled in the electronic record per guidelines. Refer to the
patient's paper chart under the miscellaneous tab to see printed paper medication records and downtime forms.
[2025-05-16] MEDS: ZOSYN 100 IV ×4 (05:27→23:20)
[2025-05-16 07:38] VITALS: BP 143/70
[2025-05-16 08:02] LABS: Hematocrit 27.4 % (37.0-47.0); Hemoglobin 9.1 g/dL (12.0-16.0); Mean Corp Hgb Conc. 33.2 g/dL (33.0-37.0); Mean Corpuscular Hgb 32.9 pg (27.0-31.0); Mean Corpuscular Volume 98.9 fL (81.0-99.0); Mean Platelet Volume 11.6 fL (7.4-10.4); Platelet Count 66 10^3/uL (130-400); Red Blood Cell Count 2.77 10^6/uL (4.20-5.40); Red Cell Dist. Width 16.2 % (11.5-14.5); White Blood Cell Count 3.3 10^3/uL (4.8-10.8)
[2025-05-16 08:15] LABS: INR 1.88; PT 22.1 Sec (11.4-14.6)
[2025-05-16 08:30] LABS: ALT (SGPT) 33 U/L (0-35); AST (SGOT) 73 U/L (14-36); Albumin 2.3 g/dl (3.5-5.0); Alkaline Phosphatase 48 U/L (38-126); Blood Urea Nitrogen 11 mg/dl (7-17); Calcium 8.1 mg/dl (8.4-10.2); Carbon Dioxide 19 mmol/L (22-30); Chloride 119 mmol/L (98-107); Estimated Creatinine Clearance 71 ml/min; Glucose 93 mg/dl (70-99); Potassium 3.4 mmol/L (3.5-5.1); Sodium 141 mmol/L (135-145); Total Bilirubin 1.5 mg/dl (0.2-1.3); Total Protein 4.8 g/dl (6.3-8.2); eGFR > 60.00
[2025-05-16] MEDS: CYMBALTA DELAYED RELEASE 60 MG PO (09:49)
[2025-05-16] MEDS: XIFAXAN 550 MG PO ×2 (09:49→20:17)
[2025-05-16] MEDS: DUPHALAC/CHRONULAC 20 GRAMS PO ×3 (09:49→21:25)
[2025-05-16] MEDS: KCL 40 MEQ PO (09:50)
--- NOTE | 2025-05-16 10:04 | PTCARENOTE ---
patient with run of wide complex tachycardia, rate 130's, patient asymptomatic. Dr Laisha Espino shown telemetry strip. plan of care on going.
--- NOTE | 2025-05-16 10:12 | W.PN.GI.CBS2 ---
Addendum entered and electronically signed by Jackie Pires MD 05/16/25 15:12:
I saw and examined the patient.
The PERFORMANCE TESTER or PA's note was reviewed and I agree with the note.
Comment: 59-year-old female past medical history of stroke, cirrhosis presenting with encephalopathy due to not taking lactulose noncompliance and infection - had a fever on admission Tmax 100.8. Possible pneumonia on x-ray, blood culture negative
for growth, UA negative. MRI with CBD stone. Mental status continues to improve, oriented, remembers discussion of ERCP. Reviewed r/a/b of ERCP inc but not limited to bleeding, infection, perforation, pancreatitis. At time of ERCP will also
assess for varices. Pending ERCP plan for surgical eval for possible fatoumata.
Recommend to continue lactulose, xifaxan, antibiotics. Possible ERCP tomorrow pending clinical status.
Original Note:
Today's Communication / Plan
-
Pt with hepatic encephalopathy-- triggered by med non compliance(pt admits to skipping doses) vs infectious with possible PNA on CXR and cont fever vs stone vs other
cont to be improved -- cont Xifaxan to BID and lactulose to TID
Na improved , cont to replete K
AFP 1.61 , hep B/ C neg
MRI completed with continued CBD stone - plan for tentative ERCP in AM if stable-- INR higher at 1.88 --
will also plan for EGD for variceal screening as brother does not recall prior testing
will give additional vitamin K today
t/c eventual surgical eval for fatoumata
remains on IV Zosyn, ID following - fever less today
cont diet- NPO for AM
I spoke at length with brother-- he states patient is able to consent but he is also agreeable to proceed with ERCP and aware INR elevated may need to hold
I also discussed chronic cirrhosis-- pt has been in 5 different nursing homes -- he states no prior hepatology evaluation. Discussed work up with hepatology vs considering focus of comfort as likely slowing progressing cirrhosis with HE, rise in
INR, pancytopenia etc. If pt/family wish for more aggressive work up advised to schedule follow up with Dr. Shoemaker at [facility].
will need OP follow up no prior colonoscopy and management of chronic liver disease
Assessment / Plan
-
59-year-old female with past medical history left thalamus stroke, pancytopenia, insomnia, dysphagia, osteoporosis, depression, anxiety and cirrhosis (presumed from alcohol) presents to the emergency room from [facility] with change in mental
status, GI asked to evaluate for hepatic encephalopathy with ammonia up to136 on admission. Hx admissions for hepatic encephalopathy since August 2024. CT imaging abdomen and pelvis with large fecal impaction and stercoral colitis and
choledocholithiasis apart from severe cirrhosis without ascites. The patient was disimpacted and enemas have been given with DHT placement with lactulose. 05/15 improved mental status. 05/15 MRI as noted with concern for continued
choledocholithiasis
05/15 MRI abdomen
Cirrhosis and portal hypertension changes.
Cholelithiasis and choledocholithiasis.
Duodenitis.
7 mm pancreatic body cystic lesion without suspicious features, likely a pseudocyst or side branch intraductal papillary mucinous neoplasm. Recommend follow-up MRI/MRCP abdomen without and with gadolinium contrast in one year per ACR criteria.
Trace bilateral pleural effusions with associated atelectasis.
Impression:
-Hepatic encephalopathy with change in mental status - HCT with severe white matter leukoaraiosis frontal lobe, multiple chronic lacunar infarction with deep rose matter b/l, cerebral and cerebellar volume loss.
-CT with concern for distention of sigmoid and rectum with fluid with acute proctocolitis
-concern for sepsis on admission with elevated lactate and fever
-Cirrhosis-> presumed from alcohol MELD 3.0 --18
-chronic Choledocholithiasis seen on imaging-f/u MRI with continued CBD stone
-duodenitis on MRI
-pancreatic cyst
-CVA with right-sided flaccid hemiplegia
-portal colopathy on imaging
-coagulopathy
other med problems:
-left thalamus stroke
- pancytopenia
-insomnia
-dysphagia
osteoporosis
depression, anxiety
Plan:
Pt with hepatic encephalopathy-- triggered by med non compliance(pt admits to skipping doses) vs infectious with possible PNA on CXR and cont fever vs stone vs other
cont to be improved -- cont Xifaxan to BID and lactulose to TID
Na improved , cont to replete K
AFP 1.61 , hep B/ C neg
MRI completed with continued CBD stone - plan for tentative ERCP in AM if stable-- INR higher at 1.88 --
will also plan for EGD for variceal screening as brother does not recall prior testing
will give additional vitamin K today
t/c eventual surgical eval for fatoumata
remains on IV Zosyn, ID following - fever less today
cont diet- NPO for AM
I spoke at length with brother-- he states patient is able to consent but he is also agreeable to proceed with ERCP and aware INR elevated may need to hold
I also discussed chronic cirrhosis-- pt has been in 5 different nursing homes -- he states no prior hepatology evaluation. Discussed work up with hepatology vs considering focus of comfort as likely slowing progressing cirrhosis with HE, rise in
INR, pancytopenia etc. If pt/family wish for more aggressive work up advised to schedule follow up with Dr. Shoemaker at [place] office.
will need OP follow up no prior colonoscopy and management of chronic liver disease
Subjective
Subjective
Date of Service: May 16, 2025
2 gram Na diet, loose stools feeling better more awake and alert
Objective
Data Reviewed
Laboratory Data:
Laboratory Results
05/16/25 07:10
05/16/25 07:10
Laboratory Results
PT 22.1 Sec (11.4-14.6) H 05/16/25 07:10
INR 1.88 05/16/25 07:10
Phosphorus 2.4 mg/dl (2.5-4.5) L 05/15/25 07:11
Magnesium 1.7 mg/dl (1.6-2.3) 05/15/25 07:11
Total Bilirubin 1.5 mg/dl (0.2-1.3) H D 05/16/25 07:10
AST 73 U/L (14-36) H 05/16/25 07:10
ALT 33 U/L (0-35) 05/16/25 07:10
Alkaline Phosphatase 48 U/L (38-126) 05/16/25 07:10
Lipase 105 U/L (23-300) 05/15/25 07:11
Vital Signs and I&O:
Vital Signs
Temp Pulse Resp BP Pulse Ox
97.7 F 71 16 143/70 97
05/16/25 07:38 05/16/25 07:38 05/16/25 07:38 05/16/25 07:38 05/16/25 07:38
I&O
05/15/25 05/16/25 05/17/25
06:59 06:59 06:59
Intake Total 3211 / 3211 1070 / 1070 240 / 240
Balance 3211 / 3211 1070 / 1070 240 / 240
Physical Exam
Physical Exam
HEENT: Anicteric and Moist mucous membranes
Cardiology: Normal Sinus Rhythm
Pulmonary: Clear
GI: Soft, Non Distended and Non Tender
Extremities: No Edema
Neuro: Non Focal and Other (right hemiparesis s/p CVA)
[2025-05-16 11:43] VITALS: BP 165/77
[2025-05-16] MEDS: MEPHYTON 10 MG PO (12:12)
[2025-05-16] MEDS: FLUSH (NSS) 2 FLUSH IV (12:13)
--- NOTE | 2025-05-16 13:59 | W.PN.ID1 ---
Date of Service
Date of Service: May 16, 2025
Today's Communication
Continue Zosyn
Assessment / Plan
# Low grade fevers resolved
# Relative leukocytosis, improving
# Acute Hepatic encephalopathy - improving with lactulose
# cirrhosis
# Coag-neg staph bacteremia = contaminant
# Chronic pancytopenia due to cirrhosis
- MRI +duodenitis, pancreatic cysts, gallstones, choledocholithiasis
- For ERCP
- Repeat blood cx's neg to date
- Continue Zosyn for now.
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
Cirrhosis
CVA
Dysphagia
Pancytopenia
Depression/anxiety
Osteoporosis
Chief Complaint
-: Clinical Sepsis
Subjective / Review of Systems
No complaints today. Denies cough.
Vital Signs / Physical Exam
Vital Signs
Vital Signs
Temp Pulse Resp BP Pulse Ox
98.4 F 69 16 165/77 98
05/16/25 11:43 05/16/25 11:43 05/16/25 11:43 05/16/25 11:43 05/16/25 11:43
Physical Exam
Constitutional: Comfortable and Chronically Ill
Eyes: Sclera Anicteric
Cardiovascular: Regular Rate and S1/S2
Pulmonary: Clear (anterior lungs)
Gastrointestinal: Soft, Non Tender and Non Distended
Genito-Urinary: Negative CVA Tenderness
Extremities: Negative Edema
Objective Data
Lab Data
Lab Results
05/16/25 07:10
05/16/25 07:10
PT 22.1 Sec (11.4-14.6) H 05/16/25 07:10
INR 1.88 05/16/25 07:10
Estimated Creat Clear 71 ml/min 05/16/25 07:10
Lactic Acid 3.1 mmol/L (0.7-2.0) H 05/14/25 17:09
Total Bilirubin 1.5 mg/dl (0.2-1.3) H D 05/16/25 07:10
AST 73 U/L (14-36) H 05/16/25 07:10
ALT 33 U/L (0-35) 05/16/25 07:10
Alkaline Phosphatase 48 U/L (38-126) 05/16/25 07:10
Most recent labs reviewed.
Micro Results:
05/12/25 20:42 Blood Culture - Final
Blood/Venous Staphylococcus haemolyticus
Gram Stain - Final
05/12/25 20:47 Blood Culture - Preliminary
Blood/Venous Staphylococcus epidermidis
Gram Stain - Preliminary
05/13/25 15:16 Blood Culture - Preliminary
Blood/Venous No Growth in 48 hours- Final report to follow
05/13/25 14:51 Blood Culture - Preliminary
Blood/Venous No Growth in 48 hours- Final report to follow
05/13/25 04:36 MRSA Screen - Final
Nose No Methicillin Resistant Staphylococcus aureus isolated.
05/12/25 23:49 Influenza Types A & B (ZOIE) - Final
Nasal Swab Negative for Influenza A & B, NAAT
Negative results must be combined with clinical observations
and patient history.
Nucleic Acid Amplification test (NAAT)performed on the
[employer] platform.
05/15/25 MRI abdomen: Cirrhosis and portal hypertension changes. Cholelithiasis and choledocholithiasis. Duodenitis. 7 mm pancreatic body cystic lesion without suspicious features, likely a pseudocyst or side branch intraductal papillary mucinous
neoplasm. Recommend follow-up MRI/MRCP abdomen without and with gadolinium contrast in one year per ACR criteria. Trace bilateral pleural effusions with associated atelectasis.
05/14/25 AXR: Mild gaseous distention of small and large bowel, without disproportionate dilatation of the small bowel or colon. Mild distention with liquid-appearing feces in the rectum.
05/13/25 CT a/p: VERY SEVERE HEPATIC CIRRHOSIS. VERY SEVERE PORTAL HYPERTENSION with a very large recannulated paraumbilical vein and extensive collateral varices in the extraperitoneal space around the urinary bladder. Cholelithiasis.
CHOLEDOCHOLITHIASIS and mild biliary dilatation. Moderate splenomegaly. Severe distention of the sigmoid colon and rectum with fluid suggesting an ACUTE PROCTOCOLITIS.
05/12/25 CXR: Mild airspace consolidation in the basilar right lower lobe. Moderate diffuse colonic distention.
--- NOTE | 2025-05-16 14:24 | W.PN.HOSP.TC ---
Today's Communication/Plan
-
Assessment / Plan
Assessment / Plan
NAD
Scleral Anicteric
MMM
No JVD
CTABL
RRR, S1/S2
Soft, NT, ND, BS+
Contracted upper extremity, atrophic upper and lower extremity muscle group
Warm, Dry
AAOx 3
Calm
Altered mental status appears to be improving. This could be related to hepatic encephalopathy or even sepsis. Cannot exclude hypoactive delirium.
Continue lactulose rifaximin
Continue to monitor mental status
Sepsis with coag negative staph, ?Contamination
Repeat cultures no growth to date
ID is following
DC vancomycin
Zosyn continued
Follow repeat blood cultures
?Biliary obstruction
Continue Zosyn previous
Follow LFT's
MRCP demonstrated pancreatic cyst, gallstones, choledocholithiasis
- For ERCP
Decompensated cirrhosis
GI following
Continue lactulose rifaximin
Hypernatremia with free water deficit
Improving continue to monitor
Hypokalemia
Replete
Acute hypoxic respiratory insufficiency
O2 88% RA, placed on 2L O2 NC, continue O2 and wean as tolerated
CXR without evidence for acute pathology
Bicytopenia with anemia and thrombocytopenia. Likely related to longstanding decompensated cirrhosis
DVT prophylaxis�Lovenox SQ
DNR per documentation from nursing facilityn
Anticipated Discharge: > 48 hours
Subjective/Interval History
-
Date of Service: May 16, 2025
Seen and examined. No new complaints. No acute overnight events.
Objective Data
-
Labs:
Laboratory Results
05/16/25
07:10
WBC 3.3 L
Hgb 9.1 L
Hct 27.4 L
Plt Count 66 L D
PT 22.1 H
INR 1.88
Sodium 141
Potassium 3.4 L
Chloride 119 H
Carbon Dioxide 19 L
BUN 11
Creatinine 0.8
Glucose 93
Calcium 8.1 L
Total Bilirubin 1.5 H D
AST 73 H
ALT 33
Alkaline Phosphatase 48
Vital Signs:
Vital Signs
Temp Pulse Resp BP Pulse Ox
98.4 F 69 16 165/77 98
05/16/25 11:43 05/16/25 11:43 05/16/25 11:43 05/16/25 11:43 05/16/25 11:43
I&O
05/15/25 05/16/25 05/17/25
06:59 06:59 06:59
Intake Total 3211 / 3211 1070 / 1070 240 / 240
Balance 3211 / 3211 1070 / 1070 240 / 240
[2025-05-16 15:10] VITALS: BP 148/69
[2025-05-16] MEDS: LOVENOX 40 MG SC (17:01)
--- NOTE | 2025-05-16 17:30 | CM ---
Patient continuing IV Zosyn. Still requiring acute care. Will f/u with facility and send clinical information so that [facility] has updated reports.
Plan: Case management will continue to follow and assist with discharge planning. Back to [facility] when stable.
[2025-05-16 19:35] VITALS: BP 120/68
[2025-05-16] MEDS: REMERON 7.5 MG PO (21:25)
[2025-05-16 23:40] VITALS: BP 137/75
[2025-05-17] VITALS (8 sets, daily range): BP systolic 16–168; BP diastolic 65–86
[2025-05-17] MEDS: ZOSYN 100 IV ×4 (05:41→23:00)
[2025-05-17] MEDS: DUPHALAC/CHRONULAC 20 GRAMS PO ×3 (07:53→21:49)
[2025-05-17] MEDS: CYMBALTA DELAYED RELEASE 60 MG PO (07:53)
[2025-05-17] MEDS: XIFAXAN 550 MG PO ×2 (07:54→19:50)
[2025-05-17 08:22] LABS: Hematocrit 28.4 % (37.0-47.0); Hemoglobin 9.3 g/dL (12.0-16.0); Mean Corp Hgb Conc. 32.7 g/dL (33.0-37.0); Mean Corpuscular Hgb 32.7 pg (27.0-31.0); Mean Platelet Volume 11.3 fL (7.4-10.4); Platelet Count 56 10^3/uL (130-400); Red Blood Cell Count 2.84 10^6/uL (4.20-5.40); Red Cell Dist. Width 16.4 % (11.5-14.5); White Blood Cell Count 2.5 10^3/uL (4.8-10.8)
[2025-05-17 08:31] LABS: INR 1.78; PT 21.2 Sec (11.4-14.6)
[2025-05-17 08:56] LABS: ALT (SGPT) 31 U/L (0-35); AST (SGOT) 51 U/L (14-36); Albumin 2.2 g/dl (3.5-5.0); Alkaline Phosphatase 46 U/L (38-126); Blood Urea Nitrogen 9 mg/dl (7-17); Calcium 8.1 mg/dl (8.4-10.2); Carbon Dioxide 23 mmol/L (22-30); Chloride 117 mmol/L (98-107); Estimated Creatinine Clearance 71 ml/min; Glucose 85 mg/dl (70-99); Potassium 3.4 mmol/L (3.5-5.1); Sodium 141 mmol/L (135-145); Total Bilirubin 1.1 mg/dl (0.2-1.3); Total Protein 4.6 g/dl (6.3-8.2); eGFR > 60.00
--- NOTE | 2025-05-17 10:13 | W.PN.ID1 ---
Date of Service
Date of Service: May 17, 2025
Today's Communication
Continue Zosyn
Assessment / Plan
# Low grade fevers resolved
# Relative leukocytosis, improving
# Acute Hepatic encephalopathy - improving with lactulose
# cirrhosis
# Coag-neg staph bacteremia = contaminant
# Chronic pancytopenia due to cirrhosis
- MRI +duodenitis, pancreatic cysts, gallstones, choledocholithiasis
- For ERCP today
- Repeat blood cx's neg to date
- Continue Zosyn for now pending ERCP findings.
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
Cirrhosis
CVA
Dysphagia
Pancytopenia
Depression/anxiety
Osteoporosis
Chief Complaint
-: Clinical Sepsis
Subjective / Review of Systems
No pain. No cough.
Vital Signs / Physical Exam
Vital Signs
Vital Signs
Temp Pulse Resp BP Pulse Ox
98 F 70 16 168/72 96
05/17/25 07:45 05/17/25 07:45 05/17/25 07:45 05/17/25 07:45 05/17/25 08:05
Physical Exam
Constitutional: No Acute Distress and Comfortable
Cardiovascular: Regular Rate and S1/S2
Gastrointestinal: Soft, Non Tender, Non Distended and Normal Bowel Sounds
Extremities: Negative Edema
Neurological: Awake and Alert
Objective Data
Lab Data
Lab Results
05/17/25 07:31
05/17/25 07:31
PT 21.2 Sec (11.4-14.6) H 05/17/25 07:31
INR 1.78 05/17/25 07:31
Estimated Creat Clear 71 ml/min 05/17/25 07:31
Lactic Acid 3.1 mmol/L (0.7-2.0) H 05/14/25 17:09
Total Bilirubin 1.1 mg/dl (0.2-1.3) 05/17/25 07:31
AST 51 U/L (14-36) H 05/17/25 07:31
ALT 31 U/L (0-35) 05/17/25 07:31
Alkaline Phosphatase 46 U/L (38-126) 05/17/25 07:31
Most recent labs reviewed.
Micro Results:
05/13/25 15:16 Blood Culture - Preliminary
Blood/Venous No Growth in 72 hours- Final report to follow
05/13/25 14:51 Blood Culture - Preliminary
Blood/Venous No Growth in 72 hours- Final report to follow
05/12/25 20:42 Blood Culture - Final
Blood/Venous Staphylococcus haemolyticus
Gram Stain - Final
05/12/25 20:47 Blood Culture - Preliminary
Blood/Venous Staphylococcus epidermidis
Gram Stain - Preliminary
05/13/25 04:36 MRSA Screen - Final
Nose No Methicillin Resistant Staphylococcus aureus isolated.
05/12/25 23:49 Influenza Types A & B (ZOIE) - Final
Nasal Swab Negative for Influenza A & B, NAAT
Negative results must be combined with clinical observations
and patient history.
Nucleic Acid Amplification test (NAAT)performed on the
[employer] platform.
05/15/25 MRI abdomen: Cirrhosis and portal hypertension changes. Cholelithiasis and choledocholithiasis. Duodenitis. 7 mm pancreatic body cystic lesion without suspicious features, likely a pseudocyst or side branch intraductal papillary mucinous
neoplasm. Recommend follow-up MRI/MRCP abdomen without and with gadolinium contrast in one year per ACR criteria. Trace bilateral pleural effusions with associated atelectasis.
05/14/25 AXR: Mild gaseous distention of small and large bowel, without disproportionate dilatation of the small bowel or colon. Mild distention with liquid-appearing feces in the rectum.
05/13/25 CT a/p: VERY SEVERE HEPATIC CIRRHOSIS. VERY SEVERE PORTAL HYPERTENSION with a very large recannulated paraumbilical vein and extensive collateral varices in the extraperitoneal space around the urinary bladder. Cholelithiasis.
CHOLEDOCHOLITHIASIS and mild biliary dilatation. Moderate splenomegaly. Severe distention of the sigmoid colon and rectum with fluid suggesting an ACUTE PROCTOCOLITIS.
05/12/25 CXR: Mild airspace consolidation in the basilar right lower lobe. Moderate diffuse colonic distention.
--- NOTE | 2025-05-17 10:41 | W.PN.GI.CBS2 ---
Addendum entered and electronically signed by Jackie Pires MD 05/17/25 10:57:
unfortunately no platelets in hospital d/w Dr. Valencia will move forward with ERCP and do small sphincterotomy
Original Note:
Today's Communication / Plan
-
ercp
Assessment / Plan
-
59-year-old female past medical history of stroke, cirrhosis presenting with encephalopathy due to not taking lactulose noncompliance and infection - had a fever on admission Tmax 100.8. Possible pneumonia on x-ray, blood culture negative for
growth, UA negative. MRI with CBD stone. Mental status continues to improve, oriented, remembers discussion of ERCP. Reviewed r/a/b of ERCP inc but not limited to bleeding, infection, perforation, pancreatitis. At time of ERCP will also assess
for varices. Pending ERCP plan for surgical eval for possible fatoumata. D/w brother briefly today via phone about ERCP all questions previously answered.
Recommend to continue lactulose, xifaxan, antibiotics. Plan ERCP today, on d/w Dr. Valencia will give one unit of platelets.
D/w hospitalist.
Subjective
Subjective
Date of Service: May 17, 2025
oriented no complaitns, no fevers
Objective
Data Reviewed
Laboratory Data:
Laboratory Results
05/17/25 07:31
05/17/25 07:31
Laboratory Results
PT 21.2 Sec (11.4-14.6) H 05/17/25 07:31
INR 1.78 05/17/25 07:31
Phosphorus 2.4 mg/dl (2.5-4.5) L 05/15/25 07:11
Magnesium 1.7 mg/dl (1.6-2.3) 05/15/25 07:11
Total Bilirubin 1.1 mg/dl (0.2-1.3) 05/17/25 07:31
AST 51 U/L (14-36) H 05/17/25 07:31
ALT 31 U/L (0-35) 05/17/25 07:31
Alkaline Phosphatase 46 U/L (38-126) 05/17/25 07:31
Lipase 105 U/L (23-300) 05/15/25 07:11
Vital Signs and I&O:
Vital Signs
Temp Pulse Resp BP Pulse Ox
98 F 70 16 168/72 96
05/17/25 07:45 05/17/25 07:45 05/17/25 07:45 05/17/25 07:45 05/17/25 08:05
I&O
05/16/25 05/17/25 05/18/25
06:59 06:59 06:59
Intake Total 1070 / 1070 680 / 680
Balance 1070 / 1070 680 / 680
Physical Exam
Physical Exam
GI: Non Distended and Non Tender
--- NOTE | 2025-05-17 14:07 | W.PN.UPDATE ---
Addendum entered and electronically signed by Harish Valencia MD 05/17/25 14:27:
Attempted to call patient's brother to update EGD results but unable to get through
Original Note:
Update Note
Progress Note Update
patient was scheduled for ERCP/ EGD today. This am platelets 56 . INR 1.78. she is asymptomatic. Liver test - bilirubin normal.
will hold off on ERCP with sphicterotomy today ( no platelets available in the hospital. Needs to order from [facility] [employer] ). will repeat CBC in am and request platelets for am transfusion prior to ERCP/ stone removal
Will proceed with EGD for variceal screening today.
plan discussed with patient / hospitalist / GI team
--- NOTE | 2025-05-17 15:52 | W.PN.HOSP.TC ---
Today's Communication/Plan
-
Assessment / Plan
Assessment / Plan
NAD
Scleral Anicteric
MMM
No JVD
CTABL
RRR, S1/S2
Soft, NT, ND, BS+
Contracted upper extremity, atrophic upper and lower extremity muscle group
Warm, Dry
AAOx 3
Calm
Altered mental status appears to be improving. This could be related to hepatic encephalopathy or even sepsis. Cannot exclude hypoactive delirium.
Continue lactulose rifaximin
Continue to monitor mental status
For EGD
Sepsis with coag negative staph, ?Contamination
Repeat cultures no growth to date
ID is following
DC vancomycin
Zosyn continued
Follow repeat blood cultures
?Biliary obstruction
Continue Zosyn previous
Follow LFT's
MRCP demonstrated pancreatic cyst, gallstones, choledocholithiasis
- For ERCP
Chronic thrombocytopenia likely related to longstanding cirrhosis
For ERCP tomorrow therefore GI has requested 1 unit of platelets to be provided
Provide 1 unit of platelets, consent obtained on chart, type and screen ordered along with 1 unit
Decompensated cirrhosis
GI following
Continue lactulose rifaximin
Hypernatremia with free water deficit
Improving continue to monitor
Hypokalemia
Replete
Acute hypoxic respiratory insufficiency
O2 88% RA, placed on 2L O2 NC, continue O2 and wean as tolerated
CXR without evidence for acute pathology
Bicytopenia with anemia and thrombocytopenia. Likely related to longstanding decompensated cirrhosis
DVT prophylaxis�Lovenox SQ
DNR per documentation from nursing facilityn
Anticipated Discharge: 24 - 48 hours
Subjective/Interval History
-
Date of Service: May 17, 2025
Seen and examined. No new complaints. No acute overnight events.
Objective Data
-
Labs:
Laboratory Results
05/17/25
07:31
WBC 2.5 L
Hgb 9.3 L
Hct 28.4 L
Plt Count 56 L
PT 21.2 H
INR 1.78
Sodium 141
Potassium 3.4 L
Chloride 117 H
Carbon Dioxide 23
BUN 9
Creatinine 0.8
Glucose 85
Calcium 8.1 L
Total Bilirubin 1.1
AST 51 H
ALT 31
Alkaline Phosphatase 46
Vital Signs:
Vital Signs
Temp Pulse Resp BP Pulse Ox
98 F 69 16 159/85 97
05/17/25 15:27 05/17/25 15:27 05/17/25 15:27 05/17/25 15:27 05/17/25 15:27
I&O
05/16/25 05/17/25 05/18/25
06:59 06:59 06:59
Intake Total 1070 / 1070 680 / 680
Balance 1070 / 1070 680 / 680
[2025-05-17] MEDS: LOVENOX 40 MG SC (17:02)
[2025-05-17] MEDS: PROTONIX 40 MG PO (19:50)
[2025-05-17] MEDS: REMERON 7.5 MG PO (21:49)
[2025-05-18] VITALS (13 sets, daily range): BP systolic 106–153; BP diastolic 63–92
[2025-05-18] MEDS: ZOSYN 100 IV (05:20)
[2025-05-18 08:10] LABS: INR 1.52; PT 18.5 Sec (11.4-14.6)
[2025-05-18] MEDS: DUPHALAC/CHRONULAC PO (08:16)
[2025-05-18] MEDS: CYMBALTA DELAYED RELEASE PO (08:16)
[2025-05-18] MEDS: XIFAXAN PO (08:17)
[2025-05-18] MEDS: PROTONIX PO (08:17)
[2025-05-18 08:18] LABS: Hematocrit 28.6 % (37.0-47.0); Hemoglobin 9.5 g/dL (12.0-16.0); Mean Corp Hgb Conc. 33.2 g/dL (33.0-37.0); Mean Corpuscular Hgb 32.8 pg (27.0-31.0); Mean Corpuscular Volume 98.6 fL (81.0-99.0); Mean Platelet Volume 11.2 fL (7.4-10.4); Platelet Count 49 10^3/uL (130-400); Red Cell Dist. Width 16.2 % (11.5-14.5); White Blood Cell Count 1.8 10^3/uL (4.8-10.8)
[2025-05-18 08:38] LABS: ALT (SGPT) 31 U/L (0-35); AST (SGOT) 46 U/L (14-36); Albumin 2.4 g/dl (3.5-5.0); Alkaline Phosphatase 50 U/L (38-126); Blood Urea Nitrogen 7 mg/dl (7-17); Carbon Dioxide 21 mmol/L (22-30); Chloride 116 mmol/L (98-107); Estimated Creatinine Clearance 81 ml/min; Glucose 79 mg/dl (70-99); Potassium 3.3 mmol/L (3.5-5.1); Sodium 139 mmol/L (135-145); Total Bilirubin 1.7 mg/dl (0.2-1.3); Total Protein 4.8 g/dl (6.3-8.2); eGFR > 60.00
--- NOTE | 2025-05-18 09:53 | PTCARENOTE ---
Pt is recving platelets. Started infusion. At bedside, pt in no distress and vitals within normal limits
--- NOTE | 2025-05-18 09:56 | W.PN.ID1 ---
Date of Service
Date of Service: May 18, 2025
Today's Communication
- After ERCP, transition Zosyn (d6) to Augmentin 875mg po bid through 05/22.
Assessment / Plan
# Low grade fevers resolved
# Relative leukocytosis, improving
# Acute Hepatic encephalopathy - improving with lactulose
# cirrhosis
# Coag-neg staph bacteremia = contaminant
# Chronic pancytopenia due to cirrhosis
- MRI +duodenitis, pancreatic cysts, gallstones, choledocholithiasis
- 05/17/25 EGD non-bleeding duodenal ulcer
- Repeat blood cx's neg to date
- For ERCP today.
- After ERCP, transition Zosyn (d6) to Augmentin 875mg po bid through 05/22.
# Conditions [facility]
Cirrhosis
CVA
Dysphagia
Pancytopenia
Depression/anxiety
Osteoporosis
Chief Complaint
-: Clinical Sepsis
Subjective / Review of Systems
No complaints.
Vital Signs / Physical Exam
Vital Signs
Vital Signs
Temp Pulse Resp BP Pulse Ox
98.0 F 72 18 142/76 92
05/18/25 09:54 05/18/25 09:54 05/18/25 09:54 05/18/25 09:54 05/18/25 09:54
Physical Exam
Constitutional: No Acute Distress and Comfortable
Cardiovascular: Regular Rate and S1/S2
Gastrointestinal: Soft, Non Tender, Non Distended and Normal Bowel Sounds
Extremities: Negative Edema
Neurological: Awake and Alert
Objective Data
Lab Data
Lab Results
05/18/25 07:19
05/18/25 07:19
PT 18.5 Sec (11.4-14.6) H 05/18/25 07:19
INR 1.52 05/18/25 07:19
Estimated Creat Clear 81 ml/min 05/18/25 07:19
Lactic Acid 3.1 mmol/L (0.7-2.0) H 05/14/25 17:09
Total Bilirubin 1.7 mg/dl (0.2-1.3) H 05/18/25 07:19
AST 46 U/L (14-36) H 05/18/25 07:19
ALT 31 U/L (0-35) 05/18/25 07:19
Alkaline Phosphatase 50 U/L (38-126) 05/18/25 07:19
Most recent labs reviewed.
Micro Results:
05/13/25 15:16 Blood Culture - Preliminary
Blood/Venous No Growth in 4 days- Final report to follow
05/13/25 14:51 Blood Culture - Preliminary
Blood/Venous No Growth in 4 days- Final report to follow
05/12/25 20:42 Blood Culture - Final
Blood/Venous Staphylococcus haemolyticus
Gram Stain - Final
05/12/25 20:47 Blood Culture - Preliminary
Blood/Venous Staphylococcus epidermidis
Gram Stain - Preliminary
05/13/25 04:36 MRSA Screen - Final
Nose No Methicillin Resistant Staphylococcus aureus isolated.
05/12/25 23:49 Influenza Types A & B (ZOIE) - Final
Nasal Swab Negative for Influenza A & B, NAAT
Negative results must be combined with clinical observations
and patient history.
Nucleic Acid Amplification test (NAAT)performed on the
[employer] platform.
05/15/25 MRI abdomen: Cirrhosis and portal hypertension changes. Cholelithiasis and choledocholithiasis. Duodenitis. 7 mm pancreatic body cystic lesion without suspicious features, likely a pseudocyst or side branch intraductal papillary mucinous
neoplasm. Recommend follow-up MRI/MRCP abdomen without and with gadolinium contrast in one year per ACR criteria. Trace bilateral pleural effusions with associated atelectasis.
05/14/25 AXR: Mild gaseous distention of small and large bowel, without disproportionate dilatation of the small bowel or colon. Mild distention with liquid-appearing feces in the rectum.
05/13/25 CT a/p: VERY SEVERE HEPATIC CIRRHOSIS. VERY SEVERE PORTAL HYPERTENSION with a very large recannulated paraumbilical vein and extensive collateral varices in the extraperitoneal space around the urinary bladder. Cholelithiasis.
CHOLEDOCHOLITHIASIS and mild biliary dilatation. Moderate splenomegaly. Severe distention of the sigmoid colon and rectum with fluid suggesting an ACUTE PROCTOCOLITIS.
05/12/25 CXR: Mild airspace consolidation in the basilar right lower lobe. Moderate diffuse colonic distention.
Care Review
Plan reviewed with: Physician (Dr. Reinier Espino)
[2025-05-18 10:10] LABS: % Immature Granulocytes 0.6 % (0-0.5); % Lymphocytes 23.9 % (20.5-51.1); % Monocytes 13.9 % (1.7-9.3); % Neutrophils 56.6 % (42.2-75.2); Absolute Eosinophils 0.1 10^3/uL (0-0.7); Absolute Lymphocytes 0.4 10^3/uL (1.2-3.4); Absolute Monocytes 0.3 10^3/uL (0.1-0.6); Nucleated Red Blood Cells % 0 %
--- NOTE | 2025-05-18 14:10 | W.PN.HOSP.TC ---
Today's Communication/Plan
-
Assessment / Plan
Assessment / Plan
NAD
Scleral Anicteric
MMM
No JVD
CTABL
RRR, S1/S2
Soft, NT, ND, BS+
Contracted upper extremity, atrophic upper and lower extremity muscle group
Warm, Dry
AAOx 3
Calm
Altered mental status appears to be improving. This could be related to hepatic encephalopathy or even sepsis. Cannot exclude hypoactive delirium.
Continue lactulose rifaximin
Continue to monitor mental status
Sepsis with coag negative staph, ?Contamination
Repeat cultures no growth to date
ID is following
DC vancomycin
Zosyn continued
Follow repeat ngtd
?Biliary obstruction
Continue Zosyn previous
Follow LFT's
MRCP demonstrated pancreatic cyst, gallstones, choledocholithiasis
S/p ERCP (05/18), with stone removal and sphincterotomy. Surgery follow-up for cholecystectomy
Chronic thrombocytopenia likely related to longstanding cirrhosis
For ERCP tomorrow therefore GI has requested 1 unit of platelets to be provided
S/p 1i plt on (05/18)
Decompensated cirrhosis
GI following
Continue lactulose rifaximin
EGD (05/17) Grade 1 esophageal varices, small hiatal hernia, nonobstructing scad scaring, gastritis, nonbleeding duodenal ulcer, Protonix 40 mg p.o. twice daily for 6 weeks then daily thereafter
Hypernatremia
Resolved
Tolerating diet
Hypokalemia
Replete
Acute hypoxic respiratory insufficiency
Resolved
Bicytopenia with anemia and thrombocytopenia. Likely related to longstanding decompensated cirrhosis
DVT prophylaxis�Lovenox SQ
DNR per documentation from nursing facilityn
Anticipated Discharge: > 48 hours
Subjective/Interval History
-
Date of Service: May 18, 2025
Seen and examined. No new complaints. No acute overnight events.
States that she is staying positive
Getting 1 unit of platelets
Objective Data
-
Labs:
Laboratory Results
05/18/25
07:19
WBC 1.8 L*
Hgb 9.5 L
Hct 28.6 L
Plt Count 49 L
PT 18.5 H
INR 1.52
Sodium 139
Potassium 3.3 L
Chloride 116 H
Carbon Dioxide 21 L
BUN 7
Creatinine 0.7
Glucose 79
Calcium 8.0 L
Total Bilirubin 1.7 H
AST 46 H
ALT 31
Alkaline Phosphatase 50
Vital Signs:
Vital Signs
Temp Pulse Resp BP Pulse Ox
97.5 F 62 10 153/73 95
05/18/25 12:45 05/18/25 12:45 05/18/25 12:45 05/18/25 12:45 05/18/25 12:45
I&O
05/17/25 05/18/25 05/19/25
06:59 06:59 06:59
Intake Total 680 / 680 960 / 960 268 / 268
Balance 680 / 680 960 / 960 268 / 268
[2025-05-18] MEDS: KCL 270 MEQ IV (14:29)
[2025-05-18] MEDS: KCL 40 MEQ PO (14:30)
--- NOTE | 2025-05-18 15:26 | PN.CDI ---
CDI
- -
CDI:
Physician Documentation Request
Admit Date: 05/13/25 02:00
Dear Doctor Erik,
Patient admitted with sepsis.
05/17 Endoscopy Procedure, 'Duodenal ulcer.'
Please clarify which of the following accurately represents the acuity of the duodenal ulcer:
Acute
Acute on chronic
Chronic
Use of terms such as suspected, likely, concern for, or probable (associated with a specific diagnosis that is being evaluated, monitored, or treated as if it exists) are acceptable and can be coded in the inpatient setting, when documented at the
time of discharge.
Thank you,
Mala STEELE,RN,CCDS
CDI Specialist
Available via [place] text
Please use your independent medical judgment in providing your response.
[2025-05-18] MEDS: DUPHALAC/CHRONULAC 20 GRAMS PO ×2 (17:12→21:47)
[2025-05-18] MEDS: REMERON 7.5 MG PO (21:47)
[2025-05-18] MEDS: AUGMENTIN 875 MG/125 MG 1 TABLET PO (21:47)
[2025-05-18] MEDS: PROTONIX 40 MG PO (21:47)
[2025-05-18] MEDS: XIFAXAN 550 MG PO (21:47)
[2025-05-19 07:57] VITALS: BP 144/71
[2025-05-19] MEDS: PROTONIX 40 MG PO ×2 (08:34→21:28)
[2025-05-19] MEDS: DUPHALAC/CHRONULAC 20 GRAMS PO ×3 (08:34→21:28)
[2025-05-19] MEDS: AUGMENTIN 875 MG/125 MG 1 TABLET PO ×2 (08:34→21:28)
[2025-05-19] MEDS: CYMBALTA DELAYED RELEASE 60 MG PO (08:34)
[2025-05-19] MEDS: XIFAXAN 550 MG PO ×2 (08:34→21:28)
[2025-05-19 09:32] LABS: Hematocrit 31.3 % (37.0-47.0); Hemoglobin 10.4 g/dL (12.0-16.0); Mean Corp Hgb Conc. 33.2 g/dL (33.0-37.0); Mean Corpuscular Hgb 32.9 pg (27.0-31.0); Mean Corpuscular Volume 99.1 fL (81.0-99.0); Mean Platelet Volume 10.5 fL (7.4-10.4); Platelet Count 88 10^3/uL (130-400); Red Blood Cell Count 3.16 10^6/uL (4.20-5.40); Red Cell Dist. Width 16.5 % (11.5-14.5)
[2025-05-19 10:17] LABS: Blood Urea Nitrogen 12 mg/dl (7-17); Calcium 8.5 mg/dl (8.4-10.2); Carbon Dioxide 23 mmol/L (22-30); Chloride 115 mmol/L (98-107); Estimated Creatinine Clearance 81 ml/min; Glucose 118 mg/dl (70-99); Potassium 3.8 mmol/L (3.5-5.1); Sodium 142 mmol/L (135-145); eGFR > 60.00
--- NOTE | 2025-05-19 10:37 | W.PN.ID1 ---
Date of Service
Date of Service: May 19, 2025
Today's Communication
- Continue Augmentin 875mg po bid through 05/23.
Assessment / Plan
# fevers resolved
# Choledocholithiasis s/p ERCP stone removal 05/18.
# Hepatic encephalopathy -resolved
# cirrhosis
# Coag-neg staph bacteremia = contaminant
# Chronic pancytopenia due to cirrhosis
- MRI +duodenitis, pancreatic cysts, gallstones, choledocholithiasis
- 05/17/25 EGD non-bleeding duodenal ulcer
- 05/18/25 ERCP sphincterotomy, removal of sludge and stones from CBD
- s/p Zosyn x 5d
- Continue Augmentin 875mg po bid through 05/23.
# Conditions [facility]
Cirrhosis
CVA
Dysphagia
Pancytopenia
Depression/anxiety
Osteoporosis
Chief Complaint
-: Clinical Sepsis
Subjective / Review of Systems
Feels good.
Vital Signs / Physical Exam
Vital Signs
Vital Signs
Temp Pulse Resp BP Pulse Ox
98 F 76 18 144/71 97
05/19/25 07:57 05/19/25 07:57 05/19/25 07:57 05/19/25 07:57 05/19/25 07:57
Physical Exam
Constitutional: No Acute Distress and Comfortable
Cardiovascular: Regular Rate and S1/S2
Pulmonary: Clear
Gastrointestinal: Soft, Non Tender and Non Distended
Genito-Urinary: Negative CVA Tenderness
Extremities: Negative Edema
Neurological: AO x 3
Objective Data
Lab Data
Lab Results
05/19/25 08:57
05/19/25 08:57
PT 18.5 Sec (11.4-14.6) H 05/18/25 07:19
INR 1.52 05/18/25 07:19
Estimated Creat Clear 81 ml/min 05/19/25 08:57
Lactic Acid 3.1 mmol/L (0.7-2.0) H 05/14/25 17:09
Total Bilirubin 1.7 mg/dl (0.2-1.3) H 05/18/25 07:19
AST 46 U/L (14-36) H 05/18/25 07:19
ALT 31 U/L (0-35) 05/18/25 07:19
Alkaline Phosphatase 50 U/L (38-126) 05/18/25 07:19
Most recent labs reviewed.
Micro Results:
05/13/25 15:16 Blood Culture - Final
Blood/Venous No Growth - Final Report
05/13/25 14:51 Blood Culture - Final
Blood/Venous No Growth - Final Report
05/12/25 20:42 Blood Culture - Final
Blood/Venous Staphylococcus haemolyticus
Gram Stain - Final
05/12/25 20:47 Blood Culture - Preliminary
Blood/Venous Staphylococcus epidermidis
Gram Stain - Preliminary
05/13/25 04:36 MRSA Screen - Final
Nose No Methicillin Resistant Staphylococcus aureus isolated.
05/12/25 23:49 Influenza Types A & B (ZOIE) - Final
Nasal Swab Negative for Influenza A & B, NAAT
Negative results must be combined with clinical observations
and patient history.
Nucleic Acid Amplification test (NAAT)performed on the
[employer] platform.
05/15/25 MRI abdomen: Cirrhosis and portal hypertension changes. Cholelithiasis and choledocholithiasis. Duodenitis. 7 mm pancreatic body cystic lesion without suspicious features, likely a pseudocyst or side branch intraductal papillary mucinous
neoplasm. Recommend follow-up MRI/MRCP abdomen without and with gadolinium contrast in one year per ACR criteria. Trace bilateral pleural effusions with associated atelectasis.
05/14/25 AXR: Mild gaseous distention of small and large bowel, without disproportionate dilatation of the small bowel or colon. Mild distention with liquid-appearing feces in the rectum.
05/13/25 CT a/p: VERY SEVERE HEPATIC CIRRHOSIS. VERY SEVERE PORTAL HYPERTENSION with a very large recannulated paraumbilical vein and extensive collateral varices in the extraperitoneal space around the urinary bladder. Cholelithiasis.
CHOLEDOCHOLITHIASIS and mild biliary dilatation. Moderate splenomegaly. Severe distention of the sigmoid colon and rectum with fluid suggesting an ACUTE PROCTOCOLITIS.
05/12/25 CXR: Mild airspace consolidation in the basilar right lower lobe. Moderate diffuse colonic distention.
--- NOTE | 2025-05-19 11:24 | W.PN.GI.CBS2 ---
Addendum entered and electronically signed by Harish Valencai MD 05/19/25 13:15:
Clarification
EGD
duodenal ulcer- acute
Original Note:
Today's Communication / Plan
-
Follow-up a.m. labs
PPI twice daily for 8 weeks then daily
Follow-up with GI/hepatology as outpatient
Assessment / Plan
-
59-year-old female past medical history of stroke, cirrhosis presenting with encephalopathy due to not taking lactulose noncompliance and infection - had a fever on admission Tmax 100.8. Possible pneumonia on x-ray, blood culture negative for
growth, UA negative. MRI with CBD stone. Mental status back to baseline
-- Decompensated cirrhosis - presumed secondary to ETOH use in the past
-- Hepatic encephalopathy- currently resolved
-- History of stroke- r/ hemiplegia
-- CBD stone- s/p ERCP with removal of stones
-- Duodenal ulcer
-- pancreatic cyst
EGD 05/17
Impression: - Grade I esophageal varices.
- Small hiatal hernia.
- Non-obstructing Schatzki ring.
- Gastritis.
- Non-bleeding duodenal ulcer.
- Normal second portion of the duodenum.
ERCP 05/18
Impression: - A filling defect consistent with a stone was seen on
the cholangiogram.
- Choledocholithiasis was found. Complete removal was
accomplished by biliary sphincterotomy and balloon
extraction.
- A biliary sphincterotomy was performed.
- The biliary tree was swept
plan
Patient is clinically doing well. Okay to advance diet
Follow-up a.m. labs
Continue PPI twice daily for 8 weeks then daily. Avoid NSAIDs
Recommend outpatient surgical follow-up for eventual cholecystectomy.
Recommend outpatient GI/hepatology follow-up for liver cirrhosis
Advised on compliance with medication. Continue lactulose/rifaximin
No further recommendation at this point. Will sign off. Please call us back if any questions
Total Time Spent with Patient (in minutes): 35
Subjective
Subjective
Date of Service: May 19, 2025
Denies any abdominal pain/nausea/vomiting. Bowel movements regular normal
Objective
Data Reviewed
Laboratory Data:
Laboratory Results
05/19/25 08:57
05/19/25 08:57
Laboratory Results
PT 18.5 Sec (11.4-14.6) H 05/18/25 07:19
INR 1.52 05/18/25 07:19
Phosphorus 2.4 mg/dl (2.5-4.5) L 05/15/25 07:11
Magnesium 1.7 mg/dl (1.6-2.3) 05/15/25 07:11
Total Bilirubin 1.7 mg/dl (0.2-1.3) H 05/18/25 07:19
AST 46 U/L (14-36) H 05/18/25 07:19
ALT 31 U/L (0-35) 05/18/25 07:19
Alkaline Phosphatase 50 U/L (38-126) 05/18/25 07:19
Lipase 105 U/L (23-300) 05/15/25 07:11
Vital Signs and I&O:
Vital Signs
Temp Pulse Resp BP Pulse Ox
98 F 76 18 144/71 97
05/19/25 07:57 05/19/25 07:57 05/19/25 07:57 05/19/25 07:57 05/19/25 08:50
I&O
05/18/25 05/19/25 05/20/25
06:59 06:59 06:59
Intake Total 960 / 960 268 / 268 480 / 480
Balance 960 / 960 268 / 268 480 / 480
Physical Exam
Physical Exam
GI: Soft, Non Distended and Non Tender
[2025-05-19 12:12] LABS: ALT (SGPT) 32 U/L (0-35); AST (SGOT) 46 U/L (14-36); Alkaline Phosphatase 54 U/L (38-126); Direct Bilirubin 0.3 mg/dl (0.0-0.4); Total Bilirubin 1.1 mg/dl (0.2-1.3); Total Protein 5.8 g/dl (6.3-8.2)
--- NOTE | 2025-05-19 13:01 | W.PN.HOSP.TC ---
Today's Communication/Plan
-
Assessment / Plan
Assessment / Plan
NAD
Scleral Anicteric
MMM
No JVD
CTABL
RRR, S1/S2
Soft, NT, ND, BS+
Contracted upper extremity, atrophic upper and lower extremity muscle group
Warm, Dry
AAOx 3
Calm
Altered mental status appears to be improving. This could be related to hepatic encephalopathy or even sepsis. Cannot exclude hypoactive delirium.
Continue lactulose rifaximin
Continue to monitor mental status
Sepsis with coag negative staph, ?Contamination
Repeat cultures no growth to date
ID is following
DC vancomycin
Zosyn continued
Follow repeat ngtd
Biliary obstruction
Continue Zosyn previous
Follow LFT's
MRCP demonstrated pancreatic cyst, gallstones, choledocholithiasis
S/p ERCP (05/18), with stone removal and sphincterotomy. Surgery follow-up for cholecystectomy
Chronic thrombocytopenia likely related to longstanding cirrhosis
ERCP demonstrated filling defect consistent with stone on angiogram. Choledocholithiasis with complete removal accomplished by biliary sphincterectomy and balloon extraction and the biliary tree was swept.
S/p 1u plt on (05/18)
Duodenal ulcer, unknown chronicity
Endoscopic procedure shows duodena
PPI BID for 6weeks followed by daily PPI
Bx follow up with outpatient gi
Decompensated cirrhosis
GI following
Continue lactulose rifaximin
EGD (05/17) Grade 1 esophageal varices, small hiatal hernia, nonobstructing scad scaring, gastritis, nonbleeding duodenal ulcer, Protonix 40 mg p.o. twice daily for 6 weeks then daily thereafter
Hypernatremia
Resolved
Tolerating diet
Hypokalemia
Replete
Acute hypoxic respiratory insufficiency
Resolved
Bicytopenia with anemia and thrombocytopenia. Likely related to longstanding decompensated cirrhosis
DVT prophylaxis�Lovenox SQ
DNR per documentation from nursing facility
Plan to resume diet today, if tolerates well then plan to dc to snf tomorrow
Anticipated Discharge: 24 - 48 hours
Subjective/Interval History
-
Date of Service: May 19, 2025
Seen and examined. No new complaints. No acute overnight events.
Objective Data
-
Labs:
Laboratory Results
05/19/25
08:57
WBC 6.0
Hgb 10.4 L
Hct 31.3 L
Plt Count 88 L D
Sodium 142
Potassium 3.8
Chloride 115 H
Carbon Dioxide 23
BUN 12
Creatinine 0.7
Glucose 118 H
Calcium 8.5
Total Bilirubin 1.1
AST 46 H
ALT 32
Alkaline Phosphatase 54
Vital Signs:
Vital Signs
Temp Pulse Resp BP Pulse Ox
98 F 76 18 144/71 97
05/19/25 07:57 05/19/25 07:57 05/19/25 07:57 05/19/25 07:57 05/19/25 08:50
I&O
05/18/25 05/19/25 05/20/25
06:59 06:59 06:59
Intake Total 960 / 960 268 / 268 480 / 480
Balance 960 / 960 268 / 268 480 / 480
[2025-05-19 15:15] VITALS: BP 160/71
[2025-05-19] MEDS: REMERON 7.5 MG PO (21:28)
[2025-05-19 23:49] VITALS: BP 156/73
[2025-05-20 07:30] LABS: % Basophils 0.3 % (0-2); % Eosinophils 3.9 % (0-6); % Immature Granulocytes 0.3 % (0-0.5); % Lymphocytes 21.4 % (20.5-51.1); % Monocytes 12.2 % (1.7-9.3); % Neutrophils 61.9 % (42.2-75.2); Absolute Eosinophils 0.1 10^3/uL (0-0.7); Absolute Lymphocytes 0.7 10^3/uL (1.2-3.4); Absolute Monocytes 0.4 10^3/uL (0.1-0.6); Absolute Neutrophils 2.1 10^3/uL (1.4-6.5); Hemoglobin 9.5 g/dL (12.0-16.0); Mean Corp Hgb Conc. 32.8 g/dL (33.0-37.0); Mean Corpuscular Hgb 32.5 pg (27.0-31.0); Mean Corpuscular Volume 99.3 fL (81.0-99.0); Nucleated Red Blood Cells % 0 %; Platelet Count 62 10^3/uL (130-400); Red Blood Cell Count 2.92 10^6/uL (4.20-5.40); Red Cell Dist. Width 16.7 % (11.5-14.5); White Blood Cell Count 3.4 10^3/uL (4.8-10.8)
[2025-05-20 07:49] LABS: ALT (SGPT) 37 U/L (0-35); AST (SGOT) 58 U/L (14-36); Albumin 2.8 g/dl (3.5-5.0); Alkaline Phosphatase 70 U/L (38-126); Blood Urea Nitrogen 11 mg/dl (7-17); Calcium 8.2 mg/dl (8.4-10.2); Carbon Dioxide 21 mmol/L (22-30); Chloride 118 mmol/L (98-107); Estimated Creatinine Clearance 81 ml/min; Glucose 85 mg/dl (70-99); Potassium 3.4 mmol/L (3.5-5.1); Sodium 143 mmol/L (135-145); Total Bilirubin 0.9 mg/dl (0.2-1.3); Total Protein 5.5 g/dl (6.3-8.2); eGFR > 60.00
[2025-05-20 07:55] VITALS: BP 142/70
[2025-05-20] MEDS: DUPHALAC/CHRONULAC 20 GRAMS PO (08:14)
[2025-05-20] MEDS: CYMBALTA DELAYED RELEASE 60 MG PO (08:15)
[2025-05-20] MEDS: AUGMENTIN 875 MG/125 MG 1 TABLET PO (08:15)
[2025-05-20] MEDS: PROTONIX 40 MG PO (08:15)
[2025-05-20] MEDS: XIFAXAN 550 MG PO (08:15)
--- NOTE | 2025-05-20 10:10 | W.DCSUMMARY ---
Addendum entered and electronically signed by Reinier Espino MD 05/20/25 10:13:
59-year-old woman with past medical history significant for CVA, right hemiparesis and contractures, aphasia, alcohol cirrhosis with chronic pancytopenia, multiple admissions for with hepatic encephalopathy
Original Note:
Discharge Summary
Discharge Data
Date of Admission: 05/13/25
Date of Discharge: 05/20/25
-
Pending Results: No
Hospital Course
Presented with altered mental status suspected secondary to hepatic encephalopathy versus infectious etiology likely emanating from biliary source. Therefore her evaluated by gastroenterology and infectious diseases. Started on lactulose and
rifaximin and eventually transition to oral lactulose with improvement in mental status. Did require Dobbhoff placement. Fortunately, mental status improved to the point where Dobbhoff was removed and tube feeds were not initiated.
Blood cultures were positive however suspect that they were contamination. Therefore vancomycin was discontinued as this blood culture demonstrated coag negative staph. Repeat cultures were negative. Suspect sepsis emanated from biliary
obstruction and therefore was started on Zosyn and eventually transition to Augmentin per ID recommendations until 05/23/2025.
Should be noted underwent EGD for which demonstrated grade 1 esophageal varices, small hiatal hernia, nonobstructing scar, gastritis, nonbleeding duodenal ulcer, Protonix 40 mg p.o. BID for 6 weeks was GIs recommendations.
Additional imaging completed with MRCP that demonstrated pancreatic cyst, gallstones, cholelithiasis.
Went for a ERCP however prior to the ERCP due to low platelets 1 unit of platelets was provided. ERCP demonstrated filling defect consistent with stone on angiogram. Choledocholithiasis with complete removal accomplished by biliary sphincterectomy
and balloon extraction and the biliary tree was swept.
Seen and examined on the day of discharged. No new complaints. no acute overnight events
feels better. ready for discharge when bed available
NAD
Scleral Anicteric
MMM
No JVD
CTABL
RRR, S1/S2
Soft, NT, ND, BS+
Contracted upper extremity, atrophic upper and lower extremity muscle group
Warm, Dry
AAOx 3
Calm
Discharge Plan
-
Patient Disposition: Assisted/SNF
Discharge Diagnosis/Procedures: Decompensated cirrhosis
Choledocholithiasis
Condition: Fair
Diet: Low Fat, Low Cholesterol, 2 Gram Sodium and No added salt
Activity Restrictions/Additional Instructions:
Presented with altered mental status suspected secondary to hepatic encephalopathy versus infectious etiology likely emanating from biliary source. Therefore her evaluated by gastroenterology and infectious diseases. Started on lactulose and
rifaximin and eventually transition to oral lactulose with improvement in mental status. Did require Dobbhoff placement. Fortunately, mental status improved to the point where Dobbhoff was removed and tube feeds were not initiated.
Blood cultures were positive however suspect that they were contamination. Therefore vancomycin was discontinued as this blood culture demonstrated coag negative staph. Repeat cultures were negative. Suspect sepsis emanated from biliary
obstruction and therefore was started on Zosyn and eventually transition to Augmentin per ID recommendations until 05/23/2025.
Should be noted underwent EGD for which demonstrated grade 1 esophageal varices, small hiatal hernia, nonobstructing scar, gastritis, nonbleeding duodenal ulcer, Protonix 40 mg p.o. BID for 6 weeks was GIs recommendations.
Additional imaging completed with MRCP that demonstrated pancreatic cyst, gallstones, cholelithiasis.
Went for a ERCP however prior to the ERCP due to low platelets 1 unit of platelets was provided. ERCP demonstrated filling defect consistent with stone on angiogram. Choledocholithiasis with complete removal accomplished by biliary sphincterectomy
and balloon extraction and the biliary tree was swept.
Referrals:
Ryan David DO [Family Provider, Internal Medicine]
Castillo Shoemaker MD [Non-Admitting Privileges, Internal Medicine]
Referral Note: call to arrange hepatology evaluation in [place] for chronic cirrhosis
Marielena Dyson MD [Active, Gastroenterology]
Referral Note: follow up with Dr. Dyson or [facility] for chronic liver disease
Additional Discharge Medication Instructions: Augmentin twice daily until 05/23/2025
Protonix 40 mg p.o. twice daily x 6 weeks followed by daily indefinitely
Lactulose 20 mg 3 times daily goal daily bowel movements 3-4 daily
Prescriptions:
New
amoxicillin-pot clavulanate 875-125 mg Tablet
1 tab PO Q12 Qty: 10 0RF
pantoprazole 40 mg tablet,delayed release (DR/EC)
40 mg PO DAILY Qty: 84 0RF
lactulose 10 gram/15 mL Solution
20 g PO TID Qty: 3785 0RF
carvedilol [Coreg] 3.125 mg tablet
3.125 mg PO BID Qty: 60 0RF
Continued
thiamine HCl (vitamin B1) 100 mg Tablet
100 mg PO DAILY
ascorbic acid (vitamin C) 500 mg Tablet
500 mg PO DAILY
bisacodyl [Dulcolax (bisacodyl)] 10 mg Suppository
10 mg MI DAILYPRN PRN (Reason: if mom is ineffective)
sodium phosphates 19-7 gram/118 mL Enema
118 ml MI DAILYPRN PRN (Reason: if dulcolax is ineffective)
folic acid 1 mg Tablet
1 mg PO DAILY
mirtazapine [Remeron] 15 mg Tablet
7.5 mg PO HS
calcium carbonate-vitamin D3 [Calcium 600 + D(3)] 600 mg-10 mcg (400 unit) Tablet
1 tab PO BID
Xifaxan 550 mg Tablet
550 mg PO BID
acetaminophen 325 mg Tablet
650 mg PO Q6HPRN PRN (Reason: mild pain/temp>100.4)
trazodone 50 mg Tablet
50 mg PO HS
duloxetine 20 mg Capsule,Delayed Release(Dr/Ec)
80 mg PO DAILY
Rx Instructions:
take with 60mg for total of 80mg
magnesium hydroxide [Milk of Magnesia] 400 mg/5 mL Suspension
2,400 mg PO DAILYPRN PRN (Reason: CCONSTIPATION)
duloxetine 60 mg Capsule,Delayed Release(Dr/Ec)
60 mg PO DAILY Qty: 30 0RF
Discontinued
lactulose 10 gram/15 mL Solution
10 g PO DAILY
lactulose 10 gram/15 mL Solution
20 g PO TID Qty: 0 0RF
Discharge Orders:
Discharge Patient (As Directed); Ordered 05/20/25
Ordered By: Reinier Espino
Discharge Date and Time
Print Language: MAURITIAN
[2025-05-20] MEDS: COREG 3.125 MG PO (10:45)
[2025-05-20] MEDS: KCL 20 MEQ PO (10:45)
--- NOTE | 2025-05-20 11:56 | CM ---
Chart reviewed and clinical faxed to [facility], plan is for patient to return to [facility] today, rehabilitation case coordinator spoke with admissions. Patient will need Ambulance transport.
[facility]
Report [phone]
[2025-05-20 13:25] VITALS: BP 107/69
== END 2025-05-20 14:21 | DRG 871 ==
LOC: 4 EAST ACU 02:00
PROVIDERS: Internal Medicine; Internal Medicine Gastroenterology; Nurse Practitioner Adult Health; Nurse Practitioner Family; Physician Assistant; ADMITTING PHYSICIAN Internal Medicine; ATTENDING PHYSICIAN Hospitalist; CONSULT PHYSICIAN Internal Medicine Gastroenterology; EMERGENCY PHYSICIAN Student in an Organized Health Care Education/Training Program; FAMILY PHYSICIAN Internal Medicine; OTHER PHYSICIAN Internal Medicine Infectious Disease
PROC: 0DJ08ZZ Inspection of Upper Intestinal Tract, Via Natural or Artificial Opening Endoscopic (ICD-10-PCS; 2025-05-17)
PROC: 30233R1 Transfusion of Nonautologous Platelets into Peripheral Vein, Percutaneous Approach (ICD-10-PCS; 2025-05-18)
PROC: 0FC98ZZ Extirpation of Matter from Common Bile Duct, Via Natural or Artificial Opening Endoscopic (ICD-10-PCS; 2025-05-18)
DX: A41.9 Sepsis, unspecified organism (principal); G93.41 Metabolic encephalopathy; K86.2 Cyst of pancreas; I85.10 Secondary esophageal varices without bleeding; E87.0 Hyperosmolality and hypernatremia; I69.351 Hemiplegia and hemiparesis following cerebral infarction affecting right dominant side; D61.818 Other pancytopenia; E87.20 Acidosis, unspecified; N39.0 Urinary tract infection, site not specified; K76.6 Portal hypertension; R64 Cachexia; K26.3 Acute duodenal ulcer without hemorrhage or perforation; K80.70 Calculus of gallbladder and bile duct without cholecystitis without obstruction; K70.30 Alcoholic cirrhosis of liver without ascites; K76.82 Hepatic encephalopathy; K44.9 Diaphragmatic hernia without obstruction or gangrene; K29.70 Gastritis, unspecified, without bleeding; E87.6 Hypokalemia; D64.9 Anemia, unspecified; Z66 Do not resuscitate; D69.6 Thrombocytopenia, unspecified; I69.320 Aphasia following cerebral infarction; I69.391 Dysphagia following cerebral infarction; M81.0 Age-related osteoporosis without current pathological fracture; F51.01 Primary insomnia; K58.9 Irritable bowel syndrome, unspecified; F32.A Depression, unspecified; F41.9 Anxiety disorder, unspecified; Z96.612 Presence of left artificial shoulder joint; Z11.52 Encounter for screening for COVID-19; R09.02 Hypoxemia; Z79.899 Other long term (current) drug therapy; I10 Essential (primary) hypertension; K22.2 Esophageal obstruction; Z91.148 Patient's other noncompliance with medication regimen for other reason; Z68.20 Body mass index [BMI] 20.0-20.9, adult
CPT/HCPCS: 51701; 70450; 71045; 74018; 74177; 74183; 74330; 76000; 80048; 80053; 81003; 81015; 82105; 82140; 82248; 83605; 83690; 83735; 84100; 85025; 85027; 85610; 86706; 86850; 86900; 86901; 87040; 87070; 87147; 87150; 87186; 87205; 87340; 87502; 87811; 92526; 92610; 93005; 96365; 96375; 99285; A9581; C1769; P9073; Q9967

== ENCOUNTER 2025-05-21 23:38 | Observation (INO) | payer MEDICARE, OTHER, SELFPAY ==
[2025-05-21 16:36] VITALS: BP 127/85; BMI 21.6
[2025-05-21 17:23] LABS: Glucose - Point of Care 86 mg/dl (70-99)
[2025-05-21 17:49] LABS: % Basophils 0.3 % (0-2); % Eosinophils 3.2 % (0-6); % Immature Granulocytes 0.3 % (0-0.5); % Monocytes 14.3 % (1.7-9.3); % Neutrophils 67.9 % (42.2-75.2); Absolute Eosinophils 0.1 10^3/uL (0-0.7); Absolute Lymphocytes 0.4 10^3/uL (1.2-3.4); Absolute Monocytes 0.4 10^3/uL (0.1-0.6); Absolute Neutrophils 2.1 10^3/uL (1.4-6.5); Hematocrit 27.5 % (37.0-47.0); Hemoglobin 9.2 g/dL (12.0-16.0); Mean Corp Hgb Conc. 33.5 g/dL (33.0-37.0); Mean Corpuscular Hgb 33.2 pg (27.0-31.0); Mean Corpuscular Volume 99.3 fL (81.0-99.0); Mean Platelet Volume 12.5 fL (7.4-10.4); Nucleated Red Blood Cells % 0 %; Platelet Count 49 10^3/uL (130-400); Red Blood Cell Count 2.77 10^6/uL (4.20-5.40); Red Cell Dist. Width 16.9 % (11.5-14.5); White Blood Cell Count 3.1 10^3/uL (4.8-10.8)
[2025-05-21 17:53] LABS: ALT (SGPT) 32 U/L (0-35); AST (SGOT) 40 U/L (14-36); Albumin 2.6 g/dl (3.5-5.0); Alkaline Phosphatase 53 U/L (38-126); Blood Urea Nitrogen 9 mg/dl (7-17); Calcium 8.7 mg/dl (8.4-10.2); Carbon Dioxide 24 mmol/L (22-30); Chloride 117 mmol/L (98-107); Estimated Creatinine Clearance 96 ml/min; Glucose 89 mg/dl (70-99); Potassium 3.3 mmol/L (3.5-5.1); Sodium 142 mmol/L (135-145); Total Protein 5.3 g/dl (6.3-8.2); eGFR > 60.00
--- NOTE | 2025-05-21 17:54 | EDRN ---
This RN spoke w/ residential, as pt. appears to be at baseline mental status, and EMS original call was for [facility]. Per nurse who helps care for pt., 'my coworker thought she was acting different, like she was not responding to us when she was sitting
in a chair, but then I got her back to bed and took her vitals and she seemed fine to me'. Pt. arrives oriented x 4, without complaints, does have a slight slur to her speech and rt. sided weakness/contracted hand. Pt. states to this RN that this is
from previous stroke. Pt. did state to this RN, 'i do know they haven't been giving me my lactulose that I am suppsoed to get'. This RN spoke w/ Dr. Hampton concerning this information, CT head and ammonia level ordered per verbal orders.
[2025-05-21 17:58] LABS: Ammonia < 9 umol/L (9-30)
[2025-05-21 18:00] VITALS: BP 120/76
--- NOTE | 2025-05-21 18:05 | ED.GENMED ---
History of Present Illness
<Ana Huffman PA-C - Last Filed: 05/22/25 14:00>
General
Chief Complaint: Change in Mental Status
Source: [facility]
Exam Limitations: altered mental status
Time Seen by Provider: 05/21/25 17:56
Nursing documentation reviewed up to this point in time: agreed with
History of Present Illness
History of Present Illness:
TIME OF INITIAL EVALUATION
- 18:35
REVIEW OF OLD RECORDS
- Reviewed discharge summary from 05/20/2025 after admission for altered mental status secondary to suspected hepatic encephalopathy verse infectious process. Patient admitted for 8 days where she did undergo ERCP given choledocholithiasis and was
suspected to be septic secondary to biliary obstruction treated with IV antibiotics and transition to Augmentin which she should be taking until 05/23/2025.
CHIEF COMPLAINT(S)
Altered Mental Status
HISTORY OF PRESENT ILLNESS
Patient is a 59-year-old female presenting from [facility] for evaluation of altered mental status. Patient unable to contribute to history. Nurse who experienced patient's altered state was no longer working however it seems that at some point
today patient became more agitated and appeared confused. On arrival to emergency department patient appeared alert and oriented and at her baseline. She does not appear agitated on my initial evaluation.
Patient recently discharged from the hospital yesterday after admission for altered mental status suspected to be secondary to hepatic encephalopathy versus biliary tract infection. There is no history of recent trauma. No history of fevers today
or other symptoms of infection.
History taking extremely limited.
PHYSICAL EXAM
- Vitals: Vital signs stable. Afebrile
- General: Laying in bed in no distress. Nonverbal. Not following commands.
- HEENT: Moist oral mucosa
- Cardiovascular: No murmurs, normal heart rate, regular rhythm, No chest wall tenderness
- Pulmonary: No respiratory distress, breath sounds are clear and equal
- Abdomen: Nondistended. Nontender
- Neurologic: Alert. Right hemiparesis. Nonverbal. Not following commands.
- Psychiatric: Alert, intermittently agitate.
- Extremities: Right upper extremity contracted
- Skin: No rash, no lesions
RADIOLOGY
- Head CT without acute abnormalities
EKG
- NSR, 77bmp with LBBB and occassional PVCs
LABS
- CBC shows a pancytopenia which appears around patient's baseline. Chemistry shows mild hypokalemia however no significant elevations in LFTs or total bilirubin. Ammonia undetectable.
- UA somewhat equivocal for infection
UPDATE
- During ED stay patient became acutely agitated - similar as to what was described as occurring at [place]. Workup thus far unremarkable. However - will continue to search for source of AMS including UTI. Patient given 0.5 mg IV ativan to
decrease agitation and tolerate staight cath.
- It appears that patient may be having some involuntary muscle movements of the right side of her face. In light of AMS - Ceribell was placed to evaluate for possible seizure activity. Seizure burden detected at 0% following 1 hr.
- Patient appears in no distress - acute agitation seems to have resolved. Etiology of altered mental status unclear at this time - questionable metabolic encephalopathy vs infectious process vs seizure. She will require admission for further
management.
SUMMARY OF ENCOUNTER
The patient is a 59-year-old female who was recently discharged from the hospital and presents with altered mental status. She exhibited transient episodes of confusion and agitation. In the emergency department, there were periods of altered mental
status alternating with periods where she was alert and oriented. She required administration of medication to control agitation to obtain a urine sample. Lab results indicated pancytopenia, which appears to be baseline for the patient. Metabolic
panels were largely unremarkable, with normal bilirubin and liver function tests. Ammonia levels were undetectable, and the urinalysis was contaminated but showed no convincing evidence of infection. A CT scan of the head showed no abnormalities,
and Ceribel monitoring showed no evidence of seizure activity. Despite the absence of a definitive cause for the altered mental status, the decision was made to admit the patient for further observation and management due to concerns of potential
metabolic encephalopathy, dehydration, infection, or seizure activity.
DISPOSITION
The patient was admitted to the hospital for further monitoring and management of her condition. Plan to trend urine culture to determine need for antibiotic therapy.
INDEPENDENT REVIEW OF LABS AND INTERPRETATION OF TESTS
My independent review of the laboratory tests revealed pancytopenia, consistent with the patients baseline levels. Liver function tests and bilirubin levels were normal, ammonia levels were undetectable, and the contaminated urinalysis showed no
convincing evidence of infection. A CT scan of the head revealed no abnormalities. EEG testing did not show evidence of seizure activity.
MEDICATION RECONCILIATION
The patient received sedation to manage agitation during her stay in the emergency department.
MEDICAL DECISION MAKING
1. Number & Complexity of Problems: Chronic conditions affecting care: pancytopenia. Differential diagnoses considered included metabolic encephalopathy, dehydration, infection, and questionable seizure activity.
2. Data Reviewed:
- Category 1: Lab tests and imaging, including CBC, metabolic panels, urinalysis, CT scan, and EEG were ordered and reviewed.
- Category 2: External notes from recent hospitalization and independent historian accounts from her care facility were reviewed.
3. Risk: Consideration of admission was made due to the complexity and risk of the patients condition. The decision for inpatient management was made based on the need for close monitoring and further evaluation, despite stable vital signs in the
emergency department.
PATHOLOGIES TO CONSIDER
Metabolic encephalopathy, sepsis, dehydration, central nervous system infection, and potential seizure activity were considered given the patients presentation of altered mental status.
Past History
<Ana Huffman PA-C - Last Filed: 05/22/25 14:00>
Past History
ED Past Medical History: CVA (Right hemiparesis), HTN, Psychiatric and Other (Alcoholic cirrhosis with chronic pancytopenia, hepatic encephalopathy)
ED Past Surgical History: Orthopedic (Left shoulder)
Social History
Tobacco: Non-smoker
Alcohol: Former
Personal: Single
Living: penitentiary
Employment: Disabled
Family History
Family History: Other (Noncontributory)
Review of Systems
<Ana Huffman PA-C - Last Filed: 05/22/25 14:00>
Review of Systems
Allergies reviewed?: No
Phy Exam
<Ana Huffman PA-C - Last Filed: 05/22/25 14:00>
Physical Exam
Physical Exam:
See HPI
Course
<Ana Huffman PA-C - Last Filed: 05/22/25 14:00>
Orders/Labs/Results
Orders:
Orders
05/21/25 17:23
IV Insert/Care/Rem.- Treatment PRN
05/21/25 17:25
Complete Blood Count/With Diff Urgent
Comprehensive Metabolic Panel Urgent
Creatine Phosphokinase Urgent
Comment: ADDON
05/21/25 17:32
CT Head W/o Iv Contrast Urgent
Comment:
Reason For Exam: altered mental status per [place]
05/21/25 17:34
Ammonia Urgent
05/21/25 18:54
Electrocardiogram (*1) Urgent
Reason for Study: Fatigue / Weakness
EKG- Treatment ONCE
05/21/25 19:54
0.9% Sodium Chloride 1000 ml [Nss] 1,000 ml IV BOLUS
Acetaminophen [Tylenol/Feverall] 650 mg RECTAL NOW STA
Lorazepam [Ativan] 0.5 mg IV NOW STA
05/21/25 20:52
Ceribell [Rapid Point of Care EEG (ED/ICU ONLY)] Q1H
Indications for use:: Altered Mental Status
05/21/25 21:12
Urinalysis Reflex To Culture Urgent
Date Specimen was Collected: 05/21/25
Time Specimen was Collected: 21:11
Urine Microscopic Reflex Cult Urgent
Urine Culture Urgent
DENISE Source: U
Specimen Description:
Date Specimen was Collected: 05/21/25
Time Specimen was Collected: 21:11
05/21/25 23:00
Flush (0.9% Sodium Chloride) [Flush (Nss)] See Dose Instructions IV PER PROTOCOL
05/21/25 23:21
Admit/Transfer Patient As Directed
Co-Sign Provider:
Level of Care: Observation services
Assign to:: Telemetry
Physician / Group: Evaristo
Diagnosis: Altered mental status
Reason for Telemetry: Other
Other Reason for Telemetry: hypokalemia
Date to Stop Telemetry: 05/23/25
Time to Stop Telemetry: 11:00
PRN Pain Medication Management As Directed
May give lesser potent ordered pain med per pt: Yes
preference::
Protocol:: Medication orders for pain may be administered in a
manner that supports deferring to patient preference
when the pt is:
- Requesting an ordered lesser potent pain medication.
Least to most potent pain medications are defined
as: acetaminophen < NSAID < tramadol < opioids
(morphine, oxycodone, hydromorphone).
- Requesting a lesser dose of the same medication IF
ORDERED.
- Requesting a less intrusive route of administration
if both routes are prescribed by the provider (PO <
IV).
05/21/25 23:24
Code Status As Directed
Resuscitation Status: Do not resuscitate
Based on pt advanced directive or healthcare POA form: Yes
DNR Bracelet Application ONCE
05/21/25 23:27
COVID-19 Antigen Stat
Source: Nasal Swab
Influenza A+B Rapid Molecular Stat
DENISE Source: Nasal Swab
Specimen Description:
Piperacillin/Tazo 4.5 Gram [Zosyn] 4.5 gram in 100 ml IV NOW
05/21/25 23:28
Lactic Acid Stat
05/21/25 23:30
Blood Culture Q30M
DENISE Source: Blood/Venous
Specimen Description:
05/21/25 23:31
Potassium Chloride [KCl] 20 meq 0.9% Sodium Chloride 250 ml [Nss] 250 ml IV NOW
05/22/25 00:32
Blood Culture Q30M
DENISE Source: Blood/Venous
Specimen Description:
05/22/25 00:45
Dextrose 5%/0.45%Sodchl 1000ML [D5/0.45%NaCl] 1,000 ml IV 80 mls/hr
05/22/25 02:13
Acetaminophen [Tylenol] 650 mg PO Q6HPRN PRN mild pain/temp>100.4
Bisacodyl [Dulcolax] 10 mg RECTAL DAILYPRN PRN if mom is ineffective
Bisacodyl [Dulcolax] 10 mg RECTAL [id number] PRN
Docusate W/Senna [Senokot-S] 1 tablet PO BIDPRN PRN
Ondansetron Injectable [Zofran] 4 mg IV Q6HPRN PRN
Phosphate Enema [Fleet Phosphate Enema-Adult] 118 ml RECTAL DAILYPRN PRN if dulcolax is ineffective
Polyethylene Glycol Powder [Miralax] 17 grams PO DAILYPRN PRN
05/22/25 02:13
Activity As Directed
Activity Level: With Assistance
Neurological Checks As Directed
Frequency: q4h
Pneumatic Compression Sleeves As Directed
Type: Knee high
Vital Signs As Directed
Frequency: Per unit guidelines
DX Deep Vein Thrombosis Video Routine
05/22/25 06:00
Piperacillin/Tazo 3.375 Gram [Zosyn] 3.375 gram in 50 ml IV Q6H
05/22/25 06:42
Ammonia IN AM
Basic Metabolic Panel IN AM
Complete Blood Count/No Diff IN AM
Magnesium IN AM
05/22/25 08:00
Carvedilol [Coreg] 3.125 mg PO BID
Duloxetine Delayed Release [Cymbalta Delayed Release] 80 mg PO DAILY
FOLic ACID [Folvite] 1 mg PO DAILY
Lactulose [Duphalac/Chronulac] 20 grams PO TID
Pantoprazole [Protonix] 40 mg PO DAILY
Rifaximin [Xifaxan] 550 mg PO BID
Thiamine HCl [Vitamin B1] 100 mg PO DAILY
05/22/25 Dinner
Regular
At Your Request: Limited Participation
05/22/25 22:00
Mirtazapine [Remeron] 7.5 mg PO HS
05/23/25 11:00
DC Protocol for Telemetry ONCE
Abnormal Lab Results
05/21/25 05/21/25 05/21/25
17:25 17:34 21:12
WBC 3.1 L 10^3/uL
(4.8-10.8)
RBC 2.77 L 10^6/uL
(4.20-5.40)
Hgb 9.2 L g/dL
(12.0-16.0)
Hct 27.5 L %
(37.0-47.0)
MCV 99.3 H fL
(81.0-99.0)
MCH 33.2 H pg
(27.0-31.0)
RDW 16.9 H %
(11.5-14.5)
Plt Count 49 L D 10^3/uL
(130-400)
MPV 12.5 H fL
(7.4-10.4)
Absolute Lymphs (auto) 0.4 L 10^3/uL
(1.2-3.4)
Lymphocytes % 14.0 L %
(20.5-51.1)
Monocytes % 14.3 H %
(1.7-9.3)
Potassium 3.3 L mmol/L
(3.5-5.1)
Chloride 117 H mmol/L
(98-107)
AST 40 H U/L
(14-36)
Ammonia < 9 L umol/L
(9-30)
Total Protein 5.3 L g/dl
(6.3-8.2)
Albumin 2.6 L g/dl
(3.5-5.0)
Urine Ketones 1+ A
(Negative)
Ur Occult Blood Reflex 4+ A
(Negative)
Urine Bilirubin 3+ A
(Negative)
Leukocyte Esterase Rfl 3+ A
(Negative)
Urine RBC 3-6 A /HPF
(0-2)
Urine Bacteria (Reflex) Many A
(Negative)
Urine Yeast Many A
(Negative)
Urine Albumin (Reflex) 3+ A
(Neg - Trace)
05/21/25 17:25
05/21/25 17:25
Vital Signs
Initial and Last Documented VS:
Initial Vital Signs
Temp Pulse Resp BP Pulse Ox
99.7 F 71 21 127/85 95
05/21/25 16:36 05/21/25 16:36 05/21/25 16:36 05/21/25 16:36 05/21/25 16:36
Last Documented Vital Signs
Temp Pulse Resp BP Pulse Ox
97.9 F 67 12 128/67 100
05/22/25 10:55 05/22/25 12:18 05/22/25 10:55 05/22/25 12:18 05/22/25 10:55
reanna;Pastor Andres DO - Last Filed: 05/21/25 20:55>
Orders/Labs/Results
Orders:
Orders
05/21/25 17:23
IV Insert/Care/Rem.- Treatment PRN
05/21/25 17:25
Complete Blood Count/With Diff Urgent
Comprehensive Metabolic Panel Urgent
Creatine Phosphokinase Urgent
Comment: ADDON
05/21/25 17:32
CT Head W/o Iv Contrast Urgent
Comment:
Reason For Exam: altered mental status per [facility]
05/21/25 17:34
Ammonia Urgent
05/21/25 18:54
Electrocardiogram (*1) Urgent
Reason for Study: Fatigue / Weakness
EKG- Treatment ONCE
05/21/25 19:54
0.9% Sodium Chloride 1000 ml [Nss] 1,000 ml IV BOLUS
Acetaminophen [Tylenol/Feverall] 650 mg RECTAL NOW STA
Lorazepam [Ativan] 0.5 mg IV NOW STA
05/21/25 20:52
Ceribell [Rapid Point of Care EEG (ED/ICU ONLY)] Q1H
Indications for use:: Altered Mental Status
05/21/25 21:12
Urinalysis Reflex To Culture Urgent
Date Specimen was Collected: 05/21/25
Time Specimen was Collected: 21:11
Urine Microscopic Reflex Cult Urgent
Urine Culture Urgent
DENISE Source: U
Specimen Description:
Date Specimen was Collected: 05/21/25
Time Specimen was Collected: 21:11
05/21/25 23:00
Flush (0.9% Sodium Chloride) [Flush (Nss)] See Dose Instructions IV PER PROTOCOL
05/21/25 23:21
Admit/Transfer Patient As Directed
Co-Sign Provider:
Level of Care: Observation services
Assign to:: Telemetry
Physician / Group: Evaristo
Diagnosis: Altered mental status
Reason for Telemetry: Other
Other Reason for Telemetry: hypokalemia
Date to Stop Telemetry: 05/23/25
Time to Stop Telemetry: 11:00
PRN Pain Medication Management As Directed
May give lesser potent ordered pain med per pt: Yes
preference::
Protocol:: Medication orders for pain may be administered in a
manner that supports deferring to patient preference
when the pt is:
- Requesting an ordered lesser potent pain medication.
Least to most potent pain medications are defined
as: acetaminophen < NSAID < tramadol < opioids
(morphine, oxycodone, hydromorphone).
- Requesting a lesser dose of the same medication IF
ORDERED.
- Requesting a less intrusive route of administration
if both routes are prescribed by the provider (PO <
IV).
05/21/25 23:24
Code Status As Directed
Resuscitation Status: Do not resuscitate
Based on pt advanced directive or healthcare POA form: Yes
DNR Bracelet Application ONCE
05/21/25 23:27
COVID-19 Antigen Stat
Source: Nasal Swab
Influenza A+B Rapid Molecular Stat
DENISE Source: Nasal Swab
Specimen Description:
Piperacillin/Tazo 4.5 Gram [Zosyn] 4.5 gram in 100 ml IV NOW
05/21/25 23:28
Lactic Acid Stat
05/21/25 23:30
Blood Culture Q30M
DENISE Source: Blood/Venous
Specimen Description:
05/21/25 23:31
Potassium Chloride [KCl] 20 meq 0.9% Sodium Chloride 250 ml [Nss] 250 ml IV NOW
05/22/25 00:32
Blood Culture Q30M
DENISE Source: Blood/Venous
Specimen Description:
05/22/25 00:45
Dextrose 5%/0.45%Sodchl 1000ML [D5/0.45%NaCl] 1,000 ml IV 80 mls/hr
05/22/25 02:13
Acetaminophen [Tylenol] 650 mg PO Q6HPRN PRN mild pain/temp>100.4
Bisacodyl [Dulcolax] 10 mg RECTAL DAILYPRN PRN if mom is ineffective
Bisacodyl [Dulcolax] 10 mg RECTAL [id number] PRN
Docusate W/Senna [Senokot-S] 1 tablet PO BIDPRN PRN
Ondansetron Injectable [Zofran] 4 mg IV Q6HPRN PRN
Phosphate Enema [Fleet Phosphate Enema-Adult] 118 ml RECTAL DAILYPRN PRN if dulcolax is ineffective
Polyethylene Glycol Powder [Miralax] 17 grams PO DAILYPRN PRN
05/22/25 02:13
Activity As Directed
Activity Level: With Assistance
Neurological Checks As Directed
Frequency: q4h
Pneumatic Compression Sleeves As Directed
Type: Knee high
Vital Signs As Directed
Frequency: Per unit guidelines
DX Deep Vein Thrombosis Video Routine
05/22/25 06:00
Piperacillin/Tazo 3.375 Gram [Zosyn] 3.375 gram in 50 ml IV Q6H
05/22/25 06:42
Ammonia IN AM
Basic Metabolic Panel IN AM
Complete Blood Count/No Diff IN AM
Magnesium IN AM
05/22/25 08:00
Carvedilol [Coreg] 3.125 mg PO BID
Duloxetine Delayed Release [Cymbalta Delayed Release] 80 mg PO DAILY
FOLic ACID [Folvite] 1 mg PO DAILY
Lactulose [Duphalac/Chronulac] 20 grams PO TID
Pantoprazole [Protonix] 40 mg PO DAILY
Rifaximin [Xifaxan] 550 mg PO BID
Thiamine HCl [Vitamin B1] 100 mg PO DAILY
05/22/25 Dinner
Regular
At Your Request: Limited Participation
05/22/25 22:00
Mirtazapine [Remeron] 7.5 mg PO HS
05/23/25 11:00
DC Protocol for Telemetry ONCE
Abnormal Lab Results
05/21/25 05/21/25 05/21/25
17:25 17:34 21:12
WBC 3.1 L 10^3/uL
(4.8-10.8)
RBC 2.77 L 10^6/uL
(4.20-5.40)
Hgb 9.2 L g/dL
(12.0-16.0)
Hct 27.5 L %
(37.0-47.0)
MCV 99.3 H fL
(81.0-99.0)
MCH 33.2 H pg
(27.0-31.0)
RDW 16.9 H %
(11.5-14.5)
Plt Count 49 L D 10^3/uL
(130-400)
MPV 12.5 H fL
(7.4-10.4)
Absolute Lymphs (auto) 0.4 L 10^3/uL
(1.2-3.4)
Lymphocytes % 14.0 L %
(20.5-51.1)
Monocytes % 14.3 H %
(1.7-9.3)
Potassium 3.3 L mmol/L
(3.5-5.1)
Chloride 117 H mmol/L
(98-107)
AST 40 H U/L
(14-36)
Ammonia < 9 L umol/L
(9-30)
Total Protein 5.3 L g/dl
(6.3-8.2)
Albumin 2.6 L g/dl
(3.5-5.0)
Urine Ketones 1+ A
(Negative)
Ur Occult Blood Reflex 4+ A
(Negative)
Urine Bilirubin 3+ A
(Negative)
Leukocyte Esterase Rfl 3+ A
(Negative)
Urine RBC 3-6 A /HPF
(0-2)
Urine Bacteria (Reflex) Many A
(Negative)
Urine Yeast Many A
(Negative)
Urine Albumin (Reflex) 3+ A
(Neg - Trace)
05/21/25 17:25
05/21/25 17:25
Vital Signs
Initial and Last Documented VS:
Initial Vital Signs
Temp Pulse Resp BP Pulse Ox
99.7 F 71 21 127/85 95
05/21/25 16:36 05/21/25 16:36 05/21/25 16:36 05/21/25 16:36 05/21/25 16:36
Last Documented Vital Signs
Temp Pulse Resp BP Pulse Ox
97.9 F 67 12 128/67 100
05/22/25 10:55 05/22/25 12:18 05/22/25 10:55 05/22/25 12:18 05/22/25 10:55
<Ana Huffman PA-C - Last Filed: 05/22/25 14:00>
*Radiology
Radiology exam reviewed: preliminary read by ED provider (Head CT reviewed by me-no acute abnormalities) and radiology read reviewed
*Pulse Oximetry
SaO2: 95
Oxygen Mode of Delivery: Room air
Patient hypoxic: no
*EKG
Interpreted by ED Provider?: Yes
EKG Intrepretation Date: 05/21/25
Interpretation: abnormal
Comparison EKG: changes noted
Heart Rate: 77
Rate: normal
Rhythm: sinus and PVC's
QRS Pattern: left bundle branch block
*Engine Specialist Interpretation
Rate: normal
Interpretation: normal
Heart Rate: 75
Rhythm: sinus
*Critical Care Note
Total Time (30-74mins, 75-104mins- exclusive of procedures): Not Applicable
Data Reviewed
Review of Other/Old Records Reveals: Operative Reports (ERCP from 05/18/2025 after removal of sludge and stones from CBD) and Discharge Summary (ED discharge summary from 05/20/2025)
Source: previous hospital records
ED Attending Note
<Ana Huffman PA-C - Last Filed: 05/22/25 14:00>
-
Portions of this chart may have been created with voice recognition software.� Occasional wrong word or��sound alike� substitutions may have occurred due to the inherent limitations of voice recognition software.
<Pastor Andres DO - Last Filed: 05/21/25 20:55>
ED Attending Note
Patient seen and examined by attending physician: Yes
I performed the substantive portion of visit, reviewed & personally made and approve the management plan that is documented in note by myself or YAHIR.: Yes
ED Attending Note:
I agree with Bindu's note
Patient discharged from this hospital after prolonged hospitalization. Patient had altered mental status attributed to hepatic encephalopathy and/or sepsis. Patient returned to baseline and was discharged back to [facility] where she resides.
Patient noted to become acutely confused there. Upon arrival here the patient was reportedly interactive and not confused. However she did have a sudden change to decreased responsiveness and confusion. On my evaluation the patient is able to
tell me that she was recently hospitalized here at [facility] but believes she resides at her home in [facility]. Her speech is a bit garbled.
General: Awake, confused, chronically ill. Some repetitive mouth and face movements.
Vitals: unremarkable
Head: Atraumatic
Eyes: Pupils equal, EOMI
Throat: Airway intact, no exudates
Neck: Trachea midline
Lungs: Clear and equal b/l
Heart: Regular rate, no murmurs
Abd: Soft, Nontender, No pulsatile mass
Neuro: Chronic right hemiplegia
Skin: Warm, dry, no rash
Extremities: pulses equal b/l, no edema
Patient has return of altered mental status. Perhaps patient has nonconvulsive seizures. Will place the cerebella. Patient will require hospitalization again.
Discharge Plan
Departure
Patient Disposition: Admit
Date of Disposition: 05/21/25
Time of Disposition: 22:29
Presentation/result/management discussed w/ accepting MD/DO: Hospitalist
Discharge Problem:
Altered mental status
Interventions
Interventions:
*Risk Screen - Suicide Last Done: 05/21/25 16:36
*General Assessment Last Done: 05/21/25 16:36
*Neglect/Abuse Screening Last Done: 05/21/25 16:36
*ED- Fall Risk Assessment Last Done: 05/22/25 01:19
*ED COVID-19 Vaccine History Last Done: 05/21/25 16:36
*Nursing Disposition Last Done: 05/22/25 01:19
ED- Neurological Assessment Last Done: 05/21/25 18:49
ED Swallowing Screen Last Done: 05/21/25 19:46
Discharge Date and Time
Discharge Date/Time: 05/22/25 01:20
--- NOTE | 2025-05-21 19:48 | EDRN ---
Attempted to straight cath. pt. and to obtain rectal temp, pt. refused. Pt. biting off pulse ox., pulling at cords. Provider to bedside.
[2025-05-21 20:00] VITALS: BP 115/66
[2025-05-21] MEDS: ATIVAN 0.5 MG IV (20:07)
[2025-05-21] MEDS: NSS 1000 IV (20:07)
[2025-05-21] MEDS: TYLENOL/FEVERALL 650 MG RECTAL (20:31)
--- NOTE | 2025-05-21 20:32 | EDRN ---
2 RN's attempted to straight catheterize pt. without success. Pt. cleansed w/ betadine, purewick placed, IV fluids infusing, will attempt to collect clean catch sample as unable to catheterize pt.
[2025-05-21 20:39] VITALS: BP 114/70
[2025-05-21 21:00] VITALS: BP 111/77
[2025-05-21 21:39] LABS: Urine Albumin 3+ (Neg - Trace); Urine Bilirubin 3+ (Negative); Urine Character Cloudy (Clear); Urine Color Brown; Urine Glucose Negative (Negative); Urine Ketone 1+ (Negative); Urine Leukocyte 3+ (Negative); Urine Nitrite Negative (Negative); Urine Occult Blood 4+ (Negative); Urine Specific Gravity 1.015 (<1.030); Urine Urobilinogen 1+ (Neg - 1+)
[2025-05-21 21:53] LABS: Urine Bacteria Many (Negative); Urine Yeast Many (Negative)
[2025-05-21 22:13] LABS: Creatine Phosphokinase 75 U/L (30-135)
--- NOTE | 2025-05-21 22:58 | HPS.HSE ---
Family Physician
-
Family Physician: NOT KNOW UNKNOWN - PT DOES
Chief Complaint
-
Altered mental status
History of Present Illness
This is a 59-year-old female with past medical history of alcoholic cirrhosis complicated by esophageal varices and hepatic encephalopathy, CVA with right hemiparesis, anemia, osteoporosis, depression, presenting to the emergency department after
recent discharge with hepatic encephalopathy with acute episode of altered mental status.
Patient was just discharged from the hospital yesterday after a prolonged stay. He was admitted with hepatic encephalopathy and ultimately found to have biliary infection secondary to choledocholithiasis. She had EGD which redemonstrated grade 1
esophageal varices with a nonbleeding duodenal ulcer and was placed on Protonix. She also had imaging with MRCP which demonstrated cholelithiasis and then went for ERCP showing a stone noted on the cholangiogram. Choledocholithiasis was treated
with removal and biliary sphincterectomy as well as balloon extraction. She was treated with Zosyn and ultimately narrowed to amoxicillin to complete the course on 05/23.
Hepatic encephalopathy improved after lactulose treatment initially by Bharat and ultimately transitioned to oral lactulose. At the time of discharge patient was alert and oriented afebrile and without any focal logical deficits.
She presented from [facility] where she was acutely agitated and confused. With stated that on arrival in the emergency department patient appeared alert and oriented and at her baseline. She did not appear agitated on the initial evaluation.
She denied any headache. Did note that she had unusual/abnormal facial movements with a questionable seizure or etiology. She had cerebellar placed without evidence of a seizure burden.
When I attempted to interview the patient she was quite somnolent after having received 1.5 mg of IV Ativan. She was arousable but was not interactive. She was having twitches in the mouth as well as in her lower extremities. She was able to tell
me her name but otherwise could not carry on a conversation.
Vital signs were stable with a blood pressure of 111/77 pulse of 81 temp of 99.4.
She had a white count of 3.1 plate count of 49 which is unchanged and similar to prior. Hemoglobin was 9.2 stable. Electrolytes were stable except for a potassium of 3.3. BUN and creatinine were normal. LFTs were normal. Ammonia was less than
9. UA was cloudy and positive.
CT of the abdomen shows no acute findings. ECG showed a normal sinus rhythm with PVCs and left bundle unchanged from prior.
Medical History
Past Medical History
Past Medical History: Reports Other
Additional Past Medical History:
Right flaccid hemiplegia
Alcohol cirrhosis of liver without ascites
Dysphagia due to old CVA
Osteoporosis
Primary insomnia
Irritable bowel disease
Depression
Anxiety
Past Surgical History: Reports Orthopedic (left shoulder replacement) and Other
Social History
Tobacco: Non-smoker
Alcohol: Former
Personal: Single
Living: [facility]
Employment: Disabled
Family History
Family History: Not pertinent
Allergies / Home Medications
Allergies reflects when Allergies were last updated in [facility].
Home Medications with original date entered in [facility]
Allergy/Medication List:
Allergies
Allergy/AdvReac Type Severity Reaction Status Date / Time
No Known Allergies Allergy Verified 05/12/25 20:54
Home Medications
ascorbic acid (vitamin C) 500 mg tablet 500 mg PO DAILY anemia 07/06/24
bisacodyl 10 mg rectal suppository (Dulcolax (bisacodyl)) 10 mg WA DAILYPRN PRN if mom is ineffective 07/06/24
calcium 600 mg (as carbonate)-vitamin D3 10 mcg (400 unit) tablet (Calcium 600 + D(3)) 1 tab PO BID Supplement 07/06/24
folic acid 1 mg tablet 1 mg PO DAILY Supplement 07/06/24
mirtazapine 15 mg tablet (Remeron) 7.5 mg PO HS anxiety 07/06/24
rifaximin 550 mg tablet (Xifaxan) 550 mg PO BID Gastrointestinal Issue 07/06/24
sodium phosphates 19 gram-7 gram/118 mL enema 118 ml WA DAILYPRN PRN if dulcolax is ineffective 07/06/24
thiamine HCl (vitamin B1) 100 mg tablet 100 mg PO DAILY Supplement 07/06/24
acetaminophen 325 mg tablet 650 mg PO Q6HPRN PRN mild pain/temp>100.4 12/07/24
duloxetine 20 mg capsule,delayed release 80 mg PO DAILY Mental Health/Anxiety 12/07/24
trazodone 50 mg tablet 25 mg PO HS Sleep 12/07/24
duloxetine 60 mg capsule,delayed release 60 mg PO DAILY #30 caps 02/12/25
lactulose 10 gram/15 mL oral solution 10 g PO DAILY Gastrointestinal Issue 02/12/25
lactulose 10 gram/15 mL oral solution 20 g (30 mL) PO TID #0 mL 02/12/25
magnesium hydroxide 400 mg/5 mL oral suspension (Milk of Magnesia) 2,400 mg PO DAILYPRN PRN CCONSTIPATION 02/12/25
Review of Systems
-
Unable to obtain full review of systems at this time due to: Patient Non-verbal
Physical Exam
Vital Signs
Vital Signs
Temp Pulse Resp BP Pulse Ox
99.4 F 81 14 111/77 96
05/21/25 20:00 05/21/25 21:15 05/21/25 21:15 05/21/25 21:00 05/21/25 20:40
Physical Exam
General: Poor Appetite and Appears Chronically Ill
HEENT: NormoCephalic, Anicteric, Moist mucous membranes and Atraumatic; No Oxygen
Respiratory: Clear
Cardiac: S1/S2 and Regular Rhythm
Breast: Deferred by me
GI: Soft, Non Tender, Non Distended and Normal Bowel Sounds
Rectal: Deferred by Provider
Genito-urinary: Turbid Urine
Musculoskeletal: No Clubbing, No Cyanosis and No Edema
Skin: Warm
Neuro: Sedated (arousable but limited interaction. GCS = 10) and Other (Right spastic hemiparesis)
Hematologic/Lymphatic: No Lymphadenopathy
Laboratory Results
-
05/21/25 17:25
05/21/25 17:
Laboratory Results
Total Bilirubin 1.0 mg/dl (0.2-1.3) 05/21/25 17:25
AST 40 U/L (14-36) H 05/21/25 17:
ALT 32 U/L (0-35) 05/21/25 17:25
Alkaline Phosphatase 53 U/L (38-126) 05/21/25 17:25
Impression/Plan
-
IMPRESSION:
59-year-old female with past medical history significant for alcoholic cirrhosis complicated by hepatic encephalopathy and grade 1 gastric varices, status post EGD, ERCP on last admission and just discharged yesterday on Augmentin after a course of
Zosyn for cholangitis presenting to the emergency department with altered mental status. For me patient is quite somnolent although arousable. Not interactive. She has twitching motion in her mouth as well as lower extremities. She is oriented
to person only. Otherwise nonfocal exam but patient unable to follow instructions GCS of 9-10. She is maintaining her airway. Given the degree of somnolence there is high concern for hepatic encephalopathy however the patient ammonia level is
less than 9 so unlikely it is a cause. Urine is cloudy and turbid and is positive on the urinalysis. Low-grade temperature. Suspect UTI with toxic metabolic encephalopathy. Cannot rule out stroke or seizure at this time although the cerebral
evaluation was negative for any seizure burden. Initially was stated that she was alert and oriented prior to the Ativan and she was given Ativan due to the twitching motion of her mouth.
PLAN:
1. Altered mental status -suspect toxic metabolic encephalopathy secondary to UTI. Unlikely this is from her hepatic encephalopathy given ammonia level that is undetectable. She has been on antibiotics and recently narrowed stool amoxicillin.
Suspect she has a resistant UTI. LFTs are normal. Will add on lipase but no evidence of recurrent cholangitis. Cannot rule out post ERCP pancreatitis but patient never complained of any pain. When I spoke to the patient she had already received
0.5 mg of IV Ativan which may be the etiology of current somnolence status.
- admit to telemetry
- neurochecks q 6 hours
- blood cultures
- urine cultures
- will restart zosyn pending cultures
- hold off further ativan for now
- mri
- trend lactic acid
- neurology consultation
2. Hepatic encephalopathy -undetectable ammonia levels
-Continue lactulose rifaximin mean as per discharge
- Replete potassium to > 3.6 to avoid worsening encephalopathy
3. Varices -no evidence of acute bleeding, there is chronic thrombocytopenia
-Continue Coreg
DVT prophylaxis�SCDs
CODE STATUS�DNR
[2025-05-22] MEDS: ZOSYN 100 IV (00:42)
[2025-05-22] MEDS: D5/0.45%NACL 1000 IV (00:56)
[2025-05-22] MEDS: KCL 260 MEQ IV (00:56)
[2025-05-22 01:10] LABS: COVID-19 Antigen Negative (Negative)
[2025-05-22 01:11] LABS: Lactic Acid 1.4 mmol/L (0.7-2.0)
[2025-05-22 02:08] VITALS: BMI 21.8
[2025-05-22 02:09] VITALS: BP 140/88
[2025-05-22] MEDS: ZOSYN 50 IV ×4 (05:25→23:46)
[2025-05-22 07:07] LABS: Hematocrit 28.1 % (37.0-47.0); Hemoglobin 9.5 g/dL (12.0-16.0); Mean Corp Hgb Conc. 33.8 g/dL (33.0-37.0); Mean Corpuscular Hgb 33.3 pg (27.0-31.0); Mean Corpuscular Volume 98.6 fL (81.0-99.0); Mean Platelet Volume 12.6 fL (7.4-10.4); Platelet Count 42 10^3/uL (130-400); Red Blood Cell Count 2.85 10^6/uL (4.20-5.40); Red Cell Dist. Width 16.9 % (11.5-14.5)
[2025-05-22 07:09] LABS: Ammonia < 9 umol/L (9-30)
[2025-05-22 07:51] LABS: Blood Urea Nitrogen 9 mg/dl (7-17); Calcium 8.2 mg/dl (8.4-10.2); Carbon Dioxide 21 mmol/L (22-30); Chloride 117 mmol/L (98-107); Estimated Creatinine Clearance 96 ml/min; Glucose 85 mg/dl (70-99); Magnesium 1.5 mg/dl (1.6-2.3); Potassium 3.5 mmol/L (3.5-5.1); Sodium 142 mmol/L (135-145); eGFR > 60.00
[2025-05-22 07:58] VITALS: BP 112/86
--- NOTE | 2025-05-22 09:35 | W.PN.HOSP.TC ---
Today's Communication/Plan
-
See plan
Assessment / Plan
Assessment / Plan
Impression:
Altered mental status.
Conditions prior to admission
Choledocholithiasis treated with ERCP stone retraction and antibiotics.
Alcoholic cirrhosis.
Grade 1 varices
Duodenal ulcer, nonbleeding on recent EGD
Recurrent hepatic encephalopathy.
Chronic pancytopenia secondary to cirrhosis.
CVA with right hemiparesis and aphasia.
Dysphagia with aspiration risk.
Depression/anxiety
Plan:
Altered mental status.
Agitation reported at nursing facility, although at the time of arrival to ED patient back to baseline of cognitive status.
Prior history of CVA with chronic right hemiparesis and aphasia with so far no evidence in change of neurologic assessment.
CT scan of the head negative for acute abnormality showed old lacunar infarcts.
Cerebellar evaluation in the ED without evidence of seizure activity.
Afebrile and hemodynamically stable.
Ammonia level undetectable leaning away from hepatic encephalopathy as a cause of presentation.
Continue close neurologic monitoring.
Repeat blood cultures pending.
Noted with abnormal urinalysis with pending urine cultures.
Empiric antibiotics transition of Augmentin back to broaden spectrum Zosyn pending ID workup.
Continue lactulose and rifaximin
Pending above hold off on further brain imaging. Consider neurology evaluation if recurrent or persistent symptoms
Recent hospitalization with sepsis, choledocholithiasis, hepatic encephalopathy.
Grade 1 varices.
Continue Coreg.
No evidence for acute bleeding.
Monitor hemoglobin
Anticipated Discharge: 24 - 48 hours
Subjective/Interval History
-
Date of Service: May 22, 2025
Objective Data
-
Labs:
Laboratory Results
05/22/25
06:42
WBC 2.0 L*
Hgb 9.5 L
Hct 28.1 L
Plt Count 42 L
Sodium 142
Potassium 3.5
Chloride 117 H
Carbon Dioxide 21 L
BUN 9
Creatinine 0.6
Glucose 85
Calcium 8.2 L
Vital Signs:
Vital Signs
Temp Pulse Resp BP Pulse Ox
97.4 F 70 12 112/86 96
05/22/25 07:58 05/22/25 07:58 05/22/25 07:58 05/22/25 07:58 05/22/25 07:58
I&O
05/21/25 05/22/25 05/23/25
06:59 06:59 06:59
Intake Total 760 / 760
Balance 760 / 760
Physical Exam
-
General: Well Developed and No Apparent Distress
HEENT: Normocephalic, Atraumatic and Moist Mucous Membranes
Respiratory: Clear to Auscultation
Cardiac: Regular Rhythm and S1/S2; Negative Murmur, Rub or Gallop
GI: Soft, Nontender, Nondistended and Normal Bowel Sounds; Negative Organomegaly
Rectal: Deferred by Provider
Musculoskeletal: No Clubbing, No Cyanosis and No Edema
Skin: Negative Rash
Neuro: Other (Chronic right hemiparesis. Chronic aphasia)
[2025-05-22 10:55] VITALS: BP 128/67
[2025-05-22] MEDS: CYMBALTA DELAYED RELEASE 80 MG PO (12:17)
[2025-05-22] MEDS: PROTONIX 40 MG PO (12:17)
[2025-05-22] MEDS: VITAMIN B1 100 MG PO (12:17)
[2025-05-22] MEDS: XIFAXAN 550 MG PO ×2 (12:18→20:17)
[2025-05-22] MEDS: COREG 3.125 MG PO ×2 (12:18→20:19)
[2025-05-22] MEDS: DUPHALAC/CHRONULAC 20 GRAMS PO ×3 (12:18→21:09)
[2025-05-22] MEDS: FOLVITE 1 MG PO (12:19)
--- NOTE | 2025-05-22 13:18 | CM ---
Addendum entered by Annabella Larry 05/22/25 14:52:
PCP: Ryan David
Addendum entered by Annabella Larry 05/22/25 13:26:
[facility]: bedbound, staff able to transfer & position in [place]
PCP: [facility] will confirm
Pharmacy: [facility]
Original Note:
Patient chart reviewed
OBS status - form reviewed. In chart
Dx: Altered Mental Status
Patient resides at [facility] LT resident
[facility] liaison updated-referral entered in [facility]
PLAN: Return to [facility] when medically stable
[facility]
Report [phone]
--- NOTE | 2025-05-22 14:08 | W.RAPID.EEG ---
Rapid EEG
-
Procedure Date: 05/21/25
Results:
Point of Care EEG Procedure Note
Patient name: TAL ENGLISH
Medical ID: [id number]
Date of : 1965
IMPRESSION:
No evidence of status epilepticus
Age: 59
Sex: female
Recording 1 Duration: 2025-05-21 21:03:15 - 2025-05-21 23:00:29
Recording Total Time: 01:57:14 (117 minutes)
Ordering Physician: MANDY
Recording Technique: This EEG was obtained using a 10 lead, 8 channel circumferential rapid EEG with no parasagittal coverage.
Performed with Jered Bingham Status Epilepticus Monitor, ICD-10 ES14G77
Clinical History: TAL ENGLISH is a 59 year old female Undifferentiated AMS patient undergoing EEG to screen for non-convulsive status epilepticus.
Primary Indication: Undifferentiated AMS
Location: ED
Report prepared by: Gilles Canas
Report generated on: May 22, 2025 2:09 PM [facility]
[2025-05-22 15:21] VITALS: BP 147/69
[2025-05-22 19:00] VITALS: BP 126/72
[2025-05-22] MEDS: TYLENOL 650 MG PO (20:22)
[2025-05-22] MEDS: REMERON 7.5 MG PO (21:10)
[2025-05-22 23:52] VITALS: BP 93/53
[2025-05-23 03:00] VITALS: BP 105/58
[2025-05-23] MEDS: ZOSYN 50 IV ×3 (05:50→17:32)
[2025-05-23 05:56] VITALS: BMI 21.8
[2025-05-23 06:43] LABS: % Basophils 0.5 % (0-2); % Eosinophils 5.8 % (0-6); % Immature Granulocytes 0.5 % (0-0.5); % Lymphocytes 16.8 % (20.5-51.1); % Monocytes 11.5 % (1.7-9.3); % Neutrophils 64.9 % (42.2-75.2); Absolute Eosinophils 0.1 10^3/uL (0-0.7); Absolute Lymphocytes 0.4 10^3/uL (1.2-3.4); Absolute Monocytes 0.2 10^3/uL (0.1-0.6); Absolute Neutrophils 1.4 10^3/uL (1.4-6.5); Hematocrit 26.5 % (37.0-47.0); Hemoglobin 8.6 g/dL (12.0-16.0); Mean Corp Hgb Conc. 32.5 g/dL (33.0-37.0); Mean Corpuscular Volume 98.5 fL (81.0-99.0); Mean Platelet Volume 12.2 fL (7.4-10.4); Nucleated Red Blood Cells % 0 %; Platelet Count 52 10^3/uL (130-400); Red Blood Cell Count 2.69 10^6/uL (4.20-5.40); Red Cell Dist. Width 17.1 % (11.5-14.5); White Blood Cell Count 2.1 10^3/uL (4.8-10.8)
[2025-05-23 06:49] LABS: ALT (SGPT) 24 U/L (0-35); AST (SGOT) 32 U/L (14-36); Albumin 2.4 g/dl (3.5-5.0); Alkaline Phosphatase 46 U/L (38-126); Blood Urea Nitrogen 7 mg/dl (7-17); Calcium 7.9 mg/dl (8.4-10.2); Carbon Dioxide 24 mmol/L (22-30); Chloride 115 mmol/L (98-107); Estimated Creatinine Clearance 82 ml/min; Glucose 74 mg/dl (70-99); Potassium 3.2 mmol/L (3.5-5.1); Sodium 140 mmol/L (135-145); Total Protein 4.8 g/dl (6.3-8.2); eGFR > 60.00
[2025-05-23 07:30] VITALS: BP 117/68
[2025-05-23] MEDS: DUPHALAC/CHRONULAC 20 GRAMS PO (08:45)
[2025-05-23] MEDS: PROTONIX 40 MG PO (08:45)
[2025-05-23] MEDS: CYMBALTA DELAYED RELEASE 80 MG PO (08:45)
[2025-05-23] MEDS: XIFAXAN 550 MG PO (08:46)
[2025-05-23] MEDS: COREG 3.125 MG PO (08:46)
[2025-05-23] MEDS: FOLVITE 1 MG PO (08:46)
[2025-05-23] MEDS: VITAMIN B1 100 MG PO (08:46)
--- NOTE | 2025-05-23 09:05 | CM ---
Addendum entered by Annabella Larry 05/23/25 16:07:
Met with patient - tt from hospitalist discharge today
[facility] liaison notified
Notified brother Tomasz
PLAN: [facility] TODAY
Report [phone]

transportation forms on chart
Original Note:
chart reviewed
referral in [facility] for [facility]
patient resides LTC at [facility]
spoke with seth Tolbert & updated-request call from hospitalist-tt hospitalist
PLAN: Return to [facility] when medically stable
[facility]
Report [phone]
[2025-05-23 11:45] VITALS: BP 124/71
--- NOTE | 2025-05-23 14:54 | W.DCSUMMARY ---
Discharge Summary
Discharge Data
Date of Admission: 05/21/25
Date of Discharge: 05/23/25
-
Pending Results: No
Hospital Course
Impression:
Altered mental status.
Conditions prior to admission
Choledocholithiasis treated with ERCP stone retraction and antibiotics.
Alcoholic cirrhosis.
Grade 1 varices
Duodenal ulcer, nonbleeding on recent EGD
Recurrent hepatic encephalopathy.
Chronic pancytopenia secondary to cirrhosis.
CVA with right hemiparesis and aphasia.
Dysphagia with aspiration risk.
Depression/anxiety
Plan:
Altered mental status.
Agitation reported at nursing facility, although at the time of arrival to ED patient back to baseline of cognitive status.
Prior history of CVA with chronic right hemiparesis and aphasia with so far no evidence in change of neurologic assessment.
CT scan of the head negative for acute abnormality showed old lacunar infarcts.
Cerebellar evaluation in the ED without evidence of seizure activity.
Afebrile and hemodynamically stable.
Ammonia level undetectable leaning away from hepatic encephalopathy as a cause of presentation.
Continue close neurologic monitoring.
Repeat blood cultures pending.
Noted with abnormal urinalysis with pending urine cultures.
Empiric antibiotics transition of Augmentin back to broaden spectrum Zosyn will be discontinued at discharge with patient being afebrile with negative ID work up
Continue lactulose and rifaximin
Recent hospitalization with sepsis, choledocholithiasis, hepatic encephalopathy.
Grade 1 varices.
Continue Coreg.
No evidence for acute bleeding.
Discharge Plan
-
Patient Disposition: Intermediate/SNF
Condition: Good
Diet: Regular
Referrals:
UNKNOWN - PT DOES,NOT KNOW [Family Provider]
Prescriptions:
Continued
thiamine HCl (vitamin B1) 100 mg Tablet
100 mg PO DAILY
ascorbic acid (vitamin C) 500 mg Tablet
500 mg PO DAILY
bisacodyl [Dulcolax (bisacodyl)] 10 mg Suppository
10 mg SD DAILYPRN PRN (Reason: if mom is ineffective)
sodium phosphates 19-7 gram/118 mL Enema
118 ml SD DAILYPRN PRN (Reason: if dulcolax is ineffective)
folic acid 1 mg Tablet
1 mg PO DAILY
mirtazapine [Remeron] 15 mg Tablet
7.5 mg PO HS
calcium carbonate-vitamin D3 [Calcium 600 + D(3)] 600 mg-10 mcg (400 unit) Tablet
1 tab PO BID
Xifaxan 550 mg Tablet
550 mg PO BID
acetaminophen 325 mg Tablet
650 mg PO Q6HPRN PRN (Reason: mild pain/temp>100.4)
trazodone 50 mg Tablet
50 mg PO HS
duloxetine 20 mg Capsule,Delayed Release(Dr/Ec)
80 mg PO DAILY
Rx Instructions:
take with 60mg for total of 80mg
magnesium hydroxide [Milk of Magnesia] 400 mg/5 mL Suspension
2,400 mg PO DAILYPRN PRN (Reason: CCONSTIPATION)
duloxetine 60 mg Capsule,Delayed Release(Dr/Ec)
60 mg PO DAILY Qty: 30 0RF
pantoprazole 40 mg tablet,delayed release (DR/EC)
40 mg PO DAILY Qty: 84 0RF
lactulose 10 gram/15 mL Solution
20 g PO TID Qty: 3785 0RF
carvedilol [Coreg] 3.125 mg tablet
3.125 mg PO BID Qty: 60 0RF
Discontinued
amoxicillin-pot clavulanate 875-125 mg Tablet
1 tab PO Q12 Qty: 10 0RF
Discharge Orders:
Discharge Patient (As Directed); Ordered 05/23/25
Ordered By: Teodoro Almazan
Discharge Date and Time
Print Language: CITIZEN OF [place]
[2025-05-23] MEDS: DUPHALAC/CHRONULAC PO (15:38)
[2025-05-23 16:00] VITALS: BP 113/61
[2025-05-23 19:12] VITALS: BP 123/68
--- NOTE | 2025-05-23 19:57 | PTCARENOTE ---
Patient was picked up on unit @194 by [facility] for transfer back to [facility].
== END 2025-05-23 20:00 ==
LOC: 3 WEST ACU 23:38
PROVIDERS: Emergency Medicine; Physician Assistant; ADMITTING PHYSICIAN Internal Medicine; ATTENDING PHYSICIAN Internal Medicine; EMERGENCY PHYSICIAN Emergency Medicine
DX: R41.82 Altered mental status, unspecified (principal); K76.82 Hepatic encephalopathy; D61.818 Other pancytopenia; E87.6 Hypokalemia; Z66 Do not resuscitate; Z11.52 Encounter for screening for COVID-19; K80.50 Calculus of bile duct without cholangitis or cholecystitis without obstruction; K70.30 Alcoholic cirrhosis of liver without ascites; K26.9 Duodenal ulcer, unspecified as acute or chronic, without hemorrhage or perforation; I69.351 Hemiplegia and hemiparesis following cerebral infarction affecting right dominant side; F41.9 Anxiety disorder, unspecified; F32.A Depression, unspecified
CPT/HCPCS: 70450; 80048; 80053; 81003; 81015; 82140; 82550; 82962; 83605; 83735; 85025; 85027; 87040; 87070; 87077; 87086; 87186; 87502; 87811; 93005; 96361; 96365; 96367; 96375; 99285; G0378

== ENCOUNTER 2025-08-05 03:09 | Inpatient (IN) | payer MEDICARE, OTHER, SELFPAY ==
[2025-08-04 22:24] VITALS: BP 163/109; BMI 21.6
[2025-08-04 23:00] VITALS: BP 176/96
[2025-08-04 23:23] LABS: Hematocrit 32.1 % (37.0-47.0); Hemoglobin 10.9 g/dL (12.0-16.0); Mean Corp Hgb Conc. 34.0 g/dL (33.0-37.0); Mean Corpuscular Volume 98.8 fL (81.0-99.0); Red Cell Dist. Width 14.9 % (11.5-14.5)
[2025-08-04 23:30] LABS: Ammonia 240 umol/L (9-30)
[2025-08-04 23:31] LABS: ALT (SGPT) 26 U/L (0-35); AST (SGOT) 35 U/L (14-36); Albumin 3.8 g/dl (3.5-5.0); Alkaline Phosphatase 96 U/L (38-126); Blood Urea Nitrogen 19 mg/dl (7-17); Calcium 9.6 mg/dl (8.4-10.2); Carbon Dioxide 24 mmol/L (22-30); Chloride 111 mmol/L (98-107); Estimated Creatinine Clearance 91 ml/min; Glucose 95 mg/dl (70-99); Potassium 4.2 mmol/L (3.5-5.1); Sodium 141 mmol/L (135-145); Total Protein 6.9 g/dl (6.3-8.2); eGFR > 60.00
--- NOTE | 2025-08-04 23:32 | ED.GENMED ---
History of Present Illness
General
Chief Complaint: Change in Mental Status
Time Seen by Provider: 08/04/25 22:35
History of Present Illness
History of Present Illness:
60-year-old female with history of CVA with right-sided hemiparesis and aphasia, history of cirrhosis with hepatic encephalopathy presenting from nursing facility with a large and change in mental status. Per nursing facility, patient is usually
more awake/alert, aggressive. They note in the past 24 hours, patient has been less responsive, falling asleep. They note that she was particularly less responsive after physical therapy, which occurred in the afternoon. Patient unable to comply
with additional questioning given her prior history. Of note, recent admission in April for change in mental status. No report of any recent fever or fall
Past History
Past History
ED Past Medical History: CVA (Right hemiparesis), HTN, Psychiatric and Other (Alcoholic cirrhosis with chronic pancytopenia, hepatic encephalopathy)
ED Past Surgical History: Orthopedic (Left shoulder)
Social History
Tobacco: Non-smoker
Alcohol: Former
Personal: Single
Living: [facility]
Employment: Disabled
Family History
Family History: Other (Noncontributory)
Phy Exam
Physical Exam
Physical Exam:
General: nontoxic and in no acute distress
HEENT: protecting airway
Neck: appears supple
CV: Normal heart rate, regular rhythm
Resp: No accessory muscle use, no increased work of breathing, lungs clear to auscultation bilaterally
Abd: Soft and non-distended, no tenderness to palpation
Extremities: No deformities, no swelling, no erythema
Neuro: alert, chronic aphasia. Chronic right hemiparesis with bilateral upper extremity contractures. Awake and alert, however falling asleep during questioning.
: deferred
Rectal: deferred
Psych: Normal affect
Skin: Intact
Course
Orders/Labs/Results
Orders:
Orders
08/04/25 22:18
EKG [Electrocardiogram (*1)] Urgent
Reason for Study: Fatigue / Weakness
EKG- Treatment ONCE
08/04/25 23:09
Ammonia Urgent
Complete Blood Count/With Diff Urgent
Comprehensive Metabolic Panel Urgent
08/04/25 23:16
Urinalysis Reflex To Culture Urgent
08/04/25 23:46
diazePAM [Valium Injection] 2 mg IV NOW STA
08/04/25 23:53
Lactulose [Duphalac/Chronulac] 20 grams PO ONCE ONE
08/05/25 00:00
CT Head W/o Iv Contrast Urgent
Reason For Exam: AMS
CR Chest - 2 Views Urgent
Reason For Exam: AMS
08/05/25 00:39
diazePAM [Valium Injection] 2 mg IV NOW STA
08/05/25 00:43
Lactulose Enema 300 ml RECTAL NOW STA
08/05/25 00:57
Lactulose Enema 300 ml RECTAL NOW STA
08/05/25 02:42
Admit/Transfer Patient As Directed
Co-Sign Provider:
Level of Care: Inpatient admission
Assign to:: IMU- Intermediate Care
Physician / Group: Pb
Diagnosis: Hepatic Encephalopathy
Reason for Hospitalization: Hepatic Encephalopathy
Expected length of stay greater than two midnights?: Yes
ELOS- Estimated Length of Stay in days: 3
I certify the patient meets the requirements for IP care: Yes
PRN Pain Medication Management As Directed
May give lesser potent ordered pain med per pt: Yes
preference::
Protocol:: Medication orders for pain may be administered in a
manner that supports deferring to patient preference
when the pt is:
- Requesting an ordered lesser potent pain medication.
Least to most potent pain medications are defined
as: acetaminophen < NSAID < tramadol < opioids
(morphine, oxycodone, hydromorphone).
- Requesting a lesser dose of the same medication IF
ORDERED.
- Requesting a less intrusive route of administration
if both routes are prescribed by the provider (PO <
IV).
08/05/25 02:44
Code Status As Directed
Resuscitation Status: Do not resuscitate
Based on pt advanced directive or healthcare POA form: Yes
08/05/25 02:45
DNR Bracelet Application ONCE
08/05/25 02:47
Lactic Acid Urgent
08/05/25 03:43
0.9% Sodium Chloride 1000 ml [Nss] 1,000 ml IV 60 mls/hr
Acetaminophen [Tylenol] 650 mg PO Q4HPRN PRN
08/05/25 03:43
Consult Notification Routine
Specialty to Notify: Gastroenterology
Date consulting provider notified: 08/05/25
Time consulting provider notified: 08:35
Notified:: Provider
GASTROINTESTINAL CONSULT Routine
Consulting Provider: Suzie Cuellar
Was physician already notified: No
Reason for consult: Hepatic Encephalopathy
Activity As Directed
Activity Level: Bedrest
Bladder Scan As Directed
Follow Bladder Retention/Intermittent Cath Algorithm?: Yes
PRN if no void in __ hours: 6
Frequency: Per Retention Algorithm
If Bladder Scan Result >: 400
then:: Straight cath
EKG with chest pain [ECG as needed] As Directed
ECG as needed for:: Chest Pain
I/O [Intake/ Output] As Directed
Frequency: Per unit guidelines
Pneumatic Compression Sleeves As Directed
Type: Knee high
Precautions As Directed
Type of Precautions: Aspiration
Straight Cath As Directed
Frequency: Per Retention Algorithm
Additional Instructions: straight cath as needed per acute urinary retention algorithm for 24 hrs
Additional Instructions: for bladder scan greater than 400 mL
Vital Signs As Directed
Frequency: Per unit guidelines
Weight As Directed
Frequency: Daily
Oxygen Therapy [O2 Therapy] [RESP] Routine
Titrate/Wean O2 to maintain O2 sat greater than (%): 94
DX Deep Vein Thrombosis Video Routine
DX Deep Vein Thrombosis Video Routine
08/05/25 03:58
Ammonia IN AM
Basic Metabolic Panel IN AM
Complete Blood Count/No Diff IN AM
LFT [[id number]] IN AM
TSH Reflex To Free T4 Routine
08/05/25 Breakfast
NPO
Allow oral meds: Yes
Allow clear liquids: Sips of Clears
US Abdomen Complete/Upper IN AM
Comment:
Reason For Exam: Cirrhosis, distention
08/05/25 08:00
Carvedilol [Coreg] 3.125 mg PO BID
Duloxetine Delayed Release [Cymbalta Delayed Release] 80 mg PO DAILY
Pantoprazole [Protonix IV] 40 mg IV DAILY
Rifaximin [Xifaxan] 550 mg PO BID
Thiamine HCl [Vitamin B1] 100 mg PO DAILY
08/05/25 10:00
Lactulose Enema 300 ml RECTAL Q8H
Abnormal Lab Results
08/04/25 08/05/25
23:09 02:47
WBC 2.4 L* 10^3/uL
(4.8-10.8)
RBC 3.25 L 10^6/uL
(4.20-5.40)
Hgb 10.9 L g/dL
(12.0-16.0)
Hct 32.1 L %
(37.0-47.0)
MCH 33.5 H pg
(27.0-31.0)
RDW 14.9 H %
(11.5-14.5)
Plt Count 89 L 10^3/uL
(130-400)
MPV 11.0 H fL
(7.4-10.4)
Absolute Lymphs (auto) 0.6 L 10^3/uL
(1.2-3.4)
Monocytes % 12.7 H %
(1.7-9.3)
Chloride 111 H mmol/L
(98-107)
BUN 19 H mg/dl
(7-17)
Lactic Acid 2.1 H mmol/L
(0.7-2.0)
Ammonia 240 H umol/L
(9-30)
08/04/25 23:09
08/04/25 23:09
Vital Signs
Initial and Last Documented VS:
Initial Vital Signs
Temp Pulse Resp BP Pulse Ox
98.9 F 82 22 163/109 96
08/04/25 22:24 08/04/25 22:24 08/04/25 22:24 08/04/25 22:24 08/04/25 22:24
Last Documented Vital Signs
Temp Pulse Resp BP Pulse Ox
98.4 F 96 24 133/74 98
08/05/25 11:07 08/05/25 12:00 08/05/25 12:00 08/05/25 12:00 08/05/25 10:00
MDM/Problems Addressed
MDM/Problems Addressed:
60-year-old female with history of CVA with right-sided hemiparesis and aphasia, history of cirrhosis with hepatic encephalopathy presenting for change in mental status and decreased responsiveness. Vital signs on arrival are significant for
hypertension.
On exam, patient is in no acute distress, however does appear slightly lethargic, falling asleep during examination. She is afebrile, nontoxic. No significant findings on examination, chronic neurologic findings with right hemiparesis and reported
aphasia. Patient response to questioning, however noncoherent answers. Given prior history of CVA, will obtain CT brain imaging. Patient is not any candidate for TNK given no true onset of symptoms. Encephalopathy is a consideration given prior
history, will obtain ammonia. Infection is a consideration, not meeting any criteria for sepsis. Will obtain chest x-ray imaging and urinalysis.
01:00 -CT head negative for acute process. Ammonia level is elevated, consistent with hepatic encephalopathy. Suspect etiology of patient's confusion. Patient has been admitted in the past for this. Currently not tolerating p.o. Will give
rectal lactulose. Patient continues to have intermittent bouts of agitation requiring IV diazepam. Labs otherwise appear to be baseline. Plan for admission for hepatic encephalopathy
*Pulse Oximetry
SaO2: 96
Oxygen Mode of Delivery: Room air
Patient hypoxic: no
*Critical Care Note
Total Time (30-74mins, 75-104mins- exclusive of procedures): Not Applicable
ED Attending Note
-
Portions of this chart may have been created with voice recognition software.� Occasional wrong word or��sound alike� substitutions may have occurred due to the inherent limitations of voice recognition software.
Discharge Plan
Departure
Patient Disposition: Admit
Date of Disposition: 08/05/25
Time of Disposition: 01:20
Presentation/result/management discussed w/ accepting MD/DO: Hospitalist
Patient with high blood pressure during this ER visit?: No
Condition: Fair
Discharge Problem:
Hepatic encephalopathy, Altered mental status
Interventions
Interventions:
*Risk Screen - Suicide Last Done: 08/05/25 03:39
*General Assessment Last Done: 08/04/25 22:24
*Neglect/Abuse Screening Last Done: 08/04/25 22:24
*ED- Fall Risk Assessment Last Done: 08/04/25 22:24
*ED COVID-19 Vaccine History Last Done: 08/04/25 23:39
*Nursing Disposition Last Done: 08/05/25 03:33
ED- Neurological Assessment Last Done: 08/04/25 23:41
ED- Cardiac Assessment Last Done: 08/04/25 23:41
ED Swallowing Screen Last Done: 08/04/25 23:40
Discharge Date and Time
Discharge Date/Time: 08/05/25 03:35
[2025-08-04 23:41] LABS: Nucleated Red Blood Cells % 0 %; Platelet Count 89 10^3/uL (130-400)
[2025-08-04] MEDS: VALIUM INJECTION 2 MG IV (23:49)
[2025-08-05] VITALS (14 sets, daily range): BP systolic 112–153; BP diastolic 69–122; BMI 20.1
[2025-08-05] MEDS: VALIUM INJECTION 2 MG IV (00:43)
[2025-08-05] MEDS: LACTULOSE ENEMA 300 ML RECTAL ×4 (01:24→20:35)
--- NOTE | 2025-08-05 02:51 | HPS.HSE ---
Family Physician
-
Family Physician: Mayito Oneill MD
Chief Complaint
-
Altered Mental Status
History of Present Illness
Patient is a 60y F with PMH significant for CVA with R hemiparesis and aphasia and alcoholic cirrhosis with pancytopenia who presents to ED from local [facility] for evaluation of mental status change. Patient is typically able to speak and is at times
aggressive with staff. Today she was noted to be very lethargic and unable to participate with PT, etc. She was sent to the ED for further evaluation.
Patient has prior history of admissions for hepatic encephalopathy. She has prior history of refusing medications - including lactulose.
At the time of my examination, patient turns towards voice and occasionally phonates / moans but does not answer questions or follow commands.
No additional history is available from patient.
Medical History
Past Medical History
Past Medical History: Reports Other
Additional Past Medical History:
CVA with Right hemiplegia, aphasia, dysphagia
Alcohol cirrhosis of liver without ascites
Hepatic Encephalopathy
Osteoporosis
Primary insomnia
Irritable bowel disease
Depression / Anxiety
Past Surgical History: Reports Other
Additional Past Surgical History:
Left TSA
Social History
Tobacco: Non-smoker
Alcohol: Former
Personal: Single
Living: Long-Term
Employment: Disabled
Family History
Family History: Not pertinent
Allergies / Home Medications
Allergies reflects when Allergies were last updated in [facility].
Home Medications with original date entered in [facility]
Allergy/Medication List:
Allergies
Allergy/AdvReac Type Severity Reaction Status Date / Time
No Known Allergies Allergy Verified 05/21/25 16:36
Home Medications
ascorbic acid (vitamin C) 500 mg tablet 500 mg PO DAILY anemia 07/06/24
bisacodyl 10 mg rectal suppository (Dulcolax (bisacodyl)) 10 mg NM DAILYPRN PRN if mom is ineffective 07/06/24
calcium 600 mg (as carbonate)-vitamin D3 10 mcg (400 unit) tablet (Calcium 600 + D(3)) 1 tab PO BID Supplement 07/06/24
folic acid 1 mg tablet 1 mg PO DAILY Supplement 07/06/24
mirtazapine 15 mg tablet (Remeron) 7.5 mg PO HS anxiety 07/06/24
rifaximin 550 mg tablet (Xifaxan) 550 mg PO BID Gastrointestinal Issue 07/06/24
sodium phosphates 19 gram-7 gram/118 mL enema 118 ml NM DAILYPRN PRN if dulcolax is ineffective 07/06/24
thiamine HCl (vitamin B1) 100 mg tablet 100 mg PO DAILY Supplement 07/06/24
acetaminophen 325 mg tablet 650 mg PO Q6HPRN PRN mild pain/temp>100.4 12/07/24
duloxetine 20 mg capsule,delayed release 80 mg PO DAILY Mental Health/Anxiety 12/07/24
trazodone 50 mg tablet 50 mg PO HS Sleep 12/07/24
magnesium hydroxide 400 mg/5 mL oral suspension (Milk of Magnesia) 2,400 mg PO DAILYPRN PRN CCONSTIPATION 02/12/25
pantoprazole 40 mg tablet,delayed release 40 mg PO DAILY #84 tabs 05/19/25
carvedilol 3.125 mg tablet (Coreg) 3.125 mg PO BID #60 tabs 05/20/25
lactulose 10 gram/15 mL oral solution 20 g PO DAILY PRN constipayion 08/04/25
lactulose 10 gram/15 mL oral solution 30 g PO TID 08/04/25
Review of Systems
-
Unable to obtain full review of systems at this time due to: Patient Non-verbal
Physical Exam
Vital Signs
Vital Signs
Temp Pulse Resp BP Pulse Ox
98.9 F 125 24 121/74 90
08/04/25 22:24 08/05/25 02:15 08/05/25 02:15 08/05/25 02:05 08/05/25 00:00
Physical Exam
General: Other (Chronically ill-appearing 60y F in no apparent distress. Opens eyes partially - turns towards voice. Does not answer questions / follow commands.)
HEENT: Other (Dry MM. Neck supple.)
Respiratory: Other (Decreased at bases - otherwise clear.)
Cardiac: S1/S2 and Regular Rhythm; No Murmur
GI: Soft, Non Tender, Non Distended and Normal Bowel Sounds
Genito-urinary: Other (Some suprapubic fullness - but no tenderness / guarding / evident discomfort.)
Musculoskeletal: Other (RUE contractures from prior CVA. )
Laboratory Results
-
08/04/25 23:09
08/04/25 23:09
Laboratory Results
Total Bilirubin 0.7 mg/dl (0.2-1.3) 08/04/25 23:09
AST 35 U/L (14-36) 08/04/25 23:09
ALT 26 U/L (0-35) 08/04/25 23:09
Alkaline Phosphatase 96 U/L (38-126) 08/04/25 23:09
Impression/Plan
-
A/P: Patient is a 60y F with PMH significant for CVA with significant residual and alcoholic cirrhosis with hepatic encephalopathy who presents to ED from [place] for evaluation of mental status change.
Acute on Chronic Hepatic Encephalopathy
- Admit for further evaluation and treatment.
- Patient with no meaningful responses. Not speaking, following commands, etc.
- NH = 240 in the ED today.
- Lactulose enemas q8 for now until patient alert / cooperative enough to take PO medications.
- IVF support.
- Avoid sedating medications.
- GI evaluation for additional recommendations.
- Follow for any fever or other new / focal symptoms to suggest infection / alternate etiology.
Alcoholic Cirrhosis with Pancytopenia
- Cell counts appear stable.
- LFTs are unremarkable at present.
GERD / Duodenal Ulcer
- Continue daily PPI.
ASCVD
CVA with R Hemiparesis / Contractures, Aphasia, Dysphagia
- No evident new focal deficits.
- Continue supportive care / repositioning / etc.
- Patient is on no antiplatelet agent, etc at [facility] - presumably due to thrombocytopenia.
DVT Prophylaxis: SCDs
Code Status: DNR
[2025-08-05] MEDS: NSS 1000 IV ×2 (04:03→20:46)
[2025-08-05 04:16] LABS: Hematocrit 31.5 % (37.0-47.0); Hemoglobin 10.7 g/dL (12.0-16.0); Mean Corp Hgb Conc. 34.0 g/dL (33.0-37.0); Mean Corpuscular Volume 96.9 fL (81.0-99.0); Platelet Count 99 10^3/uL (130-400); Red Cell Dist. Width 14.9 % (11.5-14.5)
--- NOTE | 2025-08-05 04:17 | PTCARENOTE ---
Pt admitted to IMU. AAOX1, screaming . periods of doziness. Neuro check done, see worklist. Agitated at times and anxious. Rt side contraction. NSR to St in the monitor. Lung sounds are diminished , ao2 96% 2 L O2. Q2 turn. Incontinent of bowel and
bladder. Call rendon within reach.
[2025-08-05 04:32] LABS: Ammonia 88 umol/L (9-30)
[2025-08-05 05:05] LABS: ALT (SGPT) 25 U/L (0-35); AST (SGOT) 36 U/L (14-36); Albumin 3.7 g/dl (3.5-5.0); Alkaline Phosphatase 99 U/L (38-126); Blood Urea Nitrogen 21 mg/dl (7-17); Calcium 9.8 mg/dl (8.4-10.2); Carbon Dioxide 23 mmol/L (22-30); Chloride 113 mmol/L (98-107); Estimated Creatinine Clearance 74 ml/min; Glucose 105 mg/dl (70-99); Potassium 4.0 mmol/L (3.5-5.1); Sodium 143 mmol/L (135-145); Total Protein 6.8 g/dl (6.3-8.2); eGFR > 60.00
--- NOTE | 2025-08-05 07:50 | CON.GI ---
Addendum entered and electronically signed by Suzie Cuellar DO 08/05/25 12:49:
Patient seen and examined independently of the medical supply technician. I agree with his note with my additions below. We discussed the history, physical, assessment and plan
-60-year-old female with history of stroke and right-sided weakness, pancytopenia, insomnia, decompensated alcoholic cirrhosis with intermittent hepatic encephalopathy who lives at [facility] who comes in with change in mental status. GI asked
to evaluate for hepatic encephalopathy. Ammonia on admission was over 200. She was just here in April 2025 and [facility] RN says she is noncompliant with her lactulose and her normal mental status is awake and alert and oriented. She is also
on rifaximin 550 twice daily. Last admission she had a CT scan showing choledocholithiasis and underwent ERCP. She was previously here in November 2024 and at that time had choledocholithiasis and a fecal impaction. Previous admissions she has
been obtunded with resolution after lactulose enemas.
Objective data show her hemoglobin at baseline at 10.7, platelets 99, white count 2.6, coagulation factors are pending, BUN 21, creatinine 0.7, sodium 143, lactic acid 2.1, total bilirubin 1.2, ALT 25, initial ammonia in the emergency room 240,
today 08/05/25 = 88
There is no urine to look at, going down for abdominal ultrasound today, no cultures were drawn
08/05/2025 chest x-ray from the emergency room shows no acute cardiopulmonary process
CT scan 08/05/2025 shows no intracranial abnormality which is chronic lacunar infarcts
Patient has been afebrile, vital signs are stable
On exam she has asterixis, she is chronically ill-appearing with contracted right hand, thin. Decreased bowel sounds
# Hepatic encephalopathy
Differential diagnosis for hepatic encephalopathy
-- Etiology infectious versus constipation and medication noncompliance
-- Chest x-ray and CT head were unrevealing
-- Patient needs urine which I will order a straight cath, check blood cultures -cirrhotics do not always have a fever with infection
-- Potassium and her electrolytes appear within normal limits
-- No signs of GI bleeding, hemoglobin is at baseline hepatic encephalopathy
-- Patient undergo ultrasound due to HCC or vascular occlusion can also cause hepatic encephalopathy
Agree with lactulose enemas [id number] until patient more awake to use oral
-- Will increase the frequency of the lactulose enemas to every 4 for today then decrease the frequency as she wakes up
--Patient should be n.p.o. as she is not safe for p.o. intake
Original Note:
Consultation
-
Date/Time Consultation Requested: 08/05/2025
Date/Time Consultation Performed: 08/05/2025
Requesting Provider: John Ambriz
Performing Provider: Suzie Cuellar
Reason for Consultation: Hepatic Encephalopathy
Medical History
Chief Complaint / HPI
Chief Complaint: AMS
History of Present Illness:
Tali is a 60-year-old female with a past medical history of chronic alcoholic cirrhosis (no longer drinking) with grade 1 varices and history of hepatic encephalopathy (on chronic lactulose), pancytopenia, GERD, duodenal ulcer, IBS, ASCVD,
history of CVA with sequelae of right hemiparesis, contractures, aphasia, dysphagia, PVCs, who presented from [facility] with altered mental status.
She has a history of multiple hospitalizations at [facility] for similar complaints of altered mental status. Most recently on 05/21/2025 she presented with altered mental status which was initially presumed to be hepatic encephalopathy but found to have
undetectable ammonia levels. Was initially treated with lactulose/xifaxan. Workup during that admission showed negative Blood Cx, negative URI panel, urine cx positive for Enterococcus Faecium and yeast. Mental status ultimately improved and she
was discharged without abx or medication changes. She returned back to [facility] where she remained in her usual state of health until 08/04 where long term staff reported roughly 24 hours of decreased responsiveness and somnolence,
particularly after PT. Patient reportedly has a history of refusing medications including lactulose.
On arrival to ED she was lethargic, somnolent but nontoxic and afebrile. Neurologic exam was at baseline with history of CVA and neurologic sequelae. Head CT this admission showing age-related parenchymal atrophy, chronic lacunar infarcts,
moderate subcortical deep and periventricular white matter low-attenuation notable with small vessel ischemic disease, but ultimately acute intracranial abnormality. Chest x-ray showed no acute cardiopulmonary process. Labs showed WBC 2.4 (stable
from prior), plts 89 (stable from prior), stable hgb 10.9, Lactate 2.1, Ammonia 240, Na 141, K 4.2. Of note, she was given x 2 doses of 2 mg IV diazepam, uncertain why.
GI was consulted for consulted for decompensated alcoholic liver cirrhosis with recurrent hepatic encephalopathy.
On exam this morning she was minimally responsive to sternal rub, mumbling and nodding her head but unable to follow commands. Baseline mentation uncertain to me.
She had MRCP in 05/15/2025 demonstrated cirrhosis, portal hypertension, cholelithiasis and choledocholithiasis, duodenitis, 7 mm pancreatic body cyst (likely pseudocyst or SBIP MN, recommending repeat MRI/MRCP with and without contrast in 1 year to
follow-up). ERCP 05/18/2025 endoscopic cannulation, sphincterotomy, removal of sludge and stones from CBD.
Last endoscopy in April 2025 showed grade 1 esophageal varices, small hiatal hernia, nonobstructing Schatzki ring, gastritis, nonbleeding duodenal ulcer, no biopsies taken. She currently has no symptoms of UGIB.
Past Medical History
Past Medical History: CVA and Other (See HPI)
Past Surgical History: Other (Shoulder surgery unspecified, wisdom teeth removal)
Social History
Alcohol: Former
Drug: None
Living: [facility]
Employment: Not Employed
Family History
Family History: Reviewed & Not Pertinent
Allergies / Home Medications
Allergy/AdvReac Type Severity Reaction Status Date / Time
No Known Allergies Allergy Verified 05/21/25 16:36
�Medication �Instructions �Recorded
ascorbic acid (vitamin C) 500 mg 500 mg PO DAILY anemia 07/06/24
tablet
bisacodyl 10 mg rectal suppository 10 mg [place] DAILYPRN PRN if mom is 07/06/24
(Dulcolax (bisacodyl)) ineffective
calcium 600 mg (as 1 tab PO BID Supplement 07/06/24
carbonate)-vitamin D3 10 mcg (400
unit) tablet (Calcium 600 + D(3))
folic acid 1 mg tablet 1 mg PO DAILY Supplement 07/06/24
mirtazapine 15 mg tablet (Remeron) 7.5 mg PO HS anxiety 07/06/24
rifaximin 550 mg tablet (Xifaxan) 550 mg PO BID Gastrointestinal 07/06/24
Issue
sodium phosphates 19 gram-7 118 ml [place] DAILYPRN PRN if dulcolax 07/06/24
gram/118 mL enema is ineffective
thiamine HCl (vitamin B1) 100 mg 100 mg PO DAILY Supplement 07/06/24
tablet
acetaminophen 325 mg tablet 650 mg PO Q6HPRN PRN mild 12/07/24
pain/temp>100.4
duloxetine 20 mg capsule,delayed 80 mg PO DAILY Mental 12/07/24
release Health/Anxiety
trazodone 50 mg tablet 50 mg PO HS Sleep 12/07/24
magnesium hydroxide 400 mg/5 mL 2,400 mg PO DAILYPRN PRN 02/12/25
oral suspension (Milk of Magnesia) CCONSTIPATION
pantoprazole 40 mg tablet,delayed 40 mg PO DAILY #84 tabs 05/19/25
release
carvedilol 3.125 mg tablet (Coreg) 3.125 mg PO BID #60 tabs 05/20/25
lactulose 10 gram/15 mL oral 20 g PO DAILY PRN constipayion 08/04/25
solution
lactulose 10 gram/15 mL oral 30 g PO TID 08/04/25
solution
Review of Systems
-
Unable to obtain full review of systems at this time due to: Patient Non Verbal
History Source: Patient and Other (Nursing staff)
Vital Signs
Temp Pulse Resp BP Pulse Ox
98.9 F 99 16 136/99 98
08/05/25 04:30 08/05/25 06:00 08/05/25 06:00 08/05/25 06:00 08/05/25 06:00
Physical Exam
Exam
General: Other (Somnolent/sleepy)
HEENT: Normocephalic, Anicteric, Moist Mucous Membranes and Atraumatic
Respiratory: Non Labored Respirations
Cardiac: S1/S2 and Regular Rhythm; Negative Murmur
Breast: Deferred by me
GI: Soft and Organomegaly (Palpable nodular liver)
Rectal: Deferred by Provider
Musculoskeletal: No Clubbing, No Cyanosis and No Edema
Skin: Warm and Dry
Neuro: AO x 3 and Other (Asterixis of the lower extremity)
Psych: Other (Somnolent, lethargic, minimally responsive)
Results
WBC 2.6 10^3/uL (4.8-10.8) L 08/05/25 03:58
Hgb 10.7 g/dL (12.0-16.0) L 08/05/25 03:58
Hct 31.5 % (37.0-47.0) L 08/05/25 03:58
MCV 96.9 fL (81.0-99.0) 08/05/25 03:58
Plt Count 99 10^3/uL (130-400) L 08/05/25 03:58
Absolute Neuts (auto) 1.4 10^3/uL (1.4-6.5) 08/04/25 23:09
Sodium 143 mmol/L (135-145) 08/05/25 03:58
Potassium 4.0 mmol/L (3.5-5.1) 08/05/25 03:58
Chloride 113 mmol/L (98-107) H 08/05/25 03:58
Carbon Dioxide 23 mmol/L (22-30) 08/05/25 03:58
BUN 21 mg/dl (7-17) H 08/05/25 03:58
Creatinine 0.7 mg/dL (0.6-1.0) 08/05/25 03:58
Calcium 9.8 mg/dl (8.4-10.2) 08/05/25 03:58
Total Bilirubin 1.2 mg/dl (0.2-1.3) 08/05/25 03:58
AST 36 U/L (14-36) 08/05/25 03:58
ALT 25 U/L (0-35) 08/05/25 03:58
Alkaline Phosphatase 99 U/L (38-126) 08/05/25 03:58
Diagnostic Image Results:
Prior GI Procedures:
EGD:
(05/17/25)
Findings:
Grade I varices were found in the lower third of the esophagus.
A small hiatal hernia was present.
A non-obstructing Schatzki ring was found in the distal esophagus.
Mild inflammation characterized by erythema was found in the entire
examined stomach.
One non-bleeding superficial duodenal ulcer was found in the first
portion of the duodenum. The lesion was 8-10 mm in largest dimension.
The second portion of the duodenum was normal.
Impression: - Grade I esophageal varices.
- Small hiatal hernia.
- Non-obstructing Schatzki ring.
- Gastritis.
- Non-bleeding duodenal ulcer.
- Normal second portion of the duodenum.
- No specimens collected.
Recommendation: - Return patient to [facility] for ongoing care.
- Clear liquid diet today.
- Use Protonix (pantoprazole) 40 mg PO BID for 6 weeks
then daily .
Colonoscopy:
None.
Assessment / Plan
-
Tali is a 60-year-old female with a past medical history of chronic alcoholic cirrhosis (no longer drinking) with grade 1 varices and history of hepatic encephalopathy (on chronic lactulose), pancytopenia, GERD, duodenal ulcer, IBS, ASCVD,
history of CVA with sequelae of right hemiparesis, contractures, aphasia, dysphagia, PVCs, who presented from [facility] with altered mental status for 24 hours.
#Decompensated alcoholic liver cirrhosis, no longer drinking, with recurrent hepatic encephalopathy (not transplant candidate)
#Grade 1 esophageal varices (no signs of active variceal bleeding)
Etiology of acute decompensation with recurrent hepatic encephalopathy includes infectious vs. medication noncompliance vs. hepatocellular carcinoma/portal hepatic thrombosis
Continue with lactulose enemas q4
Pending speech eval for tolerance of p.o., can add po rifaximin
Continue infectious workup:
- Blood cultures drawn, pending
- UA with reflex to culture ordered, results pending
- MRSA nares pending
- Continue to trend CBC, temperature curve
Abdominal ultrasound obtained, results pending
Avoid benzodiazepines
No need to trend ammonia, monitor for clinical improvement
c/w IVF fluids
MELD score 11
GI will continue to follow.
-
-
Thank you for consultation and allowing me to participate in the patient's care. Please call the refrigerated national truck driver GI physician during the after hours with any questions or concerns.
--- NOTE | 2025-08-05 08:05 | W.PN.HOSP.TC ---
Today's Communication/Plan
-
continue lactulose enemas
gentle IVF
swallow eval when more awake/alert
Assessment / Plan
Assessment / Plan
A/P: Patient is a 60y F with PMH significant for CVA with significant residual and alcoholic cirrhosis with hepatic encephalopathy who presents to ED from local [place] for evaluation of mental status change.
Acute on Chronic Hepatic Encephalopathy
- Patient remains sedated this AM, nods head when told in hospital. Found to have NH3 level 240 in ER; she was also given IV Valium 2 mg x 2
- Lactulose enemas q8 for now until patient alert / cooperative enough to take PO medications.
- IVF support.
- Avoid sedating medications.
- GI evaluation for additional recommendations.
- Follow for any fever or other new / focal symptoms to suggest infection / alternate etiology.
Alcoholic Cirrhosis with Pancytopenia
- Cell counts appear stable.
- LFTs are unremarkable at present.
GERD / Duodenal Ulcer
- Continue daily PPI.
ASCVD
CVA with R Hemiparesis / Contractures, Aphasia, Dysphagia
- No evident new focal deficits.
- Continue supportive care / repositioning / etc.
- Patient is on no antiplatelet agent, etc at [place] - presumably due to thrombocytopenia.
DVT Prophylaxis: SCDs
Code Status: DNR
Anticipated Discharge: 24 - 48 hours
Subjective/Interval History
-
Date of Service: August 05, 2025
sedated
nods yes when I tell her she is in the hospital
Objective Data
-
Labs:
Laboratory Results
08/04/25 08/05/25 08/05/25
23:09 03:58 07:58
WBC 2.4 L* 2.6 L
Hgb 10.9 L 10.7 L
Hct 32.1 L 31.5 L
Plt Count 89 L 99 L
PT Pending
INR Pending
APTT Pending
Sodium 141 143
Potassium 4.2 4.0
Chloride 111 H 113 H
Carbon Dioxide 24 23
BUN 19 H 21 H
Creatinine 0.6 0.7
Glucose 95 105 H
Calcium 9.6 9.8
Total Bilirubin 0.7 1.2
AST 35 36
ALT 26 25
Alkaline Phosphatase 96 99
Vital Signs:
Vital Signs
Temp Pulse Resp BP Pulse Ox
98.9 F 99 16 136/99 98
08/05/25 04:30 08/05/25 06:00 08/05/25 06:00 08/05/25 06:00 08/05/25 06:00
Review of Systems
-
Unable to obtain full review of systems at this time due to: Patient Non-verbal
History Source: Patient
Physical Exam
-
General: Appears Chronically Ill
HEENT: PERRLA
Respiratory: Clear to Auscultation; Negative Wheezes
Cardiac: Regular Rhythm and S1/S2
GI: Soft and Nontender
Musculoskeletal: Other (contractures RUE)
Skin: Warm and Dry
Neuro: Sedated (not following commands)
Psych: Calm
Data Reviewed
-
Diagnostic Radiology: Report Reviewed by me
Labs: Labs Reviewed by me
[2025-08-05] MEDS: COREG PO ×2 (10:04→20:16)
[2025-08-05] MEDS: CYMBALTA DELAYED RELEASE PO (10:05)
[2025-08-05] MEDS: XIFAXAN PO ×2 (10:05→20:16)
[2025-08-05] MEDS: PROTONIX IV 40 MG IV (10:09)
[2025-08-05 10:20] LABS: INR 1.41; PT 17.5 Sec (11.4-14.6)
[2025-08-05 10:21] LABS: APTT 35.7 Sec (23.4-35.0)
--- NOTE | 2025-08-05 14:23 | PTCARENOTE ---
Assumed care of patient at 0700. Nursing assessment completed and as documented. Hx CVA with right hemiparesis. Two RN's attempted to straight cath for UA but unable secondary to patient tensing up. Three staff members to hold patient for straight
cath. Enema given as per order, see MAR. Patient screams with any nursing care but remains minimally responsive otherwise. Patient was able to shake head yes and no to some simple questions but does not follow commands. Hospitalist made aware of UA.
IVF infusing via L FA PIV. Unable to safely perform swallow eval at this time. VSS, call rendon within reach, care ongoing.
--- NOTE | 2025-08-05 14:57 | PTCARENOTE ---
Patient mental status waxes and wanes, patient awake and able to tell me name and location. Unable to stay awake for swallow eval at this time.
[2025-08-05 16:10] LABS: Magnesium 1.6 mg/dl (1.6-2.3)
[2025-08-05] MEDS: THIAMINE INJECTION 200 MG IV (16:36)
[2025-08-06] VITALS (13 sets, daily range): BP systolic 96–139; BP diastolic 65–91; BMI 19.9
[2025-08-06] MEDS: OFIRMEV 100 IV (00:12)
[2025-08-06] MEDS: LACTULOSE ENEMA 300 ML RECTAL ×4 (00:13→23:11)
--- NOTE | 2025-08-06 00:39 | PTCARENOTE ---
assumed care of patient from previous shift. Assessment and vital signs charted. Patient has hx of cva with right sided hemiparesis. Patient is ordered q4 lactulose enemas. Patient is screaming extremely loud during any kind of nursing care as well
as just when patient in laying in bed. when asked patient what was wrong she replied 'you tell me'. Patient does not follow any commands and does not response to any questions, only responsive to tactile and pain. TT RETAIL PHARMACY MANAGER about patient screaming
while laying in bed due to possible pain, IV Ofirmev ordered and given. care on going, call rendon in reach.
[2025-08-06 04:39] LABS: Hematocrit 29.5 % (37.0-47.0); Hemoglobin 10.0 g/dL (12.0-16.0); Mean Corp Hgb Conc. 33.9 g/dL (33.0-37.0); Mean Corpuscular Volume 99.3 fL (81.0-99.0); Platelet Count 80 10^3/uL (130-400); Red Cell Dist. Width 15.1 % (11.5-14.5)
[2025-08-06 04:48] LABS: ALT (SGPT) 24 U/L (0-35); AST (SGOT) 37 U/L (14-36); Albumin 3.5 g/dl (3.5-5.0); Alkaline Phosphatase 95 U/L (38-126); Blood Urea Nitrogen 21 mg/dl (7-17); Calcium 9.5 mg/dl (8.4-10.2); Carbon Dioxide 21 mmol/L (22-30); Chloride 119 mmol/L (98-107); Estimated Creatinine Clearance 73 ml/min; Glucose 74 mg/dl (70-99); Magnesium 1.4 mg/dl (1.6-2.3); Potassium 3.6 mmol/L (3.5-5.1); Sodium 146 mmol/L (135-145); Total Protein 6.4 g/dl (6.3-8.2); eGFR > 60.00
[2025-08-06 04:50] LABS: Ammonia 33 umol/L (9-30)
[2025-08-06] MEDS: MAGNESIUM SULFATE 50 IV (08:07)
[2025-08-06] MEDS: XIFAXAN 550 MG PO ×2 (08:25→19:38)
[2025-08-06] MEDS: PROTONIX IV 40 MG IV (08:25)
[2025-08-06] MEDS: COREG 3.125 MG PO ×2 (08:25→19:38)
[2025-08-06] MEDS: CYMBALTA DELAYED RELEASE 80 MG PO (08:25)
[2025-08-06] MEDS: NSS (PRESERVATIVE FREE) 10 ML IV (08:26)
[2025-08-06] MEDS: THIAMINE INJECTION 200 MG IV (08:26)
--- NOTE | 2025-08-06 09:30 | W.PN.UPDATE ---
Update Note
Progress Note Update
Seen and examined the patient. Agree with the plan set forth by the resident. See changes in my documentation
60-year-old with history of alcoholic cirrhosis and hepatic encephalopathy admitted for mental status change. Patient was [facility] in [place] for several years and at [place] now since 2022
Awake and alert , conversant.
Contracture right Fingers, hand and leg.
# Acute hepatic encephalopathy
Alcoholic cirrhosis
Ammonia levels coming down
Ammonia level was 240 in the ER, down to 33 today
Continue lactulose -switch to p.o.
Avoid sedatives
On Xifaxan and lactulose as outpatient for symptom management, continue Xifaxan along with lactulose
No evidence of infection or GI bleed
GI evaluation
# Pancytopenia-likely secondary to above
# Hypomagnesemia-replace
# History of CVA left thalamus with right hemiparesis/contractures/aphasia/dysphagia
Continue supportive care
Not on antiplatelets-presumably secondary to thrombocytopenia
# Dysphagia-speech eval, cleared for a diet.
# Chronic anemia
# Depression/insomnia-continue duloxetine, Remeron, trazodone
# Chronic left bundle branch block
# Osteoporosis
# DVT prophylaxis-SCDs
# DNR
D/W RN
Discussed with brother and updated
--- NOTE | 2025-08-06 10:21 | PTCARENOTE ---
Patient drowsy but arousable. She is verbal at times and will nod her head appropriately. She has expressive aphasia. She was able to state her name. She struggled saying her birthday but said her age. Patient was able to take her oral
medications this AM. Will have speech therapy come evaluate her.
--- NOTE | 2025-08-06 11:25 | CM ---
Initial assessment completed with patient who resides at [facility] for LTC. Patient is primarily bedbound and requires total assistance, staff transfers to wheelchair. No VA benefits. No psychiatric hospitalizations. PCP is Dr. Mayito Oneill.
Pharmacy is [facility]. Discharge POC: Return to [facility] for resumption of LTC. Referral placed.
--- NOTE | 2025-08-06 11:35 | PTOTSP ---
Speech Language Pathology
Pt seen for clinical bedside swallow evaluation. P.O. trials of puree, regular solids, and thin liquids provided. Slightly prolonged mastication noted, but this was functional given additional time. No pocketing noted. No overt signs of
aspiration.
Recommend:
(1) Regular solids/thin liquids
(2) Aspiration precautions: liquids via straw, sit upright, full assist
(3) Meds as tolerated
(4) SUPER[employer]OR [employer] to sign off. Please reconsult as indicated
[2025-08-06] MEDS: LACTULOSE ENEMA RECTAL (12:29)
--- NOTE | 2025-08-06 13:41 | W.PN.HOSP.TC ---
Today's Communication/Plan
-
Step down to telemetry
Lactulose transition to PO
Regular diet with thin liquids; Aspiration Precaution
Monitor K, Mg, Na, Ammonia
Blood culture pending
Continue to monitor
Assessment / Plan
Assessment / Plan
60 year old female from [facility] with past medical history of CVA with Right hemiparesis and aphasia, alcoholic cirrhosis with pancytopenia, hepatic encephalopathy, osteoporosis, major depression, insomnia presenting with mental status change.
#Acute on Chronic Hepatic Encephalopathy
-NH3 240-->88-->33
-Chest X Ray, Head CT- no acute findings
-AB SEGUN (08/05/2025)- limited d/t bowel gas,� hepatic cirrhosis, splenomegaly, (-) abdominal ascites, intra-abdominal inferior vena cava and abdominal aorta appear normal other than aortic atherosclerosis.�
-Blood culture pending
-Transition to Lactulose 20mg QID PO
-Rifaximin 550mg
-IVF NSS @60mL
-avoid sedating meds
Follow fever/new symptoms
GI following
#Alcoholic Cirrhosis with Pancytopenia
- Cell counts low, but stable from previous studies- WBC 3.1, Hgb- 10.0L, HCT 29.5, MCV 99.3, MCH 33.7 H, Platelet 80 L
- LFTs- AST 37H, ALT, ALP normal
#Hypernatremia
143-->146H
Continue to monitor
#Hypomagnesemia
1.4L
Repleted 2g Magnesium
#Macrocytic Anemia
#History of Alcoholic Cirrhosis
Thiamine HCL 200mg IV Daily
#GERD / Duodenal Ulcer
- Pantoprazole 40mg IV daily
#CVA with Right Hemiparesis
#Contracture pain
-Contractures, Aphasia, Dysphagia
-Continue supportive care
-Duloxetine Hcl, PRN acetaminophen
#Major Depressive Disorder
#Primary Insomia
Continue Mirtazapine
Continue Duloxetine Hcl
Continue Trazodone
#Osteoporosis
Calcium/Vitamin D 500mg
DVT Prophylaxis: SCDs
Code Status: DNR
Anticipated Discharge: 24 - 48 hours
Subjective/Interval History
-
Date of Service: August 06, 2025
The patient reports pain in her hands from chronic contractures. Denies abdominal pain. Able to tolerate PO.
Objective Data
-
Labs:
Laboratory Results
08/06/25
04:14
WBC 3.1 L
Hgb 10.0 L
Hct 29.5 L
Plt Count 80 L
Sodium 146 H
Potassium 3.6
Chloride 119 H
Carbon Dioxide 21 L
BUN 21 H
Creatinine 0.7
Glucose 74
Calcium 9.5
Total Bilirubin 1.3
AST 37 H
ALT 24
Alkaline Phosphatase 95
Vital Signs:
Vital Signs
Temp Pulse Resp BP Pulse Ox
98.9 F 77 22 123/75 94
08/06/25 12:49 08/06/25 12:00 08/06/25 12:00 08/06/25 12:00 08/06/25 08:50
Review of Systems
-
Unable to obtain full review of systems at this time due to: Other (Aphasia)
Physical Exam
-
General: Comfortable, Appears Chronically Ill and Other (Expressive Aphasia)
HEENT: Normocephalic, Anicteric and PERRLA
Respiratory: Clear to Auscultation and Non Labored Respirations
Cardiac: Regular Rhythm
Breast: Deferred by me
GI: Soft, Nontender and Normal Bowel Sounds
Musculoskeletal: Other ((+)bilateral finger contractures, left arm contracture at elbow. Atrophy on bilateral legs)
Skin: Warm
Neuro: Awake, Alert and Other (Not oriented to place and time. Able to follow simple instructions. Able to answer questions, but answers inappropriately sometimes)
Psych: Calm
--- NOTE | 2025-08-06 14:50 | W.PN.GI.CBS2 ---
Today's Communication / Plan
-
-- ok now for oral lacutlose and decrease enemas
Assessment / Plan
-
Tali is a 60-year-old female with a past medical history of chronic alcoholic cirrhosis (no longer drinking) with grade 1 varices and history of hepatic encephalopathy (on chronic lactulose), pancytopenia, GERD, duodenal ulcer, IBS, ASCVD,
history of CVA with sequelae of right hemiparesis, contractures, aphasia, dysphagia, PVCs, who presented from [facility] with altered mental status for 24 hours.
#Decompensated alcoholic liver cirrhosis, no longer drinking, with recurrent hepatic encephalopathy (not transplant candidate)
Etiology of acute decompensation with recurrent hepatic encephalopathy includes infectious vs. medication noncompliance vs. hepatocellular carcinoma/portal hepatic thrombosis
--Infectious workup thus far negative
-- Chest x-ray negative, ultrasound not showing ascites, CT head negative, UA straight cath was never done. Blood cultures negative
-- She is waking up in the setting of every 4 lactulose enemas
-- will now start oral lactulose QID and decrease enemas to every 8hrs
-- continue xifaxan
GI will continue to follow.
Subjective
Subjective
Date of Service: August 06, 2025
Patient much more awake today. She is nodding her head appropriately with questions.
Objective
Data Reviewed
Laboratory Data:
Laboratory Results
08/06/25 04:14
08/06/25 04:14
Laboratory Results
PT 17.5 Sec (11.4-14.6) H 08/05/25 09:59
INR 1.41 08/05/25 09:59
APTT 35.7 Sec (23.4-35.0) H 08/05/25 09:59
Magnesium 1.4 mg/dl (1.6-2.3) L 08/06/25 04:14
Total Bilirubin 1.3 mg/dl (0.2-1.3) 08/06/25 04:14
AST 37 U/L (14-36) H 08/06/25 04:14
ALT 24 U/L (0-35) 08/06/25 04:14
Alkaline Phosphatase 95 U/L (38-126) 08/06/25 04:14
Vital Signs and I&O:
Vital Signs
Temp Pulse Resp BP Pulse Ox
98.9 F 77 22 123/75 94
08/06/25 12:49 08/06/25 12:00 08/06/25 12:00 08/06/25 12:00 08/06/25 08:50
Physical Exam
Physical Exam
HEENT: Anicteric
Pulmonary: Clear
GI: Soft, Non Distended and Non Tender
Extremities: No Edema and Other (Contracted right hand)
Neuro: Other (No significant asterixis, she can move her left hand and both of her legs)
[2025-08-06] MEDS: DUPHALAC/CHRONULAC 20 GRAMS PO ×3 (15:08→21:00)
[2025-08-06] MEDS: OSCAL 500 + D 500 MG PO (19:37)
[2025-08-06] MEDS: DESYREL 50 MG PO (21:00)
[2025-08-06] MEDS: REMERON 7.5 MG PO (21:00)
[2025-08-07] VITALS (10 sets, daily range): BP systolic 91–125; BP diastolic 68–95; BMI 20.9
--- NOTE | 2025-08-07 03:59 | PTCARENOTE ---
Pt talkative, appropriate, cooperative with care. Lactulose enema given per MD orders. Pt able to tolerate PO meds without complication. Call rendon within reach. Pt ringing appropriately. Care ongoing.
[2025-08-07 04:37] LABS: Hematocrit 29.4 % (37.0-47.0); Hemoglobin 10.0 g/dL (12.0-16.0); Mean Corp Hgb Conc. 34.0 g/dL (33.0-37.0); Mean Corpuscular Volume 99.7 fL (81.0-99.0); Platelet Count 82 10^3/uL (130-400); Red Cell Dist. Width 15.0 % (11.5-14.5)
[2025-08-07 04:39] LABS: ALT (SGPT) 23 U/L (0-35); AST (SGOT) 36 U/L (14-36); Albumin 3.2 g/dl (3.5-5.0); Alkaline Phosphatase 80 U/L (38-126); Blood Urea Nitrogen 18 mg/dl (7-17); Calcium 9.0 mg/dl (8.4-10.2); Carbon Dioxide 23 mmol/L (22-30); Chloride 113 mmol/L (98-107); Estimated Creatinine Clearance 90 ml/min; Glucose 76 mg/dl (70-99); Magnesium 1.6 mg/dl (1.6-2.3); Potassium 3.2 mmol/L (3.5-5.1); Sodium 141 mmol/L (135-145); Total Protein 6.0 g/dl (6.3-8.2); eGFR > 60.00
[2025-08-07 04:40] LABS: Ammonia < 9 umol/L (9-30)
--- NOTE | 2025-08-07 07:45 | PTCARENOTE ---
Assumed care of patient at beginning of this shift from previous RN. Ammonia level this morning <9; patient due for po lactulose as well as lactulose enema. Dr Valencia notified via TT; instructed to hold off on enema.
[2025-08-07] MEDS: COREG 3.125 MG PO (08:03)
[2025-08-07] MEDS: KCL 40 MEQ PO (08:03)
[2025-08-07] MEDS: XIFAXAN 550 MG PO (08:03)
[2025-08-07] MEDS: PROTONIX 40 MG PO (08:03)
[2025-08-07] MEDS: OSCAL 500 + D 500 MG PO (08:03)
[2025-08-07] MEDS: CYMBALTA DELAYED RELEASE 80 MG PO (08:04)
[2025-08-07] MEDS: THIAMINE INJECTION 200 MG IV (08:04)
[2025-08-07] MEDS: LACTULOSE ENEMA RECTAL (08:04)
[2025-08-07] MEDS: DUPHALAC/CHRONULAC 20 GRAMS PO ×3 (08:04→17:26)
[2025-08-07] MEDS: MAGNESIUM SULFATE 102 GRAMS IV (10:54)
--- NOTE | 2025-08-07 12:12 | W.PN.GI.CBS2 ---
Addendum entered and electronically signed by Harish Valencia MD 08/07/25 13:35:
I saw and examined the patient.
The medical lab scientist's note was reviewed and I agree with the note.
Decompensated alcoholic liver cirrhosis with recurrent hepatic encephalopathy
No GI complaints . AAO x 3
plan
continue lactulose PO . Titrate to 3-4 BM / day
continue xifaxan twice daily
correct lytes
advice on medication compliance
No further GI recommendations . will s/o.
Original Note:
Today's Communication / Plan
-
See plan
Assessment / Plan
-
Tali is a 60-year-old female with a past medical history of chronic alcoholic cirrhosis (no longer drinking) with grade 1 varices and history of hepatic encephalopathy (on chronic lactulose), pancytopenia, GERD, duodenal ulcer, IBS, ASCVD,
history of CVA with sequelae of right hemiparesis, contractures, aphasia, dysphagia, PVCs, who presented from [facility] with altered mental status for 24 hours.
#Decompensated alcoholic liver cirrhosis, no longer drinking, with recurrent hepatic encephalopathy (not transplant candidate)
Etiology of acute decompensation with recurrent hepatic encephalopathy includes infectious vs. medication noncompliance vs. hepatocellular carcinoma/portal hepatic thrombosis vs. renal ammoniagenesis (secondary to hypokalemia, dehydration, GI
bleeding, etc.)
-- Infectious workup thus far remain negative
-- Chest x-ray negative, ultrasound not showing ascites, CT head negative, UA straight cath was never done. Blood cultures no growth to date
-- Mental status continues to improve s/p every 4 hours lactulose enemas
-- Continue with oral lactulose QID and decrease enemas to every 8hrs
-- continue xifaxan twice daily
-- Recommend on discharge keeping oral lactulose to 4 times daily and adding daily MiraLAX or MiraLAX as needed to encourage at least 3-4 good bowel movements per day
GI will continue to follow.
Subjective
Subjective
Date of Service: August 07, 2025
No acute complaints, no events overnight. Patient's ammonia has improved, mental status continues to improve, taken off lactulose enemas.
Objective
Data Reviewed
Laboratory Data:
Laboratory Results
08/07/25 03:55
08/07/25 03:55
Laboratory Results
PT 17.5 Sec (11.4-14.6) H 08/05/25 09:59
INR 1.41 08/05/25 09:59
APTT 35.7 Sec (23.4-35.0) H 08/05/25 09:59
Magnesium 1.6 mg/dl (1.6-2.3) 08/07/25 03:55
Total Bilirubin 1.2 mg/dl (0.2-1.3) 08/07/25 03:55
AST 36 U/L (14-36) 08/07/25 03:55
ALT 23 U/L (0-35) 08/07/25 03:55
Alkaline Phosphatase 80 U/L (38-126) 08/07/25 03:55
Vital Signs and I&O:
Vital Signs
Temp Pulse Resp BP Pulse Ox
97.7 F 66 16 118/79 95
08/07/25 11:11 08/07/25 10:00 08/07/25 10:00 08/07/25 10:00 08/07/25 11:41
I&O
08/06/25 08/07/25 08/08/25
06:59 06:59 06:59
Intake Total 1884
Balance 1884
Physical Exam
Physical Exam
HEENT: Anicteric and Moist mucous membranes
Cardiology: Normal Sinus Rhythm, S1 and S2
Pulmonary: Clear
GI: Soft, Non Distended, Non Tender and Normal Bowel Sounds
Extremities: No Edema and Warm
[2025-08-07] MEDS: KCL 260 MEQ IV (12:14)
--- NOTE | 2025-08-07 12:33 | W.PN.HOSP.TC ---
Addendum entered and electronically signed by Timothy Lyons MD 08/08/25 13:43:
Hemiplegia only
Addendum entered and electronically signed by Timothy Lyons MD 08/07/25 16:17:
I saw and evaluated the patient. I reviewed the resident�s note and agree with findings and plan as documented in the resident�s note.
Seen and examined the patient with the resident.
Seen this morning. Late documentation
Patient was feeling well
Able to communicate and answer questions knows that she is at [facility] and lives at [facility]
Abdomen soft and nontender
Right sided hemiplegia with contractures
In terms of hepatic encephalopathy she is improved and ammonia level is much better. Lactulose enema stopped. Patient can take p.o. lactulose to have 3-4 bowel movements every day
Hypokalemia and hypomagnesemia to be treated and corrected repeat level of potassium today if stable will discharge
This was communicated with the patient's brother yesterday regarding discharge possibility of discharge today.
Discussed with nursing
Total discharge time more than 30 minutes
Original Note:
Today's Communication/Plan
-
Transfuse K+ and Magnesium
Continue to monitor
May be discharged after levels normalize
Assessment / Plan
Assessment / Plan
60 year old female from [facility] with past medical history of CVA with Right hemiparesis and aphasia, alcoholic cirrhosis with pancytopenia, hepatic encephalopathy, osteoporosis, major depression, insomnia presenting with mental status change.
#Acute on Chronic Hepatic Encephalopathy
-NH3 240-->88-->33--> <9
-Chest X Ray, Head CT- no acute findings
-AB SEGUN (08/05/2025)- limited d/t bowel gas,� hepatic cirrhosis, splenomegaly, (-) abdominal ascites, intra-abdominal inferior vena cava and abdominal aorta appear normal other than aortic atherosclerosis.�
-Blood culture pending
-Lactulose 20mg QID PO
-Stop Lactulose enema
-Rifaximin 550mg
-IVF NSS @60mL
-avoid sedating meds
Follow fever/new symptoms
GI following
#Alcoholic Cirrhosis with Pancytopenia
Cell counts low, but stable from previous studies- WBC 3.1->2.6, Hgb- 10.0L�>10, HCT 29.5->29.4, MCV 99.3->99.7, MCH 33.7->22.9 H, Platelet 80->82 L
LFT normal
#Hypokalemia
3.2 L
Given 40 meq KCL PO and KCL 20 meq IV
-continue to monitor
#Hypernatremia
143-->146H--> 141 N
Continue to monitor
#Hypomagnesemia
1.4L--> 1.6
Repleted today from ongoing GI losses
continue to monitor
#GERD / Duodenal Ulcer
- Pantoprazole 40mg IV daily
#CVA with Right Hemiparesis
#Contracture pain
-Contractures, Aphasia, Dysphagia
-Continue supportive care
-Duloxetine Hcl, PRN acetaminophen
#Major Depressive Disorder
#Primary Insomia
Continue Mirtazapine
Continue Duloxetine Hcl
Continue Trazodone
#Osteoporosis
Calcium/Vitamin D 500mg
DVT Prophylaxis: SCDs
Code Status: DNR
Anticipated Discharge: Today
Subjective/Interval History
-
Date of Service: August 07, 2025
The patient reports having more clarity this morning. Reports chronic pain at the right fingers contracture sights. Denies abdominal pain, fever and SOB. Bowel movement this morning.
Objective Data
-
Labs:
Laboratory Results
08/07/25
03:55
WBC 2.6 L
Hgb 10.0 L
Hct 29.4 L
Plt Count 82 L
Sodium 141
Potassium 3.2 L
Chloride 113 H
Carbon Dioxide 23
BUN 18 H
Creatinine 0.6
Glucose 76
Calcium 9.0
Total Bilirubin 1.2
AST 36
ALT 23
Alkaline Phosphatase 80
Vital Signs:
Vital Signs
Temp Pulse Resp BP Pulse Ox
97.7 F 66 16 118/79 95
08/07/25 11:11 08/07/25 10:00 08/07/25 10:00 08/07/25 10:00 08/07/25 11:41
I&O
08/06/25 08/07/25 08/08/25
06:59 06:59 06:59
Intake Total 1884
Balance 1884
Review of Systems
-
History Source: Patient
Constitutional: Denies Fever or Weakness
EENT: Reports No Symptoms Reported
Respiratory: Denies Cough, Trouble Breathing or Wheezing
Cardiac: Denies Chest Pain or Palpitations
Abdomen/GI: Reports No Symptoms
Musculoskeletal: Reports Other (Right hand contracture pain)
Neuro: Reports Numbness (R sided, secondary to past CVA); Denies Headache, Weakness or Lightheadedness
Endocrine: Reports No Symptoms
Hematologic / Lymphatic: Reports No Symptoms
Physical Exam
-
General: Comfortable, Appears Chronically Ill and Other (Expressive Aphasia)
HEENT: Normocephalic, Anicteric and PERRLA
Respiratory: Clear to Auscultation and Non Labored Respirations
Cardiac: Regular Rhythm
Breast: Deferred by me
GI: Soft, Nontender and Normal Bowel Sounds
Musculoskeletal: Other ((+)right finger contractures. Atrophy on bilateral legs)
Skin: Warm
Neuro: AO x 3, Slurred Speech and Other (Answers questions appropriately.)
Psych: Calm
--- NOTE | 2025-08-07 15:26 | CM ---
Following up on patient. Medical Team stated that patient is ready to discharge, just after lab work for potassium level.
TIERRA Morales spoke to [place]anna, the liaison for [facility] and fine to accept back later this evening.
Report: [phone]

Transport was arranged for 7pm. IMM completed at 15:30
PLAN: Back to [facility]
--- NOTE | 2025-08-07 16:17 | PTCARENOTE ---
Morning K+ 3.2; Mg 1.6. Administered po potassium, K+ rider and Mg rider as ordered. Repeat bloodwork sent; await results.
[2025-08-07 16:27] LABS: Magnesium 1.8 mg/dl (1.6-2.3); Potassium 4.5 mmol/L (3.5-5.1)
[2025-08-07] MEDS: LOVENOX 40 MG SC (17:25)
--- NOTE | 2025-08-07 17:36 | PTCARENOTE ---
TT sent to Dr Lyons and Dr Carrasco with results of Mg and K+; ordered entered to discharge. Report was called and given to Ursula at 15:00; patient for pickup at 19:00. Patient updated.
--- NOTE | 2025-08-07 19:23 | W.DCSUMMARY ---
Discharge Summary
Discharge Data
Date of Admission: 08/05/25
Date of Discharge: 08/07/25
-
Pending Results: No
Hospital Course
Discharging Physician : Timothy Lyons MD, Lucinda Carrasco MD
Disposition : SNF
Primary care physician : Mayito Oneill MD
Principal Discharge diagnosis : Acute on Chronic Hepatic Encephalopathy, Alcoholic Cirrhosis with Pancytopenia
Chronic Discharge diagnosis : History of cerebrovascular accident with right hemiparesis/contractures/aphasia/dysphagia, Depression, Chronic Left Bundle Branch Block,
Osteoporosis
Hospital Course :
60-year-old female with history of CVA with right-sided hemiparesis and aphasia, history of cirrhosis with hepatic encephalopathy presented from nursing facility with change in mental status.
On arrival to ED she was lethargic, somnolent but nontoxic and afebrile. Neurologic exam was at baseline with history of CVA and neurologic sequelae. Head CT this admission showing age-related parenchymal atrophy, chronic lacunar infarcts,
moderate subcortical deep and periventricular white matter low-attenuation notable with small vessel ischemic disease, but ultimately acute intracranial abnormality. Chest x-ray showed no acute cardiopulmonary process. Labs showed WBC 2.4 (stable
from prior), plts 89 (stable from prior), stable hgb 10.9, Lactate 2.1, Ammonia 240, Na 141, K 4.2. The patient was given Lactulose 20g PO once, and lactulose enema 300ml.
The following problems were addressed during this hospitalization:
#Acute on Chronic Hepatic Encephalopathy
Ammonia trended: NH3 240-->88-->33--> <9
LFT stable
-Chest X Ray, Head CT- no acute findings
-AB SEGUN (08/05/2025)- limited d/t bowel gas,� hepatic cirrhosis, splenomegaly, (-) abdominal ascites, intra-abdominal inferior vena cava and abdominal aorta appear normal other than aortic atherosclerosis.�
-given Lactulose 20mg QID PO
-given Lactulose enema 300ml rectal q8, but but discontinued with ammonia levels normalized and switched to P.O
-continued SHEEP RANCHER Rifaximin 550mg
-IVF NSS @60mL
-avoid sedating meds
Followed for fever/new symptoms
GI consulted
#Alcoholic Cirrhosis with Pancytopenia
Cell counts low, but stable from previous studies-
WBC 3.1->2.6, Hgb- 10.0L�>10, HCT 29.5->29.4, MCV 99.3->99.7, MCH 33.7->22.9 H, Platelet 80->82 L
LFT normal
#Hypokalemia
3.2 L, given 40 meq KCL PO and KCL 20 meq IV. Normalized to 4.5.
#Hypernatremia
143-->146H--> 141 N
Stable
#Hypomagnesemia
1.4L--> 1.6--> 1.8
Repleted with Magnesium sulfate sulfate 1 g from ongoing GI losses
Stable
#GERD / Duodenal Ulcer
- Pantoprazole 40mg IV daily
#CVA with Right Hemiparesis
#Contracture pain
-Contractures, Aphasia, Dysphagia
-supportive care
-Duloxetine Hcl, PRN acetaminophen
#Major Depressive Disorder
#Primary Insomia
Continued Mirtazapine
Continued Duloxetine Hcl
Continued Trazodone
#Osteoporosis
Continued Calcium/Vitamin D 500mg
Important imaging findings :
Head CT 08/05/2025
FINDINGS:
Moderate age-related parenchymal atrophy. Chronic lacunar infarcts in the bilateral basal ganglia and thalami. No intra- or extra-axial mass, hemorrhage, or fluid collection. Moderate subcortical, deep, and periventricular white matter
low-attenuation, compatible with changes of chronic small vessel ischemic disease. The imaged paranasal sinuses and mastoid air cells are clear.
IMPRESSION:
No acute intracranial abnormality. Chronic findings, as detailed above.
Abdominal Ultrasound (08/05/2025):
FINDINGS:
LIVER: The liver measures up to 15.3 cm in length. Cirrhotic morphology of the left lobe. The right lobe is obscured by bowel gas. Heterogeneous hepatic echotexture. Recannulized umbilical vein.
BILE DUCTS: No intrahepatic biliary dilatation. The common bile duct is not well visualized on this exam.
GALLBLADDER: Obscured by bowel gas artifact.
RETROPERITONEUM: The pancreas is incompletely visualized secondary to adjacent bowel gas. The imaged portions of the intra-abdominal inferior vena cava and abdominal aorta appear normal other than aortic atherosclerosis.
SPLEEN: The spleen is enlarged and measures 14.7 cm in length.
3.2 cm hypoechoic lesion measured at the splenic hilum. Possible splenule or adjacent vascular structure or a loop of small bowel. No adrenal or pancreatic tail mass in this region on the recent abdominal MRI.
KIDNEYS: The right kidney measures 9.6 x 4.6 x 5.0 cm. The left kidney measures 10.2 x 4.6 x 4.6 cm. Bilateral renal cortical thinning.
IMPRESSION:
Very limited sonographic examination secondary to bowel gas artifact.
Hepatic cirrhosis.
Splenomegaly.
No significant abdominal ascites.
Chest X-Ray (08/05/2025):
FINDINGS:
No focal consolidation, pleural effusion, or pneumothorax. The cardiomediastinal silhouette is stable. Left reverse total shoulder arthroplasty. Chronic degenerative changes of the right shoulder and the spine.
IMPRESSION:
No acute cardiopulmonary process.
Procedure findings :
ECG (08/04/2025):
Vent. Rate : 93 BPM Atrial Rate : 93 BPM
P-R Int : 144 ms QRS Dur : 122 ms
QT Int : 420 ms P-R-T Axes : 2 -36 99 degrees
QTcB Int : 522 ms
NORMAL SINUS RHYTHM
LEFT AXIS DEVIATION
LEFT BUNDLE BRANCH BLOCK
ABNORMAL ECG
WHEN COMPARED WITH ECG OF 21-May-2025 19:10,
PREMATURE VENTRICULAR COMPLEXES ARE NO LONGER PRESENT
T WAVE INVERSION LESS EVIDENT IN LATERAL LEADS
Discharge Plan
-
Patient Disposition: Half-Way/SNF
Discharge Diagnosis/Procedures: Acute on Chronic Hepatic Encephalopathy,
Alcoholic Cirrhosis with Pancytopenia,
History of cerebrovascular accident with right hemiparesis/contractures/aphasia/dysphagia,
Depression,
Chronic Left Bundle Branch Block,
Osteoporosis
Condition: Fair
Diet: Regular
Additional Diets: Aspiration precaution
Activity: As tolerated
Bathing Restrictions: OK to Shower
Blood Work: BMP 3 to 4 days
Activity Restrictions/Additional Instructions:
Patient needs to have 3-4 bowel movements every day
Referrals:
Mayito Oneill MD [Family Provider, Family Practice] - in less than 1 week
Prescriptions:
New
lactulose 10 gram/15 mL Solution
20 g PO QID Qty: 60 0RF
potassium chloride [Klor-Con 10] 10 mEq tablet extended release
10 meq PO DAILY Qty: 30 0RF
Continued
thiamine HCl (vitamin B1) 100 mg Tablet
100 mg PO DAILY
ascorbic acid (vitamin C) 500 mg Tablet
500 mg PO DAILY
bisacodyl [Dulcolax (bisacodyl)] 10 mg Suppository
10 mg KY DAILYPRN PRN (Reason: if mom is ineffective)
sodium phosphates 19-7 gram/118 mL Enema
118 ml KY DAILYPRN PRN (Reason: if dulcolax is ineffective)
folic acid 1 mg Tablet
1 mg PO DAILY
mirtazapine [Remeron] 15 mg Tablet
7.5 mg PO HS
calcium carbonate-vitamin D3 [Calcium 600 + D(3)] 600 mg-10 mcg (400 unit) Tablet
1 tab PO BID
Xifaxan 550 mg Tablet
550 mg PO BID
acetaminophen 325 mg Tablet
650 mg PO Q6HPRN PRN (Reason: mild pain/temp>100.4)
trazodone 50 mg Tablet
50 mg PO HS
duloxetine 20 mg Capsule,Delayed Release(Dr/Ec)
80 mg PO DAILY
Rx Instructions:
take with 60mg for total of 80mg
magnesium hydroxide [Milk of Magnesia] 400 mg/5 mL Suspension
2,400 mg PO DAILYPRN PRN (Reason: CONSTIPATION)
pantoprazole 40 mg tablet,delayed release (DR/EC)
40 mg PO DAILY Qty: 84 0RF
carvedilol [Coreg] 3.125 mg tablet
3.125 mg PO BID Qty: 60 0RF
Discontinued
lactulose 10 gram/15 mL solution
20 g PO DAILY PRN (Reason: constipation)
lactulose 10 gram/15 mL Solution
30 g PO TID
Discharge Orders:
Discharge Patient (As Directed); Ordered 08/07/25
Ordered By: Lucinda Carrasco
Discharge Date and Time
Discharge Date/Time: 08/07/25 19:10
Print Language: INDIAN
--- NOTE | 2025-08-08 09:50 | PN.CDI ---
Addendum entered and electronically signed by Timothy Lyons MD 08/08/25 13:44:
Documentation is complete at this time.
Original Note:
CDI
- -
CDI:
Physician Documentation Request
Admit Date: 08/05/25 03:09
Dear Doctor So,
Patient admitted with acute on chronic hepatic encephalopathy. History of CVA with right hemiparesis/contractures/aphasia/dysphagia.
ED assessment notes bilateral upper extremity contractures.
08/05 Nursing notes states 'Incontinent of bowel and bladder'
Case management notes states ' Patient is primarily bedbound and requires total assistance, staff transfers to wheelchair.'
Based on the above and your clinical assessment, please provide a diagnosis associated with the patient's current functional status:
Functional quadriplegia (complete immobility due to severe physical disability or frailty,
Generalized weakness without complete immobility
Other (please specify)
Use of terms such as suspected, likely, concern for, or probable (associated with a specific diagnosis that is being evaluated, monitored, or treated as if it exists) are acceptable and can be coded in the inpatient setting, when documented at the
time of discharge.
Thank you,
Scarlet Doe RN, BSN
CDI Specialist
tiger text
Please use your independent medical judgment in providing your response.
--- NOTE | 2025-08-08 14:10 | W.PN.UPDATE ---
Update Note
Progress Note Update
#Generalized weakness without complete immobility
-Right hemiparesis secondary to CVA
-primarily bedbound
-uses wheelchair
-able to use bear weight on left leg on
== END 2025-08-07 19:10 | DRG 442 ==
LOC: IMU 03:09
PROVIDERS: Nurse Practitioner Family; Student in an Organized Health Care Education/Training Program; ADMITTING PHYSICIAN Hospitalist; ATTENDING PHYSICIAN Hospitalist; CONSULT PHYSICIAN Internal Medicine; EMERGENCY PHYSICIAN Student in an Organized Health Care Education/Training Program; FAMILY PHYSICIAN Family Medicine
DX: K76.82 Hepatic encephalopathy (principal); D61.818 Other pancytopenia; I69.351 Hemiplegia and hemiparesis following cerebral infarction affecting right dominant side; E87.0 Hyperosmolality and hypernatremia; K76.6 Portal hypertension; K70.30 Alcoholic cirrhosis of liver without ascites; I69.320 Aphasia following cerebral infarction; M81.0 Age-related osteoporosis without current pathological fracture; I44.7 Left bundle-branch block, unspecified; E87.6 Hypokalemia; E83.42 Hypomagnesemia; K21.9 Gastro-esophageal reflux disease without esophagitis; K26.9 Duodenal ulcer, unspecified as acute or chronic, without hemorrhage or perforation; F32.9 Major depressive disorder, single episode, unspecified; I70.0 Atherosclerosis of aorta; Z66 Do not resuscitate; F41.9 Anxiety disorder, unspecified; F51.01 Primary insomnia; I10 Essential (primary) hypertension; I25.10 Atherosclerotic heart disease of native coronary artery without angina pectoris; K58.9 Irritable bowel syndrome, unspecified; M19.011 Primary osteoarthritis, right shoulder; Z79.899 Other long term (current) drug therapy; Z96.612 Presence of left artificial shoulder joint; D64.9 Anemia, unspecified; I49.3 Ventricular premature depolarization
CPT/HCPCS: 70450; 71046; 76700; 80048; 80053; 80076; 82140; 83605; 83735; 84132; 84443; 85025; 85027; 85610; 85730; 87040; 87070; 92610; 93005; 96374; 99285

== ENCOUNTER 2025-08-15 13:25 | Emergency (ER) | payer MEDICARE, OTHER, SELFPAY ==
[2025-08-15] VITALS (10 sets, daily range): BP systolic 92–106; BP diastolic 48–65
[2025-08-15 13:35] LABS: Glucose - Point of Care 130 mg/dl (70-99)
--- NOTE | 2025-08-15 14:15 | ED.GENMED ---
History of Present Illness
General
Chief Complaint: Facial Problem
Source: patient, ambulance crew and [facility] records
Exam Limitations: none
Time Seen by Provider: 08/15/25 13:51
Nursing documentation reviewed up to this point in time: agreed with
History of Present Illness
History of Present Illness:
60-year-old female with a past medical history of alcohol use and cirrhosis, prior stroke with residual right hemiparesis and mild expressive aphasia who presents to the emergency room from [facility] via EMS for evaluation of
facial droop. Of note, patient was just admitted 08/05 until 08/07 for hepatic encephalopathy. There is some dispute about time of onset�nursing staff reported that she had no facial droop this morning at 8 AM however patient says that she noticed
drooping in her face starting last night before she went to bed. Aside from facial droop patient reports some slight numbness in the left side of her face. She is chronically weak on the right side and contracted in her right upper extremity�she
says that this is baseline. She does feel slightly more weak in the left arm, denies any numbness in the left side. She has some dysarthria. She denies any headache or neck pain. She denies any chest pain or palpitations. She denies any other
acute issues. Review of her medication list shows that she is not on any blood thinners but she does have a history of thrombocytopenia in the setting of her liver disease.
Past History
Past History
ED Past Medical History: CVA (Right hemiparesis), HTN, Psychiatric and Other (Alcoholic cirrhosis with chronic pancytopenia, hepatic encephalopathy)
ED Past Surgical History: Orthopedic (Left shoulder)
Social History
Tobacco: Non-smoker
Alcohol: Former
Personal: Single
Living: [facility]
Employment: Disabled
Family History
Family History: Other (Noncontributory)
Review of Systems
Review of Systems
All Other Systems: ROS reviewed and negative except as documented in HPI and ROS
Constitutional: Denies fever
Respiratory: Denies trouble breathing
Cardiac: Denies chest pain or palpitations
ABD/GI: Denies abdominal pain or nausea
: Denies flank pain
Musculoskeletal: Denies neck pain or back pain
Neurological: Reports weakness, numbness and other (Facial droop); Denies dizzy or headache
Phy Exam
Physical Exam
Physical Exam:
General: Awake, alert, oriented x3; no acute distress
Head: Normocephalic, atraumatic
Eyes: Conjunctiva normal, EOMI, pupils equal round and reactive to light bilaterally
Throat: Airway intact, handling secretions
Neck: Trachea midline, supple without meningismus
Lungs: Clear to auscultation bilaterally, no wheezing, rales, rhonchi
Heart: Regular rate and rhythm, no murmurs, gallops, or rubs
Abd: Soft, non distended, nontender
Neuro: Patient has left facial paralysis which does not spare the forehead; she has moderate dysarthria and mild expressive aphasia; she is contracted in her right upper extremity; right lower extremity 4/5 strength; left upper and lower extremity
5/5 strength, sensory exam seems to be grossly intact
Skin: No rash appreciated
Extremities: Warm and well-perfused
Scores
NIH Stroke Score
Level of Consciousness: 0 - Alert
LOC Questions: 0-Answers both correctly
LOC Commands: 0-Performs both correctly
Best Horizontal Gaze: 0-Normal
Visual Stoddard: 0=Normal, no visual loss
Facial Palsy: 3=Complete paralysis
Motor - Right Arm: 3=None vs. gravity
Motor - Left Arm: 0=No drift 10 seconds
Motor - Right Le-Drift < 5 seconds
Motor - Left Le-No drift 5 seconds
Limb Ataxia: 0-Absent
Sensation: 0-Normal
Best Language: 1-Mild aphasia
Dysarthria: 1-Mild slurring
Extinction and Inattention: 0-No abnormality
NIH Total Score:: 9
Thrombolytic Contraindication
Inclusion and Exclusion criteria reviewed: Yes
Reasons for NON-Tx with Thrombolytics ABSOLUTE Exclusions: Greater than 4.5 hrs from onset of sxs and Platelet count < 100,000
Heart Failure Risk
Heart Failure Risk Score: Not Applicable
Heart Score for Chest Pain Patients
STEMI patient?: Not applicable
Withdrawal Assessment of Alcohol
Withdrawal Assessment Completed?: Not applicable
Course
Orders/Labs/Results
Orders:
Orders
08/15/25 13:30
EKG [Electrocardiogram (*1)] Urgent
Reason for Study: TIA/Stroke
08/15/25 13:31
EKG- Treatment ONCE
08/15/25 14:15
CT Head W/o Iv Contrast Urgent
Comment:
Reason For Exam: left facial droop
NEUROLOGY CONSULT Urgent
Consulting Provider: Andre Canas
Was physician already notified: Yes
08/15/25 14:22
Complete Blood Count/With Diff Urgent
Comprehensive Metabolic Panel Urgent
Vitamin B12 Urgent
Comment: ADD ON
08/15/25 15:38
Add On- LAB Urgent
Tests Added?: Vitamin b12
08/15/25 17:00
Cyanocobalamin [Vitamin B-12] 1,000 mcg PO DAILY
08/15/25 17:32
Prednisone [Deltasone] 50 mg PO NOW STA
Abnormal Lab Results
08/15/25 08/15/25
13:33 14:22
WBC 2.5 L 10^3/uL
(4.8-10.8)
RBC 3.11 L 10^6/uL
(4.20-5.40)
Hgb 10.2 L g/dL
(12.0-16.0)
Hct 31.7 L %
(37.0-47.0)
MCV 101.9 H fL
(81.0-99.0)
MCH 32.8 H pg
(27.0-31.0)
MCHC 32.2 L g/dL
(33.0-37.0)
RDW 15.3 H %
(11.5-14.5)
Plt Count 111 L 10^3/uL
(130-400)
MPV 11.9 H fL
(7.4-10.4)
Absolute Lymphs (auto) 0.6 L 10^3/uL
(1.2-3.4)
Monocytes % 13.5 H %
(1.7-9.3)
Chloride 111 H mmol/L
(98-107)
Total Protein 6.2 L g/dl
(6.3-8.2)
Albumin 3.3 L g/dl
(3.5-5.0)
POC Glucose 130 H mg/dl
(70-99)
08/15/25 14:22
08/15/25 14:22
Vital Signs
Initial and Last Documented VS:
Initial Vital Signs
Temp Pulse Resp BP Pulse Ox
37.1 C 70 16 93/52 98
08/15/25 13:38 08/15/25 13:38 08/15/25 13:38 08/15/25 13:38 08/15/25 13:38
Last Documented Vital Signs
Temp Pulse Resp BP Pulse Ox
37.1 C 73 23 93/52 98
08/15/25 13:38 08/15/25 15:00 08/15/25 13:43 08/15/25 13:43 08/15/25 14:23
MDM/Problems Addressed
Differential Diagnosis Includes:
Maynard's palsy, stroke, brain mass/bleed, Seizure
MDM/Problems Addressed:
60-year-old female [facility] for evaluation of left-sided facial droop�patient reports onset last night but staff reports that they did not notice facial droop at 8 AM this morning which was their last reported
normal time. Vitals and exam as above. Overall suspect this may be a Maynard's palsy�it appears that her only new neurologic deficit is complete facial paralysis on the left side that does not spare the forehead which is consistent with a Maynard's
palsy however given her significant stroke history I did discuss the case with neurology for assessment. Will check CT head, check labs and EKG. No stroke alert as patient will be outside the window for tenecteplase and would not be a good
candidate due to thrombocytopenia regardless. Monitor very closely and reassess as the above.
Labs reviewed, stable pancytopenia, chemistry unremarkable. EKG sinus rhythm. CT head no acute abnormalities. Evaluated by neurology they agree that this is consistent with a Maynard's palsy. Recommended discharge on oral steroid. Patient happy
with this plan. Follow-up outpatient with neurology. All questions answered.
Chronic conditions affecting care:
Cirrhosis with thrombocytopenia, prior stroke with hemiparesis
*Radiology
Radiology exam reviewed: radiology read reviewed
*Pulse Oximetry
SaO2: 98
Oxygen Mode of Delivery: Room air
Patient hypoxic: no (98%)
*EKG
Interpreted by ED Provider?: Yes
Heart Rate: 69
Rate: normal
Rhythm: sinus
[place]: normal axis
Interval: normal interval
QRS Pattern: normal QRS
Ischemia: other (Inferior infarct age indeterminant-no change from prior)
*Critical Care Note
Total Time (30-74mins, 75-104mins- exclusive of procedures): Not Applicable
Data Reviewed
Review of Other/Old Records Reveals: Labs, Records and Discharge Summary
Source: patient, records, ambulance crew and [facility] records
Patient Management
Discussion with other providers: [employer] Specialist (Discussed with neurologist)
ED Attending Note
-
Portions of this chart may have been created with voice recognition software.� Occasional wrong word or��sound alike� substitutions may have occurred due to the inherent limitations of voice recognition software.
Discharge Plan
Departure
Patient with high blood pressure during this ER visit?: No
Discharge Problem:
Maynard's palsy
Instructions: Maynard's Palsy (DC)
Prescriptions:
New
prednisone 10 mg Tablet
See Rx Instructions .ROUTE .COMPLEX Qty: 45 0RF
Rx Instructions:
Take By Mouth:
50 mg daily x3 days, 40 mg daily x3 days,
30 mg daily x3 days, 20 mg daily x3 days,
10 mg daily x3 days
No Action
thiamine HCl (vitamin B1) 100 mg Tablet
100 mg PO DAILY
ascorbic acid (vitamin C) 500 mg Tablet
500 mg PO DAILY
bisacodyl [Dulcolax (bisacodyl)] 10 mg Suppository
10 mg VA DAILYPRN PRN (Reason: if mom is ineffective)
sodium phosphates 19-7 gram/118 mL Enema
118 ml VA DAILYPRN PRN (Reason: if dulcolax is ineffective)
folic acid 1 mg Tablet
1 mg PO DAILY
mirtazapine [Remeron] 15 mg Tablet
7.5 mg PO HS
calcium carbonate-vitamin D3 [Calcium 600 + D(3)] 600 mg-10 mcg (400 unit) Tablet
1 tab PO BID
Xifaxan 550 mg Tablet
550 mg PO BID
acetaminophen 325 mg Tablet
650 mg PO Q6HPRN PRN (Reason: mild pain/temp>100.4)
trazodone 50 mg Tablet
50 mg PO HS
duloxetine 20 mg Capsule,Delayed Release(Dr/Ec)
80 mg PO DAILY
magnesium hydroxide [Milk of Magnesia] 400 mg/5 mL Suspension
2,400 mg PO DAILYPRN PRN (Reason: CONSTIPATION)
pantoprazole 40 mg tablet,delayed release (DR/EC)
40 mg PO DAILY Qty: 84 0RF
carvedilol [Coreg] 3.125 mg tablet
3.125 mg PO BID Qty: 60 0RF
potassium chloride [Klor-Con 10] 10 mEq tablet extended release
10 meq PO DAILY Qty: 30 0RF
lactulose [Enulose] 10 gram/15 mL Solution
20 g PO DAILYPRN PRN (Reason: constipation)
lactulose 10 gram/15 mL solution
20 g PO TID
Referrals:
Andre Canas MD [Active, Neurology] - Call in 1-3 days for appt
Mayito Oneill MD [Family Provider, Family Practice]
Activity Restrictions/Additional Instructions:
Thank you for visiting the Emergency Department at [facility].
1. Please schedule a follow up appointment as directed. Call first thing tomorrow morning to make an appointment.
2. If indicated, please take your medications as instructed and indicated on discharge paperwork.
3. If any of your symptoms do not improve, or persist, or become more severe within 6-12 hours, please return to the emergency department for further care.
4. Please return to the emergency department if you develop a headache, neck pain/stiffness, fever greater than 100.4F, chest pain, shortness of breath, persistent nausea, vomiting, slurred speech, difficulty walking, numbness/tingling, weakness,
signs of infection or any other symptoms that are worrisome to you.
Please call [phone] if you have any questions.
Interventions
Interventions:
*Risk Screen - Suicide Last Done: 08/15/25 13:51
*General Assessment Last Done: 08/15/25 13:51
*Neglect/Abuse Screening Last Done: 08/15/25 13:51
*ED COVID-19 Vaccine History Last Done: 08/15/25 13:51
Discharge Date and Time
Print Language: BHUTANESE
[2025-08-15 14:47] LABS: Hematocrit 31.7 % (37.0-47.0); Hemoglobin 10.2 g/dL (12.0-16.0); Mean Corp Hgb Conc. 32.2 g/dL (33.0-37.0); Mean Corpuscular Volume 101.9 fL (81.0-99.0); Nucleated Red Blood Cells % 0 %; Platelet Count 111 10^3/uL (130-400); Red Cell Dist. Width 15.3 % (11.5-14.5)
[2025-08-15 15:12] LABS: ALT (SGPT) 22 U/L (0-35); AST (SGOT) 31 U/L (14-36); Albumin 3.3 g/dl (3.5-5.0); Alkaline Phosphatase 84 U/L (38-126); Blood Urea Nitrogen 14 mg/dl (7-17); Calcium 8.9 mg/dl (8.4-10.2); Carbon Dioxide 26 mmol/L (22-30); Chloride 111 mmol/L (98-107); Glucose 84 mg/dl (70-99); Potassium 3.9 mmol/L (3.5-5.1); Sodium 142 mmol/L (135-145); Total Protein 6.2 g/dl (6.3-8.2); eGFR > 60.00
--- NOTE | 2025-08-15 15:25 | CON.NEURO4 ---
Addendum entered and electronically signed by Andre Canas MD 08/15/25 16:08:
Studies reviewed.
I have personally examined the patient. I reviewed and agree with the PATHOLOGY TRANSCRIPTIONIST's Note.
My addenda:
Awake, alert, interactive. No acute distress.
Speech mildly dysarthric.
Follows 2-step requests w/o difficulty. No tremor.
Extra-ocular movements grossly intact.
Facial movements reduced on the left face. Hearing intact to normal conversational volume.
Neck: full ROM.
Chest: no dyspnea
Heart: no JVD
Ext: (-) Clubbing, (-) Cyanosis, (-) Edema
IMPRESSIONS/RECOMMENDATIONS:
Abrupt onset of left-sided facial weakness with dysarthria most likely secondary to prior stroke leading to right upper extremity flexion contracture
Provide prednisone 60 mg with rapid taper, meaning decreasing by 10 mg daily until off
Check blood work for potential metabolic causes
Outpatient evaluation for botulinum toxin injections into the right arm to reduce contractures
D/W patient
All questions answered.
Will continue to follow patient.
Original Note:
Documented by User: Joy Concepcion NP 08/15/25 15:51
Consultation - Neurology 4
-
CONSULTING PHYSICIAN: Andre Canas MD
REFERRING PHYSICIAN: ER/Dr. Siddiqui
DICTATED BY: UBALDO Allen
DATE/TIME OF REQUEST: 08/15/25
DATE/TIME OF CONSULTATION: 08/15/25
Reason for Consultation: Left facial drooping
History of Present Illness:
This is a 60-year-old female who has presented to the hospital with report of left facial drooping. Patient has a history of a left thalamic stroke with residual right-sided weakness, dysarthria, and dysphagia. Patient reports that last night she
developed left facial drooping and mild left facial numbness. This did not improve today prompting her NH to send her to the ER for evaluation. Patient denies any headache, dizziness, vision changes, and new speech/swallow difficulty. She notes that
her right hand has been severely contracted and she has been trying to find a neurologist to perform botox for spasticity. She is not on any blood-thinning medications due to thrombocytopenia.
Past Medical History: L thalamic stroke with residual right-sided weakness and dysarthria, alcoholic cirrhosis, insomnia, anxiety, depression, dysphagia, osteoporosis
Surgical History: L shoulder surgery
Family History: Reviewed and noncontributory.
Social History: Former alcohol abuse. Denies tobacco and illicit drug use.
Allergies: No known allergies.
Home Medications: See below.
Review of Symptoms:
Patient denies any fever, headache, chest pain, shortness of breath, GI or symptoms.
�Per the HPI.�All systems are reviewed negative except above.
Physical Exam:
The patient is afebrile, abdomen is nondistended, breathing is unlabored, skin is warm and dry, no edema.
NIH Stroke Scale:
I performed the NIH stroke scale on the patient on 08/15/25 at 1430 The patient scored 7 points on the NIH stroke scale assessment, which were assigned as follows: See below.
Neurologic Examination:
The patient is awake, alert and oriented x 3. She is able to follow commands and answer questions appropriately. There is no aphasia. Speech is dysarthric. On cranial nerve assessment, pupils are 3 mm bilateral, round and reactive to light and
accommodation. Visual stoddard are full. Extraocular movements are intact. There is right lower facial drooping and left side entire facial drooping. Hearing is intact bilaterally to normal conversation volume. Tongue palate and uvula are midline.
Sternocleidomastoid strengths are full bilaterally. Motor strengths are 1/5 right upper (contracted), 5-/5 right lower, 5/5 left upper and lower extremities on medical research [place] scale. There is no drift on the left side. No involuntary
movement noted. Deep tendon reflexes are 2+ bilateral upper and lower extremities and Babinski is absent bilaterally. There was no extinction noted on double simultaneous stimulation. Coordination is intact by finger to nose in the LUE, JORY RUE.
Lab Results: See below.
Neuro Imaging: None.
Differentials for the patient's presentation include:
1. Left side [place] Palsy produced entire left-side facial drooping.
2. History of a left thalamic stroke with residual right-sided weakness, dysarthria, and dysphagia.
3. History of thrombocytopenia.
Patient has the following risk factors for their symptoms: hx stroke
She is not a candidate for TNK/IAT due to exam supportive of Maynard's palsy.
Recommendations:
-Maynard's palsy should gradually resolve.
-Okay to continue avoiding aspirin due to history of thrombocytopenia.
-Follow-up with Neurology as an outpatient with Dr. Canas for botox for spasticity.
Discussed patient care with: Dr. Canas, the patient
Vital Signs and Labs
-
Vital Signs and Labs:
Vital Signs
Temp Pulse Resp BP Pulse Ox
98.8 F 73 23 93/52 98
08/15/25 13:38 08/15/25 13:43 08/15/25 13:43 08/15/25 13:43 08/15/25 14:23
Lab Results
08/15/25 14:22
08/15/25 14:22
Sodium 142 mmol/L (135-145) 08/15/25 14:22
Potassium 3.9 mmol/L (3.5-5.1) 08/15/25 14:22
BUN 14 mg/dl (7-17) 08/15/25 14:22
Glucose 84 mg/dl (70-99) 08/15/25 14:22
Calcium 8.9 mg/dl (8.4-10.2) 08/15/25 14:22
Medications
-
Active Medications
Generic Name Dose Route Start Last Admin
Trade Name Freq PRN Reason Stop Dose Admin
Cyanocobalamin 1,000 mcg 08/15/25 17:00
Cyanocobalamin (Vitamin B-12) 500 Mcg Tablet PO 09/12/25 16:59
DAILY BENJY
Home Medications
�Medication �Instructions �Recorded
ascorbic acid (vitamin C) 500 mg 500 mg PO DAILY anemia 07/06/24
tablet
bisacodyl 10 mg rectal suppository 10 mg PA DAILYPRN PRN if mom is 07/06/24
(Dulcolax (bisacodyl)) ineffective
calcium 600 mg (as 1 tab PO BID Supplement 07/06/24
carbonate)-vitamin D3 10 mcg (400
unit) tablet (Calcium 600 + D(3))
folic acid 1 mg tablet 1 mg PO DAILY Supplement 07/06/24
mirtazapine 15 mg tablet (Remeron) 7.5 mg PO HS anxiety 07/06/24
rifaximin 550 mg tablet (Xifaxan) 550 mg PO BID Gastrointestinal 07/06/24
Issue
sodium phosphates 19 gram-7 118 ml PA DAILYPRN PRN if dulcolax 07/06/24
gram/118 mL enema is ineffective
thiamine HCl (vitamin B1) 100 mg 100 mg PO DAILY Supplement 07/06/24
tablet
acetaminophen 325 mg tablet 650 mg PO Q6HPRN PRN mild 12/07/24
pain/temp>100.4
duloxetine 20 mg capsule,delayed 80 mg PO DAILY Mental 12/07/24
release Health/Anxiety
trazodone 50 mg tablet 50 mg PO HS Sleep 12/07/24
magnesium hydroxide 400 mg/5 mL 2,400 mg PO DAILYPRN PRN 02/12/25
oral suspension (Milk of Magnesia) CONSTIPATION
pantoprazole 40 mg tablet,delayed 40 mg PO DAILY #84 tabs 05/19/25
release
carvedilol 3.125 mg tablet (Coreg) 3.125 mg PO BID #60 tabs 05/20/25
potassium chloride 10 mEq 10 meq PO DAILY Electrolyte 08/07/25
tablet,extended release (Klor-Con) Repletion #30 tabs
lactulose 10 gram/15 mL oral 20 g PO TID 08/15/25
solution
lactulose 10 gram/15 mL oral 20 g PO DAILYPRN PRN constipation 08/15/25
solution (Enulose)
NIH Stroke Score
Subsequent NIH Scale
Date of Subsequent NIH Scale: 08/15/25
Time of Subsequent NIH Scale: 14:30
NIH Stroke Score
Level of Consciousness: 0 - Alert
LOC Questions: 0-Answers both correctly
LOC Commands: 0-Performs both correctly
Best Horizontal Gaze: 0-Normal
Visual [place]odd[place]: 0=Normal, no visual loss
Facial Palsy: 3=Complete paralysis
Motor - Right Arm: 3=None vs. gravity
Motor - Left Arm: 0=No drift 10 seconds
Motor - Right Le-No drift 5 seconds
Motor - Left Le-No drift 5 seconds
Limb Ataxia: 0-Absent
Sensation: 0-Normal
Best Language: 0-No aphasia
Dysarthria: 1-Mild slurring
Extinction and Inattention: 0-No abnormality
NIH Total Score:: 7
Modified [place] (mRS) Score
Modified [place] Scale (mRS): Moderate disability. Requires some help, able to walk unassisted.
Score: 3

Documented by User: Andre Canas MD 08/15/25 16:02
NIH Stroke Score
NIH Stroke Score
NIH Total Score:: 7
Modified [place] (mRS) Score
Score: 3
[2025-08-15 18:28] LABS: Vitamin B12 329 pg/ml (239-931)
[2025-08-15] MEDS: DELTASONE 50 MG PO (18:32)
[2025-08-15] MEDS: VITAMIN B-12 1000 MCG PO (18:32)
== END 2025-08-15 22:53 | disposition home or self-care (01) ==
LOC: EMR 13:25
PROVIDERS: CONSULT PHYSICIAN Psychiatry & Neurology Neurology; EMERGENCY PHYSICIAN Emergency Medicine; FAMILY PHYSICIAN Family Medicine
DX: G51.0 Bell's palsy (principal); I10 Essential (primary) hypertension; D69.6 Thrombocytopenia, unspecified; I69.322 Dysarthria following cerebral infarction; I69.351 Hemiplegia and hemiparesis following cerebral infarction affecting right dominant side; K70.30 Alcoholic cirrhosis of liver without ascites
CPT/HCPCS: 99284; 70450; 80053; 82607; 82962; 85025; 93005

== ENCOUNTER 2025-11-25 12:43 | Inpatient (IN) | payer MEDICARE, OTHER, SELFPAY ==
[2025-11-25] VITALS (7 sets, daily range): BP systolic 115–140; BP diastolic 76–90
--- NOTE | 2025-11-25 11:06 | ED.GENMED ---
History of Present Illness
<Cody Lee DO - Last Filed: 11/25/25 11:07>
General
Chief Complaint: Change in Mental Status
Time Seen by Provider: 11/25/25 10:50
<Tiffanie Garnett PA-C - Last Filed: 11/25/25 15:53>
History of Present Illness
History of Present Illness:
Tali is a 60F with PMH of cirrhosis, hepatic encephalopathy who presents from her SNF plaints of altered mental status and decreased p.o. intake. In speaking with her brother she has been altered for the last 3 days and they have been giving
her half dose of lactulose and attempt to improve this. Last full dose of lactulose was given either on 11/22 or 11/23. She had outpatient labs yesterday that showed rising ammonia level and brother became concerned so he requested she be sent
into the hospital for evaluation. Patient is unable to provide any history secondary to her current mental status.
Past History
<Cody Lee DO - Last Filed: 11/25/25 11:07>
Past History
ED Past Medical History: CVA (Right hemiparesis), HTN, Psychiatric and Other (Alcoholic cirrhosis with chronic pancytopenia, hepatic encephalopathy)
ED Past Surgical History: Orthopedic (Left shoulder)
Social History
Tobacco: Non-smoker
Alcohol: Former
Personal: Single
Living: longterm
Employment: Disabled
Family History
Family History: Other (Noncontributory)
Phy Exam
<Tiffanie Garnett PA-C - Last Filed: 11/25/25 15:53>
General Physical Exam
General Presentation: well appearing and no apparent distress
General age: appears older than age
General Skin: warm and dry
General Habitus: normal, elderly, failure to thrive and frail
General Mental: other (Obtunded)
General Hydration: dry mucous membranes
General Chronic Disability: contractures
ENT Exam
ENT Exam: EOMI, pharynx normal, neck supple and normocephalic
Eye Exam
Eye Exam: PERRL, cornea clear and conjunctiva normal
Cardiovascular Exam
Cardiovascular Exam: regular rate/rhythm, no edema, no murmur and normal peripheral pulses
Pulmonary Exam
Pulmonary Exam: lungs clear, no respiratory distress, no rales, no crackles, no rhonchi, no stridor, no wheezing and no cough
Gastrointestinal Exam
Gastrointestinal Exam: normal bowel sounds, non tender, soft, no organomegaly, no pulsatile mass and non distended
Neurological Exam
Neurological Exam: non verbal and other (Withdrawals in bilateral lower extremities and left upper extremity; right upper extremity paralyzed which is baseline)
Musculoskeletal Exam
Musculoskeletal Exam: full ROM and no edema
Skin Exam
Skin Exam: normal color, warm/dry, no rash and no petechia
Psychiatric Exam
Psychiatric Exam: normal mood/affect
Course
<Cody Lee, DO - Last Filed: 11/25/25 11:07>
Orders/Labs/Results
Orders:
Orders
11/25/25 11:22
Ammonia Urgent
Complete Blood Count/With Diff Urgent
Comprehensive Metabolic Panel Urgent
Magnesium Urgent
11/25/25 11:31
Lactulose Enema 300 ml RECTAL NOW STA
11/25/25 11:58
0.9% Sodium Chloride 1000 ml [Nss] 1,000 ml IV BOLUS
11/25/25 12:15
Admit/Transfer Patient As Directed
Co-Sign Provider:
Level of Care: Inpatient admission
Assign to:: Telemetry
Physician / Group: porfirio
Diagnosis: hepatic encephelopathy
Reason for Telemetry: Arrhythmia
Date to Stop Telemetry: 11/28/25
Time to Stop Telemetry: 11:00
Reason for Hospitalization: hepatic encephelopathy
Expected length of stay greater than two midnights?: Yes
ELOS- Estimated Length of Stay in days: 2
I certify the patient meets the requirements for IP care: Yes
PRN Pain Medication Management As Directed
May give lesser potent ordered pain med per pt: Yes
preference::
Protocol:: Medication orders for pain may be administered in a
manner that supports deferring to patient preference
when the pt is:
- Requesting an ordered lesser potent pain medication.
Least to most potent pain medications are defined
as: acetaminophen < NSAID < tramadol < opioids
(morphine, oxycodone, hydromorphone).
- Requesting a lesser dose of the same medication IF
ORDERED.
- Requesting a less intrusive route of administration
if both routes are prescribed by the provider (PO <
IV).
11/25/25 12:16
Code Status As Directed
Resuscitation Status: Do not resuscitate
Reached after discussion with pt or family/Healthcare POA: Yes
DNR Bracelet Application ONCE
11/25/25 12:18
Urinalysis Reflex To Culture Urgent
11/25/25 12:19
CR Chest - 2 Views Urgent
Comment:
Reason For Exam: encephleopathy
11/25/25 12:31
Ammonia Urgent
COVID-19 Antigen Urgent
Source: Nasal Swab
Influenza A+B Rapid Molecular Urgent
DENISE Source: Nasal Swab
Specimen Description:
11/28/25 11:00
DC Protocol for Telemetry ONCE
Abnormal Lab Results
11/25/25
11:22
MCH 32.4 H pg
(27.0-31.0)
MCHC 32.9 L g/dL
(33.0-37.0)
RDW 15.8 H %
(11.5-14.5)
Abs Immat Gran (auto) 0.1 H 10^3/uL
(0-0.05)
Absolute Neuts (auto) 7.3 H 10^3/uL
(1.4-6.5)
Absolute Monos (auto) 0.8 H 10^3/uL
(0.1-0.6)
Immature Gran % 0.6 H %
(0-0.5)
Neutrophils % 78.0 H %
(42.2-75.2)
Lymphocytes % 12.7 L %
(20.5-51.1)
Sodium 153 H mmol/L
(135-145)
Chloride 118 H mmol/L
(98-107)
BUN 40 H mg/dl
(7-17)
Glucose 106 H mg/dl
(70-99)
Total Bilirubin 2.8 H mg/dl
(0.2-1.3)
AST 96 H U/L
(14-36)
ALT 44 H U/L
(0-35)
Alkaline Phosphatase 133 H U/L
(38-126)
11/25/25 11:22
11/25/25 11:22
Vital Signs
Initial and Last Documented VS:
Initial Vital Signs
Temp Pulse Resp BP Pulse Ox
36.6 C 62 16 136/83 95
11/25/25 10:49 11/25/25 10:49 11/25/25 10:49 11/25/25 10:49 11/25/25 10:49
Last Documented Vital Signs
Temp Pulse Resp BP Pulse Ox
36.6 C 74 16 134/88 95
11/25/25 10:49 11/25/25 14:45 11/25/25 14:45 11/25/25 13:00 11/25/25 11:53
<Tiffanie Garnett PA-C - Last Filed: 11/25/25 15:53>
Orders/Labs/Results
Orders:
Orders
11/25/25 11:22
Ammonia Urgent
Complete Blood Count/With Diff Urgent
Comprehensive Metabolic Panel Urgent
Magnesium Urgent
11/25/25 11:31
Lactulose Enema 300 ml RECTAL NOW STA
11/25/25 11:58
0.9% Sodium Chloride 1000 ml [Nss] 1,000 ml IV BOLUS
11/25/25 12:15
Admit/Transfer Patient As Directed
Co-Sign Provider:
Level of Care: Inpatient admission
Assign to:: Telemetry
Physician / Group: porfirio
Diagnosis: hepatic encephelopathy
Reason for Telemetry: Arrhythmia
Date to Stop Telemetry: 11/28/25
Time to Stop Telemetry: 11:00
Reason for Hospitalization: hepatic encephelopathy
Expected length of stay greater than two midnights?: Yes
ELOS- Estimated Length of Stay in days: 2
I certify the patient meets the requirements for IP care: Yes
PRN Pain Medication Management As Directed
May give lesser potent ordered pain med per pt: Yes
preference::
Protocol:: Medication orders for pain may be administered in a
manner that supports deferring to patient preference
when the pt is:
- Requesting an ordered lesser potent pain medication.
Least to most potent pain medications are defined
as: acetaminophen < NSAID < tramadol < opioids
(morphine, oxycodone, hydromorphone).
- Requesting a lesser dose of the same medication IF
ORDERED.
- Requesting a less intrusive route of administration
if both routes are prescribed by the provider (PO <
IV).
11/25/25 12:16
Code Status As Directed
Resuscitation Status: Do not resuscitate
Reached after discussion with pt or family/Healthcare POA: Yes
DNR Bracelet Application ONCE
11/25/25 12:18
Urinalysis Reflex To Culture Urgent
11/25/25 12:19
CR Chest - 2 Views Urgent
Comment:
Reason For Exam: encephleopathy
11/25/25 12:31
Ammonia Urgent
COVID-19 Antigen Urgent
Source: Nasal Swab
Influenza A+B Rapid Molecular Urgent
DENISE Source: Nasal Swab
Specimen Description:
11/28/25 11:00
DC Protocol for Telemetry ONCE
Abnormal Lab Results
11/25/25
11:22
MCH 32.4 H pg
(27.0-31.0)
MCHC 32.9 L g/dL
(33.0-37.0)
RDW 15.8 H %
(11.5-14.5)
Abs Immat Gran (auto) 0.1 H 10^3/uL
(0-0.05)
Absolute Neuts (auto) 7.3 H 10^3/uL
(1.4-6.5)
Absolute Monos (auto) 0.8 H 10^3/uL
(0.1-0.6)
Immature Gran % 0.6 H %
(0-0.5)
Neutrophils % 78.0 H %
(42.2-75.2)
Lymphocytes % 12.7 L %
(20.5-51.1)
Sodium 153 H mmol/L
(135-145)
Chloride 118 H mmol/L
(98-107)
BUN 40 H mg/dl
(7-17)
Glucose 106 H mg/dl
(70-99)
Total Bilirubin 2.8 H mg/dl
(0.2-1.3)
AST 96 H U/L
(14-36)
ALT 44 H U/L
(0-35)
Alkaline Phosphatase 133 H U/L
(38-126)
11/25/25 11:22
11/25/25 11:22
Vital Signs
Initial and Last Documented VS:
Initial Vital Signs
Temp Pulse Resp BP Pulse Ox
36.6 C 62 16 136/83 95
11/25/25 10:49 11/25/25 10:49 11/25/25 10:49 11/25/25 10:49 11/25/25 10:49
Last Documented Vital Signs
Temp Pulse Resp BP Pulse Ox
36.6 C 74 16 134/88 95
11/25/25 10:49 11/25/25 14:45 11/25/25 14:45 11/25/25 13:00 11/25/25 11:53
Siminlt;Tiffanie Garnett PA-C - Last Filed: 11/25/25 15:53>
MDM/Problems Addressed
Differential Diagnosis Includes:
Patient arrives with outpatient labs sheet that shows ammonia was 141 yesterday. With marked altered mental status opens eyes to voice and withdraws in lower extremities and left upper extremity to pain. Not spontaneously moving any extremities.
Mental status likely related to hepatic encephalopathy will give rectal lactulose now.
Lab sent and results ammonia level 17 here. This is unusual given that it was 141 yesterday and she is still quite encephalopathic. Will send a repeat to ensure that this is correct. Also with hypernatremia and slightly elevated creatinine from
baseline. Fluid bolus also given. LFTs including T. bili are also elevated from baseline. Patient with known history of cirrhosis but has never had elevations like this in the past.
Speaking with her brother she would be a DNR/DNI and unclear if she would be okay with any long-term feeding access such as PEG tube. I also spoke with her cousin who reiterates the same. Patient will be admitted to the hospital service for
further management.
<Cody Lee DO - Last Filed: 11/25/25 11:07>
*Pulse Oximetry
SaO2: 95
Oxygen Mode of Delivery: Room air
<Tiffanie Garnett PA-C - Last Filed: 11/25/25 15:53>
*Pulse Oximetry
Patient hypoxic: no
*Critical Care Note
Total Time (30-74mins, 75-104mins- exclusive of procedures): Not Applicable
ED Attending Note
<Cody Lee DO - Last Filed: 11/25/25 11:07>
ED Attending Note
Patient seen and examined by attending physician: Yes
I performed the substantive portion of visit, reviewed & personally made and approve the management plan that is documented in note by myself or YAHIR.: Yes
ED Attending Note:
I evaluated the patient at bedside. The patient appears encephalopathic. In the past she has had issues with hepatic encephalopathy and in July required rectal lactulose. She had outpatient labs that showed elevated ammonia level. Will give
dose of lactulose rectally.
-
Portions of this chart may have been created with voice recognition software.� Occasional wrong word or��sound alike� substitutions may have occurred due to the inherent limitations of voice recognition software.
Discharge Plan
Departure
Patient Disposition: Admit
Date of Disposition: 11/25/25
Time of Disposition: 12:07
Presentation/result/management discussed w/ accepting MD/DO: Hospitalist
Discharge Problem:
Acute hepatic encephalopathy, Cirrhosis, Altered mental status
Interventions
Interventions:
*General Assessment Last Done: 11/25/25 10:49
*Neglect/Abuse Screening Last Done: 11/25/25 10:49
*ED COVID-19 Vaccine History Last Done: 11/25/25 10:49
*ED Influenza Vaccine History Last Done: 11/25/25 10:49
[facility] Risk Assessment Tool Last Done: 11/25/25 11:06
*Risk Screen - Suicide (C-SSRS) Last Done: 11/25/25 10:49
ED- Cardiac Assessment Last Done: 11/25/25 11:53
ED- Neurological Assessment Last Done: 11/25/25 11:53
ED- Pulmonary Assessment Last Done: 11/25/25 11:53
ED Swallowing Screen Last Done: 11/25/25 11:07
[2025-11-25 11:36] LABS: Hematocrit 43.8 % (37.0-47.0); Hemoglobin 14.4 g/dL (12.0-16.0); Mean Corp Hgb Conc. 32.9 g/dL (33.0-37.0); Mean Corpuscular Volume 98.4 fL (81.0-99.0); Nucleated Red Blood Cells % 2.0 %; Platelet Count 147 10^3/uL (130-400); Red Cell Dist. Width 15.8 % (11.5-14.5)
[2025-11-25 11:47] LABS: Ammonia 17 umol/L (9-30)
[2025-11-25 11:51] LABS: ALT (SGPT) 44 U/L (0-35); AST (SGOT) 96 U/L (14-36); Albumin 3.7 g/dl (3.5-5.0); Alkaline Phosphatase 133 U/L (38-126); Blood Urea Nitrogen 40 mg/dl (7-17); Calcium 9.1 mg/dl (8.4-10.2); Carbon Dioxide 29 mmol/L (22-30); Chloride 118 mmol/L (98-107); Glucose 106 mg/dl (70-99); Magnesium 2.2 mg/dl (1.6-2.3); Potassium 3.7 mmol/L (3.5-5.1); Sodium 153 mmol/L (135-145); Total Protein 7.0 g/dl (6.3-8.2); eGFR > 60.00
[2025-11-25] MEDS: NSS 1000 IV (12:07)
--- NOTE | 2025-11-25 12:22 | HPS.HSE ---
Family Physician
-
Family Physician: Mayito Oneill MD
Chief Complaint
-
altered mental status
History of Present Illness
60-year-old female past medical history of CVA with right hemiparesis/aphasia, alcoholic cirrhosis, pancytopenia, hepatic encephalopathy, osteoporosis, depression, insomnia, GERD/duodenal ulcer, presenting from SNF after outpatient labs showed
ammonia level of 141. As per SNF she had decreased p.o. intake for past several days. She was noted to be encephalopathic and opening eyes and withdrawing to pain. She has not had any lactulose since 11/22.
Patient unable to provide any history.
Medical History
Past Medical History
Past Medical History: Reports Other (CVA with right hemiparesis/aphasia, alcoholic cirrhosis, pancytopenia, hepatic encephalopathy, osteoporosis, depression, insomnia, GERD/duodenal ulcer)
Past Surgical History: Reports Other (L shoulder surgery)
Social History
Tobacco: Non-smoker
Alcohol: Former
Drug: None
Family History
Family History: Not pertinent
Allergies / Home Medications
Allergies reflects when Allergies were last updated in [employer].
Home Medications with original date entered in [employer]
Allergy/Medication List:
Allergies
Allergy/AdvReac Type Severity Reaction Status Date / Time
No Known Allergies Allergy Verified 11/25/25 10:48
Home Medications
ascorbic acid (vitamin C) 500 mg tablet 500 mg PO DAILY anemia 07/06/24
bisacodyl 10 mg rectal suppository (Dulcolax (bisacodyl)) 10 mg PA DAILYPRN PRN if mom is ineffective 07/06/24
calcium 600 mg (as carbonate)-vitamin D3 10 mcg (400 unit) tablet (Calcium 600 + D(3)) 1 tab PO BID Supplement 07/06/24
folic acid 1 mg tablet 1 mg PO DAILY Supplement 07/06/24
mirtazapine 15 mg tablet (Remeron) 7.5 mg PO HS anxiety 07/06/24
rifaximin 550 mg tablet (Xifaxan) 550 mg PO BID Gastrointestinal Issue 07/06/24
sodium phosphates 19 gram-7 gram/118 mL enema 118 ml PA DAILYPRN PRN if dulcolax is ineffective 07/06/24
thiamine HCl (vitamin B1) 100 mg tablet 100 mg PO DAILY Supplement 07/06/24
acetaminophen 325 mg tablet 650 mg PO Q6HPRN PRN mild pain/temp>100.4 12/07/24
duloxetine 20 mg capsule,delayed release 80 mg PO DAILY Mental Health/Anxiety 12/07/24
trazodone 50 mg tablet 50 mg PO HS Sleep 12/07/24
magnesium hydroxide 400 mg/5 mL oral suspension (Milk of Magnesia) 2,400 mg PO DAILYPRN PRN CONSTIPATION 02/12/25
pantoprazole 40 mg tablet,delayed release 40 mg PO DAILY #84 tabs 05/19/25
carvedilol 3.125 mg tablet (Coreg) 3.125 mg PO BID #60 tabs 05/20/25
potassium chloride 10 mEq tablet,extended release (Klor-Con) 10 meq PO DAILY Electrolyte Repletion #30 tabs 08/07/25
lactulose 10 gram/15 mL oral solution 20 g PO TID 08/15/25
lactulose 10 gram/15 mL oral solution (Enulose) 20 g PO DAILYPRN PRN constipation 08/15/25
prednisone 10 mg tablet See Rx Instructions .Route .COMPLEX #45 tabs 08/15/25
Review of Systems
-
History Source: Patient
A 12 point ROS was completed and negative except as noted: Yes
Constitutional: Reports No Symptoms
EENT: Reports No Symptoms
Respiratory: Reports No Symptoms
Cardiac: Reports No Symptoms
Abdomen/GI: Reports No Symptoms
: Reports No Symptoms
Musculoskeletal: Reports No Symptoms
Skin: Reports No Symptoms
Neurological: Reports No Symptoms
Endocrine: Reports No Symptoms
Hematologic/Lymphatic: Reports No Symptoms
Psych: Reports No Symptoms
Physical Exam
Vital Signs
Vital Signs
Temp Pulse Resp BP Pulse Ox
97.8 F 60 15 137/82 95
11/25/25 10:49 11/25/25 11:00 11/25/25 11:00 11/25/25 11:00 11/25/25 11:53
Physical Exam
General: Well Developed, Well Nourished and No Apparent Distress
HEENT: NormoCephalic, Moist mucous membranes and Atraumatic
Respiratory: Clear
Cardiac: S1/S2 and Regular Rhythm; No Murmur or Rub
GI: Soft, Non Tender, Non Distended and Normal Bowel Sounds; No Organomegaly
Rectal: Deferred by Provider
Musculoskeletal: No Clubbing, No Cyanosis and No Edema
Skin: No Rash
Neuro: Nonfocal/grossly intact
Laboratory Results
-
11/25/25 11:22
11/25/25 11:22
Laboratory Results
Total Bilirubin 2.8 mg/dl (0.2-1.3) H 11/25/25 11:22
AST 96 U/L (14-36) H 11/25/25 11:22
ALT 44 U/L (0-35) H 11/25/25 11:22
Alkaline Phosphatase 133 U/L (38-126) H 11/25/25 11:22
Data Reviewed
-
Lab Data: Labs Reviewed by me
Old Records: Reviewed
Impression/Plan
-
IMPRESSION:
PLAN:
# Acute metabolic encephalopathy secondary to hepatic encephalopathy/hypernatremia
- See individually below
# Hepatic encephalopathy
-No abdominal distention on examination
-Unable to reach brother patient's brother to obtain further history
- Outpatient labs from yesterday showed ammonia level of 141, 17 here, rechecking
- Rectal lactulose given, continue rectal lactulose every 6 hours as needed with aim of 2 bowel movements per day
- Check urinalysis
- Check chest x-ray
-Check COVID and influenza
-Continue Xifaxan when awake
- GI consulted
# Hypernatremia likely from hypovolemia
-Appears hypovolemic on examination
- Sodium of 153
- Half-normal saline
- Recheck BMP every 6 hours
History of CVA with right-sided hemiparesis/aphasia
Alcoholic cirrhosis
History of pancytopenia
- Improved
Osteoporosis
Depression
- Continue mirtazapine, duloxetine
Insomnia
- Hold trazodone
GERD/duodenal ulcer
- Continue Protonix
DNR/DNI
DVT prophylaxis�heparin
Regular diet
[2025-11-25 13:02] LABS: Ammonia 19 umol/L (9-30)
[2025-11-25 13:17] LABS: COVID-19 Antigen Negative (Negative)
[2025-11-25] MEDS: LACTULOSE ENEMA 300 ML RECTAL ×2 (13:31→22:53)
--- NOTE | 2025-11-25 15:09 | EDCM ---
Reviewed chart, attempted to meet with pt but unable to understand her, shook head yes to simple questions.
Pt resides at [facility] in LTC, has been there since 01/2024.
She is primarily bedbound, requires total assistance, staff transfers her to wheelchair.
PMH includes CVA with R hemiparesis, HTN, Alcoholic cirrhosis, Hepatic encephalopathy
PCP: Mayito Oneill
Pharmacy: [facility]
Anticipate return to [facility] when medically stable, CM will continue to follow for all discharge planning needs.
[2025-11-25] MEDS: 0.45%NACL 1000 IV (16:23)
--- NOTE | 2025-11-25 16:46 | PTCARENOTE ---
Pt transferred to [facility]. Pt pulled over from stretcher to bed. Pt AAOx1, pt is able to mouth words and nods appropriately. No c/o pain, safety measures in place,call rendon within reach.
--- NOTE | 2025-11-25 17:11 | CON.GI ---
Consultation
-
Date/Time Consultation Requested: 11/25/2025
Date/Time Consultation Performed: 11/25/2025
Requesting Provider: Hospitalist
Performing Provider: Angel KOENIG
Reason for Consultation: HE
Medical History
Chief Complaint / HPI
Chief Complaint: Altered mental status
History of Present Illness:
60-year-old female with a past medical history of chronic alcoholic cirrhosis (no longer drinking) with grade 1 varices and history of hepatic encephalopathy (on chronic lactulose), pancytopenia, GERD, duodenal ulcer, IBS, ASCVD, history of CVA with
sequelae of right hemiparesis, contractures, aphasia, dysphagia, PVCs, who presented from SNF with altered mental status for the past few days. Ammonia level was 141. She also has decreased p.o. intake. Last lactulose was . Patient unable
to provide history. Most information gathered from H&P
Past Medical History
Past Medical History: Other (CVA with right hemiparesis/aphasia, alcoholic cirrhosis, pancytopenia, hepatic encephalopathy, osteoporosis, depression, insomnia, GERD/duodenal ulc)
Social History
Tobacco: Non-Smoker
Alcohol: Former
Allergies / Home Medications
Allergy/AdvReac Type Severity Reaction Status Date / Time
No Known Allergies Allergy Verified 11/25/25 10:48
�Medication �Instructions �Recorded
ascorbic acid (vitamin C) 500 mg 500 mg PO DAILY anemia 07/06/24
tablet
bisacodyl 10 mg rectal suppository 10 mg NJ DAILYPRN PRN if mom is 07/06/24
(Dulcolax (bisacodyl)) ineffective
calcium 600 mg (as 1 tab PO BID Supplement 07/06/24
carbonate)-vitamin D3 10 mcg (400
unit) tablet (Calcium 600 + D(3))
folic acid 1 mg tablet 1 mg PO DAILY Supplement 07/06/24
rifaximin 550 mg tablet (Xifaxan) 550 mg PO BID Gastrointestinal 07/06/24
Issue
sodium phosphates 19 gram-7 118 ml NJ DAILYPRN PRN if dulcolax 07/06/24
gram/118 mL enema is ineffective
thiamine HCl (vitamin B1) 100 mg 100 mg PO DAILY Supplement 07/06/24
tablet
acetaminophen 325 mg tablet 650 mg PO Q6HPRN PRN moderate 12/07/24
pain/fever
duloxetine 20 mg capsule,delayed 20 mg PO DAILY Mental 12/07/24
release Health/Anxiety
trazodone 50 mg tablet 25 mg PO DAILY 12/07/24
magnesium hydroxide 400 mg/5 mL 30 ml PO DAILYPRN PRN CONSTIPATION 02/12/25
oral suspension (Milk of Magnesia)
pantoprazole 40 mg tablet,delayed 40 mg PO DAILY #84 tabs 05/19/25
release
carvedilol 3.125 mg tablet (Coreg) 3.125 mg PO BID #60 tabs 05/20/25
potassium chloride 10 mEq 10 meq PO DAILY Electrolyte 08/07/25
tablet,extended release (Klor-Con) Repletion #30 tabs
lactulose 10 gram/15 mL oral 30 ml PO TID 08/15/25
solution
lactulose 10 gram/15 mL oral 30 ml PO DAILYPRN PRN constipation 08/15/25
solution (Enulose)
artificial tears(hypromellose) 0.3 2 drp ophthalmic (eye) HS 11/25/25
% eye gel (Systane Gel)
duloxetine 60 mg capsule,delayed 60 mg PO DAILY 11/25/25
release
oxycodone 5 mg tablet 2.5 mg PO HS 11/25/25
quetiapine 50 mg tablet 50 mg PO HS 11/25/25
trazodone 50 mg tablet 50 mg PO HS 11/25/25
Review of Systems
Vital Signs
Temp Pulse Resp BP Pulse Ox
98.3 F 82 16 140/89 100
11/25/25 16:41 11/25/25 16:41 11/25/25 16:41 11/25/25 16:41 11/25/25 16:41
Physical Exam
Exam
Respiratory: Clear
Cardiac: S1/S2
GI: Soft, Non Tender and Non Distended
Neuro: Awake and Other (Responding to pain)
Results
WBC 9.4 10^3/uL (4.8-10.8) 11/25/25 11:22
Hgb 14.4 g/dL (12.0-16.0) 11/25/25 11:22
Hct 43.8 % (37.0-47.0) 11/25/25 11:22
MCV 98.4 fL (81.0-99.0) 11/25/25 11:22
Plt Count 147 10^3/uL (130-400) 11/25/25 11:22
Absolute Neuts (auto) 7.3 10^3/uL (1.4-6.5) H 11/25/25 11:22
Sodium 153 mmol/L (135-145) H 11/25/25 11:22
Potassium 3.7 mmol/L (3.5-5.1) 11/25/25 11:22
Chloride 118 mmol/L (98-107) H 11/25/25 11:22
Carbon Dioxide 29 mmol/L (22-30) 11/25/25 11:22
BUN 40 mg/dl (7-17) H 11/25/25 11:22
Creatinine 1.0 mg/dL (0.6-1.0) 11/25/25 11:22
Calcium 9.1 mg/dl (8.4-10.2) 11/25/25 11:22
Total Bilirubin 2.8 mg/dl (0.2-1.3) H 11/25/25 11:22
AST 96 U/L (14-36) H 11/25/25 11:22
ALT 44 U/L (0-35) H 11/25/25 11:22
Alkaline Phosphatase 133 U/L (38-126) H 11/25/25 11:22
Diagnostic Image Results:
US abd 08/05/2025
Hepatic cirrhosis/splenomegaly. No ascites
Prior GI Procedures:
EGD: 04/2025
Impression: - Grade I esophageal varices.
- Small hiatal hernia.
- Non-obstructing Schatzki ring.
- Gastritis.
- Non-bleeding duodenal ulcer.
- Normal second portion of the duodenum
Colonoscopy:
Assessment / Plan
-
60-year-old female with a past medical history of chronic alcoholic cirrhosis (no longer drinking) with grade 1 varices and history of hepatic encephalopathy (on chronic lactulose), pancytopenia, GERD, duodenal ulcer, IBS, ASCVD, history of CVA with
sequelae of right hemiparesis, contractures .aphasia , PVCs, who presented from [facility] with altered mental status for the past few days. Ammonia level was [address] [facility]. She also has decreased p.o. intake. Last lactulose was . Back in July
2024 she was admitted with hepatic encephalopathy - No etiology identified for her decompensation
Labs on admission�WBC 9.4/Hb 14.4/platelets 147
Sodium 153/potassium 3.7/BUN 40/creatinine 1
AST 96/ALT 40/alkaline phosphatase 133/total bilirubin 2.8
Ammonia 17
-- Decompensated liver cirrhosis with recurrent hepatic encephalopathy (not a transplant candidate)
-- Hypernatremia
-- Elevated liver test
-- CVA with right hemiparesis
plan
NPO
Correction of hypernatremia by medical team. jacobley dehydration. Would recommend IV hydration
Rectal lactulose enema every 6 hours. Titrate to 3 -4 BMs daily. Okay to transition to oral once mental status better.
check INR
trend LFT/ INR
Will schedule repeat ultrasound abdomen with doppler
Sepsis workup as per medical team
Will follow
Total Time Spent with Patient (in minutes): 55
-
-
Thank you for consultation and allowing me to participate in the patient's care. Please call the communications editor GI physician during the after hours with any questions or concerns.
[2025-11-25 18:59] LABS: Blood Urea Nitrogen 41 mg/dl (7-17); Calcium 9.1 mg/dl (8.4-10.2); Carbon Dioxide 24 mmol/L (22-30); Chloride 119 mmol/L (98-107); Glucose 170 mg/dl (70-99); Potassium 3.6 mmol/L (3.5-5.1); Sodium 152 mmol/L (135-145); eGFR > 60.00
[2025-11-25] MEDS: HEPARIN 5000 UNITS SC (19:28)
[2025-11-25 21:47] LABS: Urine Character Clear (Clear)
[2025-11-25 22:05] LABS: Urine Squamous Cell >30 /LPF (Few)
[2025-11-25 22:06] LABS: Urine Red Blood Cell 0-2 /HPF (0-2)
[2025-11-26] MEDS: 0.45%NACL 1000 IV (01:58)
[2025-11-26 03:25] VITALS: BP 125/76
[2025-11-26 07:00] VITALS: BP 129/80
[2025-11-26] MEDS: HEPARIN 5000 UNITS SC ×2 (07:07→19:34)
--- NOTE | 2025-11-26 07:57 | W.PN.HOSP.TC ---
Today's Communication/Plan
-
Lactulose
Hypernatremia treatment with D5W
Recheck BMP to assess sodium and glucose
Monitor on telemetry
Assessment / Plan
Assessment / Plan
Physical Exam
General: Well Developed, Well Nourished and No Apparent Distress
HEENT: Normocephalic, Moist mucous membranes and Atraumatic
Respiratory: Clear
Cardiac: S1/S2 and Regular Rhythm
GI: Soft, Non Tender, Non Distended and Normal Bowel Sounds
Musculoskeletal: No Cyanosis and No Edema
Skin: Warm. Dry.
Neuro: AAOx2 (not date/time).
Assessment/Plan
60-year-old female past medical history of CVA with right hemiparesis/aphasia, alcoholic cirrhosis, pancytopenia, hepatic encephalopathy, osteoporosis, depression, insomnia, GERD/duodenal ulcer, presenting from SNF after outpatient labs showed
ammonia level of 141. As per SNF she had decreased p.o. intake for past several days. She was noted to be encephalopathic and opening eyes and withdrawing to pain. She has not had any lactulose since 11/22/25. Patient unable to provide any
history.
# Acute metabolic encephalopathy secondary to hepatic encephalopathy/hypernatremia
- See individually below
# Hepatic encephalopathy with associated significantly elevated ammonia
-No abdominal distention on examination
- Outpatient labs from yesterday showed ammonia level of 141, 17 here, rechecking
- Continue rectal lactulose
- Urinalysis with microscopic hematuria, but not suggestive of UTI
- Chest x-ray with pneumonia or CHF congestion
- COVID and influenza were negative
- Continue Xifaxan when patient becomes more awake
- GI consulted: Dr. Pires discussed with patient's brother, he did not want to make any medical decisions until he could discuss with patient. He thinks ultimately she can still make her own medical decisions. He will discuss
with her when her encephalopathy resolves. He seemed to understand her underlying cirrhosis, that she�s not a liver transplant candidate, risk of recurrence, especially in the setting of medical noncompliance.
- Per Jair Text communication from 11/26/[address] Mayito Oneill: 'Some more background from the nursing facility: normally she was on 30ml TID (changed from the 20mL QID in the 07/2025 hospital discharge due to difficulty with QID compliance,
she often refused multiple doses). On the and she refused one dose. one dose was given. On the my OPT[employer] TECHNICAL OFFICER called her POA and recommended hospital (or end of life care) and he refused. We ordered some labs but then he changed his mind
on Wednesday and she went out.....'
-Dr. Oneill personally discussed end of life care with him several times. In July when she was in the hospital, he requested that Bennie personally call him to discuss this as well which it is documented they did
# Hypernatremia likely from hypovolemia
- Appears hypovolemic on examination
- Sodium of 153 initially
- Half-normal saline was given initially, sodium without improvement
- Started D5W IV fluids
- Recheck BMP every 4 to 6 hours
History of CVA with right-sided hemiparesis/aphasia
Alcoholic cirrhosis
History of pancytopenia
- Improved
Osteoporosis
Depression
- Continue mirtazapine, duloxetine
Insomnia
- Hold trazodone
GERD/duodenal ulcer
- Continue Protonix
DNR/DNI
DVT prophylaxis�heparin
Regular diet
Anticipated Discharge: > 48 hours
Subjective/Interval History
-
Date of Service: November 26, 2025
Patient was seen and examined. She was able to answer some questions, but was mostly confused.
Objective Data
-
Labs:
Laboratory Results
11/26/25 11/26/25
00:00 06:43
WBC Pending
Hgb Pending
Hct Pending
Plt Count Pending
PT Pending
INR Pending
Sodium Pending Pending
Potassium Pending Pending
Chloride Pending Pending
Carbon Dioxide Pending Pending
BUN Pending Pending
Creatinine Pending Pending
Glucose Pending Pending
Calcium Pending Pending
Total Bilirubin Pending
AST Pending
ALT Pending
Alkaline Phosphatase Pending
Vital Signs:
Vital Signs
Temp Pulse Resp BP Pulse Ox
98.4 F 66 14 125/76 96
11/26/25 03:25 11/26/25 03:25 11/26/25 03:25 11/26/25 03:25 11/26/25 03:25
[2025-11-26 08:30] LABS: INR 1.83; PT 21.3 Sec (11.4-14.6)
[2025-11-26 08:38] LABS: Hematocrit 39.1 % (37.0-47.0); Hemoglobin 12.6 g/dL (12.0-16.0); Mean Corp Hgb Conc. 32.2 g/dL (33.0-37.0); Mean Corpuscular Volume 99.2 fL (81.0-99.0); Nucleated Red Blood Cells % 2.1 %; Platelet Count 108 10^3/uL (130-400); Red Cell Dist. Width 15.7 % (11.5-14.5)
[2025-11-26 08:54] LABS: ALT (SGPT) 38 U/L (0-35); AST (SGOT) 72 U/L (14-36); Albumin 2.8 g/dl (3.5-5.0); Alkaline Phosphatase 109 U/L (38-126); Blood Urea Nitrogen 42 mg/dl (7-17); Calcium 8.4 mg/dl (8.4-10.2); Carbon Dioxide 26 mmol/L (22-30); Chloride 120 mmol/L (98-107); Glucose 84 mg/dl (70-99); Potassium 3.0 mmol/L (3.5-5.1); Sodium 151 mmol/L (135-145); Total Protein 5.8 g/dl (6.3-8.2); eGFR > 60.00
[2025-11-26] MEDS: LACTULOSE ENEMA 300 ML RECTAL ×2 (09:00→16:23)
--- NOTE | 2025-11-26 09:28 | PTCARENOTE ---
Brother (Anthony) called for update. Attempted to reach brother x2, voicemail left to brother of update.
[2025-11-26 10:57] LABS: Blood Urea Nitrogen 40 mg/dl (7-17); Calcium 8.8 mg/dl (8.4-10.2); Carbon Dioxide 29 mmol/L (22-30); Chloride 119 mmol/L (98-107); Glucose 89 mg/dl (70-99); Potassium 3.7 mmol/L (3.5-5.1); Sodium 153 mmol/L (135-145); eGFR > 60.00
[2025-11-26 11:00] VITALS: BP 137/92
[2025-11-26] MEDS: D5W 1000 IV (12:58)
--- NOTE | 2025-11-26 13:13 | W.PN.GI.CBS2 ---
Today's Communication / Plan
-
lactulose, monitor MS, doppler us
Assessment / Plan
-
60-year-old female with a past medical history of chronic alcoholic cirrhosis (no longer drinking) with grade 1 varices and history of hepatic encephalopathy (on chronic lactulose), pancytopenia, GERD, duodenal ulcer, IBS, ASCVD, history of CVA with
sequelae of right hemiparesis, contractures .aphasia , PVCs, who presented from [facility] with altered mental status for the past few days. Ammonia level was [address] [facility]. She also has decreased p.o. intake. Last lactulose was . Back in July
2024 she was admitted with hepatic encephalopathy - No etiology identified for her decompensation
Labs on admission�WBC 9.4/Hb 14.4/platelets 147
Sodium 153/potassium 3.7/BUN 40/creatinine 1
AST 96/ALT 40/alkaline phosphatase 133/total bilirubin 2.8
Ammonia 17
-- Decompensated liver cirrhosis with recurrent hepatic encephalopathy (not a transplant candidate)
-- Hypernatremia
-- Elevated liver test
-- CVA with right hemiparesis
Suspect recurrent PSE in setting of non compliance of medications
plan
NPO
Correction of hypernatremia by medical team. likely dehydration. Would recommend IV hydration
Rectal lactulose enema every 8 hours - I changed to standing. Titrate to 3 -4 BMs daily. Okay to transition to oral once mental status better and add xifaxan when taking oral.
Daily MELD labs
Will schedule repeat ultrasound abdomen with doppler pending read
Will follow
I discussed with hospitalist and [facility] physician Dr. Oneill. Apparently patient was refusing lactulose in the hospital. Discussions of goals of care were discussed with the brother. I also personally reach out to the brother. He
feels he does not wish to make any sort of medical decisions or long-term plans until he discusses with his sister when her mental status improves. He feels ultimately she can still decide her long-term goals.
Subjective
Subjective
Date of Service: November 26, 2025
Patient continues to be encephalopathic although able to state she is in [place].
Objective
Data Reviewed
Laboratory Data:
Laboratory Results
11/26/25 06:43
11/26/25 10:27
Laboratory Results
PT 21.3 Sec (11.4-14.6) H 11/26/25 06:43
INR 1.83 11/26/25 06:43
Magnesium 2.2 mg/dl (1.6-2.3) 11/25/25 11:22
Total Bilirubin 2.4 mg/dl (0.2-1.3) H 11/26/25 06:43
AST 72 U/L (14-36) H 11/26/25 06:43
ALT 38 U/L (0-35) H 11/26/25 06:43
Alkaline Phosphatase 109 U/L (38-126) 11/26/25 06:43
Vital Signs and I&O:
Vital Signs
Temp Pulse Resp BP Pulse Ox
97.4 F 61 14 137/92 98
11/26/25 11:00 11/26/25 11:00 11/26/25 11:00 11/26/25 11:00 11/26/25 11:00
Physical Exam
Physical Exam
GI: Non Distended and Non Tender
Neuro: Other (aaox2)
[2025-11-26] MEDS: THIAMINE INJECTION 200 MG IV ×2 (13:15→15:54)
[2025-11-26 15:00] VITALS: BP 99/58
[2025-11-26 17:35] LABS: Blood Urea Nitrogen 38 mg/dl (7-17); Calcium 8.3 mg/dl (8.4-10.2); Carbon Dioxide 24 mmol/L (22-30); Chloride 116 mmol/L (98-107); Glucose 115 mg/dl (70-99); Potassium 3.2 mmol/L (3.5-5.1); Sodium 146 mmol/L (135-145); eGFR > 60.00
[2025-11-26 19:00] VITALS: BP 97/64
[2025-11-26] MEDS: OSCAL 500 + D 500 MG PO (19:34)
[2025-11-26] MEDS: KCL 270 MEQ IV (20:56)
[2025-11-26] MEDS: REFRESH CELLUVISC GEL 2 DROPS OPHTH (20:57)
[2025-11-26 23:00] VITALS: BP 89/52
[2025-11-27] MEDS: LACTULOSE ENEMA 300 ML RECTAL ×2 (00:55→09:11)
[2025-11-27] MEDS: THIAMINE INJECTION 200 MG IV ×3 (00:55→16:58)
[2025-11-27 03:00] VITALS: BP 103/59
[2025-11-27] MEDS: D5W 1000 IV (04:32)
[2025-11-27 07:00] VITALS: BP 100/57
--- NOTE | 2025-11-27 07:23 | PN.CDI ---
CDI
- -
CDI:
Physician Documentation Request
Admit Date: 11/25/25 12:43
Dear Doctor Arleen,
Patient admitted with acute metabolic encephalopathy secondary to hepatic encephalopathy/hypernatremia.
11/26 Nursing skin assessment, 'Stage 1 sacral pressure injury, POA.'
Physician documentation of the type and location of wounds is required for compliant documentation. Based on the above clinical findings and your assessment, please provide the following in your progress note:
Type (etiology) of ulcer/wound:
- Pressure (decubitus) ulcer
- Other
- Unable to determine
For a pressure ulcer, please also include the stage* of the ulcer:
- Stage 1 - Skin intact, non-blanchable redness
- Stage 2 - Partial thickness loss of dermis, includes intact or open blister
- Stage 3 - Full thickness tissue not including bone, tendon or muscle
- Stage 4 - Full thickness tissue loss, including exposed bone, tendon or muscle
- Unstageable - Full thickness loss in which the base of the ulcer is covered by slough (yellow, sy, rose, green or brown) and/or eschar (sy, brown or black) in the wound bed.
- Unable to determine
Use of terms such as suspected, likely, concern for, or probable (associated with a specific diagnosis that is being evaluated, monitored, or treated as if it exists) are acceptable and can be coded in the inpatient setting, when documented at the
time of discharge.
Thank you,
Mala STEELE,RN,CCDS
CDI Specialist
Available via tiger text
Please use your independent medical judgment in providing your response.
*Source: National Pressure Ulcer Advisory Panel (NPUAP)
--- NOTE | 2025-11-27 07:38 | PN.CDI ---
CDI
- -
CDI:
Physician Documentation Request
Admit Date: 11/25/25 12:43
Dear Doctor Arleen,
Patient admitted with acute metabolic encephalopathy secondary to hepatic encephalopathy/hypernatremia.
ED note, 'General Chronic Disability: contractures.'
11/25 ED Case Management note, 'She is primarily bedbound, requires total assistance, staff transfers her to wheelchair.'
11/25 Rehab Clinical Panel, 'Previous functional ability: Dependent'
11/26 PN, 'History of CVA with right-sided hemiparesis.'
Please provide in your note the diagnosis associated with the patients current functional status:
Functional quadriplegia- complete immobility due to severe physical disability or frailty
Weakness only
Other
Quadriparesis/Quadriplegia
Type
Complete
Incomplete
Unable to determine
Level
C1-C4
C5-C7
Unable to determine
Etiology
CVA, cerebral palsy,
injury, etc.
Functional quadriplegia
complete immobility due
severe physical
disability or frailty
Use of terms such as suspected, likely, concern for, or probable (associated with a specific diagnosis that is being evaluated, monitored, or treated as if it exists) are acceptable and can be coded in the inpatient setting, when documented at the
time of discharge.
Thank you,
Mala STEELE,RN,CCDS
CDI Specialist
Available via tiger text
Please use your independent medical judgment in providing your response.
[2025-11-27] MEDS: KCL 10 MEQ PO (08:06)
[2025-11-27] MEDS: HEPARIN 5000 UNITS SC (08:06)
[2025-11-27] MEDS: PROTONIX 40 MG PO (08:06)
[2025-11-27] MEDS: VITAMIN C 500 MG PO (08:06)
[2025-11-27] MEDS: OSCAL 500 + D 500 MG PO (08:06)
[2025-11-27] MEDS: CYMBALTA DELAYED RELEASE 20 MG PO (08:06)
[2025-11-27] MEDS: CYMBALTA DELAYED RELEASE 60 MG PO (08:06)
[2025-11-27] MEDS: FOLVITE 1 MG PO (08:06)
--- NOTE | 2025-11-27 08:15 | W.PN.HOSP.TC ---
Today's Communication/Plan
-
Discharge today
Assessment / Plan
Assessment / Plan
Physical Exam
General: Well Developed, Well Nourished and No Apparent Distress
HEENT: Normocephalic, Moist mucous membranes and Atraumatic
Respiratory: Clear
Cardiac: S1/S2 and Regular Rhythm
GI: Soft, Non Tender, Non Distended and Normal Bowel Sounds
Musculoskeletal: No Cyanosis and No Edema
Skin: Warm. Dry.
Neuro: AAOx3 (not date/time). Cranial Nerves 2 through 12 grossly intact bilaterally. Nonfocal/grossly intact bilaterally in the B/L upper and lower extremities.
Assessment/Plan
60-year-old female past medical history of CVA with right hemiparesis/aphasia, alcoholic cirrhosis, pancytopenia, hepatic encephalopathy, osteoporosis, depression, insomnia, GERD/duodenal ulcer, presenting from SNF after outpatient labs showed
ammonia level of 141. As per SNF she had decreased p.o. intake for past several days. She was noted to be encephalopathic and opening eyes and withdrawing to pain. She has not had any lactulose since 11/22/25. Patient unable to provide any
history.
# Acute metabolic encephalopathy secondary to hepatic encephalopathy/hypernatremia
- RESOLVED
# Hepatic encephalopathy with associated significantly elevated outpatient ammonia
# Decompensated liver cirrhosis with recurrent hepatic encephalopathy (not a transplant candidate)
# Suspected Portal-Systemic Encephalopathy in the setting of non-compliance of medications
-No abdominal distention on examination
- Outpatient labs from yesterday showed ammonia level of 141, 17-19 here
- Since patient is much more alert and awake, change rectal lactulose to oral lactulose and titrate to 3 -4 BMs daily
- Urinalysis with microscopic hematuria, but not suggestive of UTI
- Chest x-ray with no pneumonia or CHF congestion
- COVID and influenza were negative
- Continue Xifaxan since patient can take oral medications now
- Continue Coreg
- GI consulted: Dr. Pires discussed with patient's brother, he did not want to make any medical decisions until he could discuss with patient. He thinks ultimately she can still make her own medical decisions. He will discuss
with her when her encephalopathy resolves. He seemed to understand her underlying cirrhosis, that she�s not a liver transplant candidate, risk of recurrence, especially in the setting of medical noncompliance.
- Per Jair Text communication from 11/26/[address] Mayito Oneill: 'Some more background from the nursing facility: normally she was on 30ml TID (changed from the 20mL QID in the 07/2025 hospital discharge due to difficulty with QID compliance,
she often refused multiple doses). On the and she refused one dose. one dose was given. On the my CLIENT SERVICES COORDINATOR called her POA and recommended hospital (or end of life care) and he refused. We ordered some labs but then he changed his mind
on Wednesday and she went out.....'
-Dr. Oneill personally discussed end of life care with him several times. In July when she was in the hospital, he requested that Clair.I. personally call him to discuss this as well which it is documented they did
-Patient needs to be compliant, including compliance with her Lactulose
-Recheck CMP, INR outpatient
#Hypokalemia
-Potassium supplementation
-Recheck BMP outpatient
#Microscopic Hematuria
- recheck urinalysis outpatient
# Hypernatremia - RESOLVED - likely from hypovolemia
- Appears hypovolemic on examination
- Sodium of 153 initially
- Half-normal saline was given initially, sodium without improvement
- Started D5W IV fluids with resolution of hypernatremia
- Recheck BMP outpatient
#Mild splenomegaly on abdominal ultrasound 11/26/25
#Recanalized umbilical vein on abdominal ultrasound 11/26/25
History of CVA with right-sided hemiparesis/aphasia
Alcoholic cirrhosis
History of pancytopenia
- Improved
Osteoporosis
Depression
- Continue mirtazapine, duloxetine
Insomnia
- Hold trazodone
GERD/duodenal ulcer
- Continue Protonix
General Chronic Disability/Weakness/contractures
Stage 1 sacral pressure injury, POA
DNR/DNI
DVT prophylaxis�heparin
More than 30 minutes spent in discharge including
Final examination of the patient
Summarizing hospital stay
Instructions for continuing care to all relevant caregivers
Preparation of discharge records, prescriptions, and referral forms
Total time spent (in minutes): 41
Anticipated Discharge: Today
Subjective/Interval History
-
Date of Service: November 27, 2025
Patient was seen and examined. She was much more alert and interactive today. She denied any complaints or new symptoms.
Objective Data
-
Labs:
Laboratory Results
11/27/25
06:00
WBC Pending
Hgb Pending
Hct Pending
Plt Count Pending
PT Pending
INR Pending
Sodium Pending
Potassium Pending
Chloride Pending
Carbon Dioxide Pending
BUN Pending
Creatinine Pending
Glucose Pending
Calcium Pending
Total Bilirubin Pending
AST Pending
ALT Pending
Alkaline Phosphatase Pending
Vital Signs:
Vital Signs
Temp Pulse Resp BP Pulse Ox
97.8 F 71 16 103/59 100
11/27/25 03:00 11/27/25 03:00 11/27/25 03:00 11/27/25 03:00 11/27/25 03:00
I&O
11/26/25 11/27/25 11/28/25
06:59 06:59 06:59
Intake Total 4080 / 4080
Balance 4080 / 4080
--- NOTE | 2025-11-27 09:07 | W.PN.GI.CBS2 ---
Today's Communication / Plan
-
Recommend speech eval to clear for PO
f/u AM labs, if bili uptrending, will recommend MRI
Assessment / Plan
-
60-year-old female with a past medical history of chronic alcoholic cirrhosis (no longer drinking) with grade 1 varices and history of hepatic encephalopathy (on chronic lactulose), pancytopenia, GERD, duodenal ulcer, IBS, ASCVD, history of CVA with
sequelae of right hemiparesis, contractures .aphasia , PVCs, who presented from [facility] with altered mental status for the past few days. Ammonia level was 141 at SNF. She also has decreased p.o. intake. Last lactulose was . Back in July
2024 she was admitted with hepatic encephalopathy - No etiology identified for her decompensation
Labs on admission�WBC 9.4/Hb 14.4/platelets 147
Sodium 153/potassium 3.7/BUN 40/creatinine 1
AST 96/ALT 40/alkaline phosphatase 133/total bilirubin 2.8
Ammonia 17
-- Decompensated liver cirrhosis with recurrent hepatic encephalopathy (not a transplant candidate)
-- Hypernatremia
-- Elevated liver test
-- CVA with right hemiparesis
Suspect recurrent PSE in setting of non compliance of medications. Certainly, compared to reported mental status at [facility], mental status has improved with administration of lactulose
plan
NPO--recommend speech eval to clear for diet
Correction of hypernatremia by medical team. likely dehydration--improving, 153 --> 146
Currently getting lactulose enemas, Titrate to 3 -4 BMs daily. -- change to PO once cleared for PO by speech, will also recommend adding xifaxin once able to take PO
Daily MELD labs--AM labs pending
Abdominal US poor quality, evidence of recanalized umbilical vein, mild splenomegaly, nonvisualization of the CBD and gallbladder
Await AM labs, if tbili is uptrending, will recommend MRI to better characterize biliary tree, though, patient may have difficult time tolerating
Dr. Pires discussed with hospitalist and long care facility physician Dr. Oneill on 11/26. Apparently patient was refusing lactulose in the hospital. Discussions of goals of care were discussed with the brother. Dr. Pires also spoke with
patient's brother who does not want to make any medical decisions or long-term plans until he discusses with his sister once Tali's mental status improves. He feels ultimately she can still decide her long-term goals.
Subjective
Subjective
Date of Service: November 27, 2025
Patient seen in follow-up, no overnight events.
Objective
Data Reviewed
Laboratory Data:
Laboratory Results
PT 21.3 Sec (11.4-14.6) H 11/26/25 06:43
INR 1.83 11/26/25 06:43
Magnesium 2.2 mg/dl (1.6-2.3) 11/25/25 11:22
Total Bilirubin 2.4 mg/dl (0.2-1.3) H 11/26/25 06:43
AST 72 U/L (14-36) H 11/26/25 06:43
ALT 38 U/L (0-35) H 11/26/25 06:43
Alkaline Phosphatase 109 U/L (38-126) 11/26/25 06:43
Vital Signs and I&O:
Vital Signs
Temp Pulse Resp BP Pulse Ox
97.8 F 71 16 103/59 100
11/27/25 03:00 11/27/25 03:00 11/27/25 03:00 11/27/25 03:00 11/27/25 03:00
I&O
11/26/25 11/27/25 11/28/25
06:59 06:59 06:59
Intake Total 4080 / 4080
Balance 4080 / 4080
Physical Exam
Physical Exam
GI: Non Distended and Non Tender
Neuro: Other (aaox2; right hemiparesis (chronic))
[2025-11-27 10:29] LABS: Hematocrit 34.1 % (37.0-47.0); Hemoglobin 11.2 g/dL (12.0-16.0); Mean Corp Hgb Conc. 32.8 g/dL (33.0-37.0); Mean Corpuscular Volume 97.4 fL (81.0-99.0); Nucleated Red Blood Cells % 0.8 %; Platelet Count 96 10^3/uL (130-400); Red Cell Dist. Width 15.4 % (11.5-14.5)
[2025-11-27 10:40] LABS: INR 1.55; PT 18.7 Sec (11.4-14.6)
[2025-11-27 10:47] LABS: Magnesium 1.9 mg/dl (1.6-2.3)
[2025-11-27 10:54] LABS: ALT (SGPT) 31 U/L (0-35); AST (SGOT) 46 U/L (14-36); Albumin 2.6 g/dl (3.5-5.0); Alkaline Phosphatase 96 U/L (38-126); Blood Urea Nitrogen 31 mg/dl (7-17); Calcium 8.1 mg/dl (8.4-10.2); Carbon Dioxide 24 mmol/L (22-30); Chloride 109 mmol/L (98-107); Glucose 100 mg/dl (70-99); Potassium 3.5 mmol/L (3.5-5.1); Sodium 136 mmol/L (135-145); Total Protein 5.5 g/dl (6.3-8.2); eGFR > 60.00
[2025-11-27 11:00] VITALS: BP 108/65
[2025-11-27] MEDS: D5W IV (12:42)
--- NOTE | 2025-11-27 13:01 | W.PN.UPDATE ---
Update Note
Progress Note Update
AM labs resulted, bili downtrending, down to 1.9. Repeat exam by Dr. aBcon patient mentating appropriately AAOx3.
Hypernatremia resolved
Okay to resume her regular/previous diet
Okay to change lactulose to PO
Start Xifaxin 550mg BID
Resume Coreg on discharge
Encourage long-term GOC discussion with patient's brother/sister as an outpatient
Outpatient GI/hepatology f/u
GI signing off, please call with questions
--- NOTE | 2025-11-27 13:49 | CM ---
Patient for d/c back to [facility].
Updated clinicals via [facility]
Ambulance transport forms on chart.
IMM verbally reviewed with patient.
Left VM for brother.
[facility] rehab
report# [id number]
[2025-11-27 15:00] VITALS: BP 97/54
--- NOTE | 2025-11-27 15:39 | W.DCSUMMARY ---
Discharge Summary
Discharge Data
Date of Admission: 11/25/25
Date of Discharge: 11/27/25
Total time spent discharging patient (in min): 41
-
Pending Results: No
Hospital Course
60 year-old female with past medical history of CVA with right hemiparesis/aphasia, alcoholic cirrhosis, pancytopenia, hepatic encephalopathy, osteoporosis, depression, insomnia and GERD/duodenal ulcer, presented from SNF after outpatient labs
showed ammonia level of 141. As per SNF facility, patient had decreased oral intake over the several days leading up to admission. Patient was admitted with hepatic encephalopathy and she was started on rectal Lactulose. Gastroenterology was
consulted. Patient was started on appropriate intravenous fluids to correct hypernatremia. Patient was also started on intravenous thiamine. Patient's lethargy resolved. Urinalysis showed microscopic hematuria but did not suggest a urinary tract
infection. COVID and influenza were negative. Dr. Pires, attenuator, discussed with patient's brother, he did not want to make any medical decisions until he could discuss with patient, and he seemed to understand her underlying cirrhosis,
that she�s not a liver transplant candidate, risk of recurrence, especially in the setting of medical noncompliance. Per [place] Text communication from 11/26/[address] Mayito Oneill, patient had not been compliant with her Lactulose. Patient's
lethargy resolved and she was much more interactive, and she was oriented x3. She was stable for discharge.
Discharge Plan
-
Patient Disposition: Skilled Nursing/SNF
Discharge Diagnosis/Procedures: # Acute metabolic encephalopathy -- RESOLVED -- secondary to hepatic encephalopathy/hypernatremia
# Hepatic encephalopathy with associated significantly elevated outpatient ammonia
# Decompensated liver cirrhosis with recurrent hepatic encephalopathy (not a transplant candidate)
# Suspected Portal-Systemic Encephalopathy in the setting of non-compliance of medications
# Hypokalemia
# Microscopic Hematuria
# Hypernatremia - RESOLVED - likely from hypovolemia
# Mild splenomegaly on abdominal ultrasound 11/26/25
# Recanalized umbilical vein on abdominal ultrasound 11/26/25
# History of CVA with right-sided hemiparesis/aphasia
# Alcoholic cirrhosis
# History of pancytopenia
# Osteoporosis
# Depression
# Insomnia
# GERD/duodenal ulcer
# General Chronic Disability/Weakness/contractures
# Stage 1 sacral pressure injury, POA
# Subtle linear stranding in the left lower lobe, atelectasis versus scarring, on chest x-ray (as per radiologist's report)
Condition: Fair
Diet: Regular
Activity: As tolerated
Blood Work: CBC, CMP, Serum Albumin and INR in 2 to 3 days. Recheck urinalysis in 1 week.
Other Services: PT
Activity Restrictions/Additional Instructions:
Please emphasize that patient must be compliant with medications, otherwise she will decline and keep coming back to the hospital frequently.
Referrals:
Mayito Oneill MD [Family Provider, [facility]] - in less than 1 week
Referral Note: Hospitalization Follow-Up
Additional Discharge Medication Instructions: Adjust oral lactulose and titrate to 3 -4 bowel movements daily.
Thiamine dose increased to 200 mg BID, but can be changed to 100 mg daily later on as determined by outpatient doctor.
Oxycodone held for now given patient's encepahlopathy when she came to the hospital. Patient's other medications (e.g. Quetiapine, Trazodone may also need to be decreased to make sure she does not become lethargic/confused)
Prescriptions:
Continued
ascorbic acid (vitamin C) 500 mg Tablet
500 mg PO DAILY
bisacodyl [Dulcolax (bisacodyl)] 10 mg Suppository
10 mg ME DAILYPRN PRN (Reason: if mom is ineffective)
sodium phosphates 19-7 gram/118 mL Enema
118 ml ME DAILYPRN PRN (Reason: if dulcolax is ineffective)
folic acid 1 mg Tablet
1 mg PO DAILY
calcium carbonate-vitamin D3 [Calcium 600 + D(3)] 600 mg-10 mcg (400 unit) Tablet
1 tab PO BID
Xifaxan 550 mg Tablet
550 mg PO BID
trazodone 50 mg Tablet
25 mg PO DAILY
duloxetine 20 mg Capsule,Delayed Release(Dr/Ec)
20 mg PO DAILY
Rx Instructions:
take with 60mg for total of 80mg
magnesium hydroxide [Milk of Magnesia] 400 mg/5 mL Suspension
30 ml PO DAILYPRN PRN (Reason: CONSTIPATION)
potassium chloride [Klor-Con 10] 10 mEq tablet extended release
10 meq PO DAILY Qty: 30 0RF
lactulose [Enulose] 10 gram/15 mL Solution
30 ml PO DAILYPRN PRN (Reason: constipation)
lactulose 10 gram/15 mL solution
30 ml PO TID
trazodone 50 mg tablet
50 mg PO HS
Systane Gel 0.3 % Gel
2 drp OPHTHALMIC (EYE) HS
duloxetine 60 mg capsule,delayed release(DR/EC)
60 mg PO DAILY
Rx Instructions:
take with 20mg for total of 80mg
quetiapine 50 mg tablet
50 mg PO HS
carvedilol [Coreg] 3.125 mg tablet
3.125 mg PO BID
pantoprazole 40 mg tablet,delayed release (DR/EC)
40 mg PO DAILY
Changed
thiamine HCl (vitamin B1) 100 mg Tablet
200 mg PO BID Qty: 0 0RF
Held
oxycodone 5 mg tablet
2.5 mg PO HS
Hold Instructions: Resume on 12/02/25.
Discontinued
acetaminophen 325 mg Tablet
650 mg PO Q6HPRN PRN (Reason: moderate pain/fever)
Discharge Orders:
Discharge Patient (As Directed); Ordered 11/27/25
Ordered By: Leroy Bacon
Discharge Date and Time
Discharge Date/Time: 11/27/25 18:04
Print Language: THAI
[2025-11-27] MEDS: DUPHALAC/CHRONULAC 20 GRAMS PO (16:57)
== END 2025-11-27 18:04 | DRG 640 ==
LOC: 4 WEST ACU 12:43
PROVIDERS: Internal Medicine Gastroenterology; Surgery Trauma Surgery; ADMITTING PHYSICIAN Hospitalist; ATTENDING PHYSICIAN Hospitalist; CONSULT PHYSICIAN Internal Medicine Gastroenterology; EMERGENCY PHYSICIAN Emergency Medicine; FAMILY PHYSICIAN Family Medicine
DX: E87.0 Hyperosmolality and hypernatremia (principal); G93.41 Metabolic encephalopathy; I69.351 Hemiplegia and hemiparesis following cerebral infarction affecting right dominant side; K70.30 Alcoholic cirrhosis of liver without ascites; K76.82 Hepatic encephalopathy; I10 Essential (primary) hypertension; R62.7 Adult failure to thrive; R54 Age-related physical debility; M81.0 Age-related osteoporosis without current pathological fracture; F32.A Depression, unspecified; E86.0 Dehydration; G47.00 Insomnia, unspecified; K21.9 Gastro-esophageal reflux disease without esophagitis; E86.1 Hypovolemia; L89.151 Pressure ulcer of sacral region, stage 1; E87.6 Hypokalemia; R31.29 Other microscopic hematuria; Z60.2 Problems related to living alone; Z66 Do not resuscitate; I69.320 Aphasia following cerebral infarction; Z79.899 Other long term (current) drug therapy; Z91.148 Patient's other noncompliance with medication regimen for other reason; Z11.52 Encounter for screening for COVID-19; Z87.11 Personal history of peptic ulcer disease
CPT/HCPCS: 71046; 76700; 80048; 80053; 81003; 81015; 82140; 82248; 83735; 85025; 85610; 87502; 87811; 93975; 96360; 99285